=== PATIENT | female | born 1965 | race Caucasian/White ===

== ENCOUNTER 2019-12-18 10:18 | Outpatient (REF) | payer OTHER, SELFPAY ==
[2019-12-18 14:44] LABS: Creatinine Urine 89.81 mg/dL; Microalbum/Creatinine Ratio Ur 6.6 ug/mg cr
[2019-12-18 14:44] LABS: Alanine Aminotransferase 21 U/L (0-31); Albumin Level 4.2 g/dL (3.5-5.0); Alkaline Phosphatase 92 U/L (39-117); Anion Gap 14 (12-20); Aspartate Amino Transferase 22 U/L (5-31); Bilirubin Total 0.5 mg/dL (0.0-1.0); Blood Urea Nitrogen 11 mg/dL (9-16); Calcium 9.5 mg/dL (8.4-10.2); Carbon Dioxide 26 mmol/L (22-29); Chloride 104 mmol/L (96-108); Cholesterol 174 mg/dL; Estimated Glomerular Filt Rate > 60; Glucose Fasting 113 mg/dL (60-99); HDL Cholesterol 45 mg/dL; LDL Cholesterol Calculated 113 mg/dl; Potassium 4.2 mmol/l (3.3-5.1); Sodium 140 mmol/L (135-145); Total Protein 7.5 g/dL (6.5-8.0); Triglycerides 83 mg/dL
[2019-12-18 15:07] LABS: Estimated Average Glucose 137 mg/dL; Hemoglobin A1C 145.7027 umol/L; Hemoglobin A1c % 6.4 %; Vitamin B12 249 pg/mL (200-900)
== END 2019-12-18 10:19 | disposition home or self-care (01) ==
LOC: HO.10HDL 10:18
PROVIDERS: Visit Provider Nurse Practitioner Gerontology
DX: E11.65 Type 2 diabetes mellitus with hyperglycemia (principal); Z79.4 Long term (current) use of insulin
CPT/HCPCS: 80053; 80061; 82043; 82607; 83036

== ENCOUNTER 2020-03-23 10:42 | Outpatient (REF) | payer OTHER, SELFPAY ==
--- NOTE | 2020-03-23 | US_ITS ---
EXAMINATION: US PELVIS COMPLETE US TRANSVAGINAL CLINICAL INFORMATION: Abnormal uterine and vaginal bleeding. COMPARISON: Ultrasound pelvis 05/26/2016 TECHNIQUE: Transabdominal and transvaginal imaging of pelvis was performed. FINDINGS: On transabdominal ultrasound, the uterus is anteverted measuring 10.4 cm in length, 4.5 cm in AP and 5.3 cm in transverse dimension. The endometrial thickness is 0.2 cm. There is an IUD visualized within the endometrial canal approximately 0.7 cm from the fundus. There are several hypoechoic uterine lesions seen. 1. A 2.0 x 2.2 x 2.2 cm lesion in the right body of the uterus. Previously, it measured 1.6 x 2.1 x 1.5 cm. 2. A 0.7 x 0.9 x 0.9 cm lesion in the central fundus. Previously, it measured 0.7 x 0.7 x 0.6 cm. 3. A 1.3 x 1.1 x 1.5 cm lesion in the left anterior body of the uterus. Previously, it measured 1.7 x 1.6 x 1.4 cm. 4. A 0.9 x 0.8 x 1.0 cm lesion in the posterior fundus. It is new. 5. A 1.0 x 0.7 x 1.1 cm new lesion in the posterior body of the uterus, partially exophytic. There are small nabothians seen in the cervix. The right ovary measures 1.8 x 1.7 x 1.2 cm and volume 1.9 mL. Previously, it measured 1.4 x 1.7 x 1.7 cm and volume 2.0 mL. The left ovary measures 3.2 x 1.8 x 1.5 cm and volume 4.5 mL. Previously, it measured 1.5 x 2.2 x 0.9 cm and volume 1.5 mL. There is a small anechoic cyst measuring 1.4 x 1.2 x 1.4 cm. There is trace free fluid in the cul-de-sac. US/US pelvic complete IMPRESSION: Multiple small uterine fibroids. Two new fibroids seen. Small left ovarian cyst. The right ovary is unremarkable. Small nabothian cysts seen in the cervix.
== END 2020-03-23 10:43 | disposition home or self-care (01) ==
LOC: HO.US 10:42
PROVIDERS: PCP Registered Nurse; Visit Provider Registered Nurse
DX: R10.9 Unspecified abdominal pain (principal); N93.9 Abnormal uterine and vaginal bleeding, unspecified; R35.0 Frequency of micturition; R39.15 Urgency of urination
CPT/HCPCS: 76830; 76856

== ENCOUNTER 2020-03-24 08:40 | Outpatient (REF) | payer OTHER, SELFPAY ==
--- NOTE | 2020-03-24 | US_ITS ---
EXAMINATION: US ABDOMEN COMPLETE CLINICAL INFORMATION: Abdominal pain. COMPARISON: Ultrasound abdomen 12/07/2016. CT abdomen and pelvis 03/01/2012. TECHNIQUE: Real-time imaging of the abdominal viscera. FINDINGS: PANCREAS: The pancreas is normal size but appears heterogenous in texture. ABDOMINAL AORTA: The proximal, mid, and distal segments are normal in caliber. INFERIOR VENA CAVA: Visualized portions are normal. LIVER: There is increased echogenic liver. The liver is normal in size. The liver contour is normal. No focal hepatic lesion. There is no intrahepatic biliary duct dilatation seen. GALLBLADDER: Normal. The gallbladder is physiologically distended without evidence of stones, sludge, polyps, wall thickening or pericholecystic fluid. COMMON BILE DUCT: Normal in caliber measuring 0.7 cm in diameter. RIGHT KIDNEY: Normal. No hydronephrosis. No renal calculi or focal parenchymal lesions. The kidney measures 10.7 cm in maximum dimension. LEFT KIDNEY: Normal. No hydronephrosis. No renal calculi or focal parenchymal lesions. The kidney measures 9.8 cm in maximum dimension. SPLEEN: A small accessory splenule seen measuring 1.0 x 1.0 x 0.9 cm. A few scattered echogenic foci seen in the spleen. The spleen measures 8.4 cm in maximum dimension. FREE FLUID: None. US/US abdomen complete IMPRESSION: 1. Diffusely echogenic liver. No focal lesion seen. 2. Heterogeneous pancreatic echotexture without enlargement. Correlate with serum amylase and lipase. 3. Nonspecific scattered tiny foci in the spleen, question calcifications.
== END 2020-03-24 08:41 | disposition home or self-care (01) ==
LOC: HO.US 08:40
PROVIDERS: Visit Provider Registered Nurse
DX: N93.9 Abnormal uterine and vaginal bleeding, unspecified (principal)
CPT/HCPCS: 76700

== ENCOUNTER → 2020-05-05 07:28 | Outpatient (BNVA) | payer OTHER, SELFPAY | PROVIDERS: PCP Registered Nurse; Visit Provider Nurse Practitioner Gerontology | DX: E11.9 Type 2 diabetes mellitus without complications (principal); E78.5 Hyperlipidemia, unspecified; E04.9 Nontoxic goiter, unspecified; Z79.4 Long term (current) use of insulin; Z71.3 Dietary counseling and surveillance | CPT/HCPCS: 82947; 99212 ==

== ENCOUNTER 2020-05-13 11:25 | Outpatient (REF) | payer OTHER, SELFPAY ==
--- NOTE | ~2020-05-13 | US_ITS ---
EXAMINATION: US THYROID CLINICAL INFORMATION: Nontoxic goiter unspecified. COMPARISON: None TECHNIQUE: Linear transducer grayscale and color Doppler examination with attention to the region of the thyroid. FINDINGS: SIZE: Measurements of the thyroid lobes and nodules are given in sagittal, anteroposterior and transverse dimensions, respectively. Right Thyroid Lobe: 3.4 x 1.7 x 1.6 cm, volume 5.0 mL. Parenchyma: The gland echotexture is homogeneous. Thyroid vascularity is normal. Left Thyroid Lobe: 4.2 x 1.8 x 1.6 cm, volume 6.5 mL. Parenchyma: The gland echotexture is homogeneous. Thyroid vascularity is normal. Isthmus: 0.4 cm in maximum AP dimension. Estimated total number of nodules greater than or equal to 1 cm: 0. Microfilmer nodules are described as follows: NODES: No lymphadenopathy is seen in the tissue surrounding the thyroid gland. US/US thyroid IMPRESSION: Normal-sized thyroid gland with no nodules seen at this time. ACR TI-RADS RECOMMENDATION REFERENCE: Ultrasound-guided fine-needle aspiration, followup ultrasound, no further follow up. * TR1 (0 point) and TR 2 (2 points): No FNA or follow up * TR3 (3 points): FNA if more than or equal to 2.5 cm in maximum dimension, follow up ultrasound in 1, 3 and 5 years if 1.5 to 2.4 cm in maximum dimension. * TR4 (4-6 points): FNA if more than or equal to 1.5 cm in maximum dimension, follow up ultrasound in 1, 2, 3 and 5 years if 1 to 1.4 cm in maximum dimension. * TR5 (more than or equal to 7 points): FNA if more than or equal to 1 cm in maximum dimension, follow up ultrasound every year for 5 years if 0.5 to 0.9 cm in maximum dimension. * TR3, TR4 or TR5 nodules that are below the size threshold for follow up receive no follow up.
== END 2020-05-13 11:26 | disposition home or self-care (01) ==
LOC: HO.US 11:25
PROVIDERS: PCP Registered Nurse; Visit Provider Nurse Practitioner Gerontology
DX: E04.9 Nontoxic goiter, unspecified (principal)
CPT/HCPCS: 76536

== ENCOUNTER 2020-07-23 10:21 | Emergency (ER) | payer OTHER, SELFPAY ==
--- NOTE | ~2020-07-23 | CT_ITS ---
EXAMINATION: CT HEAD WITHOUT CONTRAST CLINICAL INFORMATION: Left-sided facial droop for 3 days. COMPARISON: CT brain noncontrast 10/03/2017 TECHNIQUE: Contiguous axial imaging was performed from the skull base to vertex without intravenous administration of contrast. Additional 2-D coronal and sagittal reformatted images are generated on the CT workstation and uploaded to PACS. This CT examination was performed using dose optimization techniques as appropriate, variously including the following: *Automated exposure control *Adjustment of mA and/or kV according to patient size (this includes techniques or standardized protocols for targeted exams where dose is matched to indication/reason for exam; i.e. extremities or head) *Use of iterative reconstruction technique DLP: 620 mGy-cm FINDINGS: There is no intracranial hemorrhage, hematoma, or extra-axial fluid collection. The ventricles are normal in size. There is no hydrocephalus, edema, or mass effect. The alexander-white matter differentiation appears symmetric. There is no visible acute territorial infarct or mass lesion. The calvarium appears intact. There is no pneumocephalus or orbital emphysema. The visualized sinuses and middle ears and mastoid air cells show no significant mucosal thickening. There are no air-fluid levels. CT/CT head/brain wo con IMPRESSION: No acute intracranial abnormality.
--- NOTE | ~2020-07-23 | MR_ITS ---
MRI OF THE BRAIN WITHOUT IV CONTRAST INDICATION: Left sided facial droop spares forehead. COMPARISON: Head CT 07/23/2020. TECHNIQUE: Multiplanar multisequence MR imaging of the brain was obtained without IV contrast. FINDINGS: There is no hydrocephalus, extra-axial surface collection, or herniation. Mild chronic microangiopathy. The major flow voids at the skull base are preserved. There is no acute infarct on diffusion-weighted imaging. There is no intracranial hemorrhage on the gradient recalled echo acquisition. The midline structures are normal. The cerebellar tonsils are normally positioned. The cerebellum and brainstem are normal. The craniocervical junction is normal. Osseous marrow signal intensity is homogenous. The visualized soft tissues are unremarkable. MR/MR head/brain wo con IMPRESSION: - No acute intracranial findings. No acute infarcts. - Mild chronic microangiopathy.
[2020-07-23 10:30] VITALS: BP 146/76; PULSE 94; RESP 18; TEMP 36.3; O2SAT 99
--- NOTE | 2020-07-23 10:38 | ECG_ITS ---
Test Reason : NEURO SYMPTOMS Blood Pressure : / mmHG Vent. Rate : 085 BPM Atrial Rate : 085 BPM P-R Int : 148 ms QRS Dur : 080 ms QT Int : 368 ms P-R-T Axes : 053 069 036 degrees QTc Int : 437 ms Normal sinus rhythm Normal ECG No significant changes when compared with the previous EKG of 29 july 2013 Referred By: Yumi Barrera Electronically Signed By:JESSICA FAUSTIN
--- NOTE | 2020-07-23 10:38 | ED.NEUROSD ---
HPI - Neuro Symptoms/Deficit General Chief Complaint: Neuro Symptoms/Deficit Stated Complaint: facial droop Time Seen by Provider: 07/23/20 10:24 Source: patient and automotive parts interpreter Mode of arrival: ambulatory Limitations: no limitations History of Present Illness HPI Narrative: 54 yo female with recental dental infection on cipro, DM, goiter here with L sided facial droop since Monday - saw PCP yesterday started on linder's prednisone for linder's palsy, came here today to make sure this is linder's palsy Onset (ago): day(s) (4) Timing confirmed by: family member Location: left face History of same: No Severity: moderate Quality: weak, numb and tingling Relieving factors: none Exacerbating factors: other (L upper canine on abx for possible dental infection has pain) Context: gradual onset On Anticoagulants: No Associated symptoms: denies other symptoms Treatments Prior to Arrival: other (prednisone) Related Data Home Medications Medication Instructions Recorded Confirmed acetaminophen 325 mg tablet 650 mg PO Q6H PRN 12/13/19 05/05/20 cholecalciferol (vitamin D3) 50 50 mcg PO DAILY 12/13/19 05/05/20 mcg (2,000 unit) tablet cyanocobalamin (vitamin B-12) 1,000 mcg PO DAILY 12/13/19 05/05/20 1,000 mcg tablet folic acid 1 mg tablet 1 mg PO DAILY 12/13/19 05/05/20 insulin needles (disposable) 30 X #1 12/13/19 05/05/20 3/4 lancets 28 gauge #100 ea 12/13/19 05/05/20 metformin 500 mg tablet 1,000 mg PO BID 12/13/19 05/05/20 naproxen 500 mg tablet 500 mg PO BID PRN 12/13/19 05/05/20 pen needle, diabetic 32 gauge x #50 ea 12/13/19 05/05/20 5/32 Previous Rx's Medication Instructions Recorded blood sugar diagnostic #100 ea 12/13/19 blood-glucose meter #1 ea 12/13/19 lancets 28 gauge #100 ea 12/13/19 atorvastatin 20 mg tablet 20 mg PO BEDTIME 30 Days #30 tab 05/05/20 insulin glargine 100 unit/mL (3 26 unit SUBCUT DAILY #15 ml 05/07/20 mL) subcutaneous pen dulaglutide 1.5 mg/0.5 mL 1.5 mg SUBCUT QWEEK 28 Days #2 ml 06/30/20 subcutaneous pen injector valacyclovir 1,000 mg PO BID 7 Days #14 tab 07/23/20 Allergies Allergy/AdvReac Type Severity Reaction Status Date / Time Percocet Allergy Mild Itching Uncoded 12/13/19 09:59 Review of Systems Review of Systems: Constitutional : No Weight loss, No Fever, No Chills, No Fatigue, No Malaise ENT/Mouth : No sore throat, No Rhinorrhea, pos dental pain Eyes: No Eye Pain, No Swelling, No Redness Cardiovascular : No Chest Pain, No SOB, No Dyspnea on Exertion, No Orthopnea, No Edema, No Palpitations Respiratory : No Cough, No Sputum, No Wheezing Gastrointestinal : No Nausea, No Vomiting, No Diarrhea, No Constipation, No abdominal Pain, No Hematochezia, No Melena Genitourinary : No Dysuria, No Urinary Frequency, No Hematuria, Musculoskeletal : No joint pain, No Myalgias, No Joint Swelling Skin : No Skin Lesions, No rash Neuro : pos Weakness, pos Numbness, No Dizziness, No Headache Psych : No Anxiety/Panic, No Depression Heme/Lymph: No Bruising, No Bleeding,No Lymphadenopathy Endocrine : No Polyuria, No Polydipsia All other systems reviewed and are negative [facility] Past Medical History Attestation statement: The following information was validated with the patient. Medical History Controlled diabetes mellitus without complication, with long-term current use of insulin Diabetes mellitus with hyperglycemia Hyperlipidemia LDL goal <100 Urinary incontinence Uterine fibroid Surgical History History of pubovaginal sling Hx of appendectomy Family History Family History Father No problems noted. Mother Liver cancer Social History Social History Household Members: Children Household Members Other:: daughter Patient Tobacco Use Status: Never used Tobacco Use of substances other than those prescribed or required for medical reasons: No Advance Directives: Yes Advance Directives Information Provided: Yes Advance Directives on File: No Physical Exam Vital Signs: Vital Signs: Last Vital Signs Temp 98.0 F 07/23/20 15:15 Pulse 84 07/23/20 15:15 Resp 16 07/23/20 15:15 BP 140/85 H 07/23/20 15:15 Pulse Ox 96 07/23/20 15:15 Body Mass Index 0.0 Appearance: Alert. Oriented X3. No acute distress. Eyes: Pupils equal, round and reactive to light. ENT: Pharynx normal. L upper tooth no fluctuance, no abscess, no swelling Neck: Normal inspection. Neck supple. CVS: Normal heart rate and rhythm. Pulses normal. Respiratory: No respiratory distress. Breath sounds normal. Abdomen: Soft and nontender. Skin: Skin warm and dry. Normal skin color. Normal skin turgor. Extremities: No lower extremity edema. No calf ttp Neuro: Oriented X 3. L lower facial droop mild eye involvement, sparing of forehead, reports tingling sensation, + intermittent drooling Course Course Course Narrative: L sided facial droop but central sparing concerning for bells palsy but given the fact that she has forehead sparing and its been 3 days already will order MRI to rule out stroke negative MRI will add on valacyclovir in case of viral component MDM - Neuro Symptoms/Deficit MDM Narrative Medical decision making narrative: 54 yo female here with 4 days of L facial droop/numbness but forehead sparing started with possible dental infection for which she is on antibiotics - no evidence of deeper space infection or abscess, already on steroids for linder's palsy at this time will obtain CT head for stroke, denies herpes hx of hx of cold sores doubt anti virals helpful at this time. ECG Data Attestation: I personally reviewed and interpreted this ECG as follows: ECG interpretation date: 07/23/20 ECG interpretation time: 11:06 Interpretation: Rate: 85 Rhythm: NSR [place]: normal Normal P waves. Normal LILLY. Normal QRS complex. ST T wave : normal , no ADILIA qTC: normal prior studies: no acute ischemia The study has been interpreted contemporaneously by me. . Discharge Plan Discharge Clinical Impression: Linder's palsy Patient Disposition: Home, Self-Care Instructions: Linder Palsy (ED) Additional Instructions: return to ED for any worsening symptoms or concerns Prescriptions: New valacyclovir 1 gram tablet 1,000 mg PO BID 7 Days Qty: 14 RF: 0 No Action insulin glargine [Lantus Solostar U-100 Insulin] 100 unit/mL (3 mL) insulin pen 26 unit subcut DAILY Qty: 15 RF: 2 dulaglutide 1.5 mg/0.5 mL pen injector 1.5 mg subcut QWEEK 28 Days Qty: 2 RF: 1 metformin 500 mg tablet 1,000 mg PO BID RF: 0 acetaminophen 325 mg tablet 650 mg PO Q6H PRNRF: 0 (DME) pen needle, diabetic 32 gauge x 5/32 needle See Rx Instructions ea .ROUTE DAILY Qty: 50 RF: 0 cholecalciferol (vitamin D3) 50 mcg (2,000 unit) tablet 50 mcg PO DAILY RF: 0 cyanocobalamin (vitamin B-12) 1,000 mcg tablet 1,000 mcg PO DAILY RF: 0 naproxen 500 mg tablet 500 mg PO BID PRNRF: 0 folic acid 1 mg tablet 1 mg PO DAILY RF: 0 (DME) lancets [FreeStyle Lancets] 28 gauge misc See Rx Instructions .ROUTE .MEDSUPPLY Qty: 100 RF: 0 (DME) insulin needles (disposable) 30 X 3/4 needle See Rx Instructions .ROUTE .MEDSUPPLY Qty: 1 RF: 0 (DME) blood-glucose meter [FreeStyle Lite Meter] Kit See Rx Instructions .ROUTE .MEDSUPPLY Qty: 1 RF: 0 (DME) FreeStyle Lite Strips Strip See Rx Instructions .ROUTE .MEDSUPPLY Qty: 100 RF: 11 (DME) lancets [FreeStyle Lancets] 28 gauge misc See Rx Instructions .ROUTE .MEDSUPPLY Qty: 100 RF: 11 atorvastatin 20 mg tablet 20 mg PO BEDTIME 30 Days Qty: 30 RF: 6 Interventions: ED Discharge Assessment Last Done: 07/23/20 16:12 Discharge Date/Time: 07/23/20 16:14 Print Language: [place]
--- NOTE | 2020-07-23 10:41 | PC.NURSE ---
PT ALERT AND ORIENTED, SKIN APPROPRIATE FOR ETHNICITY. PT REPORTS ON MONDAY STARTED WITH SOME TINGLING/NUMBNESS ON THE LEFT SIDE OF HER FACE, HAD A ROUTINE CHECK UP YESTERDAY WITH PCP AND NOTICED THAT HER LEFT LIP IS DROPPING AND HER LEFT EYE NOT SHUTTING ALL THE WAY AND TEARING A LOT. WAS STARTED ON PREDISPOSE FOR RIOS'S PALSY. HAND GRASP STRONG AND EQUAL NO VISIBLE DRIPT AT THIS TIME. IS HAVING A WHOLE HEAD HEADACHE, PAIN AT 7/10
--- NOTE | 2020-07-23 13:30 | PC.NURSE ---
mri screening form done with the assistance of the seismic interpreter.
[2020-07-23 13:56] VITALS: BP 148/81; PULSE 83; RESP 18; TEMP 36.6; O2SAT 96
--- NOTE | 2020-07-23 14:16 | PC.NURSE ---
pt off unit to MRI
[2020-07-23 15:15] VITALS: BP 140/85; PULSE 84; RESP 16; TEMP 36.7; O2SAT 96
== END 2020-07-23 16:14 | disposition home or self-care (01) ==
PROVIDERS: Emergency Provider Emergency Medicine; PCP Registered Nurse
DX: G51.0 Bell's palsy (principal); Z79.899 Other long term (current) drug therapy
CPT/HCPCS: 70450; 70551; 93005; 99284

== ENCOUNTER → 2020-12-02 07:24 | Outpatient (BNVA) | payer OTHER, SELFPAY | PROVIDERS: PCP Family Medicine; Visit Provider Nurse Practitioner Gerontology | DX: E11.9 Type 2 diabetes mellitus without complications (principal); E55.9 Vitamin D deficiency, unspecified; E03.9 Hypothyroidism, unspecified; E78.5 Hyperlipidemia, unspecified; Z79.4 Long term (current) use of insulin | CPT/HCPCS: 82947; 99212 ==

== ENCOUNTER 2020-12-02 08:10 | Outpatient (REF) | payer OTHER, SELFPAY ==
[2020-12-02 10:30] LABS: Alanine Aminotransferase 20 U/L (0-31); Albumin Level 4.2 g/dL (3.5-5.0); Alkaline Phosphatase 112 U/L (39-117); Anion Gap 12 (12-20); Aspartate Amino Transferase 18 U/L (5-31); Bilirubin Total 0.3 mg/dL (0.0-1.0); Blood Urea Nitrogen 10 mg/dL (9-16); Calcium 9.8 mg/dL (8.4-10.2); Carbon Dioxide 27 mmol/L (22-29); Chloride 104 mmol/L (96-108); Cholesterol 185 mg/dL; Estimated Glomerular Filt Rate > 60; Glucose Fasting 158 mg/dL (60-99); HDL Cholesterol 46 mg/dL; LDL Cholesterol Calculated 115 mg/dl; Potassium 4.1 mmol/L (3.3-5.1); Sodium 139 mmol/L (135-145); Total Protein 7.6 g/dL (6.5-8.0); Triglycerides 123 mg/dL
[2020-12-02 10:52] LABS: Creatinine Urine 109.54 mg/dL
[2020-12-02 10:54] LABS: Thyroid Stimulating Hormone 34.18 uIU/mL (0.32-4.0); Vitamin D 25-OH Total 32.1 ng/mL (>30)
== END 2020-12-02 08:11 | disposition home or self-care (01) ==
LOC: HO.10HDL 08:10
PROVIDERS: Visit Provider Nurse Practitioner Gerontology
DX: E11.9 Type 2 diabetes mellitus without complications (principal); Z79.4 Long term (current) use of insulin; E55.9 Vitamin D deficiency, unspecified
CPT/HCPCS: 36415; 80053; 80061; 82043; 82306; 84439; 84443

== ENCOUNTER 2021-02-11 08:43 | Outpatient (REF) | payer OTHER, SELFPAY ==
--- NOTE | ~2021-02-11 | MM_ITS ---
EXAMINATION: MM SCREENING DIGITAL BREAST TOMOSYNTHESIS, BILATERAL CLINICAL INFORMATION: Screening. Asymptomatic. The lifetime risk of breast cancer based on the Tyrer-Cuzick Model is 13.9%. COMPARISON: Mammography: 12/02/2016 and studies dating back to 09/10/2010. TECHNIQUE: Digital breast tomosynthesis was performed in both the craniocaudal and mediolateral oblique views along with computer-aided detection (CAD). Synthesized 2D images are generated from the tomosynthesis. FINDINGS: The breasts are extremely dense, which lowers the sensitivity of mammography (ACR BI-RADS breast composition Category d). There is a stable parenchymal pattern within the right breast with no new abnormal dominant mass or suspicious grouping of microcalcifications. Within the anterior lateral aspect of the left breast, there is a well-circumscribed, lobular density measuring approximately 8 x 6 x 8 mm in size for which ultrasound is recommended. MM/MM tomosynthesis screening BI IMPRESSION: Left breast density for further evaluation with ultrasound. ASSESSMENT: BI-RADS 0: Incomplete - Need Additional Imaging Evaluation RECOMMENDATION: Targeted ultrasound evaluation of the left breast. Radiology department staff will contact the patient for additional imaging. This patient's information was entered into a reminder system with a target due date for their next mammogram.
== END 2021-02-11 08:44 | disposition home or self-care (01) ==
LOC: HO.MAMMO 08:43
PROVIDERS: Visit Provider Family Medicine
DX: Z12.31 Encounter for screening mammogram for malignant neoplasm of breast (principal)
CPT/HCPCS: 77063; 77067

== ENCOUNTER 2021-02-18 08:49 | Outpatient (REF) | payer OTHER, SELFPAY ==
--- NOTE | ~2021-02-18 | US_ITS ---
EXAMINATION: US DIAGNOSTIC ULTRASOUND BREAST, LEFT CLINICAL INFORMATION: Density 1 o'clock position on mammography.. COMPARISON: Mammography of 02/11/2021. TECHNIQUE: Ultrasound of the breast is performed with real-time alexander scale imaging and color Doppler. FINDINGS: At approximately the 1 o'clock position, 3 cm from the nipple, there is a slightly irregularly marginated hypoechoic structure measuring 5 x 6 mm in size. There is some mild distal through-sound enhancement without definite distal sound shadowing. No internal vascularity is seen. Due to the irregular margins, I cannot show that this represents a simple cyst and ultrasound-guided core biopsy is recommended. Results are discussed with the patient at time of visit. Referring provider's office notified of above recommendation by [facility]. US/US breast LT limited IMPRESSION: Irregularly marginated hypoechoic mass without distal sound shadowing 1 o'clock position left breast for which ultrasound-guided core biopsy is recommended. ASSESSMENT: BI-RADS 4: Suspicious (subcategory 4A: Low suspicion for malignancy) RECOMMENDATION: Ultrasound-guided core biopsy left breast.
== END 2021-02-18 08:50 | disposition home or self-care (01) ==
LOC: HO.MAMMO 08:49
PROVIDERS: Visit Provider Family Medicine
DX: R92.2 Inconclusive mammogram (principal)
CPT/HCPCS: 76642

== ENCOUNTER 2021-03-09 09:39 | Outpatient (REF) | payer OTHER, SELFPAY ==
--- NOTE | ~2021-03-09 | MM_ITS ---
EXAMINATION: US ULTRASOUND-GUIDED CYST ASPIRATION BREAST, LEFT MM DIAGNOSTIC DIGITAL BREAST TOMOSYNTHESIS, LEFT CLINICAL INFORMATION: Cyst versus hypoechoic nodule anterior 1:00 left breast under 1 cm. Aspiration recommended to confirm cyst. If lesion will not aspirate, then core biopsy. COMPARISON: Mammography 02/11/2021, targeted left breast ultrasound 02/18/2021. FINDINGS: Proper informed consent is obtained from the patient after discussion of the procedure, potential risks and complications, and alternatives. Patient was given an opportunity for questions. The patient appeared to understand. The patient consented to the procedure and signed the consent form. LOCATION: Anterior 1:00 left breast GUIDANCE: Ultrasound-guided; aseptic technique. LESION: Probable cyst under 1 cm. APPROACH: Oblique lateral medial ANESTHESIA: 6 mL carbonated 1% lidocaine NEEDLE: 20-gauge spinal. ASPIRATION: The cyst resolved on puncture. There is no residual nodule. No specimen. DIAGNOSTIC DIGITAL BREAST TOMOSYNTHESIS, LEFT Digital breast tomosynthesis is performed. 2D images are generated from the tomosynthesis. The following views are obtained: CC and MLO FINDINGS: The breasts are heterogeneously dense, which may obscure small masses (ACR BI-RADS breast composition Category c). The nodule anterior left breast noted on recent exam is no longer demonstrated consistent with the aspirated cyst. Results called to medical record librarian (Goldie) for Dr. Hector on 03/09/2021. MM/MM tomosynthesis diagnostic LT IMPRESSION: 1. Hypoechoic nodule left breast resolved upon puncture consistent with incidental cyst. 2. Nodule no longer demonstrated on postprocedure mammography. ASSESSMENT: BI-RADS 2: Benign RECOMMENDATION: Routine annual mammography screening. This patient's information was entered into a reminder system with a target due date for their next mammogram.
== END 2021-03-09 09:40 | disposition home or self-care (01) ==
LOC: HO.MAMMO 09:39
PROVIDERS: Visit Provider Surgery
DX: R92.8 Other abnormal and inconclusive findings on diagnostic imaging of breast (principal); N63.20 Unspecified lump in the left breast, unspecified quadrant
CPT/HCPCS: 19000; 77061; 77065; 99202

== ENCOUNTER → 2021-04-16 09:47 | Outpatient (BNVA) | payer OTHER, SELFPAY | PROVIDERS: PCP Family Medicine; Referring Provider Family Medicine; Visit Provider Nurse Practitioner Family | DX: Z12.11 Encounter for screening for malignant neoplasm of colon (principal); E11.9 Type 2 diabetes mellitus without complications; Z79.4 Long term (current) use of insulin | CPT/HCPCS: 99202 ==

== ENCOUNTER 2021-06-07 17:49 | Emergency (ER) | payer OTHER, SELFPAY ==
--- NOTE | ~2021-06-07 | XR_ITS ---
Examination: XR knee LT 3V, XR hip LT min 2V, XR shoulder LT min 2V, XR lumbar spine 2-3V Indication: FALL, PAIN Comparison: 07/11/2018 shoulder films Technique: 3 views of the left shoulder, 3 views the lumbosacral spine, particularly pelvis with coned frontal and lateral views of the left hip and 4 views of the left knee Findings: Left shoulder: Humeral head is well-seated in the glenoid fossa. I do not appreciate any acute fracture or dislocation. Acromioclavicular joint demonstrates minimal degenerative changes. Visualized left chest and ribs unremarkable. Lumbar sacral spine: Bones are normal anatomic alignment with no acute fracture or spondylolisthesis. Mild degenerative changes seen in the posterior elements of the lower lumbar spine. Unremarkable bowel gas pattern. Incidental IUD noted. Pelvis/left hip: Degenerative changes are seen within the left hip with prominent marginal osteophytosis. No acute fracture or dislocation. Unremarkable bowel gas pattern. IUD noted. Left knee: No significant joint effusion. Bones are normal anatomic alignment with no acute fracture or dislocation. Mild degenerative changes are seen with small osteophyte formation in the medial and lateral compartments. XR/XR knee LT 3V Impression: Chronic appearing and degenerative bony changes but no acute fracture or dislocation noted.
--- NOTE | ~2021-06-07 | XR_ITS ---
Examination: XR knee LT 3V, XR hip LT min 2V, XR shoulder LT min 2V, XR lumbar spine 2-3V Indication: FALL, PAIN Comparison: 07/11/2018 shoulder films Technique: 3 views of the left shoulder, 3 views the lumbosacral spine, particularly pelvis with coned frontal and lateral views of the left hip and 4 views of the left knee Findings: Left shoulder: Humeral head is well-seated in the glenoid fossa. I do not appreciate any acute fracture or dislocation. Acromioclavicular joint demonstrates minimal degenerative changes. Visualized left chest and ribs unremarkable. Lumbar sacral spine: Bones are normal anatomic alignment with no acute fracture or spondylolisthesis. Mild degenerative changes seen in the posterior elements of the lower lumbar spine. Unremarkable bowel gas pattern. Incidental IUD noted. Pelvis/left hip: Degenerative changes are seen within the left hip with prominent marginal osteophytosis. No acute fracture or dislocation. Unremarkable bowel gas pattern. IUD noted. Left knee: No significant joint effusion. Bones are normal anatomic alignment with no acute fracture or dislocation. Mild degenerative changes are seen with small osteophyte formation in the medial and lateral compartments. XR/XR shoulder LT min 2V Impression: Chronic appearing and degenerative bony changes but no acute fracture or dislocation noted.
--- NOTE | ~2021-06-07 | XR_ITS ---
Examination: XR knee LT 3V, XR hip LT min 2V, XR shoulder LT min 2V, XR lumbar spine 2-3V Indication: FALL, PAIN Comparison: 07/11/2018 shoulder films Technique: 3 views of the left shoulder, 3 views the lumbosacral spine, particularly pelvis with coned frontal and lateral views of the left hip and 4 views of the left knee Findings: Left shoulder: Humeral head is well-seated in the glenoid fossa. I do not appreciate any acute fracture or dislocation. Acromioclavicular joint demonstrates minimal degenerative changes. Visualized left chest and ribs unremarkable. Lumbar sacral spine: Bones are normal anatomic alignment with no acute fracture or spondylolisthesis. Mild degenerative changes seen in the posterior elements of the lower lumbar spine. Unremarkable bowel gas pattern. Incidental IUD noted. Pelvis/left hip: Degenerative changes are seen within the left hip with prominent marginal osteophytosis. No acute fracture or dislocation. Unremarkable bowel gas pattern. IUD noted. Left knee: No significant joint effusion. Bones are normal anatomic alignment with no acute fracture or dislocation. Mild degenerative changes are seen with small osteophyte formation in the medial and lateral compartments. XR/XR hip LT min 2V Impression: Chronic appearing and degenerative bony changes but no acute fracture or dislocation noted.
--- NOTE | ~2021-06-07 | XR_ITS ---
Examination: XR knee LT 3V, XR hip LT min 2V, XR shoulder LT min 2V, XR lumbar spine 2-3V Indication: FALL, PAIN Comparison: 07/11/2018 shoulder films Technique: 3 views of the left shoulder, 3 views the lumbosacral spine, particularly pelvis with coned frontal and lateral views of the left hip and 4 views of the left knee Findings: Left shoulder: Humeral head is well-seated in the glenoid fossa. I do not appreciate any acute fracture or dislocation. Acromioclavicular joint demonstrates minimal degenerative changes. Visualized left chest and ribs unremarkable. Lumbar sacral spine: Bones are normal anatomic alignment with no acute fracture or spondylolisthesis. Mild degenerative changes seen in the posterior elements of the lower lumbar spine. Unremarkable bowel gas pattern. Incidental IUD noted. Pelvis/left hip: Degenerative changes are seen within the left hip with prominent marginal osteophytosis. No acute fracture or dislocation. Unremarkable bowel gas pattern. IUD noted. Left knee: No significant joint effusion. Bones are normal anatomic alignment with no acute fracture or dislocation. Mild degenerative changes are seen with small osteophyte formation in the medial and lateral compartments. XR/XR lumbar spine 2-3V Impression: Chronic appearing and degenerative bony changes but no acute fracture or dislocation noted.
[2021-06-07 19:42] VITALS: BP 167/86; PULSE 89; RESP 16; TEMP 36.8; O2SAT 100; BMI 29.9
--- NOTE | 2021-06-07 20:02 | PC.NURSE ---
patient brought into room via wheelchair from triage by daughter . patient requests use of daughter as medical anthropologist .
[2021-06-07] MEDS: traMADoL HCL 50 MG TABLET PO (20:56)
--- NOTE | 2021-06-07 21:26 | ED.FALL ---
HPI - Fall General Chief Complaint: Fall Stated Complaint: fell down left sided pain Time Seen by Provider: 06/07/21 20:40 Source: patient Mode of arrival: ambulatory Limitations: no limitations History of Present Illness HPI Narrative: Patient was at work slip down while going downstairs about 6 - 7 steps complaining of pain left side especially in the shoulder lower back left knee able to ambulate but has increased pain no deformity noticed no head injury no loss of consciousness no prior knee problems Related Data Home Medications Medication Instructions Recorded Confirmed acetaminophen 325 mg tablet 650 mg PO Q6H PRN 12/13/19 12/02/20 cholecalciferol (vitamin D3) 50 50 mcg PO DAILY 12/13/19 03/09/21 mcg (2,000 unit) tablet cyanocobalamin (vitamin B-12) 1,000 mcg PO DAILY 12/13/19 03/09/21 1,000 mcg tablet folic acid 1 mg tablet 1 mg PO DAILY 12/13/19 03/09/21 insulin needles (disposable) 30 X #1 12/13/19 03/09/21 3/4 lancets 28 gauge (FreeStyle #100 ea 12/13/19 12/02/20 Lancets) metformin 500 mg tablet 1,000 mg PO BID 12/13/19 03/09/21 naproxen 500 mg tablet 500 mg PO BID PRN 12/13/19 03/09/21 pen needle, diabetic 32 gauge x #50 ea 12/13/19 03/09/21 Previous Rx's Medication Instructions Recorded blood sugar diagnostic (FreeStyle #100 ea 12/13/19 Lite Strips) blood-glucose meter (FreeStyle #1 ea 12/13/19 Lite Meter) lancets 28 gauge (FreeStyle #100 ea 12/13/19 Lancets) atorvastatin 40 mg tablet 40 mg PO BEDTIME #30 tab 12/02/20 dulaglutide 1.5 mg/0.5 mL 1.5 mg (0.5 mL) SUBCUT QWEEK #2 ml 12/02/20 subcutaneous pen injector (Trulicity) flash glucose sensor (FreeStyle #2 ea 12/02/20 Humera 14 Day Sensor) insulin glargine 100 unit/mL (3 26 unit (0.26 mL) SUBCUT DAILY #15 12/02/20 mL) subcutaneous pen (Lantus ml Solostar U-100 Insulin) levothyroxine 125 mcg tablet 125 mcg PO DAILY #30 tab 12/02/20 bisacodyl 5 mg tablet,delayed 10 mg PO ONCE 1 Days #2 tab 04/16/21 release (Dulcolax (bisacodyl)) polyethylene glycol 3350 17 238 g PO ONCE #238 g 04/16/21 gram/dose oral powder (Miralax) tramadol 50 mg tablet 50 mg PO Q6H PRN #20 tab 06/07/21 Allergies Allergy/AdvReac Type Severity Reaction Status Date / Time Percocet Allergy Mild Itching Uncoded 03/09/21 08:44 Review of Systems Review of Systems: Yes all other systems are reviewed and are negative PMFSH Past Medical History Medical History Controlled diabetes mellitus without complication, with long-term current use of insulin Diabetes mellitus with hyperglycemia Hyperlipidemia LDL goal <100 Hypothyroidism Urinary incontinence Uterine fibroid Vitamin D deficiency Surgical History History of pubovaginal sling Hx of appendectomy Family History Family History Father No problems noted. Mother Liver cancer Sister Skin cancer Social History Social History Household Members: Children Household Members Other:: daughter Alcohol intake: never Patient Tobacco Use Status: Never used Tobacco Advance Directives: No Patient : No Physical Exam Vital Signs: Vital Signs: Last Vital Signs Temp 98.3 F 06/07/21 19:42 Pulse 89 06/07/21 19:42 Resp 16 06/07/21 19:42 BP 167/86 H 06/07/21 19:42 Pulse Ox 100 06/07/21 19:42 BMI result Body Mass Index 29.9 Appearance: Alert. Oriented X3. No acute distress. Eyes: PERRLA, HEENT: Pharynx normal. Oral Mucosa moist, atraumatic normocephalic Neck: Normal inspection. Neck supple. CVS: Normal heart rate and rhythm. Pulses normal. Respiratory: No respiratory distress. Equal air entry bilateral, Abdomen: Soft and nontender. Bowel sounds are present, no mass palpable, no CVA tenderness Skin: Skin warm and dry. Normal skin color. Normal skin turgor. Extremities: No lower extremity edema. No calf tenderness soft tissue tenderness left shoulder and lower back no focal bony tenderness or deformity Knee: Slight soft tissue swelling no significant joint effusion good range of movement diffuse tenderness around the knee Neuro: Oriented X 3. No motor deficit. No sensory deficit.No cerebellar signs , cranial nerves II-XII intact MDM - Fall MDM Narrative Medical decision making narrative: Patient with contusion mostly to the left knee left shoulder lower back x-rays negative for any acute fracture patient able to ambulate knee immobilizer was applied to the left knee and given crutches given pain medication advised to follow up with PCP/orthopedic if not better Discharge Plan Discharge Clinical Impression: Knee contusion Patient Disposition: Home, Self-Care Instructions: Knee Sprain (ED) Additional Instructions: Use crutches for ambulation and wear splint for support Tramadol for pain Follow with PCP/Orthopedics if not better in 2 weeks Prescriptions: New tramadol 50 mg tablet 50 mg PO Q6H PRN (Reason: pain) Qty: 20 0RF No Action metformin 500 mg tablet 1,000 mg PO BID 0RF acetaminophen 325 mg tablet 650 mg PO Q6H PRN0RF (DME) pen needle, diabetic 32 gauge x /32 needle See Rx Instructions ea .ROUTE DAILY Qty: 50 0RF Rx Instructions: As directed cholecalciferol (vitamin D3) 50 mcg (2,000 unit) tablet 50 mcg PO DAILY 0RF cyanocobalamin (vitamin B-12) 1,000 mcg tablet 1,000 mcg PO DAILY 0RF naproxen 500 mg tablet 500 mg PO BID PRN0RF folic acid 1 mg tablet 1 mg PO DAILY 0RF (DME) lancets [FreeStyle Lancets] 28 gauge misc See Rx Instructions .ROUTE .MEDSUPPLY Qty: 100 0RF Rx Instructions: As directed (DME) insulin needles (disposable) 30 X 3/4 needle See Rx Instructions .ROUTE .MEDSUPPLY Qty: 1 0RF Rx Instructions: As directed (DME) blood-glucose meter [FreeStyle Lite Meter] Kit See Rx Instructions .ROUTE .MEDSUPPLY Qty: 1 0RF Rx Instructions: As directed (DME) FreeStyle Lite Strips Strip See Rx Instructions .ROUTE .MEDSUPPLY Qty: 100 11RF Rx Instructions: As directed three times a day (DME) lancets [FreeStyle Lancets] 28 gauge misc See Rx Instructions .ROUTE .MEDSUPPLY Qty: 100 11RF Rx Instructions: As directed three times a day (DME) FreeStyle Humera 14 Day Sensor Kit See Rx Instructions .Route Qty: 2 11RF Rx Instructions: One every 2 weeks Lantus Solostar U-100 Insulin 100 unit/mL (3 mL) insulin pen 26 unit subcut DAILY Qty: 15 6RF Trulicity 1.5 mg/0.5 mL pen injector 1.5 mg subcut QWEEK Qty: 2 6RF levothyroxine 125 mcg tablet 125 mcg PO DAILY Qty: 30 11RF atorvastatin 40 mg tablet 40 mg PO BEDTIME Qty: 30 6RF bisacodyl [Dulcolax (bisacodyl)] 5 mg tablet,delayed release (DR/EC) 10 mg PO ONCE 1 Days Qty: 2 0RF Rx Instructions: take 2 tabs at noon the day before your colonoscopy polyethylene glycol 3350 [Miralax] 17 gram/dose powder 238 g PO ONCE Qty: 238 0RF Rx Instructions: As directed by gastroenterology department at [facility] Referrals: Theron Villar MD [Physician] - 2 weeks Interventions: ED Discharge Assessment Last Done: 06/07/21 21:41 Discharge Date/Time: 06/07/21 21:44
== END 2021-06-07 21:44 | disposition home or self-care (01) ==
PROVIDERS: Emergency Provider Internal Medicine; PCP Family Medicine
DX: S80.02XA Contusion of left knee, initial encounter (principal); W10.8XXA Fall (on) (from) other stairs and steps, initial encounter; M25.512 Pain in left shoulder; M54.50 Low back pain, unspecified; E11.9 Type 2 diabetes mellitus without complications; E78.5 Hyperlipidemia, unspecified; Z79.4 Long term (current) use of insulin; Z79.02 Long term (current) use of antithrombotics/antiplatelets; Y93.89 Activity, other specified; Y92.511 Restaurant or cafe as the place of occurrence of the external cause; Y99.0 Civilian activity done for income or pay
CPT/HCPCS: 72100; 73030; 73502; 73562; 99283; 99284

== ENCOUNTER 2021-08-03 07:36 | Outpatient (REF) | payer OTHER, SELFPAY ==
--- NOTE | ~2021-08-03 | XR_ITS ---
EXAMINATION: X-RAY BILATERAL AP STANDING VIEW OF BOTH KNEES X-RAY LEFT KNEE CLINICAL INFORMATION: Pain. COMPARISON: Radiograph of the left knee dated from 06/07/2021. TECHNIQUE: AP standing view of both knees. Lateral and sunrise views of the left knee. FINDINGS: No acute fracture or malalignment. No joint effusion in the left knee. Moderate joint space narrowing and subcortical sclerosis of the medial compartment of both knees. Small multi compartmental marginal osteophytes. No erosions. No chondrocalcinosis. Moderate space narrowing and subcortical sclerosis of the patellofemoral compartment of the left knee. Redemonstration of an ossific body adjacent to the medial femoral condyle the left knee, likely sequela of a chronic avulsion injury. XR/XR knee LT 2V IMPRESSION: 1. No acute fracture or malalignment. 2. Sequela of chronic avulsion injury adjacent to the medial femoral condyle to the left knee. 3. Moderate degenerative osteoarthritis of the medial compartment of both knees. 4. Moderate degenerative osteoarthritis of the patellofemoral compartment of the left knee.
--- NOTE | ~2021-08-03 | XR_ITS ---
EXAMINATION: X-RAY BILATERAL AP STANDING VIEW OF BOTH KNEES X-RAY LEFT KNEE CLINICAL INFORMATION: Pain. COMPARISON: Radiograph of the left knee dated from 06/07/2021. TECHNIQUE: AP standing view of both knees. Lateral and sunrise views of the left knee. FINDINGS: No acute fracture or malalignment. No joint effusion in the left knee. Moderate joint space narrowing and subcortical sclerosis of the medial compartment of both knees. Small multi compartmental marginal osteophytes. No erosions. No chondrocalcinosis. Moderate space narrowing and subcortical sclerosis of the patellofemoral compartment of the left knee. Redemonstration of an ossific body adjacent to the medial femoral condyle the left knee, likely sequela of a chronic avulsion injury. XR/XR knee standing BI IMPRESSION: 1. No acute fracture or malalignment. 2. Sequela of chronic avulsion injury adjacent to the medial femoral condyle to the left knee. 3. Moderate degenerative osteoarthritis of the medial compartment of both knees. 4. Moderate degenerative osteoarthritis of the patellofemoral compartment of the left knee.
== END 2021-08-03 07:37 | disposition home or self-care (01) ==
LOC: HO.HOSX 07:36
PROVIDERS: Visit Provider Physician Assistant
DX: M17.12 Unilateral primary osteoarthritis, left knee (principal)
CPT/HCPCS: 73560; 73565; 99202

== ENCOUNTER 2021-08-19 10:00 | Outpatient (RCR) | payer OTHER, SELFPAY | END 2021-10-04 13:56 | disposition home or self-care (01) | LOC: HO.PT 10:00 | PROVIDERS: PCP Family Medicine; Visit Provider Family Medicine | DX: M25.562 Pain in left knee (principal) | CPT/HCPCS: 97110; 97140; 97161; 97530 ==

== ENCOUNTER → 2021-09-16 12:55 | Outpatient (BNVA) | payer OTHER, SELFPAY | PROVIDERS: PCP Family Medicine; Visit Provider Obstetrics & Gynecology | DX: Z30.432 Encounter for removal of intrauterine contraceptive device (principal) | CPT/HCPCS: 58301; 81025 ==

== ENCOUNTER 2021-12-23 06:43 | Day surgery (SDC) | payer OTHER, SELFPAY ==
--- NOTE | 2021-12-22 13:26 | HO.ANESPROP2 ---
Documented by User: Sarah Henderson NP 12/22/21 13:26 HPI - Anesthesia Eval Consult details Narrative: 56yo F for Colonoscopy PMFSH Active Problems Active Problems: All Active Problems (Updated 09/16/21 @ 13:52 by Reddy Hankins MD) Encounter for IUD removal (Acute) Patellofemoral arthritis of left knee (Acute) Abnormal ultrasound of breast (Acute) Left breast mass (Acute) Hyperlipidemia LDL goal <100 (Acute) Hypothyroidism (Acute) Vitamin D deficiency (Acute) Diabetes mellitus with hyperglycemia (Acute) Controlled diabetes mellitus without complication, with long-term current use of insulin (Acute) Past Medical History Medical History Controlled diabetes mellitus without complication, with long-term current use of insulin Diabetes mellitus with hyperglycemia Hyperlipidemia LDL goal <100 Hypothyroidism Urinary incontinence Uterine fibroid Vitamin D deficiency Family History Family History Father No problems noted. Mother Liver cancer Sister Skin cancer Surgical History Surgical History History of pubovaginal sling Hx of appendectomy Social History Social History Household Members: Children Household Members Other:: daughter Alcohol intake: never Patient Tobacco Use Status: Never used Tobacco Current occupational status: employed Current occupation: [employer] Allergies Allergy/AdvReac Type Severity Reaction Status Date / Time Percocet Allergy Mild Itching Uncoded 12/17/21 13:31 Home Medications Medication Instructions Recorded Confirmed Last Taken Type acetaminophen 325 mg tablet 650 mg PO Q6H PRN Pain 12/13/19 12/17/21 Unknown History cholecalciferol (vitamin D3) 50 50 mcg PO DAILY 12/13/19 12/17/21 Unknown History mcg (2,000 unit) tablet cyanocobalamin (vitamin B-12) 1,000 mcg PO DAILY 12/13/19 12/17/21 Unknown History 1,000 mcg tablet folic acid 1 mg tablet 1 mg PO DAILY 12/13/19 12/17/21 Unknown History insulin needles (disposable) 30 X ##1 12/13/19 03/09/21 Unknown History 3/4 lancets 28 gauge (FreeStyle #100 ea 12/13/19 12/02/20 Unknown History Lancets) metformin 500 mg tablet 1,000 mg PO BID 12/13/19 12/17/21 Unknown History naproxen 500 mg tablet 500 mg PO BID PRN Pain 12/13/19 12/17/21 Unknown History pen needle, diabetic 32 gauge x #50 ea 12/13/19 03/09/21 Unknown History dulaglutide 3 mg/0.5 mL 3 mg subcut QWEEK 08/06/21 12/17/21 Unknown History subcutaneous pen injector (Trulicity) lisinopril 5 mg tablet 1 tab PO DAILY 12/17/21 12/17/21 Unknown History Exam Exam Date and Time: December 22, 2021 132 Assessment and Plan Assessment Anesthesia Assessment: Chart Reviewed Documented by User: Naif Ware MD 12/23/21 18:08 [facility] Past Medical History Medical History Controlled diabetes mellitus without complication, with long-term current use of insulin Diabetes mellitus with hyperglycemia Hyperlipidemia LDL goal <100 Hypothyroidism Urinary incontinence Uterine fibroid Vitamin D deficiency Functional capacity: independent ambulation Family History Family History Father No problems noted. Mother Liver cancer Sister Skin cancer Family history of problems with anesthesia: No Surgical History Surgical History History of pubovaginal sling Hx of appendectomy History of Problems with Anesthesia: No Social History Social History Household Members: Children Household Members Other:: daughter Alcohol intake: never Patient Tobacco Use Status: Never used Tobacco Current occupational status: employed Current occupation: [employer] Allergies Allergy/AdvReac Type Severity Reaction Status Date / Time Percocet Allergy Mild Itching Uncoded 12/17/21 13:31 Home Medications Medication Instructions Recorded Confirmed Last Taken Type acetaminophen 325 mg tablet 650 mg PO Q6H PRN Pain 12/13/19 12/17/21 Unknown History cholecalciferol (vitamin D3) 50 50 mcg PO DAILY 12/13/19 12/17/21 Unknown History mcg (2,000 unit) tablet cyanocobalamin (vitamin B-12) 1,000 mcg PO DAILY 12/13/19 12/17/21 Unknown History 1,000 mcg tablet folic acid 1 mg tablet 1 mg PO DAILY 12/13/19 12/17/21 Unknown History insulin needles (disposable) 30 X ##1 12/13/19 03/09/21 Unknown History 3/4 lancets 28 gauge (FreeStyle #100 ea 12/13/19 12/02/20 Unknown History Lancets) metformin 500 mg tablet 1,000 mg PO BID 12/13/19 12/17/21 Unknown History naproxen 500 mg tablet 500 mg PO BID PRN Pain 12/13/19 12/17/21 Unknown History pen needle, diabetic 32 gauge x #50 ea 12/13/19 03/09/21 Unknown History dulaglutide 3 mg/0.5 mL 3 mg subcut QWEEK 08/06/21 12/17/21 Unknown History subcutaneous pen injector (Trulicity) lisinopril 5 mg tablet 1 tab PO DAILY 12/17/21 12/17/21 Unknown History Exam Airway Mallampati Class: IV TM Dist: >3cm Neck ROM: Full Loose/Missing/Broken Teeth: Yes (Poor dentition overall , missing teeth ) Heart: S1,S2 Lungs: b/l breath sounds Assessment and Plan Assessment Anesthesia Assessment: Anesthesia Plan Discussed Final Anesthetic Review Family History of Problems with Anesthesia: No History of Problems with Anesthesia: No NPO: Yes ASA Class: II Final Preanesthetic Review: Meds/Allgs Chart Reviewed, Consent Obtained/Reviewed and Anes Risks/Benef Reviewed Patient Risk: Intermediate Procedure Risk: Intermediate Anesthetic Plan Anesthetic Plan: MAC: Disposition: Standard PACU
[2021-12-23 07:15] VITALS: BMI 31.1
[2021-12-23 07:29] VITALS: BP 160/98; PULSE 93; RESP 16; TEMP 36.7; O2SAT 99
[2021-12-23] MEDS: Lactated Ringers 1,000 ML 100 ML IVCONT (07:45)
[2021-12-23 07:46] LABS: Glucose, Whole Blood 160 mg/dL (60-115)
--- NOTE | 2021-12-23 07:46 | PC.NURSE ---
applied ice pack to right hand. iv gave patient a bruise.
--- NOTE | 2021-12-23 07:51 | MHC.SHP ---
Pre-Procedural Eval Section A Date of Service: 12/23/21 Section B Chief Complaint: screening Relevant Family History (Specify if Yes): No Relevant Social History: None Present Medications: see Short Stay Collaborative assessment Medical History: Significant History (Controlled diabetes mellitus without complication, with long-term current use of insulin Diabetes mellitus with hyperglycemia Hyperlipidemia LDL goal <100 Hypothyroidism Urinary incontinence Uterine fibroid Vitamin D deficiency) History of Previous Operations: Relevant previous surgery/procedure and date(s) (History of pubovaginal sling Hx of appendectomy) Allergies: Allergies Allergy/AdvReac Type Severity Reaction Status Date / Time Percocet Allergy Mild Itching Uncoded 12/17/21 13:31 Review of Systems Sugical H&P ROS: Negative: Constitution, Cardiovascular, Respiratory, Neurological, Psychiatric, Hem-Onc, Allergic/Immunologic, Gastrointestinal, Genitourinary, Musculoskeletal, Integumentary, Endocrine and Eyes/Ears/Nose/Throat Exam Surgical H&P Exam: Normal: HEENT, Normal: Heart, Normal: Lungs, Normal: Extremities, Normal: Abdomen, Normal: Skin and Normal: Neurological Plan Diagnosis/Plan: Unchanged I have reviewed the history and physical and performed a pertinent physical examination on my patient. No changes have occurred unless specified.
--- NOTE | 2021-12-23 08:31 | P.OP_ITS ---
Operative Note Operative Note Date of Service: 12/23/21 Narrative: Operative Information Procedure Description: Colonoscopy Indication: screening Anesthesia: MAC COLONOSCOPY Instrument: Olympus variable stiffness pediatric scope 190L Colonoscopy Monitoring: Vital signs and clinical assessment, continuous EKG monitoring, Pulse oximetry, Carbon Dioxide monitoring and blood pressure monitoring were done throughout the procedure. Colon withdrawal time was 6 minutes. Procedure: The patient was placed in the left lateral decubitis position and pre-procedure medications were administered. After a digital rectal examination of the ano-rectum, the video colonoscope was inserted into the rectum and advanced through the colon to the cecum/TI. The colonoscope was slowly withdrawn in a retrograde panoramic fashion and the colon mucosa was carefully examined including a retroflexed view of the rectum. Findings and interventions are described below. Procedure Difficulty: moderate Findings: Terminal Ileum-normal Cecum:normal Ascending Colon: normal Transverse Colon -normal Descending Colon:normal Sigmoid Colon: normal Rectum: Retroflexion with small internal hemorrhoids, grade I Anorectum - normal Colon preparation: Henderson Bowel Preparation Scale Right colon; 1-2 Transverse colon: 1 Left colon; 1-2 (0 = Unprepared colon segment with mucosa not seen due to solid stool that cannot be cleared. 1 = Portion of mucosa of the colon segment seen, but other areas of the colon segment not well seen due to staining, residual stool and/or opaque liquid. 2 = Minor amount of residual staining, small fragments of stool and/or opaque liquid, but mucosa of colon segment seen well. 3 = Entire mucosa of colon segment seen well with no residual staining, small fragments of stool or opaque liquid) Impression and Post Procedure Diagnosis: fair to poor prep internal hemorrhoids Plan: High fiber diet leaflet Avoid straining at stool, epsom salts and sitz bath, anusol supps or cream Repeat Colonoscopy in 1 year due to prep or earlier if clinically indicated Above findings were reviewed with the patient and relevant handouts were provided if indicated.
[2021-12-23 09:16] VITALS: BP 126/74; PULSE 87; RESP 18; TEMP 36.1; O2SAT 99
[2021-12-23 09:31] VITALS: BP 139/76; PULSE 78; RESP 18; TEMP 36.2; O2SAT 99
== END 2021-12-23 09:58 | disposition home or self-care (01) ==
PROVIDERS: PCP Family Medicine; Visit Provider Internal Medicine Gastroenterology
PROC: 0DJD8ZZ Inspection of Lower Intestinal Tract, Via Natural or Artificial Opening Endoscopic (ICD-10-PCS; CPT 45378; principal; 2021-12-23 08:10)
DX: Z12.11 Encounter for screening for malignant neoplasm of colon (principal); K64.0 First degree hemorrhoids; E78.5 Hyperlipidemia, unspecified; E03.9 Hypothyroidism, unspecified; E55.9 Vitamin D deficiency, unspecified; E11.65 Type 2 diabetes mellitus with hyperglycemia; Z79.4 Long term (current) use of insulin; Z79.899 Other long term (current) drug therapy; Z88.8 Allergy status to other drugs, medicaments and biological substances
CPT/HCPCS: 45378; 82947

== ENCOUNTER 2022-01-19 08:51 | Outpatient (REF) | payer OTHER, SELFPAY | END 2022-01-19 08:52 | disposition home or self-care (01) | LOC: HO.LAB 08:51 | PROVIDERS: PCP Family Medicine; Visit Provider Urology | DX: R32 Unspecified urinary incontinence (principal); N39.0 Urinary tract infection, site not specified; N95.2 Postmenopausal atrophic vaginitis; R10.9 Unspecified abdominal pain | CPT/HCPCS: 51701; 51798; 87086; 87088; 87186; 99202 ==

== ENCOUNTER 2022-02-17 07:45 | Outpatient (REF) | payer OTHER, SELFPAY | END 2022-02-17 07:46 | disposition home or self-care (01) | LOC: HO.MAMMO 07:45 | PROVIDERS: PCP Family Medicine; Visit Provider Family Medicine | DX: Z12.31 Encounter for screening mammogram for malignant neoplasm of breast (principal) | CPT/HCPCS: 77063; 77067 ==

== ENCOUNTER 2022-03-10 11:19 | Outpatient (REF) | payer OTHER, SELFPAY ==
--- NOTE | ~2022-03-10 | US_ITS ---
EXAMINATION: US RETROPERITONEAL LIMITED (RENAL ONLY) CLINICAL INFORMATION: Urinary tract infection, site not specified. COMPARISON: Ultrasound abdomen complete 03/24/2020 and 12/07/2016. CT abdomen and pelvis without contrast 03/01/2012. TECHNIQUE: Real-time imaging of the kidneys. FINDINGS: RIGHT KIDNEY: 10.4 x 4.5 x 5.5 cm (SAG x AP x TRV). The kidney is normal in size, contour, and echogenicity. Renal cortical thickness is normal. No calculi or focal parenchymal lesions. No hydronephrosis. There is mild pelvic fullness. LEFT KIDNEY: 10.1 x 5.5 x 4.4 cm (SAG x AP x TRV). The kidney is normal in size, contour, and echogenicity. Renal cortical thickness is normal. No calculi or focal parenchymal lesions. No hydronephrosis. US/US renal BI IMPRESSION: There is mild right renal pelvic fullness. No echogenic stones or hydronephrosis seen.
== END 2022-03-10 11:20 | disposition home or self-care (01) ==
LOC: HO.US 11:19
PROVIDERS: PCP Family Medicine; Visit Provider Urology
DX: N39.0 Urinary tract infection, site not specified (principal)
CPT/HCPCS: 76775

== ENCOUNTER 2022-04-13 13:22 | Outpatient (REF) | payer OTHER, SELFPAY | END 2022-04-13 13:23 | disposition home or self-care (01) | LOC: HO.LAB 13:22 | PROVIDERS: PCP Family Medicine; Visit Provider Urology | DX: N39.0 Urinary tract infection, site not specified (principal) | CPT/HCPCS: 51798; 87086; 87088; 87186; 99212 ==

== ENCOUNTER → 2022-05-20 10:14 | Outpatient (BNVA) | payer OTHER, SELFPAY | PROVIDERS: PCP Family Medicine; Visit Provider Urology | DX: N39.0 Urinary tract infection, site not specified (principal) | CPT/HCPCS: 52000; 99212 ==

== ENCOUNTER 2023-05-04 12:23 | Outpatient (REF) | payer OTHER, SELFPAY ==
[2023-05-04 14:11] LABS: Alanine Aminotransferase 119 U/L (0-31); Albumin Level 4.1 g/dL (3.5-5.0); Alkaline Phosphatase 130 U/L (39-117); Anion Gap 15 (12-20); Aspartate Amino Transferase 96 U/L (5-31); Bilirubin Total 0.5 mg/dL (0.0-1.0); Blood Urea Nitrogen 13 mg/dL (9-16); Calcium 9.4 mg/dL (8.4-10.2); Carbon Dioxide 24 mmol/L (22-29); Chloride 100 mmol/L (96-108); Cholesterol 201 mg/dL (<200); Estimated Glomerular Filt Rate > 60; Glucose Random 382 mg/dL (60-115); HDL Cholesterol 48 mg/dL (>40); LDL Cholesterol Calculated 121 mg/dL (<100); Sodium 135 mmol/L (135-145); Total Protein 8.3 g/dL (6.5-8.0); Triglycerides 161 mg/dL (<150)
[2023-05-04 14:22] LABS: Free T4 (Free Thyroxine) 0.77 ng/dL (0.71-1.85); Vitamin D 25-OH Total 30.6 ng/mL (>30)
[2023-05-04 14:35] LABS: Folate 14.7 ng/mL (> or = 4.0); Vitamin B12 1216 pg/mL (200-900)
[2023-05-04 16:59] LABS: Reflex LDLD? No
[2023-05-04 18:17] LABS: Creatinine Urine 109.36 mg/dL; Microalbum/Creatinine Ratio Ur 22.8 ug/mg cr (<30)
== END 2023-05-04 12:24 | disposition home or self-care (01) ==
LOC: HO.HHCL 12:23
PROVIDERS: Visit Provider Family Medicine
DX: E11.65 Type 2 diabetes mellitus with hyperglycemia (principal); E03.8 Other specified hypothyroidism; E06.3 Autoimmune thyroiditis; E55.9 Vitamin D deficiency, unspecified; Z79.4 Long term (current) use of insulin
CPT/HCPCS: 36415; 80053; 80061; 82043; 82306; 82570; 82607; 82746; 84439; 84443; 87086

== ENCOUNTER 2023-06-05 09:14 | Outpatient (REF) | payer OTHER, SELFPAY ==
--- NOTE | ~2023-06-05 | US_ITS ---
EXAMINATION: US COMPLETE ABDOMEN WITH LIVER ELASTOGRAPHY CLINICAL INFORMATION: Elevated liver function tests. COMPARISON: Abdominal ultrasound dated 03/24/2020. TECHNIQUE: Real-time imaging of the abdominal viscera. Noninvasive ultrasound liver fibrosis assessment is performed using Candis ElastPQ point quantification shear wave elastography (2D-SWE) with a C5-2 MHz transducer. Multiple elastography samples are obtained. FINDINGS: PANCREAS: Normal. The visualized pancreatic head and body are normal in appearance. The remainder of the pancreas is obscured from visualization by the overlying bowel gas. ABDOMINAL AORTA: The proximal, middle, and distal aortic segments are normal in caliber. INFERIOR VENA CAVA: Visualized portions are normal. LIVER: The liver demonstrates normal size, contour and generally echogenicity. No focal lesion or intrahepatic biliary duct dilatation. The right lobe measures 15.0 cm in length. The left lobe measures 11.0 cm in length. Portal flow is towards the liver (hepatopetal). Shear wave liver elastography median stiffness is 2.04 m/s (reference: normal median stiffness is 1.3 m/s or less). IQR/median stiffness to assess sampling precision is 0.05 (reference: good quality data set is IQR/median stiffness of 0.15 or less). GALLBLADDER: Normal. The gallbladder is physiologically distended without evidence of stones, sludge, polyps, wall thickening or pericholecystic fluid. COMMON BILE DUCT: Normal in caliber measuring 0.2 cm in diameter. RIGHT KIDNEY: Normal. No hydronephrosis. No renal calculi or focal parenchymal lesions. The kidney measures 10.4 cm in maximum dimension. LEFT KIDNEY: Normal. No hydronephrosis. No renal calculi or focal parenchymal lesions. The kidney measures 10.8 cm in maximum dimension. SPLEEN: Normal. The spleen measures 8.1 cm in maximum dimension. FREE FLUID: None. US/US abdomen comp w elastography IMPRESSION: 1. There is generalized increase in hepatic echotexture, consistent with fatty infiltration or hepatocellular disease. Please correlate clinically. No focal hepatic mass or intrahepatic biliary dilatation is seen. 2. Liver elastography: Measurements are suggestive of compensated advanced chronic liver disease but need further test for confirmation. REFERENCE: Society of Radiologists in Ultrasound Liver Stiffness Thresholds (2020): LIVER STIFFNESS THRESHOLDS: *Liver Stiffness equal or less than 1.3 m/s: High probability of being normal. *Liver Stiffness less than 1.7 m/s: In the absence of other known clinical signs, rules out compensated advanced chronic liver disease. *Liver Stiffness 1.7-2.1 m/s: Suggestive of compensated advanced chronic liver disease but need further test for confirmation. *Liver Stiffness over 2.1 m/s: Rules in compensated advanced chronic liver disease. *Liver Stiffness over 2.4 m/s: Suggestive of clinically significant portal hypertension. QUALITY OF DATA SET: *IQR/Median value equal or less than 0.15 implies a quality data set. *IQR/Median value over 0.15 implies a poor quality data set. SIGNIFICANT CHANGE FROM PRIOR EXAM: Significant change if liver stiffness measurement is 10% or greater from prior exam. OTHER CONSIDERATIONS: The stage of liver fibrosis may be overestimated in the setting of acute hepatitis, liver inflammation, elevated liver function tests, hepatic vascular congestion, obstructive cholestasis, non-fasting state, and infiltrative diseases such as amyloidosis and lymphoma. In some patients with NAFLD, the liver stiffness thresholds for compensated advanced chronic liver disease may be lower. In causes other than viral hepatitis and NAFLD, liver stiffness thresholds are not well established.
== END 2023-06-05 09:15 | disposition home or self-care (01) ==
LOC: HO.US 09:14
PROVIDERS: PCP Family Medicine; Visit Provider Family Medicine
DX: R74.01 Elevation of levels of liver transaminase levels (principal); E03.8 Other specified hypothyroidism; E06.3 Autoimmune thyroiditis
CPT/HCPCS: 76700; 76981

== ENCOUNTER 2023-07-26 09:47 | Outpatient (REF) | payer OTHER, SELFPAY ==
[2023-07-26 11:27] LABS: MANUAL DIFF FLAG NO
[2023-07-26 11:55] LABS: Basophils Percent Auto 0.5 % (0-2); Eosinophils Absolute Auto 0.2 X10*3/uL (0.0-0.4); Eosinophils Percent Auto 2.9 % (0-4); Hematocrit 36.7 % (37.0-47.0); Hemoglobin 11.3 g/dl (12.0-16.0); INTERNATIONAL NORM RATIO 0.9 (0.9-1.1); Imm Gran Abs Auto 0.02 X10*3/uL (0.00-0.03); Imm Gran Pct Auto 0.3 % (0.0-0.4); Lymphocytes Absolute Auto 2.7 X10*3/uL (1.2-4.9); Lymphocytes Percent Auto 35.9 % (20-40); Mean Corpuscular HGB Conc 30.8 g/dl (31.0-35.0); Mean Corpuscular Hemoglobin 23.2 pg (27.0-33.0); Mean Corpuscular Volume 75.2 fL (80.0-98.0); Mean Platelet Volume 11.2 fL (9.4-12.3); Monocytes Absolute Auto 0.6 X10*3/uL (0.1-1.2); Monocytes Percent Auto 7.9 % (2-11); Neutrophils Absolute Auto 3.9 x10*3/uL (2.0-8.3); Neutrophils Percent Auto 52.5 % (45-73); Platelet Count 341 X10*3/uL (160-400); Prothrombin Time 11.5 SEC (11.1-13.3); Red Blood Count 4.88 X10*6/uL (4.20-5.50); White Blood Count 7.5 X10*3/uL (4.8-10.8)
[2023-07-26 12:17] LABS: Alanine Aminotransferase 58 U/L (0-31); Alkaline Phosphatase 106 U/L (39-117); Aspartate Amino Transferase 51 U/L (5-31); Bilirubin Direct 0.2 mg/dL (0.0-0.5); Bilirubin Total 0.4 mg/dL (0.0-1.0); Total Protein 7.9 g/dL (6.5-8.0)
[2023-07-26 12:27] LABS: Free T4 (Free Thyroxine) 1.18 ng/dL (0.71-1.85); Thyroid Stimulating Hormone 7.98 uIU/mL (0.32-4.0)
[2023-07-26 12:32] LABS: HBS Num1 0.64 mIU/mL (0-7.99); HBc Num1 0.17 S/CO (0.00-0.79); HBsAGNum1 0.27 S/CO (0.00-0.99); HIV AB/AG Nonreactive (Nonreactive); HIV Num 1 0.07 S/CO (0.00-0.99); Hepatitis B Core Antibody Nonreactive (Nonreactive); Hepatitis B Surface Antigen Negative (Negative); ~Hepatitis B Surface Antibody NONREACTIVE (Nonreactive)
[2023-07-26 12:35] LABS: Syphilis Screen Reactive (Nonreactive)
[2023-07-30 15:07] LABS: RPR Quantitative Reactive 1:2 (Nonreactive)
[2023-07-30 15:08] LABS: T.Pallidum Particle Agg Test Reactive (Nonreactive)
[2023-08-02 13:33] LABS: Hepatitis C Genotype Not Detected
== END 2023-07-26 09:48 | disposition home or self-care (01) ==
LOC: HO.HHCL 09:47
PROVIDERS: Visit Provider Family Medicine
DX: R74.01 Elevation of levels of liver transaminase levels (principal); E03.8 Other specified hypothyroidism; E06.3 Autoimmune thyroiditis
CPT/HCPCS: 36415; 80076; 84439; 84443; 85025; 85610; 86592; 86704; 86706; 86780; 87340; 87389; 87902

== ENCOUNTER 2023-08-07 11:58 | Outpatient (REF) | payer OTHER, SELFPAY ==
[2023-08-08 07:48] LABS: Syphilis Screen Reactive (Nonreactive)
[2023-08-08 13:09] LABS: RPR Rapid Plasma Reagin REACTIVE (NON-REACTIVE)
[2023-08-11 14:50] LABS: RPR Quantitative Reactive 1:2 (Nonreactive); T.Pallidum Particle Agg Test Reactive (Nonreactive)
== END 2023-08-07 11:59 | disposition home or self-care (01) ==
LOC: HO.HHCL 11:58
PROVIDERS: Visit Provider Family Medicine
DX: Z86.19 Personal history of other infectious and parasitic diseases (principal)
CPT/HCPCS: 36415; 86592; 86593; 86780

== ENCOUNTER 2024-02-26 10:11 | Outpatient (REF) | payer OTHER, SELFPAY ==
[2024-02-26 11:42] LABS: Alanine Aminotransferase 72 U/L (0-31); Albumin Level 4.3 g/dL (3.5-5.0); Alkaline Phosphatase 112 U/L (39-117); Anion Gap 13 (12-20); Aspartate Amino Transferase 69 U/L (5-31); Bilirubin Total 0.4 mg/dL (0.0-1.0); Blood Urea Nitrogen 13 mg/dL (9-16); Calcium 9.6 mg/dL (8.4-10.2); Carbon Dioxide 26 mmol/L (22-29); Chloride 105 mmol/L (96-108); Cholesterol 258 mg/dL (<200); Estimated Glomerular Filt Rate > 60; Glucose Random 158 mg/dL (60-115); HDL Cholesterol 56 mg/dL (>40); LDL Cholesterol Calculated 165 mg/dL (<100); Sodium 140 mmol/L (135-145); Total Protein 8.4 g/dL (6.5-8.0); Triglycerides 186 mg/dL (<150)
[2024-02-26 11:46] LABS: Creatinine Urine 200.53 mg/dL; Microalbum/Creatinine Ratio Ur 12.9 ug/mg cr (<30)
[2024-02-26 11:53] LABS: Reflex LDLD? No
[2024-02-26 11:58] LABS: TSH reflex Free T4 53.19 uIU/mL (0.32-4.0)
[2024-02-26 12:03] LABS: Vitamin B12 735 pg/mL (200-900)
[2024-02-26 12:36] LABS: Free T4 (Free Thyroxine) 0.45 ng/dL (0.71-1.85)
[2024-02-27 16:48] LABS: RPR Rapid Plasma Reagin REACTIVE (NON-REACTIVE)
== END 2024-02-26 10:12 | disposition home or self-care (01) ==
LOC: HO.HHCL 10:11
PROVIDERS: Visit Provider Family Medicine
DX: I10 Essential (primary) hypertension (principal); E11.65 Type 2 diabetes mellitus with hyperglycemia; Z79.4 Long term (current) use of insulin; E78.5 Hyperlipidemia, unspecified; E03.8 Other specified hypothyroidism; E06.3 Autoimmune thyroiditis; Z86.19 Personal history of other infectious and parasitic diseases
CPT/HCPCS: 36415; 80053; 80061; 82043; 82570; 82607; 82746; 84439; 84443; 86592; 86593

== ENCOUNTER 2024-04-17 15:33 | Outpatient (REF) | payer OTHER, SELFPAY ==
--- OUTSIDE RECORDS SUMMARY | 2024-04-17 15:36 | XMS_ITS | Encounter Summary ---
Author Organization [employer] Address [address] [place] [address] Care Team Providers Care Claim Taker Name Role Phone Lisa Tovar MD Primary Care Provider [phone] Radu Wood PharmD Unavailable [phone] Reason for Visit * Reason Onset Date Comments Call Back Request 08/07/2023 Encounter Details Date Type Department Care Team ([facility] st Contact Info) Description 08/07/2023 Telephone [facility] [address] [place], [place] [phone] Lisa Tovar MD [address] [place], [place] [phone] Call Back Request Social History Tobacco Use Types Packs/Day Years Used Date Smoking Tobacco: Never Smokeless Tobacco: Never Depression Answer Date Recorded Patient Health Questionnaire-9 Score 0 08/01/2023 Patient Health Questionnaire-9 Score 0 08/01/2023 Last PHQ-9: Questionnaire Data Not on file 0 08/01/2023 Housing Stability Answer Date Recorded What is your housing situation today? I have sosa rodriguez 08/01/[address] you li ve. Do you have problems with any of the following? None of the above 08/01/2023 Food Insecurity Answer Date Recorded Within the past 12 months, y ou worried that your food would run out before you got money to buy more: Never True 08/01/2023 Within the past 12 months,th e food you bought just didn't last and you didn't have enough money to get more: Never True 05/2023 Transportation Answer Date Recorded In the past 12 months, has l ack of transportation kept you from medical appts, meetings, work or from getting things needed for daily living? No 08/01/2023 Utilities Answer Date Recorded In the past 12 months, has t he electric, gas, oil or water company threatened to shut off services in your home? No 08/01/2023 Depression Answer Date Recorded Patient Health Questionnaire-2 Score 0 08/01/2023 Comments Unknown Sex and Gender Information Value Date Recorded Sex Assigned at Female 12/27/2021 10:16 AM EDT Legal Sex Female 10:16 AM EDT Gender Identity Choose not to disclose 10:16 AM EDT Sexual Orientation Choose not to disclose 2021 10:16 AM EDT documented as of this encounter Miscellaneous Notes * Telephone Encounter - Lisa Tovar MD - 08/07/2023 5:41 PM EDT noted * Telephone Encounter - Brenda Torres RN - 08/07/2023 2:11 PM EDT Telephone call returned to Tal, patient has been informed and wanted repeat testing, after testing patient will get treated if positive result. Tal can reach out to patient, of giles can if PCP wouldlike. Tal will call next week to see if patient did labs. * Telephone Encounter - Silvano Chavarria - 08/07/2023 12:47 PM EDT Tc from Tal with the [facility] requesting call back regarding lab orders they received from pcp. Please contact Tal at [phone]. documented in this encounter Plan of Treatment Upcoming Encounters Date Type Department Care Team (Late st Contact Info) Description 05/06/2024 10:15 AM EDT Office Visit [facility] [address] [place] [phone] Lisa Tovar MD [address], [place] [phone] 05/27/2024 9:00 AM EDT Medication Management [facility] [address] [place] [address] Radu Wood PharmD [address] [place] [address] documented as of this encounter Goals Goal Patient Goal Type Associated Problems Recent Progress Patient-Stated? Author Blood Pressure < 140/90 Blood Pressure 140/78(2024 9:23 AM EST) No Radu Wood PharmD Hemoglobin A1c < 7 Result Component 7.8( 9:35 AM EST) No Radu Wood PharmD documented as of this encounter Visit Diagnoses Not on filedocumented in this encounter Additional Health Concerns Assessment Noted Time PHQ-9 Depression Total Score: 0 08/01/19 24 9:00 AM EDT documented as of this encounter Care Teams Claim Taker Relationship Specialty Start Date End Date Lisa Tovar MD [address] [place] [phone] PCP - General Family Medicine 10/26/20 Radu Wood PharmD [address] [place] [phone] Pharmacist Internal Medicine 02/01/22 documented as of this encounter
--- OUTSIDE RECORDS SUMMARY | 2024-04-17 15:36 | XMS_ITS | Encounter Summary ---
Author Organization [employer] Address [address] [place] [address] [address] [place] [address] Care Team Providers Care Biological Sciences Instructor Name Role Phone Lisa Tovar MD Primary Care Provider [phone] Radu Wood PharmD Unavailable [phone] Encounter Details Date Type Department Care Team (Late st Contact Info) Description 06/08/2023 Orders Only [facility] [address] [place] [address] [phone] Lisa Tovar MD [address] [place] [address] [phone] Social History Tobacco Use Types Packs/Day Years Used Date Smoking Tobacco: Never Smokeless Tobacco: Never Comments Unknown Sex and Gender Information Value Date Recorded Sex Assigned at Female 12/27/2021 10:16 AM EDT Legal Sex Female 10:16 AM EDT Gender Identity Choose not to disclose 10:16 AM EDT Sexual Orientation Choose not to disclose 2021 10:16 AM EDT documented as of this encounter Plan of Treatment Upcoming Encounters Date Type Department Care Team (Late st Contact Info) Description 05/06/2024 10:15 AM EDT Office Visit [facility] [address] [place] [address] [phone] Lisa Tovar MD [address] [place] [address] [phone] 05/27/2024 9:00 AM EDT Medication Management [facility] [address] [place] [address] [phone] Radu Wood, PharmD [address] [place] [address] documented as of this encounter Visit Diagnoses Not on filedocumented in this encounter Care Teams Biological Sciences Instructor Relationship Specialty Start Date End Date Lisa Tovar MD [address] [place] [phone] PCP - General Family Medicine 10/26/20 Radu Wood, Eugenio [address] [place] [phone] Pharmacist Internal Medicine 02/01/22 documented as of this encounter
--- OUTSIDE RECORDS SUMMARY | 2024-04-17 15:36 | XMS_ITS | Clinical Summary ---
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 Role Phone Lisa Tovar MD Primary Care Provider [phone] Radu Wood PharmD Unavailable [phone] Allergies Active Allergy Reactions Criticality Noted Date Comments Oxycodone Other Medium 02/27/2012 Skin Crawling Sensation (03/09/2012) Medications estradiol (Vagifem) 10 MCG tablet vaginal tablet INSERT 1 TABLET VAGINALLY TWICE A WEEK ON MONDAY AND Monday 2 Active folic acid (Folvite) 1 MG tablet TAKE 1 TABLET BY MOUTH EVERY DAY 90 tablet 1 3 Active ketotifen (Zaditor) 0.025 % ophthalmic solution INSTILL 1 DROP IN EACH EYE TWICE DAILY 10 mL 1 4 Active lisinopril 5 MG tabletIndication s:Hypertension, unspecified type Take 1 tablet (5 mg) by mouth in the morning. 90 tablet 3 4 Active Blood Glucose Monitoring Suppl (FreeStyle Cord Lite) w/Device kitIndications:T ype 2 diabetes mellitus with hyperglycemia, with long-term current use of insulin ([facility]) Use to test blood sugar three times daily as directed 1 kit 4 Active Alcohol Swabs 70 % padsIndications: Type 2 diabetes mellitus with hyperglycemia, with long-term current use of insulin (CMS/HCC) Use to test blood sugar 3 times daily 100 each 5 4 Active Lancets miscIndications: Type 2 diabetes mellitus with hyperglycemia, with long-term current use of insulin ([facility]) Use to test blood sugar 3 times daily 100 each 5 4 Active glucose blood (FREESTYLE LITE) test stripIndications :Type 2 diabetes mellitus with hyperglycemia, with long-term current use of insulin ([facility]) Use to test blood sugar 3 times daily 100 each 5 4 06/26/19 25 Active metFORMIN (Glucophage) 500 MG tablet Take 2 tablets (1,000 mg) by mouth with breakfast and with evening meal. 360 tablet 1 4 Active levothyroxine (Synthroid, Levoxyl) 137 MCG tabletIndication s:Hypothyroidism , unspecified Take 137 mcg by mouth Once per day. 90 tablet 3 4 Active apremilast (Otezla) 10 & 20 & 30 MG tablet therapy pack tablet therapy packIndications: Psoriasis Take per package instructions. 55 each 4 Active apremilast (Otezla) 30 MG tabletIndication s:Psoriasis Take 1 tablet (30 mg) by mouth 2 times daily. Take 30 mg BID after starting month pack. 60 tablet 5 4 Active insulin glargine (Lantus SoloStar) 100 UNIT/ML penIndications:T ype 2 diabetes mellitus with hyperglycemia, with long-term current use of insulin ([facility]) Inject 22 units under the skin once daily 15 mL 5 4 Active nystatin (Mycostatin) cream APPLY 1 GRAM TOPICALLY TOPICALLY TWICE DAILY 30 g 1 4 Active fluocinolone ([place]-Smoothe) 0.01 % external oil APPLY TOPICALLY TO WET SCALP TWICE A WEEK AT BEDTIME 118.28 mL 3 4 Active ketoconazole (NIZOral) 2 % shampoo APPLY TOPICALLY TWICE A WEEK DIRECTED 120 mL 3 4 Active fluticasone (Flonase) 50 MCG/ACT nasal spray INSTILL 1-2 SPRAYS IN EACH NOSTRIL ONCE DAILY 16 g 3 4 Active nitrofurantoin (Macrodantin) 100 MG capsuleIndicatio ns:Recurrent UTI TAKE 1 CAPSULE BY MOUTH ONCE DAILY AFTER SEXUAL ACTIVITY 30 capsule 4 Active Pentips Generic Pen Carnation 32G X 4 MM misc USE EVERY DAY WITH LANTUS DIRECTED 100 each 3 4 Active clobetasol (Temovate) 0.05 % external solution APPLY TO SCALP TWICE A WEEK IN THE MORNING 50 mL 3 4 Active clobetasol (Temovate) 0.05 % ointment Apply topically 2 times daily. 45 g 3 4 Active nystatin-triamci nolone (Mycolog II) ointment Apply topically 2 times daily. 15 g 4 Active Tirzepatide (Mounjaro) 7.5 MG/0.5ML solution auto-injectorInd ications:Type 2 diabetes mellitus with hyperglycemia, with long-term current use of insulin ([facility]) Inject 7.5 mg under the skin 1 (one) time per week. 2 mL 5 5 Active rosuvastatin (Crestor) 10 MG tabletIndication s:Type 2 diabetes mellitus with hyperglycemia, with long-term current use of insulin ([facility]) Take 1 tablet (10 mg) by mouth Once per day. 90 tablet 3 5 Active aspirin (Aspirin Adult Low Dose) 81 MG EC tabletIndication s:Type 2 diabetes mellitus with hyperglycemia, with long-term current use of insulin ([facility]) Take 1 tablet by mouth daily 90 tablet 3 5 Active Active Problems Problem Noted Date Diagnosed Date History of syphilis 08/02/2023 Assessment & Plan (03/01/2024 5:07 PM EST): - recently treated for Syphilis due to RPR 1:2 with 3 doses of penicillin in July 2023 - she had positive titer back in 2003 with titer 1:2 and 2017 - recheck RPR Assessment & Plan (11/08/2023 10:59 AM EDT): - recently treated for Syphilis due to RPR 1:2 with 3 doses of penicillin in July 2023 - she had positive titer back in 2003 with titer 1:2 and 2017 Assessment & Plan (08/02/2023 11:10 AM EDT): - recent Syphilis screen was positive, RPR titer 1:2 (we were not aware of her history) - she had positive titer back in 2003 with titer 1:2 and 2017 - will consult Nikole from [facility] whether patient needs a treatment Dyslipidemia 08/01/2023 Assessment & Plan (03/01/2024 5:09 PM EST): - last lipid profile January 2024 - current medication: rosuvastatin 5 mg at bedtime, consider increasing its woodard - April 2023 AST / ALT > x 3 UNL and not on statin - most recent AST/ALT in June 2023 shows improvement - continue working on lifestyle modification Assessment & Plan (11/08/2023 11:01 AM EDT): - last lipid profile April 2023 - 10 - year ASCVD risk > 7.5% - statin benefit group - April 2023 AST / ALT > x 3 UNL and not on statin - most recent AST/ALT in June 2023 shows improvement - continue rosuvastatin 5 mg at bedtime Assessment & Plan (08/01/2023 6:13 PM EDT): - last lipid profile April 2023 - 10 - year ASCVD risk > 7.5% - statin benefit group - April 2023 AST / ALT > x 3 UNL and not on statin - most recent AST/ALT in June 2023 shows improvement - will start rosuvastatin 5 mg at bedtime - check lab in 1 mo after starting medicaiton Metabolic dysfunction-associ ated steatotic liver disease (MASLD) 05/05/2023 Assessment & Plan (02/25/2024 6:04 AM EST): - FIB4 index 1.10 - Last US / elastography: May 2023, compensated advanced cirrhotic liver disease - GI, [facility]. Referred back - Avoid hepatotoxic drugs - Continue working on lifestyle modifications Assessment & Plan (11/08/2023 10:54 AM EDT): - FIB4 index 1.10 - Last US / elastography: May 2023, compensated advanced cirrhotic liver disease - [facility]. Referred back - Avoid hepatotoxic drugs - Continue working on lifestyle modifications Assessment & Plan (02/25/2024 6:20 AM EST): >>ASSESSMENT AND PLAN FOR METABOLIC DYSFUNCTION-ASSOCIATED STEATOTIC LIVER DISEASE (MASLD) WRITTEN ON 08/01/2023 6:08 PM BY LISA TOVAR MD - FIB4 index 1.10 - Last US / elastography: May 2023, compensated advanced cirrhotic liver disease - [facility]. Refer back - Avoid hepatotoxic drugs - Continue working on lifestyle modifications >>ASSESSMENT AND PLAN FOR TRANSAMINITIS WRITTEN ON 08/01/2023 6:15 PM BY LISA TOVAR MD - hepatitis profile negative - will give Hep A and B vaccines at next visit - likely MASLD Hypothyroidism 05/04/2023 Assessment & Plan (02/25/2024 6:17 AM EST): - questionable adherence to levothyroxine - most recent thyroid function test: 07/26/23 TSH 7.98 - current replacement: levothyroxine 137 mcg daily (dose increased in July 2023) - check lab and adjust dose accodingly Assessment & Plan (11/08/2023 10:56 AM EDT): - questionable adherence to levothyroxine - most recent thyroid function test: 07/26/23 TSH 7.98 - current replacement: levothyroxine 137 mcg daily (dose increased in July 2023) - check lab and adjust dose accodingly Assessment & Plan (08/01/2023 6:08 PM EDT): - questionable adherence to levothyroxine - most recent thyroid function test: 07/26/23 TSH 7.98 - current replacement: levothyroxine 125 mcg daily, increase to 137 mcg daily - check lab in 6-8 wks Assessment & Plan (05/07/2023 7:23 AM EDT): - questionable adherence to levothyroxine - most recent thyroid function test: 2021 TSH 1.65 - current replacement: levothyroxine 125 mcg daily - check lab Hypertension 05/04/2023 Assessment & Plan (02/25/2024 6:04 AM EST): -Goal BP < 130/80 per ACC/AHA guideline -Not at goal, patient attributes to white-coat HTN -Continue working on lifestyle modifications -Recommended self-monitoring BP. -Continue current medications: lisinopril 5 mg daily, consider increasing to 10 mg daily -Follow up with Radu Wood RPh, PharmJeannette CDTM Assessment & Plan (11/08/2023 10:54 AM EDT): -Goal BP < 140/90 per JNC-8 and < 130/80 per ACC/AHA guideline (Treatment threshold >= 140/90) -Not at goal, patient attributes to white-coat HTN -Continue working on lifestyle modifications -Recommended self-monitoring BP. -Continue current medications: lisinopril 5 mg daily, consider increasing to 10 mg daily -Follow up with Radu Wood RPh, PharmJeannette CDTM Assessment & Plan (08/01/2023 6:06 PM EDT): -Goal BP < 140/90 per JNC-8 and < 130/80 per ACC/AHA guideline (Treatment threshold >= 140/90) -Not at goal, patient attributes to white-coat HTN -Continue working on lifestyle modifications -Recommended self-monitoring BP. -Continue current medications: lisinopril 5 mg daily, consider increasing to 10 mg daily -Follow up with Radu Wood RPh, PharmJeannette CDTM Assessment & Plan (05/05/2023 10:52 AM EST): -Goal BP < 140/90 per JNC-8 and < 130/80 per ACC/AHA guideline (Treatment threshold >= 140/90) -Not at goal, patient has not been adherent to medication or lifestyle modification -Continue working on lifestyle modifications -Recommended self-monitoring BP. -Continue current medications: lisinopril 5 mg daily -Follow up in 3-6 mo, sooner if any problem arises Recurrent UTI 05/04/2023 Assessment & Plan (02/25/2024 6:05 AM EST): - Following with [facility] - Last UTI in Mar 2022, E coli which was resistant to ampicillin, ceftriaxone, and TMP/SMX, treated with nitrofurantoin - continue VagiFem - continue postcoital prophylaxis Assessment & Plan (11/08/2023 10:54 AM EDT): - Following with [facility] - Last UTI in Mar 2022, E coli which was resistant to ampicillin, ceftriaxone, and TMP/SMX, treated with nitrofurantoin - continue VagiFem - continue postcoital prophylaxis Assessment & Plan (08/01/2023 6:08 PM EDT): - Following with [facility] - Last UTI in Mar 2022, E coli which was resistant to ampicillin, ceftriaxone, and TMP/SMX, treated with nitrofurantoin - continue VagiFem - continue postcoital prophylaxis Assessment & Plan (05/05/2023 11:13 AM EST): - Following with [facility] - Last UTI in Mar 2022, E coli which was resistant to ampicillin, ceftriaxone, and TMP/SMX, treated with nitrofurantoin - continue VagiFem - continue postcoital prophylaxis Contusion of knee 02/08/2022 Abnormal perimenopausal bleeding 07/12/2012 Allergic rhinitis 07/12/2012 Assessment & Plan (08/01/2023 6:12 PM EDT): - continue antihistamine - add fluticasone nasal Anemia 07/12/2012 Assessment & Plan (03/01/2024 5:06 PM EST): - mild Assessment & Plan (08/01/2023 6:11 PM EDT): - mild - recheck lab in 3 mo Type 2 diabetes mellitus 07/12/2012 Assessment & Plan (03/01/2024 5:05 PM EST): - A1C 7.8% on 02/26/24, worsened from 6.8% on 11/08/23 -Previously followed by [facility] and was started on CGM and GLP-1 agonist -Continue lantus 26 units every evening. -Continue metformin 1000 mg twice a day -Continue tirzepatide 5 mg weekly -Foot exam: 05/04/23 -Eye exam: [facility]. May 2022, upcoming appointment -Last lipid profile: 02/26/24 -Last microalbumin: 02/26/24, no microalbuminuria Assessment & Plan (11/13/2023 1:12 PM EDT): - A1C 6.8% on 11/08/23, improved from 8.5% on 08/01/23 -Previously followed by [facility] and was started on CGM and GLP-1 agonist -Continue lantus 26 units every evening. -Continue metformin 1000 mg twice a day -Continue tirzepatide 5 mg weekly -Foot exam: 05/04/23 -Eye exam: [facility] Eye care. May 2022, upcoming appointment -Last lipid profile: 05/04/23 -Last microalbumin: 05/04/23 Assessment & Plan (08/01/2023 6:11 PM EDT): - A1C 8.5% on 08/01/23, improved from 11% in April 2023 -Previously followed by [facility] and was started on CGM and GLP-1 agonist -Continue lantus 26 units every evening. -Continue metformin 1000 mg twice a day -Continue tirzepatide 5 mg weekly -Foot exam: 05/04/23 -Eye exam: [facility] Eye care. May 2022, upcoming appointment -Last lipid profile: 05/04/23 -Last microalbumin: 05/04/23 Assessment & Plan (05/07/2023 7:25 AM EDT): - A1C 11% today, worsened from 7.9% in 2021 -Previously followed by [facility] and was started on CGM and GLP-1 agonist -Continue lantus 26 units every evening (advise to increase to 30 units if dulaglutide (Trulicity) is not available). -Continue metformin 1000 mg twice a day -Increase Trulicity 3.0 mg weekly -Foot exam: 05/04/23 -Eye exam: [facility] Eye care. May 2022. 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 Castro in Derm clinic and prescribed apremilast and topical clobetasol on 06/28/23 - Encouraged to optimize her other chronic disease as these conditions can affect skin conditions as well - Refill clobetasol Assessment & Plan (11/08/2023 10:56 AM EDT): - Dx plaque psoriasis on scalp - Seen by bull wheel worker in [facility] in 2013 - Previously receiving intralesional Kenalog and clobetasol lotion to the scalp - seen by Dr. 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 - Last seen by bull wheel worker in [facility] in 2013 - Previously receiving intralesional Kenalog and clobetasol lotion to the scalp - Will refer to dermatology clinic - Encouraged to optimize her other chronic disease as these conditions can affect skin conditions as well Vitamin D deficiency 07/12/2012 Assessment & Plan (03/01/2024 5:03 PM EST): - check lab Assessment & Plan (05/07/2023 7:23 AM EDT): - check lab Resolved Problems Problem Noted Date Diagnosed Date Resolved Date Accident while engaged in wo rk-related activity 02/08/2022 05/04/2023 Encounters Date Type Department Care Team Description 03/11/2024 Telephone [facility] [place] [address] Radu Wood, PharmD insurance 03/11/2024 Travel 03/01/2024 Orders Only [facility] [place] [address] Lisa Tovar MD Hypertension, unspecified type (Primary Dx); Type 2 diabetes mellitus with hyperglycemia, with long-term current use of insulin (CMS/HCC) 03/01/2024 Telephone [facility] [place], [place] [address] Lisa Tovar MD 02/27/2024 Telephone [facility] [place], [place] [address] Elle Byrne, RN Results 02/27/2024 Telephone [facility] [place], [place] [address] Lisa Tovar MD Results 02/26/2024 9:30 AM EST Office Visit [facility] [place] [address] Lisa Tovar MD Routine general medical examination at a health care facility (Primary Dx); Hypertension, unspecified type; Metabolic dysfunction-associated steatotic liver disease (MASLD); Recurrent UTI; Type 2 diabetes mellitus with hyperglycemia, with long-term current use of insulin (CMS/HCC); 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; Vitamin D deficiency; Psoriasis; History of syphilis; Dyslipidemia; Allergic rhinitis, unspecified seasonality, unspecified trigger; Colon cancer screening; Screening for colon cancer; Breast cancer screening by mammogram; Dietary counseling; Exercise counseling; Class 1 obesity due to excess calories with serious comorbidity and body mass index (BMI) of 30.0 to 30.9 in adult 02/26/2024 Orders Only [facility] [place] [address] Lisa Tovar MD 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 (Primary Dx) 02/26/2024 Orders Only [facility] [place] [address] Lisa Tovar MD 02/26/2024 Travel 02/22/2024 Telephone [facility] [address] [place] [address] Jovana Restrepo MA chart prep 02/15/2024 Patient Outreach [facility] [address] [place] [address] Lisa Tovar MD Pre-visit Planning (SDOH screening was completed on 08/01/2023) 02/04/2024 Refill [facility] [address] [place], [place] [phone] Maria Guadalupe Low MD 01/16/2024 2:00 PM EST Office Visit [facility] [address] [place], [place] [phone] Moe, Leah, OD Type 2 diabetes mellitus without ophthalmic manifestations (CMS/HCC) (Primary Dx); Meibomian gland disease, unspecified laterality; Presbyopia of both eyes 01/16/2024 Travel from Last 3 Months Immunizations Name Administration Dates Next Due Hep B, adult 07/21/2023(Deferred: Patient godwin hebert) Influenza live intranasal qu adrivalent LIAV4 01/22/2014 Influenza, IIV3, injectable 12/16/2009 Influenza, live, intranasal 12/27/2012, 2 Moderna Covid-19 Vaccine 12+ 07/21/2023(Deferred : Patient decision) Pfizer Covid-19 Vaccine 12+ 03/12/2021 Pneumococcal Conjugate PCV 20 07/21/2023(Deferre d: Patient decision) Pneumococcal Polysaccharide PPSV23 07/02/2010 Tdap 07/21/2023(Deferred: Patient decision),07/02/2010 Zoster, Recombinant 07/21/2023(Deferred: Patient decision) Social History Tobacco Use Types Packs/Day Years Used Date Smoking Tobacco: Never Smokeless Tobacco: Never Tobacco Cessation:Counseling Given: Not Answered Depression Answer Date Recorded Patient Health Questionnaire-9 Score 0 02/26/2024 Patient Health Questionnaire-9 Score 0 02/26/2024 Last PHQ-9: Questionnaire Data Not on file 1 Housing Stability Answer Date Recorded What is your housing situation today? I have sosa jennifer 08/01/[address] you li [...] Date Recorded Patient Health Questionnaire-2 Score 0 02/26/2024 Internet Access Answer Date Recorded Internet Access Q1 Yes 02/15/2024 Internet Access Q2 Not on file 02/15/2024 Comments Unknown Sex and Gender Information Value Date Recorded Sex Assigned at Female 12/27/2021 10:16 AM EDT Legal Sex Female 10:16 AM EDT Gender Identity Choose not to disclose 10:16 AM EDT Sexual Orientation Choose not to disclose 2021 10:16 AM EDT Last Filed Vital Signs Vital Sign Reading Time Taken Comments Blood Pressure 140/78 03/11/2024 9:23 AM EST Pulse 84 03/11/2024 9:23 AM EST Temperature 36.3 ??C (97.3 ??F) 02/26/2024 9:34 AM ES T Respiratory Rate 15 02/26/2024 9:34 AM EST Oxygen Saturation 98% 08/02/2023 10:53 AM EDT Inhaled Oxygen Concentration - - Weight 84.6 kg (186 lb 6.4 oz) 03/11/2024 9:23 A M EST Height 165.8 cm (5' 5.26 ) 02/26/2024 9:34 AM ES T Body Mass Index 30.77 02/26/2024 9:34 AM EST Plan of Treatment Upcoming Encounters Date Type Department Care Team (Late st Contact Info) Description 05/06/2024 10:15 AM EDT Office Visit [facility] [address] [place] [address] Lisa Tovar MD [address] [place] [address] 05/27/2024 9:00 AM EDT Medication Management [facility] [address] [place], [place] [phone] Radu Wood, PharmD [address] [place], [place] [phone] Health Maintenance Due Date Last Done Comments CT Colonography 1966 FIT DNA/Cologuard 1966 FIT 1966 FOBT 1966 Sigmoidoscopy 1966 Alcohol/Substance Use Screening 1978 Hepatitis A Vaccines (1 of 2 - Risk 2-dose series) 1985 Hepatitis B Vaccines (1 of 3 - 19+ 3-dose series) 1985 Pneumococcal Vaccine: 50+ Years (2 of 2 - PCV) 07/03/2011 07/02/2010 Zoster Vaccines (1 of 2) 2016 DTaP/Tdap/Td Vaccines (2 - Td or Tdap) 07/02/2020 07/02/2010 Pap Smear 12/04/2022 12/05/2019 Colonoscopy 12/23/2022 12/23/2021 Colorectal Cancer Screening 12/23/2022 COVID-19 Vaccine ( season) 2023 03/12/2021, 06/17/2020, 05/25/2020 Influenza Vaccine (#1) 2023 4, 12/27/2012, 12/15/2011, Additional history exists Mammogram 02/18/2024 02/17/2022, 02/11/2021 Diabetes: Foot Exam 05/03/2024 05/04/2023, 05/04/2023, 05/04/2023, Additional history exists Diabetes: Hemoglobin A1C 05/26/202402/25/ 024, 11/08/2023, 08/01/2023, Additional history exists SDOH Screening 07/31/2024 08/01/2023 Cervical Cancer Screening 12/04/2024 HPV/Cotest 12/04/2024 12/05/2019 Depression Screening 02/25/2025 02/26/2024, 02/26/20 24 Diabetes: Urine Protein Screening 02/25/2025 02/26/2024, 05/04/2023, 12/02/2020, Additional history exists Lipid Panel 02/25/2025 02/26/2024, 03/0 08/2023, 12/02/2020, Additional history exists Tobacco Screening 02/25/2025 02/26/2024 Eye Exam 01/15/2026 01/16/2024, 12/28, 01/16/2024, Additional history exists RSV Patients and Patients Aged 60 years or older (1 - 1-dose 75+ series) 2041 HIV Screening Completed 07/26/2023 Hepatitis C Screening Completed 07/26/2023, 020 HIB Vaccines Aged Out No longer eligi ble based on patient's age to complete this topic HPV Vaccines Aged Out No longer eligi ble based on patient's age to complete this topic IPV Vaccines Aged Out No longer eligi ble based on patient's age to complete this topic Meningococcal Vaccine Aged Out No kristi eric eligible based on patient's age to complete this topic RSV under 20 months Aged Out No longe r eligible based on patient's age to complete this topic Rotavirus Vaccines Aged Out No longer eligible based on patient's age to complete this topic Goals Goal Patient Goal Type Associated Problems Recent Progress Patient-Stated? Author Blood Pressure < 140/90 Blood Pressure 140/78(2024 9:23 AM EST) No Radu Wood, Eugenio Hemoglobin A1c < 7 Result Component 7.8( 9:35 AM EST) No Radu Wood, Eugenio Procedures Procedure Name Priority Date/Time Associated Diagnosis Comments T4, FREE Routine 02/26/2024 10:13 AM EST RPR (MONITOR) W/REFL TITER Routine 02/26/2024 10:13 AM EST History of syphilis TSH W/REFLEX TO FT4 Routine 02/26/2024 1 0:13 AM EST 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 COMPREHENSIVE METABOLIC PANEL Routine 02/26/2024 10:13 AM EST Hypertension, unspecified type ALBUMIN, RANDOM URINE W/CREATININE Routine 02/26/2024 10:13 AM EST Hypertension, unspecified type Type 2 diabetes mellitus with hyperglycemia, with long-term current use of insulin (CMS/HCC) LIPID PANEL WITH REFLEX TO DIRECT LDL Routine 02/26/2024 10:13 AM EST Type 2 diabetes mellitus with hyperglycemia, with long-term current use of insulin (CMS/HCC) Dyslipidemia VITAMIN B12/FOLATE, SERUM PANEL Routine 02/26/2024 10:13 AM EST Type 2 diabetes mellitus with hyperglycemia, with long-term current use of insulin (CMS/HCC) POCT GLYCOSYLATED HEMOGLOBIN (HGB A1C) Routine 02/26/2024 9:35 AM EST Type 2 diabetes mellitus with hyperglycemia, with long-term current use of insulin ([facility]/HCC) POCT GLUCOSE Routine 02/26/2024 9:34 AM EST Type 2 diabetes mellitus with hyperglycemia, with long-term current use of insulin ([facility]/HCC) HEPATITIS C VIRAL RNA GENOTYPE, LIPA Routine 07/26/2023 9:50 AM EDT Transaminitis HIV 1/2 ANTIGEN/ANTIBODY, FOURTH GENERATION W/RFL Routine 07/26/2023 9:50 AM EDT Transaminitis BI MAMMOGRAM SCREENING TOMOSYNTHESIS BILATERAL Routine 02/17/2022 8:00 AM EST HM COLONOSCOPY Routine 12/23/2021 ZZZ HISTORICAL HPV DNA, HIGH RISK, CERVICAL Routine 12/05/2019 12:00 AM EDT THINPREP IMAGING SYSTEM PAP Routine 12/05/2019 12:00 AM EDT from Last 3 Months or Most Recently Relevant to Health Maintenance Results * Vitamin B12 (Cobalamin) and Folate Panel, Serum (02/26/2024 10:13 AM EST) Vitamin B12 735 200 - 900 pg/mL [facility] Comment:NORMAL 200-900 PG/ML INDETERMINATE 160-199 PG/ML DEFICIENT < 160 PG/ML Folate 14.0 > or = 4.0 ng/mL [facility] Comment:Reference Values:> o r = 4.0 ng/mL< 4.0 ng/mL suggests folate deficiency Methotrexate, aminopterin and folinic acid(leucovorin) are chemotherapeutic agents whose molecularstructures are similar to folate; therefore, the Architectfolate assay cannot be used for patients using these drugs. Blood 02/26/2024 10:1 3 AM EST 02/26/2024 11:11 AM EST Lisa Tovar MD LAB BLOOD ORDERABLES Final Resul t Performing Organization Address City/[facility]/ZIP Co de Phone Number [facility] [address] [place] [phone] * (ABNORMAL) TSH with Reflex to Free T4 (02/26/2024 10:13 AM EST) TSH reflex Free T4 53.19(H) 0.32 - 4.0 uIU/mL [facility] Blood 02/26/2024 10:1 3 AM EST 02/26/2024 11:12 AM EST Lisa Tovar MD LAB BLOOD ORDERABLES Final Resul t Performing Organization Address City/[facility]/ZIP Co de Phone Number [facility] [address] [place] [phone] * (ABNORMAL) Lipid Panel with Reflex to Direct LDL (02/26/2024 10:13 AM EST) Triglycerides 186(H) <150 mg/dL [facility] Comment:Desirable Triglyceri de: less than 150 mg/dLBorderline High Triglyceride 150-199 mg/dLHigh Triglyceride: 200-499 mg/dLVery High Triglyceride: greater than or equal to 5OO mg/dL Cholesterol 258(H) <200 mg/dL [facility] Comment:Desirable Cholestero l: less than 200 mg/dLBorderline High Cholesterol: 200-239 mg/dLHigh Cholesterol: greater than 239 mg/dL LDL Cholesterol Calculated 165(H) <100 mg/dL [facility] Comment:Desirable LDL: less than 100 mg/dLNear Optimal/Above Optimal LDL: 110- 129 mg/dLBorderline High LDL: 130-159 mg/dLHigh LDL: 160-189 mg/dLVery High LDL: greater than or equal to 190 mg/dL HDL Cholesterol 56 >40 mg/dL [facility] Comment:Desirable HDL: great er than 40 mg/dL Note: This HDL assay may give artificially low results in patients with liver disease. Blood 02/26/2024 10:1 3 AM EST 02/26/2024 11:12 AM EST Lisa Tovar MD LAB BLOOD ORDERABLES Final Resul t Performing Organization Address City/[facility] de Phone Number [facility] [address] [place] [phone] * Albumin, Random Urine W/Creatinine (02/26/2024 10:13 AM EST) Creatinine, Urine 200.53 mg/dL [facility] Microalbumin Urine 26.0 mg/L [facility] Microalbum Creatinine Ratio Ur 12.9 <30 ug/mg cr [facility] Comment:Albumin/Creatinine R atio Reference Ranges: Normal: < 30 ug/mg creatinine Microalbuminuria: 30 - 300 ug/mg creatinineClinical Albuminuria: > 300 ug/mg creatinine Urine 02/26/2024 10:1 3 AM EST 02/26/2024 11:04 AM EST Lisa Tovar MD LAB URINE ORDERABLES Final Resul t Performing Organization Address City/[facility] Co de Phone Number [facility] [address] [place] [phone] * (ABNORMAL) RPR (Monitor) with Reflex to??Titer (02/26/2024 10:13 AM EST) RPR (Monitor) w/Refl Titer REACTIVE( A) NON-REACT SERA [facility] Comment:The RPR is a non-viki ponemal-specific test; therefore,a treponemal- specific confirmatory test should beperformed unless prior syphilis infection has beendocumented for this patient.THIS TEST WAS PERFORMED AT:[facility] [address] [phone] SEGURA MD Rapid Plasma Reagin Ab Titer 1:2(A) [facility] Comment:THIS TEST WAS PERFOR MED AT:[facility] [address] [phone] SEGURA MD Blood Venous blood specimen / Unknown 02/26/2024 10:13 AM EST 02/26/2024 11:11 AM EST Lisa Tovar MD LAB BLOOD ORDERABLES Final Resul t [facility] [address] [place] [phone] * (ABNORMAL) T4, Free (02/26/2024 10:13 AM EST) Free T4 (Free Thyroxine) 0.45(L) 0.71 - 1.85 ng/dL [facility] 02/26/2024 10:1 3 AM EST 02/26/2024 11:12 AM EST Lisa Tovar MD LAB BLOOD ORDERABLES Final Resul t [facility] [address] [place] [phone] * (ABNORMAL) Comprehensive Metabolic Panel (02/26/2024 10:13 AM EST) Sodium 140 135 - 145 mmol/L [facility] Potassium 4.0 3.3 - 5.1 mmol/L [facility] Chloride 105 96 - 108 mmol/L [facility] Carbon Dioxide 26 22 - 29 mmol/L [facility] Anion Gap 13 12 - 20 [facility] Urea Nitrogen (BUN) 13 9 - 16 mg/dL [facility] Creatinine, Serum 0.88 0.5 - 1.4 mg/dL [facility] Estimated Glomerular Filt Rate >60 [facility] Comment:Chronic Kidney Disea se: Estimated GFR < 60 mL/min/1.52i9Kybglw Kidney Disease: Estimated GFR < 15 mL/min/1.73m2 Glucose 158(H) 60 - 115 mg/dL [facility] Calcium 9.6 8.4 - 10.2 mg/dL [facility] Bilirubin, Total 0.4 0.0 - 1.0 mg/dL [facility] Aspartate Amino Transferase 69(H) 5 - 31 U/L [facility] Alanine Aminotransferase 72(H) 0 - 31 U/L [facility] Total Protein 8.4(H) 6.5 - 8.0 g/dL [facility] Albumin Level 4.3 3.5 - 5.0 g/dL [facility] Alkaline Phosphatase 112 39 - 117 U/L [facility] Blood Venous blood specimen / Unknown 02/26/2024 10:13 AM EST 02/26/2024 11:12 AM EST us Lisa Tovar MD LAB BLOOD ORDERABLES Final Resul t [facility] [address], [place] [phone] * (ABNORMAL) POCT glycosylated hemoglobin (Hgb A1c) (02/26/2024 9:35 AM EST) Hemoglobin A1C 7.8(A) 4.0 - 6.0 % QC Media Lot # [id number] Lot# Expiration Date Blood Capillary blood specimen / Unknown 02/26/2024 9:35 AM EST us Lisa Tovar MD POINT OF CARE TEST ENTER/EDIT OR DERABLES Final Result * POCT glucose manually resulted (02/26/2024 9:34 AM EST) Glucose Blood, POC 176 60 - 200 mg/dL QC Media Lot # [id number] Lot# Expiration Date Blood Capillary blood specimen / Unknown 02/26/2024 9:34 AM EST us Lisa Tovar MD POINT OF CARE TEST ENTER/EDIT OR DERABLES Final Result * Hepatitis C Viral RNA, Genotype, LiPA (07/26/2023 9:50 AM EDT) Pathologist [facility] Hepatitis C Genotype Not Detected [facility] Comment: Genotype not detected due to low or no viral load,mutations in viral genome at assay priming sites,presence of inhibitory substance, or other assayrelated factors. Viral load of >=300 IU/mL is requiredfor testing. If this patient has a known concurrentviral load >=300 IU/mL, contact client services forverification.The method used in this test is RT-PCR and reversehybridization (Line Probe) of the 5' UTR and coreregion of the HCV genome.The analytical performance characteristics of thisassay have been determined by [facility] [place]. ??The modificationshave not been cleared or approved by the FDA. ??Thisassay has been validated pursuant to the CLIAregulations and is used for clinical purposes.For additional information, please refer tohttp://education.[employer]/faq/HCVGenotyping(This link is being provided for informational/educational purposes only.)THIS TEST WAS PERFORMED AT:[facility] [place] [phone] WILKINSON MD,PHD Blood Venous blood specimen / Unknown 07/26/2023 9:50 AM EDT 07/26/2023 11:19 AM EDT Lisa Tovar MD LAB BLOOD ORDERABLES Final Resul t Performing Organization Address [facility] Co de Phone Number [facility] [address] [place] [address] [phone] * HIV-1/2 Antigen and Antibodies, Fourth Generation, with Reflexes (07/26/2023 9:50 AM EDT) [facility] HIV AB/AG Nonreactive Nonreactive [facility] Comment:HIV-1 p24 Ag and/or HIV-1/HIV-2 Ab not detected.A test result that is nonreactive does not exclude thepossibility of exposure to or infection with HIV-1 and/orHIV-2. Nonreactive results in this assay for individualswith prior exposure to HIV-1 and/or HIV-2 may be due toantigen and antibody levels that are below the limit ofdetection of this assay.The Isentio HIV Ag/Ab Combo assay result andsupplemental assay results should be interpreted inconjunction with the patient's clinical presentation,history and other laboratory results. If the results areinconsistent with clinical evidence, additional testing issuggested to confirm the result. Blood Venous blood specimen / Unknown 07/26/2023 9:50 AM EDT 07/26/2023 11:19 AM EDT Lisa Tovar MD LAB BLOOD ORDERABLES Final Resul t Performing Organization Address [facility] Co de Phone Number [facility] [address] [place] [address] [phone] * BI Mammogram Screening Tomosynthesis Bilateral (02/17/2022 8:00 AM EST) Anatomical Region Laterality Modality Breast Bilateral Mammography 02/17/2022 8:00 AM EST Narrative 02/19/2022 12:19 PM EST ? [facility] ? [address] ?[place] [address] ? Mammography Report ? Signed ? Patient: Velarde Lida,Fern ?MR#: [id number] ?? [id number] ? : 1965 ?Acct:[id number] ? Age/Sex: 56 / F ?ADM Date: 02/17/22 ? Loc: HO.MAMMO ? Attending Dr: Lisa Tovar MD ? Ordering Physician: Lisa Tovar MD ?Results: 1Negative ? Date of Service: 02/17/22 ?Follow Up: 1 Year From Orig ?? inal Mammogram ? Procedure(s): MM tomosynthesis screening BI ?? Accession Number(s): [id number] ? cc: Lisa Tovar MD ? EXAMINATION: ?? MM SCREENING DIGITAL BREAST TOMOSYNTHESIS, BILATERAL ? CLINICAL INFORMATION: ? Screening. Asymptomatic. ? The lifetime risk of breast cancer based on the Tyrer-Cuzick Model is ?? 9%. ? COMPARISON: ?? Mammography: March 09, 2021 and studies dating back to July 02, 2015 ? TECHNIQUE: ?? Digital breast tomosynthesis is performed in both the craniocaudal and ?? mediolateral oblique views along with computer-aided detection (CAD). ?? Synthesized 2D images are generated from the tomosynthesis. ? FINDINGS: ?? The breasts are extremely dense, which lowers the sensitivity of ?? mammography (ACR BI-RADS breast composition Category d). ? There are no significant masses, abnormal calcifications, or other ?? abnormalities. ? MM/MM tomosynthesis screening BI ?? IMPRESSION: ?? No significant changes from prior exam. ? ASSESSMENT: ? BI-RADS 1: Negative ? RECOMMENDATION: ?? Routine annual mammography screening. ? This patient's information was entered into a reminder system with a ?? target due date for their next mammogram. ? Dictated By: ?Yadiel Paez MD ? Signed By: ?<Electronically signed by Yadiel Paez MD in OV> ?12/24/ 1216 ? DD/ 0800 ? TD/TT: ? Warehouse Checker: SK ? Procedure Note Donmaicolter, Image - 02/19/2022 [facility] [address] [place] [address] Mammography Report Signed Patient: Kristian Ceballos#: [id number] : 1965Acct:[id number] Age/Sex: 56 / FADM Date: 02/17/22 Loc: LEE[facility] Attending Dr: Lisa Tovar MD Ordering Physician: Lisa Tovar [facility] 1[facility] Date of Service: 02/17/22Follow Up: 1 Year From Orig ina Mammogram Procedure(s): MM tomosynthesis screening BI Accession Number(s): [id number] cc: Lisa Tovar MD EXAMINATION: MM SCREENING DIGITAL BREAST TOMOSYNTHESIS, BILATERAL CLINICAL INFORMATION: Screening. Asymptomatic. The lifetime risk of breast cancer based on the Tyrer-Cuzick Model is 9%. COMPARISON: Mammography: March 09, 2021 and studies dating back to July 02, 2015 TECHNIQUE: Digital breast tomosynthesis is performed in both the craniocaudal and mediolateral oblique views along with computer-aided detection (CAD). Synthesized 2D images are generated from the tomosynthesis. FINDINGS: The breasts are extremely dense, which lowers the sensitivity of mammography (ACR BI-RADS breast composition Category d). There are no significant masses, abnormal calcifications, or other abnormalities. MM/MM tomosynthesis screening BI IMPRESSION: No significant changes from prior exam. ASSESSMENT: BI-RADS 1: Negative RECOMMENDATION: Routine annual mammography screening. This patient's information was entered into a reminder system with a target due date for their next mammogram. Dictated By: Yadiel Paez MD Signed By: <Electronically signed by Yadiel Paez MD in OV> 02/19/22 1216 DD/ 0800 TD/TT: Warehouse Checker: KEVIN [facility] External Provider IMG BI PROCEDURES Edited Result - Final * Hm Colonoscopy (12/23/2021) Colonoscopy Normal Normal Historical Provider HEALTH MAINTENANCE Final Result * HPV DNA, HIGH RISK, CERVICAL (12/05/2019 12:00 AM EDT) HPV DNA, HIGH RISK, CERVICAL Not Detected NOT DETECTED [facility] Comment: Not Detected ?? High Risk HPV types (16,18,31,33,35,39,45,51,52, 56,58,59,66,68) were not detected. Other HPV types which cause anogenital lesions may be present. The significance of the other types of HPV in malignant processes has not been established. ?? Methodology: Real Time PCR ? 12/05/2019 Historical Provider HISTORICAL/NON ORDERABLE LABS Final Result [facility] [address] * THINPREP TIS PAP (12/05/2019 12:00 AM EDT) Clinical Information: SEE COMMENT [facility] Comment:None given COMMENT [facility] Comment: EXPLANATORY NOTE: ? The Pap is a screening test for cervical cancer. It is ?? not a diagnostic test and is subject to false negative ?? and false positive results. It is most reliable when a ?? satisfactory sample, regularly obtained, is submitted ?? with relevant clinical findings and history, and when ?? the Pap result is evaluated along with historic and ?? current clinical information. ?? COMMENT: [facility] Comment: This Pap test has been evaluated with computer assisted technology. Contract Driver: SEE COMMENT [facility] Comment: ALS, CT(ASCP) CT screening location: [address] ??[address] Interpretation/Resu lt: SEE COMMENT [facility] Comment:Negative for intraep ithelial lesion or malignancy. LMP: [facility] Comment:NONE GIVEN Prev. BX: NONE GIVEN [facility] Prev. PAP: SEE COMMENT [facility] Comment:NONE GIVEN SOURCE: SEE COMMENT [facility] Comment:None given Statement Of Adequacy: [facility] Comment: Satisfactory for evaluation. Endocervical/transformation zone component present. Age and/or menstrual status not provided 12/05/2019 us Historical Provider MD LAB PATHOLOGY ORDERABLES Final Result [facility] [address] from Last 3 Months or Most Recently Relevant to Health Maintenance Insurance [facility] Care Teams Metal Numerical Tool Programmer Relationship Specialty Start Date End Date Lisa Tovar MD [address] [place] [phone] PCP - General Family Medicine 10/26/20 Radu Wood, PharmD [address] [place] [phone] Pharmacist Internal Medicine 02/01/22
--- OUTSIDE RECORDS SUMMARY | 2024-04-17 15:36 | XMS_ITS | Encounter Summary ---
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) Social History Tobacco Use Types Packs/Day Years [...] Upcoming Encounters Date Type Department Care Team ([facility] st Contact Info) Description 05/06/2024 10:15 AM EDT Office Visit [facility] [address] [place] [phone] Lisa Tovar MD [address] [place] [phone] 05/27/2024 9:00 AM EDT Medication Management [facility] [address] [place] [phone] Radu Wood PharmD [address] [place] [phone] Scheduled Orders Name Type Priority Associated Diagnoses Orde r Schedule TSH with Reflex to Free T4 Lab Routine 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 Expected: 04/08/2024 (Approximate), Expires: 02/25/2025 documented as of this encounter Goals Goal Patient Goal Type Associated Problems Recent Progress Patient-Stated? Author Blood Pressure < 140/90 Blood Pressure 140/78(2024 9:23 AM EST) No Radu Wood PharmD Hemoglobin A1c < 7 Result Component 7.8( 9:35 AM EST) No Radu Wood PharmD documented as of this encounter Visit Diagnoses Diagnosis 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- Primary documented in this encounter Additional Health Concerns Assessment Noted Time PHQ-9 Depression Total Score: 0 02/26/20 24 10:27 AM EST documented as of this encounter Care Teams Production Checker Relationship Specialty Start Date End Date Lisa Tovar MD [address] [place] [address] PCP - General Family Medicine 10/26/20 Radu Wood PharmD [address] [place] [phone] Pharmacist Internal Medicine 02/01/22 documented as of this encounter
--- OUTSIDE RECORDS SUMMARY | 2024-04-17 15:36 | XMS_ITS | Encounter Summary ---
Author Organization [employer] Address [address] [facility] [address] [place] [address] Care Team Providers Care Environmental Services Attendant Name Role Phone Lisa Tovar MD Primary Care Provider [phone] Radu Wood PharmD Unavailable [phone] Encounter Details Date Type Department Care Team (Late st Contact Info) Description 08/03/2023 Orders Only [facility] MED[facility] [address] [place], [place] [phone] Lisa Tovar MD [address] [place], [place] [phone] History of syphilis (Primary Dx) Social History Tobacco Use Types [...] Description 05/06/2024 10:15 AM EDT Office Visit [facility] [address] [place] [phone] Lisa Tovar MD [address] [place] [address] 05/27/2024 9:00 AM EDT Medication Management [facility] [address] [place] [phone] Radu Wood PharmD [address] [place] [phone] documented as of this encounter Goals Goal Patient Goal Type Associated Problems Recent Progress Patient-Stated? Author Blood Pressure < 140/90 Blood Pressure 140/78(2024 9:23 AM EST) No Radu Wood PharmD Hemoglobin A1c < 7 Result Component 7.8( 9:35 AM EST) No Radu Wood PharmD documented as of this encounter Visit Diagnoses Diagnosis History of syphilis- Primary documented in this encounter Additional Health Concerns Assessment Noted Time PHQ-9 Depression Total Score: 0 08/01/19 24 9:00 AM EDT documented as of this encounter Care Teams Environmental Services Attendant Relationship Specialty Start Date End Date Lisa Tovar MD [address] [place] [phone] PCP - General Family Medicine 10/26/20 Radu Wood PharmD [address] [place] [address] Pharmacist Internal Medicine 02/01/22 documented as of this encounter
--- OUTSIDE RECORDS SUMMARY | 2024-04-17 15:36 | XMS_ITS | Encounter Summary ---
Author Organization [employer] Address [address] [facility] [address]t [place] [address] Care Team Providers Care Public Accountant Name Role Phone Lisa Tovar MD Primary Care Provider [phone] Radu Wood PharmD Unavailable [phone] Reason for Visit * Reason Comments Med Refill Encounter Details Date Type Department Care Team ([facility] st Contact Info) Description 08/06/2023 Refill [facility] [address] [place], [place] [phone] Yaritza Castro MD [address] [place], [place] [phone] Social History Tobacco Use Types Packs/Day Years [...] Description 05/06/2024 10:15 AM EDT Office Visit [facility] [address] [place] [phone] Lisa Tovar MD [address] [place] [address] 05/27/2024 9:00 AM EDT Medication Management [facility] [address] [place] [phone] Radu Wood PharmD [address] [place] [phone] documented as of this encounter Goals Goal Patient Goal Type Associated Problems Recent Progress Patient-Stated? Author Blood Pressure < 140/90 Blood Pressure 140/78(2024 9:23 AM EST) No Radu Wood PharmJeannette Hemoglobin A1c < 7 Result Component 7.8( 9:35 AM EST) No Radu Wood PharmJeannette documented as of this encounter Visit Diagnoses Not on filedocumented in this encounter Additional Health Concerns Assessment Noted Time PHQ-9 Depression Total Score: 0 08/01/19 24 9:00 AM EDT documented as of this encounter Care Teams Public Accountant Relationship Specialty Start Date End Date Lisa Tovar MD [address] [place] [phone] PCP - General Family Medicine 10/26/20 Radu Wood PharmD [address] [place] [address] Pharmacist Internal Medicine 02/01/22 documented as of this encounter
--- OUTSIDE RECORDS SUMMARY | 2024-04-17 15:36 | XMS_ITS | Encounter Summary ---
Author Organization [email or web address] Address [address] [facility] [facility] [address] [place] [address] Care Team Providers Care Coal Pipeline Operator Name Role Phone Lisa Tovar MD Primary Care Provider [phone] Radu Wood PharmD Unavailable [phone] Reason for Referral * Consultation (Routine) - Pending Review Specialty Diagnoses / Procedures Referred By Contcaitlin t Referred To Contact Pharmacy Diagnoses Hypertension, unspecified type Type 2 diabetes mellitus with hyperglycemia, with long-term current use of insulin (CMS/HCC) Lisa Tovar MD [address] [place] [address] Phone: tel: fax: Referral ID Status Reason Start Date Expiration Date Visits Requested Visits Authorized [id number] Pending Review Consult and Treat 03/01/2024 03/01/2025 6 6 Encounter Details Date Type Department Care Team (Late st Contact Info) Description 03/01/2024 Orders Only [facility] MEDICINE [address] [place], [place] [phone] Lisa Tovar MD [address] [place], [place] [phone] Hypertension, unspecified type (Primary Dx); Type 2 diabetes mellitus with hyperglycemia, with long-term current use of insulin (CMS/HCC) Social History Tobacco Use Types Packs/Day Years [...] Description 05/06/2024 10:15 AM EDT Office Visit [facility] MEDICINE [address] [place] [phone] Lisa Tovar MD [address] [place] [phone] 05/27/2024 9:00 AM EDT Medication Management [facility] MEDICINE [address] [place] [phone] Radu Wood, PharmD [address] [place] [phone] Scheduled Referrals Name Type Priority Associated Diagnoses Orde r Schedule Referral to Pharmacy CDTM Outpatient Referral Routine Hypertension, unspecified type Type 2 diabetes mellitus with hyperglycemia, with long-term current use of insulin ([facility]) Ordered: 03/01/2024 documented as of this encounter Goals Goal Patient Goal Type Associated Problems Recent Progress Patient-Stated? Author Blood Pressure < 140/90 Blood Pressure 140/78(2024 9:23 AM EST) No Radu Wood PharmD Hemoglobin A1c < 7 Result Component 7.8( 9:35 AM EST) No Radu Wood PharmD documented as of this encounter Visit Diagnoses Diagnosis Hypertension, unspecified type- Primary Type 2 diabetes mellitus with hyperglycemia, with long-term current use of insulin ([facility]) documented in this encounter Additional Health Concerns Assessment Noted Time PHQ-9 Depression Total Score: 0 02/26/20 24 10:27 AM EST documented as of this encounter Care Teams Coal Pipeline Operator Relationship Specialty Start Date End Date Lisa Tovar MD [address] [place] [address] PCP - General Family Medicine 10/26/20 Radu Wood PharmD [address] [place] [address] Pharmacist Internal Medicine 02/01/22 documented as of this encounter
--- OUTSIDE RECORDS SUMMARY | 2024-04-17 15:36 | XMS_ITS | Encounter Summary ---
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 Procedures US Abdomen Comp w elastography Lisa Tovar MD [address] [place] [address] Phone: tel: fax: [address] Phone: tel: fax: Referral ID Status Reason Start Date Expiration Date Visits Re quested Visits Authorized [id number] Closed 05/05/2023 05/04/2024 1 1 Encounter Details Date Type Department Care Team (Late st Contact Info) Description 04/28/2023 Orders Only [facility] [address] [place], [place] [phone] Lisa Tovar MD [address], [place] [phone] Transaminitis (Primary Dx); 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 Social History Tobacco Use Types Packs/Day Years [...] Description 05/06/2024 10:15 AM EDT Office Visit [facility] [address] [place] [phone] Lisa Tovar MD [address] [place] [address] 05/27/2024 9:00 AM EDT Medication Management [facility] [address] [place] [phone] Radu Wood, PharmD [address] [place] [phone] Scheduled Orders Name Type Priority Associated Diagnoses Orde r Schedule Helicobacter pylori??Antigen, EIA, Stool Lab Routine Transaminitis Expected: 06/16/2023, Expires: 05/04/2024 documented as of this encounter Procedures Procedure Name Priority Date/Time Associated Diagnosis Comments SYPHILIS SCREEN Routine 07/26/2023 9:50 AM EDT Transaminitis CBC WITH AUTO DIFFERENTIAL Routine 07/26/2023 9:50 AM EDT Transaminitis HEPATITIS B SURFACE ANTIGEN, EIA Routine 07/26/2023 9:50 AM EDT Transaminitis HEPATITIS B CORE AB TOTAL Routine 07/26/2023 9:50 AM EDT Transaminitis HEPATITIS C VIRAL RNA GENOTYPE, LIPA Routine 07/26/2023 9:50 AM EDT Transaminitis HIV 1/2 ANTIGEN/ANTIBODY, FOURTH GENERATION W/RFL Routine 07/26/2023 9:50 AM EDT Transaminitis HEPATITIS B SURFACE ANTIBODY, QUALITATIVE Routine 07/26/2023 9:50 AM EDT Transaminitis PROTHROMBIN TIME-INR Routine 07/26/2023 9:50 AM EDT Transaminitis TSH Routine 07/26/2023 9:50 AM EDT 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 T4, FREE Routine 07/26/2023 9:50 AM EDT 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 ??The modificationshave not been cleared or approved by the FDA. ??Thisassay has been validated pursuant to the CLIAregulations and is used for clinical purposes.For additional information, please refer [email or web address]/[email or web address](This link is being provided for informational/educational purposes only.)THIS TEST WAS PERFORMED AT:[id number] [place] [address]BNYRDNUMARKOS WILKINSON MD,PHD Blood Venous blood specimen / Unknown 07/26/2023 9:50 AM EDT 07/26/2023 11:19 AM EDT Lisa Tovar MD LAB BLOOD ORDERABLES Final Resul t Performing Organization Address [facility] Co de Phone Number [facility] [address] [place] [phone] * Hepatitis B surface antigen, EIA (07/26/2023 9:50 AM EDT) Pathologist [facility] [place] Hepatitis B Surface Ag Negative Negative [facility] Blood Venous blood specimen / Unknown 07/26/2023 9:50 AM EDT 07/26/2023 11:19 AM EDT Lisa Tovar MD LAB BLOOD ORDERABLES Final Resul t Performing Organization Address [facility] [place] de Phone Number [facility] [address] [place] [phone] * Hepatitis B Surface Antibody, Qualitative (07/26/2023 9:50 AM EDT) Pathologist [facility] [place] ~Hepatitis B Surface Antibody NONREACTIVE Nonreactive [facility] Comment:Nonreactive: < 8.00 mIU/mL Blood Venous blood specimen / Unknown 07/26/2023 9:50 AM EDT 07/26/2023 11:19 AM EDT Lisa Tovar MD LAB BLOOD ORDERABLES Final Resul t Performing Organization Address [facility] de Phone Number [facility] [address] [place] [phone] * Hepatitis B Core Antibody, Total (07/26/2023 9:50 AM EDT) Pathologist [facility] [place] Hepatitis B Core Antibody Nonreactive Nonreactive [facility] Blood Venous blood specimen / Unknown 07/26/2023 9:50 AM EDT 07/26/2023 11:19 AM EDT Lisa Tovar MD LAB BLOOD ORDERABLES Final Resul t Performing Organization Address [facility]/ZIP Co de Phone Number [facility] [address] [place] [phone] * (ABNORMAL) Syphilis Screen (07/26/2023 9:50 AM EDT) Syphilis Screen Reactive( A) Nonreactive [facility] Comment:Reactive specimens a re sent to the [facility] Labfor confirmatory tests. Blood 07/26/2023 9:50 AM EDT 07/26/2023 11:19 AM EDT Lisa Tovar MD LAB BLOOD ORDERABLES Final Resul t Performing Organization Address [facility] Co de Phone Number [facility] [address] [place] [phone] * HIV-1/2 Antigen and Antibodies, Fourth Generation, with Reflexes (07/26/2023 9:50 AM EDT) HIV AB/AG Nonreactive Nonreactive [facility] Comment:HIV-1 p24 Ag and/or HIV-1/HIV-2 Ab not detected.A test result that is nonreactive does not exclude thepossibility of exposure to or infection with HIV-1 and/orHIV-2. Nonreactive results in this assay for individualswith prior exposure to HIV-1 and/or HIV-2 may be due toantigen and antibody levels that are below the limit ofdetection of this assay.The [employer] HIV Ag/Ab Combo assay result andsupplemental assay results should be interpreted inconjunction with the patient's clinical presentation,history and other laboratory results. If the results areinconsistent with clinical evidence, additional testing issuggested to confirm the result. Blood Venous blood specimen / Unknown 07/26/2023 9:50 AM EDT 07/26/2023 11:19 AM EDT us Lisa Tovar MD LAB BLOOD ORDERABLES Final Resul t Performing Organization Address [facility] Co de Phone Number [facility] [address] [place] [phone] * Prothrombin Time-INR (07/26/2023 9:50 AM EDT) Prothrombin Time 11.5 11.1 - 13.3 SEC [facility] INTERNATIONAL NORM RATIO 0.9 0.9 - 1.1 [facility] Comment:INTERNATIONAL NORMAL IZED RATIO (INR) REFERENCE RANGES Reference RangeFor patients not on anticoagulant therapy: 0.9 - 1.1INR ranges for oral anticoagulanttherapy:For prevention and treatment of venous thrombosis and pulmonary embolism: 2.0 - 3.0For acute myocardial infarction with aspirin therapy: 2.0 - 3.0For acute myocardial infarction without aspirin therapy: 3.0 - 4.0For patients with mechanical prosthetic heart valves: 2.5 - 3.5 Blood Venous blood specimen / Unknown 07/26/2023 9:50 AM EDT 07/26/2023 11:19 AM EDT us Lisa Tovar MD LAB BLOOD ORDERABLES Final Resul t Performing Organization Address [facility] Co de Phone Number [facility] [address] [place] [phone] * T4, Free (07/26/2023 9:50 AM EDT) Free T4 (Free Thyroxine) 1.18 0.71 - 1.85 ng/dL [facility] Blood Venous blood specimen / Unknown 07/26/2023 9:50 AM EDT 07/26/2023 11:19 AM EDT us Lisa Tovar MD LAB BLOOD ORDERABLES Final Resul t Performing Organization Address City/[facility] Co de Phone Number [facility] [address] [place] [phone] * (ABNORMAL) TSH (07/26/2023 9:50 AM EDT) Thyroid Stimulating Hormone 7.98(H) 0.32 - 4.0 uIU/mL [facility] Comment:Note: A sustained TS H level above 2.5 uIU/mL may warrant further investigation. TSH 3rd Generation ([facility]) Blood Venous blood specimen / Unknown 07/26/2023 9:50 AM EDT 07/26/2023 11:19 AM EDT us Lisa Tovar MD LAB BLOOD ORDERABLES Final Resul t Performing Organization Address [facility] Co de Phone Number [facility] [address] [place] [phone] * (ABNORMAL) Hepatic Function Panel (07/26/2023 9:50 AM EDT) Bilirubin, Total 0.4 0.0 - 1.0 mg/dL [facility] Bilirubin, Direct 0.2 0.0 - 0.5 mg/dL [facility] Aspartate Amino Transferase 51(H) 5 - 31 U/L [facility] Alanine Aminotransferase 58(H) 0 - 31 U/L [facility] Total Protein 7.9 6.5 - 8.0 g/dL [facility] Albumin Level 4.0 3.5 - 5.0 g/dL [facility] Alkaline Phosphatase 106 39 - 117 U/L [facility] Blood Venous blood specimen / Unknown 07/26/2023 9:50 AM EDT 07/26/2023 11:19 AM EDT us Lisa Tovar MD LAB BLOOD ORDERABLES Final Resul t Performing Organization Address [facility] Co de Phone Number [facility] [address] [place] [phone] * (ABNORMAL) CBC auto differential (07/26/2023 9:50 AM EDT) White Blood Count 7.5 4.8 - 10.8 X10*3/uL [facility] Red Blood Count 4.88 4.20 - 5.50 X10*6/uL [facility] Hemoglobin 11.3(L) 12.0 - 16.0 g/dl [facility] Hematocrit 36.7(L) 37.0 - 47.0 % [facility] Mean Corpuscular Volume 75.2(L) 80.0 - 98.0 fL [facility] Mean Corpuscular Hemoglobin 23.2(L) 27.0 - 33.0 pg [facility] Mean Corpuscular HGB Conc 30.8(L) 31.0 - 35.0 g/dl [facility] Red Cell Distribution Width 19.0(H) 11.0 - 16.0 % [facility] Platelet Count 341 160 - 400 X10*3/uL [facility] Mean Platelet Volume 11.2 9.4 - 12.3 fL [facility] Neutrophils Percent Auto 52.5 45 - 73 % [facility] Imm Gran Pct Auto 0.3 0.0 - 0.4 % [facility] Lymphocytes Percent Auto 35.9 20 - 40 % [facility] Monocytes Percent Auto 7.9 2 - 11 % [facility] Eosinophils Percent Auto 2.9 0 - 4 % [facility] Basophils Percent Auto 0.5 0 - 2 % [facility] NRBC Pct Auto 0.0 0.0 - 0.2 /100WBC [facility] Neutrophils Absolute Auto 3.9 2.0 - 8.3 x10*3/uL [facility] Imm Gran Abs Auto 0.02 0.00 - 0.03 X10*3/uL [facility] Lymphocytes Absolute Auto 2.7 1.2 - 4.9 X10*3/uL [facility] Monocytes Absolute Auto 0.6 0.1 - 1.2 X10*3/uL [facility] Eosinophils Absolute Auto 0.2 0.0 - 0.4 X10*3/uL [facility] Basophils Absolute Auto 0.0 0.0 - 0.2 X10*3/uL [facility] NRBC Abs Auto 0.000 0.0 - 0.012 X10*3/uL [facility] Blood Venous blood specimen / Unknown 07/26/2023 9:50 AM EDT 07/26/2023 11:19 AM EDT us Lisa Tovar MD LAB BLOOD ORDERABLES Final Resul t [facility] [address] [place], [place] [phone] * US Abdomen Comp w elastography (06/05/2023 10:15 AM EDT) Anatomical Region Laterality Modality Abdomen Ultrasound 06/05/2023 10:1 5 AM EDT Narrative 06/08/2023 4:53 PM EDT ? [facility] ?[address] ?[place] [address] ? Ultrasound Report ? Signed ? Patient: Fern Ceballos ?MR#: [id number] ?? [id number] ? : 1965 ?Acct:[id number] ? Age/Sex: 57 / F ?ADM Date: 06/05/23 ? Loc: HO.US ? Attending Dr: Lisa Tovar MD ? Ordering Physician: Lisa Tovar MD ?? Date of Service: 06/05/23 ?? Procedure(s): US abdomen comp w elastography ?? Accession Number(s): [id number] ? cc: Lisa Tovar MD ? EXAMINATION: ?? US COMPLETE ABDOMEN WITH LIVER ELASTOGRAPHY ? CLINICAL INFORMATION: ?? Elevated liver function tests. ? COMPARISON: ?? Abdominal ultrasound dated 03/24/2020. ? TECHNIQUE: ?? Real-time imaging of the abdominal viscera. Noninvasive ultrasound ?? liver fibrosis assessment is performed using [employer] point ?? quantification shear wave elastography (2D-SWE) with a C5-2 MHz ?? transducer. ??Multiple elastography samples are obtained. ? FINDINGS: ? PANCREAS: Normal. The visualized pancreatic head and body are normal in ?? appearance. The remainder of the pancreas is obscured from ?? visualization by the overlying bowel gas. ? ABDOMINAL AORTA: The proximal, middle, and distal aortic segments are ?? normal in caliber. ? INFERIOR VENA CAVA: Visualized portions are normal. ? LIVER: The liver demonstrates normal size, contour and generally ?? echogenicity. No focal lesion or intrahepatic biliary duct dilatation. ? The right lobe measures 15.0 cm in length. ??The left lobe measures 11.0 ?? cm in length. ? Portal flow is towards the liver (hepatopetal). ? Shear wave liver elastography median stiffness is 2.04 m/s (reference: ?? normal median stiffness is 1.3 m/s or less). ? IQR/median stiffness to assess sampling precision is 0.05 (reference: ?? good quality data set is IQR/median stiffness of 0.15 or less). ? GALLBLADDER: Normal. The gallbladder is physiologically distended ?? without evidence of stones, sludge, polyps, wall thickening or ?? pericholecystic fluid. ? COMMON BILE DUCT: Normal in caliber measuring 0.2 cm in diameter. ? RIGHT KIDNEY: Normal. No hydronephrosis. No renal calculi or focal ?? parenchymal lesions. The kidney measures 10.4 cm in maximum dimension. ? LEFT KIDNEY: Normal. No hydronephrosis. No renal calculi or focal ?? parenchymal lesions. The kidney measures 10.8 cm in maximum dimension. ? SPLEEN: Normal. The spleen measures 8.1 cm in maximum dimension. ? FREE FLUID: None. ? US/US abdomen comp w elastography ?? IMPRESSION: ? 1. There is generalized increase in hepatic echotexture, consistent ?? with fatty infiltration or hepatocellular disease. Please correlate ?? clinically. No focal hepatic mass or intrahepatic biliary dilatation is ?? seen. ? 2. Liver elastography: ??Measurements are suggestive of compensated ?? advanced chronic liver disease but need further test for confirmation. ? REFERENCE: ?? Society of Radiologists in Ultrasound Liver Stiffness Thresholds ?? (2019): ? LIVER STIFFNESS THRESHOLDS: ?? *Liver Stiffness equal or less than 1.3 m/s: ??High probability of being ?? normal. ?? *Liver Stiffness ??less than 1.7 m/s: ??In the absence of other known ?? clinical signs, rules out compensated advanced chronic liver disease. ?? *Liver Stiffness 1.7-2.1 m/s: ??Suggestive of compensated advanced ?? chronic liver disease but need further test for confirmation. ?? *Liver Stiffness over 2.1 m/s: ??Rules in compensated advanced chronic ?? liver disease. ?? *Liver Stiffness over 2.4 m/s: ??Suggestive of clinically significant ?? portal hypertension. ? QUALITY OF DATA SET: ?? *IQR/Median value equal or less than 0.15 implies a quality data set. ?? *IQR/Median value over 0.15 implies a poor quality data set. ? SIGNIFICANT CHANGE FROM PRIOR EXAM: ?? Significant change if liver stiffness measurement is 10% or greater ?? from prior exam. ? OTHER CONSIDERATIONS: ?? The stage of liver fibrosis may be overestimated in the setting of ?? acute hepatitis, liver inflammation, elevated liver function tests, ?? hepatic vascular congestion, obstructive cholestasis, non-fasting ?? state, and infiltrative diseases such as amyloidosis and lymphoma. ??In ?? some patients with NAFLD, the liver stiffness thresholds for ?? compensated advanced chronic liver disease may be lower. ??In causes ?? other than viral hepatitis and NAFLD, liver stiffness thresholds are ?? not well established. ? Dictated By: ?Oliver Grimaldo MD ? Signed By: ?<Electronically signed by Oliver Grimaldo MD in OV> ? 06/08/23 1649 ? DD/ 1015 ? TD/TT: ? Helpdesk Administrator: LUKAS ? Procedure Note Jose Alfredo Iraheta - 06/08/[address] [address] Ultrasound Report Signed Patient: Velarde HiltonYaimaShanta#: [id number] : 1965Acct:[id number] Age/Sex: 57 / FADM Date: 06/05/23 Loc: HO.US Attending Dr: Lisa Tovar MD Ordering Physician: Lisa Tovar MD Date of Service: 06/05/23 Procedure(s): US abdomen comp w elastography Accession Number(s): [id number] cc: Lisa Tovar MD EXAMINATION: US COMPLETE ABDOMEN WITH LIVER ELASTOGRAPHY CLINICAL INFORMATION: Elevated liver function tests. COMPARISON: Abdominal ultrasound dated 03/24/2020. TECHNIQUE: Real-time imaging of the abdominal viscera. Noninvasive ultrasound liver fibrosis assessment is performed using [employer] point quantification shear wave elastography (2D-SWE) with a C5-2 MHz transducer. Multiple elastography samples are obtained. FINDINGS: PANCREAS: Normal. The visualized pancreatic head and body are normal in appearance. The remainder of the pancreas is obscured from visualization by the overlying bowel gas. ABDOMINAL AORTA: The proximal, middle, and distal aortic segments are normal in caliber. INFERIOR VENA CAVA: Visualized portions are normal. LIVER: The liver demonstrates normal size, contour and generally echogenicity. No focal lesion or intrahepatic biliary duct dilatation. The right lobe measures 15.0 cm in length. The left lobe measures 11.0 cm in length. Portal flow is towards the liver (hepatopetal). Shear wave liver elastography median stiffness is 2.04 m/s (reference: normal median stiffness is 1.3 m/s or less). IQR/median stiffness to assess sampling precision is 0.05 (reference: good quality data set is IQR/median stiffness of 0.15 or less). GALLBLADDER: Normal. The gallbladder is physiologically distended without evidence of stones, sludge, polyps, wall thickening or pericholecystic fluid. COMMON BILE DUCT: Normal in caliber measuring 0.2 cm in diameter. RIGHT KIDNEY: Normal. No hydronephrosis. No renal calculi or focal parenchymal lesions. The kidney measures 10.4 cm in maximum dimension. LEFT KIDNEY: Normal. No hydronephrosis. No renal calculi or focal parenchymal lesions. The kidney measures 10.8 cm in maximum dimension. SPLEEN: Normal. The spleen measures 8.1 cm in maximum dimension. FREE FLUID: None. US/US abdomen comp w elastography IMPRESSION: 1. There is generalized increase in hepatic echotexture, consistent with fatty infiltration or hepatocellular disease. Please correlate clinically. No focal hepatic mass or intrahepatic biliary dilatation is seen. 2. Liver elastography: Measurements are suggestive of compensated advanced chronic liver disease but need further test for confirmation. REFERENCE: Society of Radiologists in Ultrasound Liver Stiffness Thresholds (2020): LIVER STIFFNESS THRESHOLDS: *Liver Stiffness equal or less than 1.3 m/s: High probability of being normal. *Liver Stiffness less than 1.7 m/s: In the absence of other known clinical signs, rules out compensated advanced chronic liver disease. *Liver Stiffness 1.7-2.1 m/s: Suggestive of compensated advanced chronic liver disease but need further test for confirmation. *Liver Stiffness over 2.1 m/s: Rules in compensated advanced chronic liver disease. *Liver Stiffness over 2.4 m/s: Suggestive of clinically significant portal hypertension. QUALITY OF DATA SET: *IQR/Median value equal or less than 0.15 implies a quality data set. *IQR/Median value over 0.15 implies a poor quality data set. SIGNIFICANT CHANGE FROM PRIOR EXAM: Significant change if liver stiffness measurement is 10% or greater from prior exam. OTHER CONSIDERATIONS: The stage of liver fibrosis may be overestimated in the setting of acute hepatitis, liver inflammation, elevated liver function tests, hepatic vascular congestion, obstructive cholestasis, non-fasting state, and infiltrative diseases such as amyloidosis and lymphoma. In some patients with NAFLD, the liver stiffness thresholds for compensated advanced chronic liver disease may be lower. In causes other than viral hepatitis and NAFLD, liver stiffness thresholds are not well established. Dictated By: Oliver Grimaldo MD Signed By: <Electronically signed by Oliver Grimaldo MD in OV> 06/08/23 1649 DD/ 1015 TD/TT: Helpdesk Administrator: LUKAS us Lisa Tovar MD IMG US PROCEDURES Final Result * Culture, Urine, Routine (05/04/2023 12:00 AM EST) Urine Urine specimen obtained by clean catch procedure / Unknown 05/04/2023 05/04/2023 Comment:[facility] - 05/06/2023 8:01 AM EST Urine Culture Report Result Urine Culture 10,000 to 50,000 cfu/ml Urine Culture Mixed bacterial nolan characteristic of Urine Culture urogenital contamination. 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
[2024-04-17 16:59] LABS: Alanine Aminotransferase 77 U/L (0-31); Alkaline Phosphatase 118 U/L (39-117); Aspartate Amino Transferase 62 U/L (5-31); Bilirubin Direct 0.1 mg/dL (0.0-0.5); Bilirubin Total 0.3 mg/dL (0.0-1.0); Cholesterol 136 mg/dL (<200); HDL Cholesterol 47 mg/dL (>40); LDL Cholesterol Calculated 55 mg/dL (<100); Total Protein 8.2 g/dL (6.5-8.0); Triglycerides 171 mg/dL (<150)
[2024-04-17 17:13] LABS: TSH reflex Free T4 5.58 uIU/mL (0.32-4.0)
[2024-04-17 17:57] LABS: Free T4 (Free Thyroxine) 1.39 ng/dL (0.71-1.85)
== END 2024-04-17 15:34 | disposition home or self-care (01) ==
LOC: HO.HHCL 15:33
PROVIDERS: Visit Provider Family Medicine
DX: E11.65 Type 2 diabetes mellitus with hyperglycemia (principal); Z79.4 Long term (current) use of insulin; E06.3 Autoimmune thyroiditis
CPT/HCPCS: 36415; 80061; 80076; 84439; 84443

== ENCOUNTER 2024-05-27 10:18 | Outpatient (REF) | payer OTHER, SELFPAY ==
--- OUTSIDE RECORDS SUMMARY | 2024-05-27 11:32 | XMS_ITS | Encounter Summary ---
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 Procedures US Abdomen Comp w elastography Lisa Tovar MD [address] [place] [address] Phone: tel: fax: [address] Phone: tel: fax: Referral ID Status Reason Start Date Expiration Date Visits Re quested Visits Authorized [id number] Closed 05/05/2023 05/04/2024 1 1 Encounter Details Date Type Department Care Team (Late st Contact Info) Description 04/28/2023 Orders Only [facility] MEDICINE [address] [place], [place] [phone] Lsia Tovar MD [address] [place], [place] [phone] Transaminitis (Primary Dx); Hypothyroidism due to Yoel's [...] as of this encounter Plan of Treatment Scheduled Orders Name Type Priority Associated Diagnoses [...] AM EDT) Hepatitis C Genotype Not Detected [facility] Comment: Genotype not detected [...] characteristics of thisassay have been determined by [facility] [place], [place], [place]. ??The modificationshave not been cleared or approved by the FDA. ??Thisassay has been validated pursuant to the CLIAregulations and is used for clinical purposes.For additional information, please refer tohttp://education.Tryouts/faq/HCVGenotyping(This link is being provided for informational/educational purposes only.)THIS TEST WAS PERFORMED AT:[facility] [place] [address]VCOMQWVMARKOS WILKINSON MD,PHD Blood Venous blood specimen / Unknown 07/26/2023 9:50 AM EDT 07/26/2023 11:19 AM EDT us Lisa Tovar MD LAB BLOOD ORDERABLES Final Resul t [facility] [address] [place] [address] [phone] * Hepatitis B surface antigen, EIA (07/26/2023 9:50 AM EDT) Hepatitis B Surface Ag Negative Negative [facility] Blood Venous blood specimen / Unknown 07/26/2023 9:50 AM EDT 07/26/2023 11:19 AM EDT us Lisa Tovar MD LAB BLOOD ORDERABLES Final Resul t Performing Organization Address [facility] Co de Phone Number [facility] [address] [place] [phone] * Hepatitis B Surface Antibody, Qualitative (07/26/2023 9:50 AM EDT) ~Hepatitis B Surface Antibody NONREACTIVE Nonreactive [facility] Comment:Nonreactive: < 8.00 mIU/mL Blood Venous blood specimen / Unknown 07/26/2023 9:50 AM EDT 07/26/2023 11:19 AM EDT us Lisa Tovar MD LAB BLOOD ORDERABLES Final Resul t Performing Organization Address [facility] Co de Phone Number [facility] [address] [place] [phone] * Hepatitis B Core Antibody, Total (07/26/2023 9:50 AM EDT) Hepatitis B Core Antibody Nonreactive Nonreactive [facility] Blood Venous blood specimen / Unknown 07/26/2023 9:50 AM EDT 07/26/2023 11:19 AM EDT us Lisa Tovar MD LAB BLOOD ORDERABLES Final Resul t Performing Organization Address [facility] Co de Phone Number [facility] [address] [place] [phone] * (ABNORMAL) Syphilis Screen (07/26/2023 9:50 AM EDT) Syphilis Screen Reactive( A) Nonreactive [facility] Comment:Reactive specimens a re [facility] tests. Blood 07/26/2023 9:50 AM EDT 07/26/2023 11:19 AM EDT us Lisa Tovar MD LAB BLOOD ORDERABLES Final Resul t Performing Organization Address [facility]/ZIP Co de Phone Number [facility] [address] [place] [phone] * HIV-1/2 Antigen and Antibodies, Fourth Generation, with Reflexes (07/26/2023 9:50 AM EDT) HIV AB/AG Nonreactive Nonreactive [facility] Comment:HIV-1 p24 Ag and/or HIV-1/HIV-2 Ab not detected.A test result that is nonreactive does not exclude thepossibility of exposure to or infection with HIV-1 and/orHIV-2. Nonreactive results in this assay for individualswith prior exposure to HIV-1 and/or HIV-2 may be due toantigen and antibody levels that are below the limit ofdetection of this assay.The [employer] HIV Ag/Ab Combo assay result andsupplemental assay results should be interpreted inconjunction with the patient's clinical presentation,history and other laboratory results. If the results areinconsistent with clinical evidence, additional testing issuggested to confirm the result. Blood Venous blood specimen / Unknown 07/26/2023 9:50 AM EDT 07/26/2023 11:19 AM EDT us Lisa Tovar MD LAB BLOOD ORDERABLES Final Resul t Performing Organization Address City/[facility]/ZIP Co de Phone Number [facility] [address] [place] [phone] * Prothrombin Time-INR (07/26/2023 9:50 AM EDT) Prothrombin Time 11.5 11.1 - 13.3 SEC [facility] INTERNATIONAL NORM RATIO 0.9 0.9 - 1.1 [facility] Comment:INTERNATIONAL NORMAL IZED RATIO (INR) REFERENCE [...] ORDERABLES Final Resul t Performing Organization Address City/[facility]/ZIP Co de Phone Number [facility] [address] [place] [phone] * T4, Free (07/26/2023 9:50 AM EDT) Free T4 (Free Thyroxine) 1.18 0.71 - 1.85 ng/dL [facility] Blood Venous blood specimen / Unknown 07/26/2023 9:50 AM EDT 07/26/2023 11:19 AM EDT us Lisa Tovar MD LAB BLOOD ORDERABLES Final Resul t Performing Organization Address City/[facility] Co de Phone Number [facility] [address] [place] [phone] * (ABNORMAL) TSH (07/26/2023 9:50 AM EDT) Thyroid Stimulating Hormone 7.98(H) 0.32 - 4.0 uIU/mL [facility] Comment:Note: A sustained TS H level above 2.5 uIU/mL may warrant further investigation. TSH 3rd Generation ([facility]) Blood Venous blood specimen / Unknown 07/26/2023 9:50 AM EDT 07/26/2023 11:19 AM EDT us Lisa Tovar MD LAB BLOOD ORDERABLES Final Resul t Performing Organization Address City/[facility]/ZIP Co de Phone Number [facility] [address] [place] [phone] * (ABNORMAL) Hepatic Function Panel (07/26/2023 9:50 AM EDT) Bilirubin, Total 0.4 0.0 - 1.0 mg/dL [facility] Bilirubin, Direct 0.2 0.0 - 0.5 mg/dL [facility] Aspartate Amino Transferase 51(H) 5 - 31 U/L [facility] Alanine Aminotransferase 58(H) 0 - 31 U/L [facility] Total Protein 7.9 6.5 - 8.0 g/dL [facility] Albumin Level 4.0 3.5 - 5.0 g/dL [facility] Alkaline Phosphatase 106 39 - 117 U/L [facility] Blood Venous blood specimen / Unknown 07/26/2023 9:50 AM EDT 07/26/2023 11:19 AM EDT us Lisa Tovar MD LAB BLOOD ORDERABLES Final Resul t Performing Organization Address [facility] Co de Phone Number [facility] [address] [place] [phone] * (ABNORMAL) CBC auto differential (07/26/2023 9:50 AM EDT) White Blood Count 7.5 4.8 - 10.8 X10*3/uL [facility] Red Blood Count 4.88 4.20 - 5.50 X10*6/uL [facility] Hemoglobin 11.3(L) 12.0 - 16.0 g/dl [facility] Hematocrit 36.7(L) 37.0 - 47.0 % [facility] Mean Corpuscular Volume 75.2(L) 80.0 - 98.0 fL [facility] Mean Corpuscular Hemoglobin 23.2(L) 27.0 - 33.0 pg [facility] Mean Corpuscular HGB Conc 30.8(L) 31.0 - 35.0 g/dl [facility] Red Cell Distribution Width 19.0(H) 11.0 - 16.0 % [facility] Platelet Count 341 160 - 400 X10*3/uL [facility] Mean Platelet Volume 11.2 9.4 - 12.3 fL [facility] Neutrophils Percent Auto 52.5 45 - 73 % [facility] Imm Gran Pct Auto 0.3 0.0 - 0.4 % [facility] Lymphocytes Percent Auto 35.9 20 - 40 % [facility] Monocytes Percent Auto 7.9 2 - 11 % [facility] Eosinophils Percent Auto 2.9 0 - 4 % [facility] Basophils Percent Auto 0.5 0 - 2 % [facility] NRBC Pct Auto 0.0 0.0 - 0.2 /100WBC [facility] Neutrophils Absolute Auto 3.9 2.0 - 8.3 x10*3/uL [facility] Imm Gran Abs Auto 0.02 0.00 - 0.03 X10*3/uL [facility] Lymphocytes Absolute Auto 2.7 1.2 - 4.9 X10*3/uL [facility] Monocytes Absolute Auto 0.6 0.1 - 1.2 X10*3/uL [facility] Eosinophils Absolute Auto 0.2 0.0 - 0.4 X10*3/uL [facility] Basophils Absolute Auto 0.0 0.0 - 0.2 X10*3/uL [facility] NRBC Abs Auto 0.000 0.0 - 0.012 X10*3/uL [facility] Blood Venous blood specimen / Unknown 07/26/2023 9:50 AM EDT 07/26/2023 11:19 AM EDT us Lisa Tovar MD LAB BLOOD ORDERABLES Final Resul t [facility] [address] [place] [phone] * US Abdomen Comp w elastography (06/05/2023 10:15 AM EDT) Anatomical Region Laterality Modality Abdomen Ultrasound 06/05/2023 10:1 5 AM EDT Narrative 06/08/2023 4:53 PM EDT ? [facility] ?[address] ?[place] [address] ? Ultrasound Report ? Signed ? Patient: Fern Ceballos ?MR#: [id number] ?? [id number] ? : 1965 ?Acct:[id number] ? Age/Sex: 57 / F ?ADM Date: 06/05/23 ? Loc: HO.US ? Attending Dr: Lisa Tovar MD ? Ordering Physician: Lisa Tovar MD ?? Date of Service: 06/05/23 ?? Procedure(s): US abdomen comp w elastography ?? Accession Number(s): [id number] ? cc: Lisa Tovar MD ? EXAMINATION: ?? US COMPLETE ABDOMEN WITH LIVER ELASTOGRAPHY ? CLINICAL INFORMATION: ?? Elevated liver function tests. ? COMPARISON: ?? Abdominal ultrasound dated 03/24/2020. ? TECHNIQUE: ?? Real-time imaging of the abdominal viscera. Noninvasive ultrasound ?? liver fibrosis assessment is performed using Candis ElastPQ point ?? quantification shear wave elastography (2D-SWE) [...] 1649 ? DD/ 1015 ? TD/TT: ? Project Control Officer: [facility] ? Procedure Note Doncarlos, Image - 06/08/2023 [place] [id number] Ultrasound Report Signed Patient: Kristian Ceballos#: [id number] : 1965Acct:[id number] Age/Sex: 57 / FADM Date: 06/05/23 Loc: HO.US Attending Dr: Lisa Tovar MD Ordering Physician: Lisa Tovar MD Date of Service: 06/05/23 Procedure(s): US abdomen comp w elastography Accession Number(s): [id number] cc: Lisa Tovar MD EXAMINATION: US COMPLETE [...] in OV> 06/08/23 1649 DD/ 1015 TD/TT: Project Control Officer: LUKAS Lisa Tovar MD IMG US PROCEDURES Final Result * Culture, Urine, Routine (05/04/2023 12:00 AM EST) Urine Urine specimen obtained by clean catch procedure / Unknown 05/04/2023 05/04/2023 Comment:[facility] - 05/06/2023 8:01 AM EST Urine Culture Report Result Urine Culture 10,000 to 50,000 cfu/ml Urine Culture Mixed bacterial nolan characteristic of Urine Culture urogenital contamination. 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
--- OUTSIDE RECORDS SUMMARY | 2024-05-27 11:32 | XMS_ITS | Encounter Summary ---
Author Organization [employer] Address [address] [facility] 7t [place] [address] Care Team Providers Care Castings Drafter Name Role Phone Lisa Tovar MD Primary Care Provider [phone] Radu Wood PharmD Unavailable [phone] Reason for Visit * Reason Onset Date Comments Call Back Request 08/07/2023 Encounter Details Date Type Department Care Team ([facility] st Contact Info) Description 08/07/2023 Telephone [facility] MEDICINE [address] [place], [place] [phone] Lisa Tovar MD [address] [place], [place] [phone] Call Back Request Social History Tobacco Use [...] can reach out to patient, of giles messina if PCP wouldlike. Tal will call next week to see if patient did labs. * Telephone Encounter - Silvano Chavarria - 08/07/2023 12:47 PM EDT Tc from Tal with the [facility] requesting call back regarding lab orders they received from pcp. Please contact Tal at [phone]. documented in this encounter Plan of Treatment Not on file documented as of this encounter Goals Goal Patient Goal Type Associated Problems Recent Progress Patient-Stated? Author Blood Pressure < 140/90 Blood Pressure 148/90(2024 10:29 AM EDT) No Radu Wood, Eugenio Hemoglobin A1c < 7 Result Component 7.4(03/10/202 5 10:31 AM EDT) No Radu Wood, PharmD documented as of this encounter Visit Diagnoses Not on filedocumented in this encounter Additional Health Concerns Assessment Noted Time PHQ-9 Depression Total Score: 0 08/01/19 24 9:00 AM EDT documented as of this encounter Care Teams Castings Drafter Relationship Specialty Start Date End Date Lisa Tovar MD [address] [place] [address] PCP - General Family Medicine 10/26/20 Radu Wood, PharmD [address] [place] [address] Pharmacist Internal Medicine 02/01/22 documented as of this encounter
--- OUTSIDE RECORDS SUMMARY | 2024-05-27 11:32 | XMS_ITS | Encounter Summary ---
Author Organization [employer] Address [address] [facility] 7t [place] [address] Care Team Providers Care Medical Records Tech Name Role Phone Lisa Tovar MD Primary Care Provider [phone] Radu Wood PharmD Unavailable [phone] Encounter Details Date Type Department Care Team (Late st Contact Info) Description 04/23/2024 Orders Only [facility] MEDICINE [address] [place], [place] [phone] Lisa Tovar MD [address] [place], [place] [phone] Hypothyroidism, unspecified Social History Tobacco Use Types Packs/Day Years [...] as of this encounter Plan of Treatment Not on file documented as of this encounter Goals Goal Patient Goal Type Associated Problems Recent Progress Patient-Stated? Author Blood Pressure < 140/90 Blood Pressure 148/90(2024 10:29 AM EDT) No Radu Wood PharmD Hemoglobin A1c < 7 Result Component 7.4( 10:31 AM EDT) No Radu Wood PharmD documented as of this encounter Visit Diagnoses Diagnosis Hypothyroidism, unspecified documented in this encounter Additional Health Concerns Assessment Noted Time PHQ-9 Depression Total Score: 0 02/26/20 24 10:27 AM EST documented as of this encounter Care Teams Medical Records Tech Relationship Specialty Start Date End Date Lisa Tovar MD [address] [place] [address] PCP - General Family Medicine 10/26/20 Radu Wood PharmD [address] [place] [address] Pharmacist Internal Medicine 02/01/22 documented as of this encounter
--- OUTSIDE RECORDS SUMMARY | 2024-05-27 11:32 | XMS_ITS | Encounter Summary ---
Author Organization [employer] Address [address] [facility] 7t [place] [address] Care Team Providers Care Fire Chief Name Role Phone Lisa Tovar MD Primary Care Provider [phone] Radu Wood PharmD Unavailable [phone] Reason for Referral * Consultation (Routine) - Pending Review Specialty Diagnoses / Procedures Referred By Contcaitlin t Referred To Contact Pharmacy Diagnoses Hypertension, unspecified type Type 2 diabetes mellitus with hyperglycemia, with long-term current use of insulin (CMS/HCC) Lisa Tovar MD [address] [place] [address] Phone: tel: fax: Referral ID Status Reason Start Date Expiration Date Visits Requested Visits Authorized [id number] Pending Review Consult and Treat 03/01/2024 03/01/2025 6 6 Encounter Details Date Type Department Care Team (Late st Contact Info) Description 03/01/2024 Orders Only [facility] MEDICINE [address] [place], [place] [phone] Lisa Tovar MD [address] [place], [place] [phone] Hypertension, unspecified type (Primary Dx); Type 2 [...] of this encounter Plan of Treatment Scheduled Referrals Name Type Priority Associated Diagnoses Orde r Schedule Referral to Pharmacy [facility] Outpatient Referral Routine Hypertension, unspecified type Type 2 diabetes mellitus with hyperglycemia, with long-term current use of insulin ([facility]) Ordered: 03/01/2024 documented as of this encounter Goals Goal Patient Goal Type Associated Problems Recent Progress Patient-Stated? Author Blood Pressure < 140/90 Blood Pressure 148/90(2024 10:29 AM EDT) No Radu Wood, Eugeino Hemoglobin A1c < 7 Result Component 7.4( 10:31 AM EDT) No Radu Wood PharmD documented as of this encounter Visit Diagnoses Diagnosis Hypertension, unspecified type- Primary Type 2 diabetes mellitus with hyperglycemia, with long-term current use of insulin ([facility]) documented in this encounter Additional Health Concerns Assessment Noted Time PHQ-9 Depression Total Score: 0 02/26/20 24 10:27 AM EST documented as of this encounter Care Teams Fire Chief Relationship Specialty Start Date End Date Lisa Tovar MD [address] [place] [address] PCP - General Family Medicine 10/26/20 Radu Wood, Eugenio [address] [place] [address] Pharmacist Internal Medicine 02/01/22 documented as of this encounter
--- OUTSIDE RECORDS SUMMARY | 2024-05-27 11:32 | XMS_ITS | Encounter Summary ---
Author Organization [employer] Address [address] [place] [address] 7t [place] [address] Care Team Providers Care On Line Csr Name Role Phone Lisa Tovar MD Primary Care Provider [phone] Radu Wood PharmD Unavailable [phone] Encounter Details Date Type Department Care Team (Late st Contact Info) Description 06/08/2023 Orders Only [facility] MEDICINE [address] [place] [address] Lisa Tovar MD [address] [place], [place] [phone] Social History Tobacco Use Types Packs/Day Years [...] on file documented as of this encounter Visit Diagnoses Not on filedocumented in this encounter Care Teams On Line Csr Relationship Specialty Start Date End Date Lisa Tovar MD [address] [place], [place] [phone] PCP - General Family Medicine 10/26/20 Radu Wood, PharmD [address] [place] [address] [phone] Pharmacist Internal Medicine 02/01/22 documented as of this encounter
--- OUTSIDE RECORDS SUMMARY | 2024-05-27 11:32 | XMS_ITS | Encounter Summary ---
Author Organization [employer] Address [address] [facility] 7t [place] [address] Care Team Providers Care Acid Operator Name Role Phone Lisa Tovar MD Primary Care Provider [phone] Radu Wood PharmD Unavailable [phone] Encounter Details Date Type Department Care Team (Late st Contact Info) Description 02/26/2024 Orders Only [facility] MEDICINE [address] [place], [place] [phone] Lisa Tovar MD [address] [place], [place] [phone] 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 (Primary Dx) [...] Eugenio Hemoglobin A1c < 7 Result Component 7.4( 10:31 AM EDT) No Radu Wood, Eugenio documented as of this encounter Procedures Procedure Name Priority Date/Time Associated Diagnosis Comments TSH W/REFLEX TO FT4 Routine 04/17/2024 3 :36 PM EST 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 documented in this encounter Results * (ABNORMAL) TSH with Reflex to Free T4 (04/17/2024 3:36 PM EST) TSH reflex Free T4 5.58(H) 0.32 - 4.0 uIU/mL [facility] Blood 04/17/2024 3:36 PM EST 04/17/2024 4:20 PM EST us Lisa Tovar MD LAB BLOOD ORDERABLES Final Resul t [facility] [address] [place] [phone] documented in this encounter Visit Diagnoses Diagnosis 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- Primary documented in this encounter Additional Health Concerns Assessment Noted Time PHQ-9 Depression Total Score: 0 02/26/20 24 10:27 AM EST documented as of this encounter Care Teams Acid Operator Relationship Specialty Start Date End Date Lisa Tovar MD [address] [place] [address] PCP - General Family Medicine 10/26/20 Radu Wood, KendallD [address] [place] [address] Pharmacist Internal Medicine 02/01/22 documented as of this encounter
--- OUTSIDE RECORDS SUMMARY | 2024-05-27 11:32 | XMS_ITS | Encounter Summary ---
Author Organization [employer] Address [address] [facility] 7t [place] [address] Care Team Providers Care Buck Swamper Name Role Phone Lisa Tovar MD Primary Care Provider [phone] Radu Wood PharmD Unavailable [phone] Reason for Visit * Reason Comments Med Refill Encounter Details Date Type Department Care Team ([facility] st Contact Info) Description 08/06/2023 Refill [facility] MEDICINE [address] [place], [place] [phone] Yaritza Castro MD [address] [place], [place] [phone] Social History Tobacco Use Types Packs/Day Years [...] documented as of this encounter Care Teams Buck Swamper Relationship Specialty Start Date End Date Lisa Tovar MD [address] [place] [address] PCP - General Family Medicine 10/26/20 Radu Wood PharmD [address] [place] [address] Pharmacist Internal Medicine 02/01/22 documented as of this encounter
--- OUTSIDE RECORDS SUMMARY | 2024-05-27 11:32 | XMS_ITS | Clinical Summary ---
Author Organization [employer] Address [address] [facility] [place] [address] Care Team Providers Care Paper Bag Machine Operator Name Role Phone Lisa Tovar MD Primary Care Provider [phone] Radu Wood PharmD Unavailable [phone] Allergies Active Allergy Reactions Criticality Noted Date Comments Oxycodone Other Medium 02/27/2012 Skin Crawling Sensation (03/09/2012) Medications estradiol (Vagifem) 10 MCG tablet vaginal tablet INSERT 1 TABLET VAGINALLY TWICE A WEEK ON MONDAY AND Monday01/20/20 22 Active folic acid (Folvite) 1 MG tablet TAKE 1 TABLET BY MOUTH EVERY DAY 90 tablet 1 07/05/19 23 Active ketotifen (Zaditor) 0.025 % ophthalmic solution INSTILL 1 DROP IN EACH EYE TWICE DAILY 10 mL 1 03/28/19 24 Active lisinopril 5 MG tabletIndicatio ns:Hypertension , unspecified type Take 1 tablet (5 mg) by mouth in the morning. 90 tablet 3 05/04/19 24 Active Blood Glucose Monitoring Suppl (FreeStyle [place] Lite) w/Device kitIndications: Type 2 diabetes mellitus with hyperglycemia, with long-term current use of insulin ([facility]) Use to test blood sugar three times daily as directed 1 kit 06/26/19 24 Active Alcohol Swabs 70 % padsIndications :Type 2 diabetes mellitus with hyperglycemia, with long-term current use of insulin (CMS/HCC) Use to test blood sugar 3 times daily 100 each 5 06/26/19 24 Active Lancets miscIndications :Type 2 diabetes mellitus with hyperglycemia, with long-term current use of insulin (CMS/[facility]) Use to test blood sugar 3 times daily 100 each 5 06/26/19 24 Active glucose blood (FREESTYLE LITE) test stripIndication s:Type 2 diabetes mellitus with hyperglycemia, with long-term current use of insulin ([facility]) Use to test blood sugar 3 times daily 100 each 5 06/26/19 24 025 Active apremilast (Otezla) 10 & 20 & 30 MG tablet therapy pack tablet therapy packIndications :Psoriasis Take per package instructions . 55 each 08/10/19 24 Active apremilast (Otezla) 30 MG tabletIndicatio ns:Psoriasis Take 1 tablet (30 mg) by mouth 2 times daily. Take 30 mg BID after starting month pack. 60 tablet 5 08/10/19 24 Active insulin glargine (Lantus SoloStar) 100 UNIT/ML penIndications: Type 2 diabetes mellitus with hyperglycemia, with long-term current use of insulin ([facility]) Inject 22 units under the skin once daily 15 mL 5 11/19/19 24 Active nystatin (Mycostatin) cream APPLY 1 GRAM TOPICALLY TOPICALLY TWICE DAILY 30 g 1 11/20/19 24 Active fluocinolone ([place]-Smoothe) 0.01 % external oil APPLY TOPICALLY TO WET SCALP TWICE A WEEK AT BEDTIME 118.28 mL 3 12/06/19 24 Active fluticasone (Flonase) 50 MCG/ACT nasal spray INSTILL 1-2 SPRAYS IN EACH NOSTRIL ONCE DAILY 16 g 3 12/25/19 24 Active nitrofurantoin (Macrodantin) 100 MG capsuleIndicati ons:Recurrent UTI TAKE 1 CAPSULE BY MOUTH ONCE DAILY AFTER SEXUAL ACTIVITY 30 capsule 01/15/20 24 Active Pentips Generic Pen [place] 32G X 4 MM misc USE EVERY DAY WITH LANTUS DIRECTED 100 each 3 02/05/20 24 Active clobetasol (Temovate) 0.05 % external solution APPLY TO SCALP TWICE A WEEK IN THE MORNING 50 mL 3 02/26/20 24 Active clobetasol (Temovate) 0.05 % ointment Apply topically 2 times daily. 45 g 3 02/26/20 24 Active nystatin-triamc inolone (Mycolog II) ointment Apply topically 2 times daily. 15 g 02/26/20 24 Active Tirzepatide (Mounjaro) 7.5 MG/0.5ML solution auto-injectorIn dications:Type 2 diabetes mellitus with hyperglycemia, with long-term current use of insulin (CMS/[facility]) Inject 7.5 mg under the skin 1 (one) time per week. 2 mL 5 03/11/19 25 Active rosuvastatin (Crestor) 10 MG tabletIndicatio ns:Type 2 diabetes mellitus with hyperglycemia, with long-term current use of insulin (CMS/[facility]) Take 1 tablet (10 mg) by mouth Once per day. 90 tablet 3 03/11/19 25 Active aspirin (Aspirin Adult Low Dose) 81 MG EC tabletIndicatio ns:Type 2 diabetes mellitus with hyperglycemia, with long-term current use of insulin (CMS/[facility]) Take 1 tablet by mouth daily 90 tablet 3 03/11/19 25 Active levothyroxine (Synthroid, Levoxyl) 150 MCG tabletIndicatio ns:Hypothyroidi sm, unspecified Take 1 tablet (150 mcg) by mouth Once per day. 90 tablet 3 04/23/19 25 Active metFORMIN (Glucophage) 500 MG tablet Take 2 tablets (1,000 mg) by mouth with breakfast and with evening meal. 360 tablet 3 05/07/19 25 Active ketoconazole (NIZOral) 2 % shampoo Apply topically 2 (two) times a week. 120 mL 3 05/07/19 25 Active metFORMIN (Glucophage) 500 MG tablet Take 2 tablets (1,000 mg) by mouth with breakfast and with evening meal. 360 tablet 1 08/01/19 24 025 Discontinued(Re order (will not trigger notification to Pharmacy)) ketoconazole (NIZOral) 2 % shampoo APPLY TOPICALLY TWICE A WEEK DIRECTED 120 mL 3 12/06/19 24 025 Discontinued(Re order (will not trigger notification to Pharmacy)) Active Problems Problem Noted Date Diagnosed Date [...] and 2017 - will consult Nikole from [facility] whether patient needs a treatment Dyslipidemia 08/01/2023 Assessment & Plan (05/06/2024 9:02 AM EDT): - last lipid profile January 2024 - current medication: rosuvastatin 5 mg at bedtime, consider increasing its woodard - April 2023 AST / ALT > x 3 UNL and not on statin - most recent AST/ALT in June 2023 shows improvement - continue working on lifestyle modification Assessment & Plan (03/01/2024 5:09 PM EST): [...] liver disease (MASLD) 05/05/2023 Assessment & Plan (05/06/2024 9:01 AM EDT): - FIB4 index 1.10 - Last US / elastography: May 2023, compensated advanced cirrhotic liver disease - GI, [facility]. Referred back - Avoid hepatotoxic drugs - Continue working on lifestyle modifications Assessment & Plan (02/25/2024 6:04 AM EST): [...] likely MASLD Hypothyroidism 05/04/2023 Assessment & Plan (05/06/2024 10:18 PM EDT): - questionable adherence to levothyroxine - most recent thyroid function test: 07/26/23 TSH 7.98 - current replacement: levothyroxine 137 mcg daily (dose increased in July 2023) - check lab and adjust dose accodingly - Ordered TSH with Reflex to Free T4 05/06/24 Assessment & Plan (02/25/2024 6:17 AM EST): [...] check lab Hypertension 05/04/2023 Assessment & Plan (05/06/2024 9:01 AM EDT): -Goal BP < 130/80 per ACC/AHA guideline -Not at goal, patient attributes to white-coat HTN -Continue working on lifestyle modifications -Recommended self-monitoring BP. -Continue current medications: lisinopril 5 mg daily, consider increasing to 10 mg daily -Follow up with Radu Wood RPh, PharmD CDTM Assessment & Plan (02/25/2024 6:04 AM EST): -Goal BP < 130/80 per ACC/AHA guideline -Not at goal, patient attributes to white-coat HTN -Continue working on lifestyle modifications -Recommended self-monitoring BP. -Continue current medications: lisinopril 5 mg daily, consider increasing to 10 mg daily -Follow up with Radu Wood RPh, PharmD CDTM Assessment & Plan (11/08/2023 10:54 AM EDT): -Goal BP < 140/90 per JNC-8 and < 130/80 per ACC/AHA guideline (Treatment threshold >= 140/90) -Not at goal, patient attributes to white-coat HTN -Continue working on lifestyle modifications -Recommended self-monitoring BP. -Continue current medications: lisinopril 5 mg daily, consider increasing to 10 mg daily -Follow up with Radu Wood RPh, PharmD CDTM Assessment & Plan (08/01/2023 6:06 PM EDT): -Goal BP < 140/90 per JNC-8 and < 130/80 per ACC/AHA guideline (Treatment threshold >= 140/90) -Not at goal, patient attributes to white-coat HTN -Continue working on lifestyle modifications -Recommended self-monitoring BP. -Continue current medications: lisinopril 5 mg daily, consider increasing to 10 mg daily -Follow up with Radu Wood RPh, PharmD CDTM Assessment & Plan (05/05/2023 10:52 AM [...] (02/25/2024 6:05 AM EST): - Following with [facility] - Last UTI in Mar 2022, E coli which was resistant to ampicillin, ceftriaxone, and TMP/SMX, treated with nitrofurantoin - continue VagiFem - continue postcoital prophylaxis Assessment & Plan (11/08/2023 10:54 AM EDT): - Following with [facility] - Last UTI in Mar 2022, E coli which was resistant to ampicillin, ceftriaxone, and TMP/SMX, treated with nitrofurantoin - continue VagiFem - continue postcoital prophylaxis Assessment & Plan (08/01/2023 6:08 PM EDT): - Following with [facility] - Last UTI in Mar 2022, E coli which was resistant to ampicillin, ceftriaxone, and TMP/SMX, treated with nitrofurantoin - continue VagiFem - continue postcoital prophylaxis Assessment & Plan (05/05/2023 11:13 AM EST): - Following with [facility] - Last UTI in Mar 2022, [...] 2 diabetes mellitus 07/12/2012 Assessment & Plan (05/10/2024 11:54 AM EDT): - A1C 7.4% on 05/06/24, improving from A1C 7.8% on 02/26/24 -Previously followed by [facility] and was started on CGM and GLP-1 agonist -Continue lantus 26 units every evening. -Continue metformin 1000 mg twice a day -Continue tirzepatide 7.5 mg weekly -Foot exam: 05/04/23 -Eye exam: [facility]. -Last lipid profile: 02/26/24 -Last microalbumin: 02/26/24, no microalbuminuria Assessment & Plan (03/01/2024 5:05 PM EST): - A1C 7.8% on 02/26/24, worsened from 6.8% on 11/08/23 -Previously followed by [facility] and was started on CGM and GLP-1 agonist -Continue lantus 26 units every evening. -Continue metformin 1000 mg twice a day -Continue tirzepatide 5 mg weekly -Foot exam: 05/04/23 -Eye exam: [facility]. May 2022, upcoming appointment -Last lipid profile: 02/26/24 -Last microalbumin: 02/26/24, no microalbuminuria Assessment & Plan (11/13/2023 1:12 PM EDT): - A1C 6.8% on 11/08/23, improved from 8.5% on 08/01/23 -Previously followed by [facility] and was started on CGM and GLP-1 agonist -Continue lantus 26 units every evening. -Continue metformin 1000 mg twice a day -Continue tirzepatide 5 mg weekly -Foot exam: 05/04/23 -Eye exam: [facility]. May 2022, upcoming appointment -Last lipid profile: 05/04/23 -Last microalbumin: 05/04/23 Assessment & Plan (08/01/2023 6:11 PM EDT): - A1C 8.5% on 08/01/23, improved from 11% in April 2023 -Previously followed by [facility] and was started on CGM and GLP-1 agonist -Continue lantus 26 units every evening. -Continue metformin 1000 mg twice a day -Continue tirzepatide 5 mg weekly -Foot exam: 05/04/23 -Eye exam: [facility]. May 2022, upcoming appointment -Last lipid profile: 05/04/23 -Last microalbumin: 05/04/23 Assessment & Plan (05/07/2023 7:25 AM EDT): - A1C 11% today, worsened from 7.9% in 2021 -Previously followed by [facility] and was started on CGM and GLP-1 agonist -Continue lantus 26 units every evening (advise to increase to 30 units if dulaglutide (Trulicity) is not available). -Continue metformin 1000 mg twice a day -Increase Trulicity 3.0 mg weekly -Foot exam: 05/04/23 -Eye exam: [facility]. May 2022. 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 - Last seen by mail manager in [facility] in 2013 - Previously receiving intralesional Kenalog and clobetasol lotion to the scalp - Will refer to dermatology clinic - Encouraged to optimize her other chronic disease as these conditions can affect skin conditions as well Vitamin D deficiency 07/12/2012 Assessment & Plan (05/06/2024 9:02 AM EDT): - check lab Assessment & Plan (03/01/2024 5:03 PM EST): - check lab Assessment & Plan (05/07/2023 7:23 AM EDT): - check lab Resolved Problems Problem Noted Date Diagnosed Date Resolved Date Accident while engaged in wo rk-related activity 02/08/2022 05/04/2023 Encounters Date Type Department Care Team Description 05/06/2024 10:15 AM EDT Office Visit [facility] [place] [place] [address] Lisa Tovar MD Hypertension, unspecified type (Primary Dx); Vitamin D deficiency; Type 2 diabetes mellitus with hyperglycemia, with long-term current use of insulin ([facility]); 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; Dyslipidemia; Metabolic dysfunction-associate d steatotic liver disease (MASLD); Dietary counseling; Exercise counseling 05/06/2024 Travel 05/02/2024 Telephone [facility] [address] [place] [phone] Lisa Tovar MD chart prep 04/23/2024 Orders Only [address] [address] Lisa Tovar MD Hypothyroidism, unspecified 04/19/[address] [address] Elle Byrne, RN Results 04/17/2024 Orders Only [facility] [place] [place] [address] Lisa Tovar MD 03/11/[address] [address] Radu Wood, PharmD insurance 03/11/2024 Travel 03/01/2024 Orders Only [address] [place] [address] Lisa Tovar MD Hypertension, unspecified type (Primary Dx); Type 2 diabetes mellitus with hyperglycemia, with long-term current use of insulin ([facility]) 03/01/2024 Telephone [facility] [address] [place] [address] Lisa Tovar MD 02/27/2024 Telephone [facility] [address] [place], [place] [phone] Elle Byrne RN Results 02/27/2024 Telephone [facility] [address] [place], [place] [phone] Lisa Tovar MD Results from Last 3 Months Immunizations Name Administration [...] Sign Reading Time Taken Comments Blood Pressure 148/90 05/06/2024 10:29 AM EDT Pulse 78 05/06/2024 10:29 AM EDT Temperature 36.1 ??C (96.9 ??F) 05/06/2024 10:29 AM E DT Respiratory Rate 20 05/06/2024 10:29 AM EDT Oxygen Saturation 98% 08/02/2023 10:53 AM EDT Inhaled Oxygen Concentration - - Weight 81.6 kg (180 lb) 05/06/2024 10:29 AM EDT Height 165.8 cm (5' 5.26 ) 02/26/2024 9:34 AM ES T Body Mass Index 29.72 02/26/2024 9:34 AM EST Plan of Treatment Health Maintenance Due Date Last Done Comments CT Colonography 1966 FIT DNA/Cologuard 1966 FIT 1966 FOBT 1966 Sigmoidoscopy 1966 Hepatitis A Vaccines (1 of 2 - Risk 2-dose series) 1985 Hepatitis B Vaccines (1 of 3 - 19+ 3-dose series) 1985 Pneumococcal Vaccine: 50+ Years (2 of 2 - PCV) 07/03/2011 07/02/2010 Zoster Vaccines (1 of 2) 2016 DTaP/Tdap/Td Vaccines (2 - Td or Tdap) 07/02/2020 07/02/2010 Colonoscopy 12/23/2022 12/23/2021 Colorectal Cancer Screening 12/23/2022 COVID-19 Vaccine ( - season) 2023 03/12/2021, 06/17/2020, 05/25/2020 Influenza Vaccine (#1) 2023 4, 12/27/2012, 12/15/2011, Additional history exists Mammogram 02/18/2024 02/17/2022, 02/11/2021 Diabetes: Foot Exam 05/03/2024 05/04/2023, 05/04/2023, 05/04/2023, Additional history exists SDOH Screening 07/31/2024 08/01/2023 Diabetes: Hemoglobin A1C 08/06/2024 025, 02/26/2024, 11/08/2023, Additional history exists Cervical Cancer Screening 12/04/2024 HPV/Cotest 12/04/2024 12/05/2019 Pap Smear 12/04/2024 12/05/2019 Depression Screening 02/25/2025 02/26/2024, 02/26/20 24 Diabetes: Urine Protein Screening 02/25/2025 02/26/2024, 05/04/2023, 12/02/2020, Additional history exists Lipid Panel 04/17/2025 04/17/2024, 01/29, 05/04/2023, Additional history exists Alcohol/Substance Use Screening 05/06/2025 05/06/2024 Tobacco Screening 05/06/2025 05/06/2024 Eye Exam 01/15/2026 01/16/2024, 12/28, 01/16/2024, Additional [...] 10:31 AM EDT) No Radu Wood PharmD Procedures Procedure Name Priority Date/Time Associated Diagnosis Comments POCT GLYCOSYLATED HEMOGLOBIN (HGB A1C) Routine 05/06/2024 10:31 AM EDT Type 2 diabetes mellitus with hyperglycemia, with long-term current use of insulin ([facility]) POCT GLUCOSE Routine 05/06/2024 10:30 AM EDT Type 2 diabetes mellitus with hyperglycemia, with long-term current use of insulin (CMS/[facility]) T4, FREE Routine 04/17/2024 3:36 PM EST LIPID PANEL, STANDARD Routine 04/17/2024 3:36 PM EST HEPATIC FUNCTION PANEL Routine 3:36 PM EST TSH W/REFLEX TO FT4 Routine 04/17/2024 3 :36 PM EST 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 ALBUMIN, RANDOM URINE W/CREATININE Routine 02/26/2024 10:13 AM EST Hypertension, unspecified type Type 2 diabetes mellitus with hyperglycemia, with long-term current use of insulin (CMS/[facility]) HEPATITIS C VIRAL RNA GENOTYPE, LIPA Routine [...] Recently Relevant to Health Maintenance Results * (ABNORMAL) POCT glycosylated hemoglobin (Hgb A1c) (05/06/2024 10:31 AM EDT) Hemoglobin A1C 7.4(A) 4.0 - 6.0 % QC Media Lot # [id number] Lot# Expiration Date 6 Blood Capillary blood specimen / Unknown 05/06/2024 10:31 AM EDT us Lisa Tovar MD POINT OF CARE TEST ENTER/EDIT OR DERABLES Final Result * POCT glucose manually resulted (05/06/2024 10:30 AM EDT) Glucose Blood, POC 149 60 - 200 mg/dL QC Media Lot # [id number] Lot# Expiration Date Blood Capillary blood specimen / Unknown 05/06/2024 10:30 AM EDT us Lisa Tovar MD POINT OF CARE TEST ENTER/EDIT OR DERABLES Final Result * (ABNORMAL) TSH with Reflex to Free T4 (04/17/2024 3:36 PM EST) TSH reflex Free T4 5.58(H) 0.32 - 4.0 uIU/mL [facility] Blood 04/17/2024 3:36 PM EST 04/17/2024 4:20 PM EST us Lisa Tovar MD LAB BLOOD ORDERABLES Final Resul t Performing Organization Address [facility] Co de Phone Number [facility] [address] [place] [phone] * T4, Free (04/17/2024 3:36 PM EST) Free T4 (Free Thyroxine) 1.39 0.71 - 1.85 ng/dL [facility] 04/17/2024 3:36 PM EST 04/17/2024 4:20 PM EST us Lisa Tovar MD LAB BLOOD ORDERABLES Final Resul t Performing Organization Address [facility] Phone Number [facility] [address] [place] [phone] * (ABNORMAL) Hepatic Function Panel (04/17/2024 3:36 PM EST) Bilirubin, Total 0.3 0.0 - 1.0 mg/dL [facility] Bilirubin, Direct 0.1 0.0 - 0.5 mg/dL [facility] Aspartate Amino Transferase 62(H) 5 - 31 U/L [facility] Alanine Aminotransferase 77(H) 0 - 31 U/L [facility] Total Protein 8.2(H) 6.5 - 8.0 g/dL [facility] Albumin Level 4.0 3.5 - 5.0 g/dL [facility] Alkaline Phosphatase 118(H) 39 - 117 U/L [facility] 04/17/2024 3:36 PM EST 04/17/2024 4:20 PM EST Lisa Tovar MD LAB BLOOD ORDERABLES Final Resul t Performing Organization Address City/[facility] Co de Phone Number [facility] [address] [place] [phone] * (ABNORMAL) Lipid Panel, Standard (04/17/2024 3:36 PM EST) Triglycerides 171(H) <150 mg/dL [facility] Comment:Desirable Triglyceri de: less than 150 mg/dLBorderline High Triglyceride 150-199 mg/dLHigh Triglyceride: 200-499 mg/dLVery High Triglyceride: greater than or equal to 5OO mg/dL Cholesterol 136 <200 mg/dL [facility] Comment:Desirable Cholestero l: less than 200 mg/dLBorderline High Cholesterol: 200-239 mg/dLHigh Cholesterol: greater than 239 mg/dL LDL Cholesterol Calculated 55 <100 mg/dL [facility] Comment:Desirable LDL: less than 100 mg/dLNear Optimal/Above Optimal LDL: 110- 129 mg/dLBorderline High LDL: 130-159 mg/dLHigh LDL: 160-189 mg/dLVery High LDL: greater than or equal to 190 mg/dL HDL Cholesterol 47 >40 mg/dL [facility] Comment:Desirable HDL: great er than 40 mg/dL Note: This HDL assay may give artificially low results in patients with liver disease. 04/17/2024 3:36 PM EST 04/17/2024 4:20 PM EST us Lisa Tovar MD LAB BLOOD ORDERABLES Final Resul t [facility] [address] [place] [phone] * Albumin, Random Urine W/Creatinine (02/26/2024 10:13 AM EST) Creatinine, Urine 200.53 mg/dL [facility] Microalbumin Urine 26.0 mg/L [facility] Microalbum Creatinine Ratio Ur 12.9 <30 ug/mg cr [facility] Comment:Albumin/Creatinine R atio Reference Ranges: Normal: < 30 ug/mg creatinine Microalbuminuria: 30 - 300 ug/mg creatinineClinical Albuminuria: > 300 ug/mg creatinine Urine 02/26/2024 10:1 3 AM EST 02/26/2024 11:04 AM EST us Lisa Tovar MD LAB URINE ORDERABLES Final Resul t Performing Organization Address City/[facility]/ZIP Co de Phone Number [facility] [address] [place] [phone] * Hepatitis C Viral RNA, Genotype, LiPA (07/26/2023 9:50 AM EDT) Hepatitis C Genotype Not Detected [facility] Comment: Genotype not detected due [...] characteristics of thisassay have been determined by [place]. ??The modificationshave not been cleared or approved by the FDA. ??Thisassay has been validated pursuant to the CLIAregulations and is used for clinical purposes.For additional information, please refer [email or web address](This link is being provided for informational/educational purposes only.)THIS TEST WAS PERFORMED AT:[employer] [place] [phone] WILKINSON MD,PHD Blood Venous blood specimen / Unknown 07/26/2023 9:50 AM EDT 07/26/2023 11:19 AM EDT us Lisa Tovar MD LAB BLOOD ORDERABLES Final Resul t Performing Organization Address City/[facility]/ZIP Co de Phone Number [facility] [address] [place] [phone] * HIV-1/2 Antigen and Antibodies, Fourth Generation, with Reflexes (07/26/2023 9:50 AM EDT) HIV AB/AG Nonreactive Nonreactive [facility] Comment:HIV-1 p24 Ag and/or HIV-1/HIV-2 Ab not detected.A test result that is nonreactive does not exclude thepossibility of exposure to or infection with HIV-1 and/orHIV-2. Nonreactive results in this assay for individualswith prior exposure to HIV-1 and/or HIV-2 may be due toantigen and antibody levels that are below the limit ofdetection of this assay.The ABODO HIV Ag/Ab Combo assay result andsupplemental assay results should be interpreted inconjunction with the patient's clinical presentation,history and other laboratory results. If the results areinconsistent with clinical evidence, additional testing issuggested to confirm the result. Blood Venous blood specimen / Unknown 07/26/2023 9:50 AM EDT 07/26/2023 11:19 AM EDT us Lisa Tovar MD LAB BLOOD ORDERABLES Final Resul t [facility] [address] [place] [phone] * BI Mammogram Screening Tomosynthesis Bilateral (02/17/2022 8:00 AM EST) Anatomical Region Laterality Modality Breast Bilateral Mammography 02/17/2022 8:00 AM EST Narrative 02/19/2022 12:19 PM EST ? [facility] [place] ? [address] ?[place] [address] ? Mammography Report ? Signed ? Patient: Velarde Hilton,Fern ?MR#: [id number] ?? [id number] ? : 1965 ?Acct:[id number] ? Age/Sex: 56 / F ?ADM Date: 12/22/22 ? Loc: HO.MAMMO ? Attending Dr: Lisa Tovar MD ? Ordering Physician: Lisa Tovar MD ?Results: 1Negative ? Date of Service: 02/17/22 ?Follow Up: 1 Year From Orig ?? inal Mammogram ? Procedure(s): MM tomosynthesis screening BI ?? Accession Number(s): [id number] ? cc: Lisa Toavr MD ? EXAMINATION: ?? MM SCREENING DIGITAL [...] signed by Yadiel Paez MD in OV> ?02/19/22 1216 ? DD/ 0800 ? TD/TT: ? Blacksmith Hammer Operator: KEVIN ? Procedure Note Donotuseinterpreter, Image - 02/19/2022 [facility] [address] [place] [address] Mammography Report Signed Patient: Kristian Ceballos#: [id number] : 1965Acct:[id number] Age/Sex: 56 / FADM Date: 02/17/22 Loc: HO.MAMMO Attending Dr: Lisa Tovar MD Ordering Physician: Lisa Tovarults: 1Negative Date of Service: 02/17/22Follow Up: 1 Year From Orig inal Mammogram Procedure(s): MM tomosynthesis screening BI Accession Number(s): [id number] cc: Lisa Tovar MD EXAMINATION: MM SCREENING [...] in OV> 02/19/22 1216 DD/ 0800 TD/TT: Blacksmith Hammer Operator: KEVIN [facility] External Provider IMG BI PROCEDURES Edited Result - Final * Hm Colonoscopy (12/23/2021) Colonoscopy Normal Normal us Historical Provider HEALTH MAINTENANCE Final Result * HPV DNA, HIGH RISK, CERVICAL (12/05/2019 12:00 AM EDT) HPV DNA, HIGH RISK, CERVICAL Not Detected NOT DETECTED [facility] Comment: Not Detected ?? High Risk HPV types (16,18,31,33,35,39,45,51,52, 56,58,59,66,68) were not detected. Other HPV types which cause anogenital lesions may be present. The significance of the other types of HPV in malignant processes has not been established. ?? Methodology: Real Time PCR ? 12/05/2019 us Historical Provider HISTORICAL/NON ORDERABLE LABS Final Result [facility] [address] * THINPREP TIS PAP (12/05/2019 12:00 AM EDT) Clinical Information: SEE COMMENT [facility] Comment:None given COMMENT SEE COMMENT [...] has been evaluated with computer assisted technology. Ship Fastener: SEE COMMENT [facility] Comment: ALS, CT(ASCP) CT screening location: [address] ??[id number] Interpretation/Resu lt: SEE COMMENT [facility] [...] Provider MD LAB PATHOLOGY ORDERABLES Final Result [facility] [address] from Last 3 Months or Most Recently Relevant to Health Maintenance Insurance [employer] Care Teams Paper Bag Machine Operator Relationship Specialty Start Date End Date Lisa Tovar MD [address] [place] [address] PCP - General Family Medicine 10/26/20 Radu Wood, KendallD [address] [place] [address] Pharmacist Internal Medicine 02/01/22
--- OUTSIDE RECORDS SUMMARY | 2024-05-27 11:32 | XMS_ITS | Encounter Summary ---
Author Organization [employer] Address [address] [facility] [address] [place] [address] Care Team Providers Care Distillery Supervisor Name Role Phone Lisa Tovar MD Primary Care Provider [phone] Radu Wood PharmD Unavailable [phone] Encounter Details Date Type Department Care Team (Late st Contact Info) Description 08/03/2023 Orders Only [facility] [address] [place], [place] [phone] Lisa Tovar MD [address] [place], [place] [phone] History of syphilis (Primary Dx) Social History [...] EDT Gender Identity Choose not to disclose 2 10:16 AM EDT Sexual Orientation Choose not [...] documented as of this encounter Care Teams Distillery Supervisor Relationship Specialty Start Date End Date Lisa Tovar MD [address] [place] [address] PCP - General Family Medicine 10/26/20 Radu Wood PharmD [address] [place] [address] Pharmacist Internal Medicine 02/01/22 documented as of this encounter
== END 2024-05-27 10:19 | disposition home or self-care (01) ==
LOC: HO.MAMMO 10:18
PROVIDERS: PCP Family Medicine; Visit Provider Family Medicine
DX: Z12.31 Encounter for screening mammogram for malignant neoplasm of breast (principal)
CPT/HCPCS: 77063; 77067

== ENCOUNTER → 2024-05-27 10:30 | Outpatient (BNV) | payer OTHER, SELFPAY | PROVIDERS: PCP Family Medicine; Visit Provider Internal Medicine | DX: Z12.31 Encounter for screening mammogram for malignant neoplasm of breast (principal) | CPT/HCPCS: 77063; 77067 ==

== ENCOUNTER 2024-07-30 10:18 | Outpatient (REF) | payer OTHER, SELFPAY ==
[2024-07-30 13:53] LABS: Free T4 (Free Thyroxine) 0.74 ng/dL (0.71-1.85)
== END 2024-07-30 10:19 | disposition home or self-care (01) ==
LOC: HO.HHCL 10:18
PROVIDERS: Visit Provider Family Medicine
DX: E06.3 Autoimmune thyroiditis (principal)
CPT/HCPCS: 36415; 84439; 84443

== ENCOUNTER 2024-10-31 14:10 | Outpatient (REF) | payer OTHER, SELFPAY ==
--- OUTSIDE RECORDS SUMMARY | 2024-10-31 15:25 | XMS_ITS | Encounter Summary ---
Author Organization [employer] Address [address] [facility] [address] [place] [address] Care Team Providers Care Production Maintenance Mechanic Name Role Phone Lisa Tovar MD Primary Care Provider [phone] Radu Wood PharmD Unavailable [phone] Reason for Visit * Reason Comments Med Refill Encounter Details Date Type Department Care Team (Late st Contact Info) Description 08/06/2023 Refill [facility] [address] [place] [address] Yaritza Castro MD [address] [place], [place] [phone] Social History Tobacco Use Types Packs/Day Years [...] Care Team (Late st Contact Info) Description 11/04/2024 10:00 AM EDT Office Visit [facility] [address] [place] [address] Lisa Tovar MD [address] [place] [address] 12/11/2024 2:30 PM EDT Medication Management [facility] [address] [place] [address] Radu Wood PharmD [address] [place] [address] 02/04/2025 1:00 PM EST Office Visit [facility] [address] [place] [address] Leah Rosa, OD [address] [place] [address] documented as of this encounter Goals Goal Patient Goal Type Associated Problems Recent Progress Patient-Stated? Author Blood Pressure < 140/90 Blood Pressure 130/80(2024 9:06 AM EDT) No Radu Wood PharmD Hemoglobin A1c < 7 Result Component 7.2( 9:10 AM EDT) No Radu Wood PharmD documented as of this encounter Visit Diagnoses Not on filedocumented in this encounter Additional Health Concerns Assessment Noted Time PHQ-9 Depression Total Score: 0 08/01/19 24 9:00 AM EDT documented as of this encounter Care Teams Production Maintenance Mechanic Relationship Specialty Start Date End Date Lisa Tovar MD [address] [place] [address] PCP - General Family Medicine 10/26/20 Radu Wood PharmD [address] [place] [address] Pharmacist Internal Medicine 02/01/22 documented as of this encounter
--- OUTSIDE RECORDS SUMMARY | 2024-10-31 15:25 | XMS_ITS | Clinical Summary ---
Author Organization [employer] Address [address] [place] [address] [address] [place] [address] Care Team Providers Care Cannery Tender Engineer Name Role Phone Lisa Tovar MD Primary Care Provider [phone] Radu Wood PharmD Unavailable [phone] Allergies Active Allergy Reactions Criticality Noted Date Comments Lisinopril Cough 10/04/2024 Oxycodone Other Medium 02/27/2012 Skin Crawling Sensation (03/09/2012) Medications Blood Glucose Monitoring Suppl (CrowdScannerr Lite) w/Device kitIndications :Type 2 diabetes mellitus with hyperglycemia, with long-term current use of insulin ([facility]) Use to test blood sugar three times daily as directed 1 kit Active Alcohol Swabs 70 % padsIndication s:Type 2 diabetes mellitus with hyperglycemia, with long-term current use of insulin ([facility]) Use to test blood sugar 3 times daily 100 each 5 024 Active apremilast (Otezla) 10 & 20 & 30 MG tablet therapy pack tablet therapy packIndication s:Psoriasis Take per package instructions. 55 each 024 Active apremilast (Otezla) 30 MG tabletIndicati ons:Psoriasis Take 1 tablet (30 mg) by mouth 2 times daily. Take 30 mg BID after starting month pack. 60 tablet 5 024 Active insulin glargine (Lantus SoloStar) 100 UNIT/ML penIndications :Type 2 diabetes mellitus with hyperglycemia, with long-term current use of insulin ([facility]) Inject 22 units under the skin once daily 15 mL 5 024 Active nystatin (Mycostatin) cream APPLY 1 GRAM TOPICALLY TOPICALLY TWICE DAILY 30 g 1 024 Active Pentips Generic Pen [place] 32G X 4 MM misc USE EVERY DAY WITH LANTUS DIRECTED 100 each 3 024 Active nystatin-triam cinolone (Mycolog II) ointment Apply topically 2 times daily. 15 g 024 Active rosuvastatin (Crestor) 10 MG tabletIndicati ons:Type 2 diabetes mellitus with hyperglycemia, with long-term current use of insulin (CMS/HCC) Take 1 tablet (10 mg) by mouth Once per day. 90 tablet 3 025 Active aspirin (Aspirin Adult Low Dose) 81 MG EC tabletIndicati ons:Type 2 diabetes mellitus with hyperglycemia, with long-term current use of insulin (CMS/HCC) Take 1 tablet by mouth daily 90 tablet 3 025 Active levothyroxine (Synthroid, Levoxyl) 150 MCG tabletIndicati ons:Hypothyroi dism, unspecified Take 1 tablet (150 mcg) by mouth Once per day. 90 tablet 3 025 Active metFORMIN (Glucophage) 500 MG tablet Take 2 tablets (1,000 mg) by mouth with breakfast and with evening meal. 360 tablet 3 025 Active ketoconazole (NIZOral) 2 % shampoo Apply topically 2 (two) times a week. 120 mL 3 025 Active clobetasol (Temovate) 0.05 % external solution APPLY TO SCALP TWICE A WEEK IN THE MORNING 50 mL 3 025 Active clobetasol (Temovate) 0.05 % ointment Apply topically 2 times daily. 45 g 3 025 Active fluocinolone ([place]-Smoothe ) 0.01 % external oil APPLY TOPICALLY TO WET SCALP TWICE A WEEK AT BEDTIME 118.28 mL 3 025 Active fluticasone (Flonase) 50 MCG/ACT nasal spray INSTILL 1 TO 2 SPRAYS IN EACH NOSTRIL EVERY DAY 16 g 3 025 Active Mounjaro 7.5 MG/0.5ML solution auto-injectorI ndications:Typ e 2 diabetes mellitus with hyperglycemia, with long-term current use of insulin (CMS/HCC) INJECT ONE PEN (=7.5MG) SUBCUTANEOUSLY ONCE A WEEK DIRECTED 2 mL 5 Active Vagifem 10 MCG tablet vaginal tablet INSERT 1 TABLET VAGINALLY TWICE A WEEK 8 tablet 1 Active nitrofurantoin (Macrodantin) 100 MG capsuleIndicat ions:Recurrent UTI TAKE 1 CAPSULE BY MOUTH EVERY DAY AFTER SEXUAL ACTIVITY 30 capsule 1 Active Blood Pressure kitIndications :Hypertension, unspecified type Use to check BP daily as directed 1 kit Active CVS GARLIC PO Take 1 capsule by mouth Once per day. Active Lancets miscIndication s:Type 2 diabetes mellitus with hyperglycemia, with long-term current use of insulin ([facility]) Use to test blood sugar daily 100 each 3 Active glucose blood (FREESTYLE LITE) test strip Use to test blood sugar daily 50 each 5 025 2025 Active Lancets miscIndication s:Type 2 diabetes mellitus with hyperglycemia, with long-term current use of insulin ([facility]) Use to test blood sugar 3 times daily 100 each 5 024 2024 Discontinued(R eorder (will not trigger notification to Pharmacy)) lisinopril 5 MG tabletIndicati ons:Hypertensi on, unspecified type TAKE 1 TABLET BY MOUTH EVERY DAY IN THE MORNING 90 tablet 025 2024 Discontinued(S gini effects) Active Problems Problem Noted Date Diagnosed Date [...] - she had positive titer back in 2004 with titer 1:2 and 2017 - will consult Nikole from [facility] whether patient needs a treatment Dyslipidemia 08/01/2023 Assessment & Plan (08/15/2024 6:24 AM EDT): - last lipid profile was 04/17/24 - current medication: rosuvastatin 5 mg at bedtime, consider increasing its dose - April 2023 AST / ALT > x 3 UNL and not on statin - most recent AST/ALT in June 2023 shows improvement - continue working on lifestyle modification Assessment & Plan (05/06/2024 9:02 AM EDT): [...] liver disease (MASLD) 05/05/2023 Assessment & Plan (08/15/2024 6:34 AM EDT): - FIB4 index 1.10 - Last US / elastography: May 2023, compensated advanced cirrhotic liver disease - GI, [facility]. Referred back - Avoid hepatotoxic drugs - Continue working on lifestyle modifications Assessment & Plan (05/06/2024 9:01 AM EDT): [...] likely MASLD Hypothyroidism 05/04/2023 Assessment & Plan (08/15/2024 6:33 AM EDT): - Adherence to levothyroxine: < 50% - most recent thyroid function test: TSH 51.60; free T40.74 On 07/30/2024 - current replacement: levothyroxine 150 mcg daily (dose increased in Mar 2024) - discussed about the importance of thyroid replacement and encouraged to improve adherence. Assessment & Plan (05/06/2024 10:18 PM EDT): [...] check lab Hypertension 05/04/2023 Assessment & Plan (07/31/2024 8:54 AM EDT): -Goal BP < 130/80 per ACC/AHA guideline -Not at goal, patient attributes to white-coat HTN -Continue working on lifestyle modifications -Recommended self-monitoring BP. -Continue current medications: lisinopril 5 mg daily, consider increasing to 10 mg daily -Follow up with Radu Wood RPh, PharmJeannette CDLEE Assessment & Plan (05/06/2024 9:01 AM EDT): -Goal BP < 130/80 per ACC/AHA guideline -Not at goal, patient attributes to white-coat HTN -Continue working on lifestyle modifications -Recommended self-monitoring BP. -Continue current medications: lisinopril 5 mg daily, consider increasing to 10 mg daily -Follow up with Radu Wood RPh, PharmJeannette CDLEE Assessment & Plan (02/25/2024 6:04 AM EST): -Goal BP < 130/80 per ACC/AHA guideline -Not at goal, patient attributes to white-coat HTN -Continue working on lifestyle modifications -Recommended self-monitoring BP. -Continue current medications: lisinopril 5 mg daily, consider increasing to 10 mg daily -Follow up with Radu Wood RPh, PharmJeannette CDLEE Assessment & Plan (11/08/2023 10:54 AM EDT): -Goal BP < 140/90 per JNC-8 and < 130/80 per ACC/AHA guideline (Treatment threshold >= 140/90) -Not at goal, patient attributes to white-coat HTN -Continue working on lifestyle modifications -Recommended self-monitoring BP. -Continue current medications: lisinopril 5 mg daily, consider increasing to 10 mg daily -Follow up with Radu Wood RPh, PharmJeannette CDLEE Assessment & Plan (08/01/2023 6:06 PM EDT): [...] arises Recurrent UTI 05/04/2023 Assessment & Plan (07/31/2024 10:44 PM EDT): - Following with [facility] - Last UTI in Mar 2022, E coli which was resistant to ampicillin, ceftriaxone, and TMP/SMX, treated with nitrofurantoin - continue VagiFem - continue postcoital prophylaxis Assessment & Plan (02/25/2024 6:05 AM EST): - Following with [facility] - Last UTI in Mar 2022, E coli which was resistant to ampicillin, ceftriaxone, and TMP/SMX, treated with nitrofurantoin - continue VagiFem - continue postcoital prophylaxis Assessment & Plan (11/08/2023 10:54 AM EDT): - Following with [facility] - Last UTI in Mar 2022, E coli which was resistant to ampicillin, ceftriaxone, and TMP/SMX, treated with nitrofurantoin - continue VagiFem - continue postcoital prophylaxis Assessment & Plan (08/01/2023 6:08 PM EDT): - Following with [facility] - Last UTI in Mar 2022, E coli which was resistant to ampicillin, ceftriaxone, and TMP/SMX, treated with nitrofurantoin - continue VagiFem - continue postcoital prophylaxis Assessment & Plan (05/05/2023 11:13 AM EST): - Following with [facility] - Last UTI in Mar 2022, [...] 2 diabetes mellitus 07/12/2012 Assessment & Plan (08/15/2024 6:30 AM EDT): - A1C 7.2% on 07/30/24, improving from A1C 7.4% on 05/06/24 -Previously followed by [facility] and was started on CGM and GLP-1 agonist -Continue lantus 26 units every evening. -Continue metformin 1000 mg twice a day -Continue tirzepatide 7.5 mg weekly -Foot exam: 07/30/24 -Eye exam: [facility]. -Last lipid profile: 04/17/24 -Last microalbumin: 02/26/24, no microalbuminuria Assessment & Plan (05/10/2024 11:54 AM EDT): - A1C 7.4% on 05/06/24, improving from A1C 7.8% on 02/26/24 -Previously followed by [facility] and was started on CGM and GLP-1 agonist -Continue lantus 26 units every evening. -Continue metformin 1000 mg twice a day -Continue tirzepatide 7.5 mg weekly -Foot exam: 05/04/23 -Eye exam: [facility] Eye care. -Last lipid profile: 02/26/24 -Last microalbumin: 02/26/24, no microalbuminuria Assessment & Plan (03/01/2024 5:05 PM EST): - A1C 7.8% on 02/26/24, worsened from 6.8% on 11/08/23 -Previously followed by [facility] and was started on CGM and GLP-1 agonist -Continue lantus 26 units every evening. -Continue metformin 1000 mg twice a day -Continue tirzepatide 5 mg weekly -Foot exam: 05/04/23 -Eye exam: [facility] Eye care. May 2022, upcoming appointment -Last lipid profile: 02/26/24 -Last microalbumin: 02/26/24, no microalbuminuria Assessment & Plan (11/13/2023 1:12 PM EDT): - A1C 6.8% on 11/08/23, improved from 8.5% on 08/01/23 -Previously followed by [facility] and was started on CGM and GLP-1 agonist -Continue lantus 26 units every evening. -Continue metformin 1000 mg twice a day -Continue tirzepatide 5 mg weekly -Foot exam: 05/04/23 -Eye exam: [facility] Eye care. May 2022, upcoming appointment -Last lipid profile: 05/04/23 -Last microalbumin: 05/04/23 Assessment & Plan (08/01/2023 6:11 PM EDT): - A1C 8.5% on 08/01/23, improved from 11% in April 2023 -Previously followed by [facility] and was started on CGM and GLP-1 agonist -Continue lantus 26 units every evening. -Continue metformin 1000 mg twice a day -Continue tirzepatide 5 mg weekly -Foot exam: 05/04/23 -Eye exam: [facility] Eye care. May 2022, upcoming appointment -Last lipid profile: 05/04/23 -Last microalbumin: 05/04/23 Assessment & Plan (05/07/2023 7:25 AM EDT): - A1C 11% today, worsened from 7.9% in 2021 -Previously followed by [facility] and was started on CGM and GLP-1 agonist -Continue lantus 26 units every evening (advise to increase to 30 units if dulaglutide (Trulicity) is not available). -Continue metformin 1000 mg twice a day -Increase Trulicity 3.0 mg weekly -Foot exam: 05/04/23 -Eye exam: [facility] Eye care. May 2022. -Last lipid profile: 12/02/20 TC 185; LDL 115; HDL 46 -Last microalbumin: 12/02/20 UACR 10 Psoriasis 07/12/2012 Assessment & Plan (08/15/2024 6:36 AM EDT): - Dx plaque psoriasis on scalp - Seen by straw baler in [facility] in 2013 - Previously receiving intralesional Kenalog and clobetasol lotion to the scalp - seen by Dr. Castro in [facility]erm clinic and prescribed apremilast and topical clobetasol on 06/28/23 - Encouraged to optimize her other chronic disease as these conditions can affect skin conditions as well Assessment & Plan (03/01/2024 5:07 PM EST): - Dx plaque psoriasis on scalp - Seen by straw baler in [facility] in 2013 - Previously receiving intralesional Kenalog [...] plaque psoriasis on scalp - Seen by straw baler in [facility] in 2013 - Previously receiving intralesional Kenalog and clobetasol lotion to the scalp - seen by Dr. 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 - Seen by straw baler in [facility] in 2013 - Previously receiving intralesional Kenalog and clobetasol lotion to the scalp - seen by Dr. 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 - Last seen by straw baler in [facility] in 2013 - Previously receiving intralesional Kenalog [...] Encounters Date Type Department Care Team Description 10/24/2024 Travel 10/09/2024 Telephone [facility] [address] [place] [address] Mary Denson CNM November10/04/2024 3:30 PM EDT Telemedicine [facility] [address] [place] [address] Radu Wood, PharmD Type 2 diabetes mellitus with hyperglycemia, with long-term current use of insulin ([facility]) (Primary Dx); Hypertension, unspecified type 09/27/2024 Refill [facility] [address] [place] [address] Lisa Tovar MD Recurrent UTI 09/25/2024 Refill [facility] [address] [place], [place] [phone] Lisa Tovar MD 09/25/2024 Refill [facility] [address] [place] [address] Radu Wood, KendallD Type 2 diabetes mellitus with hyperglycemia, with long-term current use of insulin (CMS/HCC) 08/06/2024 Telephone [facility] [address] [place] [address] Lisa Tovar MD Nurse Triage 08/01/2024 Refill [facility] [address] [place], [place] [id number] Lisa Tovar MD 07/31/2024 9:00 AM EDT Office Visit [facility] [address] [place] [address] Lisa Tovar MD Hypertension, unspecified type (Primary Dx); Dyslipidemia; Type 2 diabetes mellitus with hyperglycemia, with long-term current use of insulin (CMS/[facility]); 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; Recurrent UTI; Metabolic dysfunction-associate d steatotic liver disease (MASLD); Psoriasis; Colon cancer screening; Vitamin D deficiency 07/31/2024 Travel from Last 3 Months Immunizations Immunization Administration Dates Next Due Hep B, adult 07/21/2023(Deferred: Patient dec anup) Influenza live intranasal qu adrivalent LIAV4 01/22/2014 [...] Access Q2 Not on file 02/15/2024 Comments No Sex and Gender Information Value Date Recorded Sex Assigned at Female 12/27/2021 10:16 AM EDT Legal Sex Female 10:16 AM EDT Gender Identity Choose not to disclose 10:16 AM EDT Sexual Orientation Choose not to disclose 2021 10:16 AM EDT Last Filed Vital Signs Vital Sign Reading Time Taken Comments Blood Pressure 130/80 07/31/2024 9:06 AM EDT Pulse 104 07/31/2024 9:06 AM EDT Temperature 36.7 C (98.1 F) 07/31/2024 9:06 AM EDT Respiratory Rate 16 07/31/2024 9:06 AM EDT Oxygen Saturation 98% 08/02/2023 10:53 AM EDT Inhaled Oxygen Concentration - - Weight 82.2 kg (181 lb 3.2 oz) 07/31/2024 9:06 A M EDT Height 165.1 cm (5' 5 ) 07/31/2024 9:06 AM EDT Body Mass Index 30.15 07/31/2024 9:06 AM EDT Plan of Treatment Upcoming Encounters Date Type Department Care Team (Late st Contact Info) Description 11/04/2024 10:00 AM EDT Office Visit [facility] [address] [place] [address] Lisa Tovar MD [address] [place] [address] 12/11/2024 2:30 PM EDT Medication Management [facility] [address] [place] [address] Radu Wood, PharmD [address] [place] [address] 02/04/2025 1:00 PM EST Office Visit [facility] OPTOMETRY [address] [place] [address] MoeLeah benjamin, OD [address] [place] [address] Health Maintenance Due Date Last Done Comments [...] Colonoscopy 12/23/2022 12/23/2021 Colorectal Cancer Screening 12/23/2022 SDOH Screening 07/31/2024 08/01/2023 COVID-19 Vaccine ( season) 2024 03/12/2021, 06/17/2020, 05/25/2020 Influenza Vaccine (#1) 2024 4, 12/27/2012, 12/15/2011, Additional history exists Diabetes: Hemoglobin A1C 10/31/2024 025, 05/06/2024, 02/26/2024, Additional history exists Cervical Cancer Screening 12/04/2024 HPV/Cotest 12/04/2024 12/05/2019 Pap Smear 12/04/2024 12/05/2019 Depression Screening 02/25/2025 02/26/2024, 02/26/20 24 Diabetes: Urine Protein Screening 02/25/2025 02/26/2024, 05/04/2023, 12/02/2020, Additional history exists Lipid Panel 04/17/2025 04/17/2024, 01/29, 05/04/2023, Additional history exists Alcohol/Substance Use Screening 05/06/2025 05/06/2024 Diabetes: Foot Exam 07/31/2025 07/31/2024, 07/31/2024, 07/31/2024, Additional history exists Disability Screening 07/31/2025 07/31/2024 Tobacco Screening 07/31/2025 07/31/2024 Eye Exam 01/15/2026 01/16/2024, 12/28, 01/16/2024, Additional history exists Mammogram 05/27/2026 05/27/2024, 01/28, 02/11/2021 RSV Patients and Patients Aged 60 years [...] patient's age to complete this topic Meningococcal B Vaccine Aged Out No l onger eligible based on patient's age to complete [...] 9:10 AM EDT) No Radu Wood PharmD Procedures Procedure Name Priority Date/Time Associated Diagnosis Comments POCT GLYCOSYLATED HEMOGLOBIN (HGB A1C) Routine 07/31/2024 9:10 AM EDT Type 2 diabetes mellitus with hyperglycemia, with long-term current use of insulin ([facility]) POCT GLUCOSE Routine 07/31/2024 9:08 AM EDT Type 2 diabetes mellitus with hyperglycemia, with long-term current use of insulin ([facility]) BI MAMMOGRAM SCREENING TOMOSYNTHESIS BILATERAL Routine 05/27/2024 10:25 AM EDT Breast cancer screening by mammogram LIPID PANEL, STANDARD Routine 04/17/2024 3:36 PM EST ALBUMIN, RANDOM URINE W/CREATININE Routine 02/26/2024 10:13 AM EST Hypertension, unspecified type Type 2 diabetes mellitus with hyperglycemia, with long-term current use of insulin ([facility]) HEPATITIS C VIRAL RNA GENOTYPE, LIPA Routine 07/26/2023 9:50 AM EDT Transaminitis HIV 1/2 ANTIGEN/ANTIBODY, FOURTH GENERATION W/RFL Routine 07/26/2023 9:50 AM EDT Transaminitis HM COLONOSCOPY Routine 12/23/2021 ZZZ HISTORICAL HPV DNA, HIGH RISK, CERVICAL Routine 12/05/2019 12:00 AM EDT THINPREP IMAGING SYSTEM PAP Routine 12/05/2019 12:00 AM EDT from Last 3 Months or Most Recently Relevant to Health Maintenance Results * (ABNORMAL) POCT glycosylated hemoglobin (Hgb A1c) (07/31/2024 9:10 AM EDT) Hemoglobin A1C 7.2(A) 4.0 - 6.0 % QC Media Lot # [id number] Lot# Expiration Date Blood Capillary blood specimen / Unknown 07/31/2024 9:10 AM EDT Lisa Tovar MD POINT OF CARE TEST ENTER/EDIT OR DERABLES Final Result * POCT glucose manually resulted (07/31/2024 9:08 AM EDT) Glucose Blood, POC 153 60 - 200 mg/dL QC Media Lot # [id number] Lot# Expiration Date Blood Capillary blood specimen / Unknown 07/31/2024 9:08 AM EDT Lisa Tovar MD POINT OF CARE TEST ENTER/EDIT OR DERABLES Final Result * BI Mammogram Screening Tomosynthesis Bilateral (05/27/2024 10:25 AM EDT) Anatomical Region Laterality Modality Breast Bilateral Mammography 05/27/2024 10:2 5 AM EDT Narrative 06/02/2024 11:41 AM EDT [facility] [address] [place] [address] Mammography Report Signed Patient: Fern Ceballos MR#: [id number] : 1965 Acct:[id number] Age/Sex: 58 / F ADM Date: 05/27/24 Loc: [facility] Attending Dr: Lisa Tovar MD Ordering Physician: Lisa Tovar MD Results: 2Benign F indings Date of Service: 05/27/24 Follow Up: 1 Year From [facility] Procedure(s): MM tomosynthesis screening BI Accession Number(s): [id number] cc: Lisa Tovar MD EXAMINATION: MM SCREENING DIGITAL BREAST TOMOSYNTHESIS, BILATERAL CLINICAL INFORMATION: Screening. Asymptomatic. COMPARISON: Mammography: Comparison is made with available priors TECHNIQUE: Digital breast mammography with tomosynthesis is performed in both the craniocaudal and mediolateral oblique views along with computer-aided detection (CAD). FINDINGS: The breasts are extremely dense, which lowers the sensitivity of mammography (ACR BI-RADS breast composition Category d). Lateral circumscribed oval masses which wax and wane consistent with benign fibrocystic changes. Some of which were demonstrated to be simple cyst on prior ultrasounds. There are no significant masses, abnormal calcifications, or other abnormalities. MM/MM tomosynthesis screening BI IMPRESSION: No mammographic evidence of malignancy. ASSESSMENT: BI-RADS BI-RADS 2 - Benign Findings RECOMMENDATION: Routine annual mammography screening. 1 year F/U This examination should not preclude the clinical evaluation of a suspicious palpable abnormality. This patient's information was entered into a reminder system with a target due date for their next mammogram. Electronically signed by: Marie Goddard DO 06/02/2024 11:38 AM EDT RP Dictated By: Marie Goddard DO Signed By: <Electronically signed by Marie Goddard DO in OV> 06/02/24 1138 DD/ 1025 TD/TT: 05/27/24 1035 Patient Educator: Procedure Note Donotuseinterpreter, Image - 06/02/2024 [facility] [address] [place] [address] Mammography Report Signed Patient: Kristian Ceballos#: [id number] : 1965Acct:[id number] Age/Sex: 58 / FADM Date: 05/27/24 Loc: [facility] Attending Dr: Lisa Tovar MD Ordering Physician: Lisa Tovar MDResults: 2Benign F indings Date of Service: 05/27/24Follow Up: 1 Year From Orig inal Mammogram Procedure(s): MM tomosynthesis screening BI Accession Number(s): [id number] cc: Lisa Tovar MD EXAMINATION: MM SCREENING DIGITAL BREAST TOMOSYNTHESIS, BILATERAL CLINICAL INFORMATION: Screening. Asymptomatic. COMPARISON: Mammography: Comparison is made with available priors TECHNIQUE: Digital breast mammography with tomosynthesis is performed in both the craniocaudal and mediolateral oblique views along with computer-aided detection (CAD). FINDINGS: The breasts are extremely dense, which lowers the sensitivity of mammography (ACR BI-RADS breast composition Category d). Lateral circumscribed oval masses which wax and wane consistent with benign fibrocystic changes. Some of which were demonstrated to be simple cyst on prior ultrasounds. There are no significant masses, abnormal calcifications, or other abnormalities. MM/MM tomosynthesis screening BI IMPRESSION: No mammographic evidence of malignancy. ASSESSMENT: BI-RADS BI-RADS 2 - Benign Findings RECOMMENDATION: Routine annual mammography screening. 1 year F/U This examination should not preclude the clinical evaluation of a suspicious palpable abnormality. This patient's information was entered into a reminder system with a target due date for their next mammogram. Electronically signed by: Marie Goddard DO 06/02/2024 11:38 AM EDT RP Dictated By: Marie Goddard DO Signed By: <Electronically signed by Marie Goddard DO in OV> 06/02/24 1138 DD/ 1025 TD/TT: 05/27/24 1035 Patient Educator: Lisa Tovar MD IM BI PROCEDURES Final Result * (ABNORMAL) Lipid Panel, Standard (04/17/2024 3:36 PM EST) Triglycerides 171(H) <150 mg/dL [facility] Comment:Desirable Triglyceri de: less than 150 mg/dLBorderline High Triglyceride 150-199 mg/dLHigh Triglyceride: 200-499 mg/dLVery High Triglyceride: greater than or equal to 5OO mg/dL Cholesterol 136 <200 mg/dL [facility] Comment:Desirable Cholestero l: less than 200 mg/dLBorderline High Cholesterol: 200-239 mg/dLHigh Cholesterol: greater than 239 mg/dL LDL Cholesterol Calculated 55 <100 mg/dL [facility] Comment:Desirable LDL: less than 100 mg/dLNear Optimal/Above Optimal LDL: 110- 129 mg/dLBorderline High LDL: 130-159 mg/dLHigh LDL: 160-189 mg/dLVery High LDL: greater than or equal to 190 mg/dL HDL Cholesterol 47 >40 mg/dL [facility] Comment:Desirable HDL: great er than 40 mg/dL Note: This HDL assay may give artificially low results in patients with liver disease. 04/17/2024 3:36 PM EST 04/17/2024 4:20 PM EST us Lisa Tovar MD LAB BLOOD ORDERABLES Final Resul t Performing Organization Address [facility] de Phone Number [facility] [address] [place] [phone] * Albumin, Random Urine W/Creatinine (02/26/2024 10:13 AM EST) Creatinine, Urine 200.53 mg/dL [facility] Microalbumin Urine 26.0 mg/L [facility] Microalbum Creatinine Ratio Ur 12.9 <30 ug/mg cr [facility] Comment:Albumin/Creatinine R atio Reference Ranges: Normal: < 30 ug/mg creatinine Microalbuminuria: 30 - 300 ug/mg creatinineClinical Albuminuria: > 300 ug/mg creatinine Urine 02/26/2024 10:1 3 AM EST 02/26/2024 11:04 AM EST us Lisa Tovar MD LAB URINE ORDERABLES Final Resul t Performing Organization Address [facility] de Phone Number [facility] [address] [place] [phone] * Hepatitis C Viral RNA, Genotype, LiPA (07/26/2023 9:50 AM EDT) Hepatitis C Genotype Not Detected [facility] Comment: Genotype not detected due to [...] characteristics of thisassay have been determined by [facility], [place], [place]. The modificationshave not been cleared or approved by the FDA. Thisassay has been validated pursuant to the CLIAregulations and is used for clinical purposes.For additional information, please refer tohttp://education.[employer]/faq/[employer](This link is being provided for informational/educational purposes only.)THIS TEST WAS PERFORMED AT:[employer] [id number] [place] [address]LIVLPIWMARKOS WILKINSON MD,PHD Blood Venous blood specimen / Unknown 07/26/2023 9:50 AM EDT 07/26/2023 11:19 AM EDT us Lisa Tovar MD LAB BLOOD ORDERABLES Final Resul t [facility] [address] [place] [phone] * HIV-1/2 Antigen and Antibodies, Fourth Generation, with Reflexes (07/26/2023 9:50 AM EDT) HIV AB/AG Nonreactive Nonreactive [facility] Comment:HIV-1 p24 Ag and/or HIV-1/HIV-2 Ab not detected.A test result that is nonreactive does not exclude thepossibility of exposure to or infection with HIV-1 and/orHIV-2. Nonreactive results in this assay for individualswith prior exposure to HIV-1 and/or HIV-2 may be due toantigen and antibody levels that are below the limit ofdetection of this assay.The [employer] HIV Ag/Ab Combo assay result andsupplemental assay results should be interpreted inconjunction with the patient's clinical presentation,history and other laboratory results. If the results areinconsistent with clinical evidence, additional testing issuggested to confirm the result. Blood Venous blood specimen / Unknown 07/26/2023 9:50 AM EDT 07/26/2023 11:19 AM EDT Lisa Tovar MD LAB BLOOD ORDERABLES Final Resul t [facility] [address] [place] [phone] [phone] * Hm Colonoscopy (12/23/2021) Pathologist [facility] Colonoscopy Normal Normal Historical Provider HEALTH MAINTENANCE Final Result * HPV DNA, HIGH RISK, CERVICAL (12/05/2019 12:00 AM EDT) Pathologist [facility] HPV DNA, HIGH RISK, CERVICAL Not Detected NOT DETECTED [facility] Comment: Not Detected High Risk HPV types (16,18,31,33,35,39,45,51,52, 56,58,59,66,68) were not detected. Other HPV types which cause anogenital lesions may be present. The significance of the other types of HPV in malignant processes has not been established. Methodology: Real Time PCR 12/05/2019 Historical Provider HISTORICAL/NON ORDERABLE LABS Final Result Performing Organization Address City/[facility]/ZIP Co de Phone Number [facility] [address] * THINPREP TIS PAP (12/05/2019 12:00 AM EDT) Pathologist [facility] Clinical Information: SEE COMMENT [facility] Comment:None given COMMENT SEE COMMENT [facility] Comment: EXPLANATORY NOTE: The Pap is a screening test for cervical cancer. It is not a diagnostic test and is subject to false negative and false positive results. It is most reliable when a satisfactory sample, regularly obtained, is submitted with relevant clinical findings and history, and when the Pap result is evaluated along with historic and current clinical information. COMMENT: SEE COMMENT [facility] Comment: This Pap test has been evaluated with computer assisted technology. Interstate Bus Dispatcher: SEE COMMENT [facility] Comment: ALS, CT(ASCP) CT screening location: [address] [address] Interpretation/Resu lt: SEE COMMENT [facility] [...] status not provided 12/05/2019 us Historical Provider LAB PATHOLOGY ORDERABLES Final Result [facility] [address] from Last 3 Months or Most Recently Relevant to Health Maintenance Insurance [facility] Care Teams Cannery Tender Engineer Relationship Specialty Start Date End Date Lisa Tovar MD [address] [place], [place] [phone] PCP - General Family Medicine 10/26/20 Radu Wood, KendallD [address] [place], [place] [phone] Pharmacist Internal Medicine 02/01/22
--- OUTSIDE RECORDS SUMMARY | 2024-10-31 15:25 | XMS_ITS | Encounter Summary ---
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 Question Answer Date of Assessment Author Patient Health Questionnaire -2 Score 0 02/26/2024 10:27 AM Barbi Vazquez [place] * Little interest or pleasure in doing things Answer Date of Assessment Author Not at all 02/26/2024 10:27 AM Jovana Vazquez [place] * Feeling down, depressed, or hopeless Answer Date of Assessment Author Not at all 02/26/2024 10:27 AM Jovana Vazquez [place] * Trouble falling or staying asleep, or sleeping too much Answer Date of Assessment Author Not at all 02/26/2024 10:27 AM Jovana Vazquez [place] * Feeling tired or having little energy Answer Date of Assessment Author Not at all 02/26/2024 10:27 AM Jovana Vazquez [place] * Poor appetite or overeating Answer Date of Assessment Author Not at all 02/26/2024 10:27 AM Jovana Vazquez [place] * Feeling bad about yourself - or that you are a failure or have let yourself or your family down Answer Date of Assessment Author Not at all 02/26/2024 10:27 AM Jovana Vazquez [place] * Trouble concentrating on things, such as reading the newspaper or watching television Answer Date of Assessment Author Not at all 02/26/2024 10:27 AM Jovana Vazquez MA * Moving or speaking so slowly that other people could have noticed? Or the opposite - being so fidgety or restless that you have been moving around a lot more than usual. Answer Date of Assessment Author Not at all 02/26/2024 10:27 AM Jovana Vazquez MA * Thoughts that you would be better off or hurting yourself in some way Answer Date of Assessment Author Not at all 02/26/2024 10:27 AM Jovana Vazquez MA * Patient Health Questionnaire-9 Score Answer Date of Assessment Author 0 02/26/2024 10:27 AM Jovana Vazquez MA * Over the last 2 weeks, how often have you been bothered by any of the following problems? Question Answer Date of Assessment Author Feeling nervous, anxious, or on edge 0 02/26/2024 10:27 AM Barbi Vazquez MA Not being able to stop or control worrying 0 02/26/2024 10:27 AM Barbi Vazquez MA Worrying too much about different things 0 02/26/2024 10:27 AM Barbi Vazquez MA Trouble relaxing 0 02/26/2024 10:27 AM Jovana Vazquez MA Being so restless that it is hard to sit still 0 02/26/2024 10:27 AM Barbi Vazquez MA Becoming easily annoyed or irritable 0 02/26/2024 10:27 AM Barbi Vazquez MA Feeling afraid as if somethi ng awful might happen 0 02/26/2024 10:27 AM Barbi Vazquez MA QUINTON-7 Total Score 0 02/26/2024 10:27 AM Jovana Vazquez MA documented as of this encounter Plan of Treatment Upcoming Encounters Date Type Department Care Team (Late st Contact Info) Description 11/04/2024 10:00 AM EDT Office Visit [facility] [address] [place] [phone] Lisa Tovar MD [address] [place] [address] 12/11/2024 2:30 PM EDT Medication Management [facility] [address] [place] [address] Radu Wood PharmD [address] [place] [address] 02/04/2025 1:00 PM EST Office Visit [facility] [address] [place] [address] Moe, Leah, OD [address] [place] [address] documented as of this encounter Goals Goal Patient Goal Type Associated Problems Recent Progress Patient-Stated? Author Blood Pressure < 140/90 Blood Pressure 130/80(2024 9:06 AM EDT) No Radu Wood PharmD Hemoglobin A1c < 7 Result Component 7.2( 9:10 AM EDT) No Radu Wood PharmD documented as of this encounter Procedures Procedure Name Priority Date/Time Associated Diagnosis Comments TSH W/REFLEX TO FT4 Routine 04/17/2024 3 :36 PM EST 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 documented in this encounter Results * (ABNORMAL) TSH with Reflex to Free T4 (04/17/2024 3:36 PM EST) TSH reflex Free T4 5.58(H) 0.32 - 4.0 uIU/mL [facility] Blood 04/17/2024 3:36 PM EST 04/17/2024 4:20 PM EST us Lisa Tovar MD LAB BLOOD ORDERABLES Final Resul t [facility] [address] [place] [phone] documented in this encounter Visit Diagnoses Diagnosis 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- Primary documented in this encounter Additional Health Concerns Assessment Noted Time PHQ-9 Depression Total Score: 0 02/26/20 24 10:27 AM EST documented as of this encounter Care Teams Hotel Director Relationship Specialty Start Date End Date Lisa Tovar MD [address] [place] [address] PCP - General Family Medicine 10/26/20 Radu Wood, KendallD [address] [place] [address] Pharmacist Internal Medicine 02/01/22 documented as of this encounter
--- OUTSIDE RECORDS SUMMARY | 2024-10-31 15:25 | XMS_ITS | Encounter Summary ---
Author Organization [employer] Address [address] [facility] 7t [place] [address] Care Team Providers Care Gas Turbine Powerplant Mechanic Helper Name Role Phone Lisa Tovar MD Primary Care Provider [phone] Radu Wood PharmD Unavailable [phone] Encounter Details Date Type Department Care Team ([facility] st Contact Info) Description 08/03/2023 Orders Only [facility] [address] [place], [place] [phone] Lisa Tovar MD [address] [place], [place] [phone] History of syphilis (Primary Dx) Social History [...] Description 11/04/2024 10:00 AM EDT Office Visit [facility] [address] [place] [address] Lisa Tovar MD [address] [place] [address] 12/11/2024 2:30 PM EDT Medication Management [facility] [address] [place] [address] Radu Wood PharmD [address] [place] [address] 02/04/2025 1:00 PM EST Office Visit [facility] [address] [place] [address] Moe, Leah, OD [address] [place] [address] documented as of this encounter Goals Goal [...] documented as of this encounter Care Teams Gas Turbine Powerplant Mechanic Helper Relationship Specialty Start Date End Date Lisa Tovar MD [address] [place] [address] PCP - General Family Medicine 10/26/20 Radu Wood, Eugenio [address] [place] [address] Pharmacist Internal Medicine 02/01/22 documented as of this encounter
--- OUTSIDE RECORDS SUMMARY | 2024-10-31 15:25 | XMS_ITS | Encounter Summary ---
Author Organization [employer] Address [address] [facility] 7t [place] [address] Care Team Providers Care Clinical Courier Name Role Phone Lisa Tovar MD Primary Care Provider [phone] Radu Wood PharmD Unavailable [phone] Reason for Visit * Reason Onset Date Comments Call Back Request 08/07/2023 Encounter Details Date Type Department Care Team ([facility] st Contact Info) Description 08/07/2023 Telephone [facility] [address] [place], [place] [phone] Lisa Tovar MD [address] [place], [place] [phone] Call Back Request Social History Tobacco Use [...] received from pcp. Please contact Tal at [phone]. documented in this encounter Plan of Treatment Upcoming Encounters Date Type Department Care Team (Late st Contact Info) Description 11/04/2024 10:00 AM EDT Office Visit [facility] [address] [place] [address] Lisa Tovar MD [address] [place] [address] 12/11/2024 2:30 PM EDT Medication Management [facility] [address] [place] [address] Radu Wood, Eugenio [address] [place] [address] 02/04/2025 1:00 PM EST Office Visit [facility] [address] [place] [address] Moe, Leah, OD [address] [place] [address] documented as of this encounter Goals Goal [...] documented as of this encounter Care Teams Clinical Courier Relationship Specialty Start Date End Date Lisa Tovar MD [address] [place] [address] PCP - General Family Medicine 10/26/20 Radu Wood PharmD [address] [place] [address] [phone] Pharmacist Internal Medicine 02/01/22 documented as of this encounter
--- OUTSIDE RECORDS SUMMARY | 2024-10-31 15:25 | XMS_ITS | Encounter Summary ---
Author Organization [employer] Address [address] [place] [address] 7t [place] [address] Care Team Providers Care Rolled Gold Plater Name Role Phone Lisa Tovar MD Primary Care Provider [phone] Radu Wood PharmD Unavailable [phone] Reason for Referral * Consultation (Routine) - Pending Review Specialty Diagnoses / Procedures Referred By Nena t Referred To Contact Pharmacy Diagnoses Hypertension, unspecified type Type 2 diabetes mellitus with hyperglycemia, with long-term current use of insulin (CMS/HCC) Lisa Tovar MD [address] [place] [phone] Phone: tel: fax: Referral ID Status Reason Start Date Expiration Date Visits Requested Visits Authorized [id number] Pending Review Consult and Treat 03/01/2024 03/01/2025 6 6 Encounter Details Date Type Department Care Team (Late st Contact Info) Description 03/01/2024 Orders Only [facility] [address] [place] [phone] Lisa Tovar MD [address] [place], [place] [phone] Hypertension, unspecified type (Primary Dx); Type 2 [...] 10:00 AM EDT Office Visit [facility] [address] [place] [address] Lisa Tovar MD [address] [place] [phone] 12/11/2024 2:30 PM EDT Medication Management [facility] [address] [place] [address] Radu Wood, PharmD [address] [place] [phone] 02/04/2025 1:00 PM EST Office Visit [facility] [address] [place], [place] [phone] Leah Rsoa, OD [address] [place] [address] Scheduled Referrals Name Type Priority Associated Diagnoses Orde r Schedule Referral to Pharmacy CDTM Outpatient Referral Routine Hypertension, unspecified type Type 2 diabetes mellitus with hyperglycemia, with long-term current use of insulin (CMS/[facility]) Ordered: 03/01/2024 documented as of this encounter [...] hyperglycemia, with long-term current use of insulin ([facility]) documented in this encounter Additional Health Concerns Assessment Noted Time PHQ-9 Depression Total Score: 0 02/26/20 24 10:27 AM EST documented as of this encounter Care Teams Rolled Gold Plater Relationship Specialty Start Date End Date Lisa Tovar MD [address] [place] [address] PCP - General Family Medicine 10/26/20 Radu Wood PharmD [address] [place] [address] Pharmacist Internal Medicine 02/01/22 documented as of this encounter
--- OUTSIDE RECORDS SUMMARY | 2024-10-31 15:26 | XMS_ITS | Encounter Summary ---
Author Organization [employer] Address [address] [place] [address] 7 [place] [address] Care Team Providers Care Assisted Living Associate Name Role Phone Lisa Tovar MD Primary Care Provider [phone] Radu Wood PharmD Unavailable [phone] Encounter Details Date Type Department Care Team (Late st Contact Info) Description 06/08/2023 Orders Only [facility] [address] [place] [address] [phone] Lisa Tovar MD [address] [place] [address] [phone] Social History Tobacco Use Types Packs/Day Years [...] Description 11/04/2024 10:00 AM EDT Office Visit [facility] [address] [place] [address] [phone] Lisa Tovar MD [address] [place], [place] [phone] 12/11/2024 2:30 PM EDT Medication Management [facility] [address] [place] [address] [phone] Radu Wood, PharmD [address] [place] [address] 02/04/2025 1:00 PM EST Office Visit [facility] [address] [place], [place] [phone] Leah Rosa, OD [address] [place] [address] documented as of this encounter Visit Diagnoses Not on filedocumented in this encounter Care Teams Assisted Living Associate Relationship Specialty Start Date End Date Lisa Tovar MD [address] [place] [address] [phone] PCP - General Family Medicine 10/26/20 Radu Wood, Eugenio [address] [place] [address] [phone] Pharmacist Internal Medicine 02/01/22 documented as of this encounter
--- OUTSIDE RECORDS SUMMARY | 2024-10-31 15:26 | XMS_ITS | Encounter Summary ---
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 Procedures US Abdomen Comp w elastography Lisa Tovar MD [address] [place] [address] Phone: tel: fax: [address] Phone: tel: fax: Referral ID Status Reason Start Date Expiration Date Visits Re quested Visits Authorized [id number] Closed 05/05/2023 05/04/2024 1 1 Encounter Details Date Type Department Care Team (Late st Contact Info) Description 04/28/2023 Orders Only [facility] MEDICINE [address] [place], [place] [phone] Lisa Tovar MD [address] [place], [place] [phone] Transaminitis (Primary Dx); Hypothyroidism due to Yoel's [...] Description 11/04/2024 10:00 AM EDT Office Visit [facility]INE [address] [place] [address] Lisa Tovar MD [address] [place] [address] 12/11/2024 2:30 PM EDT Medication Management [facility] [address] [place] [address] Radu Wood, PharmD [address] [place] [address] 02/04/2025 1:00 PM EST Office Visit [facility] OPTOMETRY [address] [place] [address] Moe, Leah, OD [address] [place] [address] Scheduled Orders Name Type Priority Associated Diagnoses Orde r Schedule Helicobacter pylori Antigen, EIA, Stool Lab Routine Transaminitis Expected: 06/16/2023, [...] AM EDT) Hepatitis C Genotype Not Detected [facility] Comment: Genotype not detected due [...] characteristics of thisassay have been determined by [facility], [place], [place]. The modificationshave not been cleared or approved by the FDA. Thisassay has been validated pursuant to the CLIAregulations and is used for clinical purposes.For additional information, please refer [email or web address]/faq/[employer](This link is being provided for informational/educational purposes only.)THIS TEST WAS PERFORMED AT:[facility] [place] [address]UZAFTBFMARKOS WILKINSON MD,PHD Blood Venous blood specimen / Unknown 07/26/2023 9:50 AM EDT 07/26/2023 11:19 AM EDT Lisa Tovar MD LAB BLOOD ORDERABLES Final Resul t Performing Organization Address [facility] Co de Phone Number [facility] [address] [place] [phone] * Hepatitis B surface antigen, EIA (07/26/2023 9:50 AM EDT) Hepatitis B Surface Ag Negative Negative [facility] Blood Venous blood specimen / Unknown 07/26/2023 9:50 AM EDT 07/26/2023 11:19 AM EDT Lisa Tovar MD LAB BLOOD ORDERABLES Final Resul t Performing Organization Address [facility] Co de Phone Number [facility] [address] [place] [phone] * Hepatitis B Surface Antibody, Qualitative (07/26/2023 9:50 AM EDT) ~Hepatitis B Surface Antibody NONREACTIVE Nonreactive [facility] Comment:Nonreactive: < 8.00 mIU/mL Blood Venous blood specimen / Unknown 07/26/2023 9:50 AM EDT 07/26/2023 11:19 AM EDT Lisa Tovar MD LAB BLOOD ORDERABLES Final Resul t Performing Organization Address [facility] Co de Phone Number [facility] [address] [place] [address] [phone] * Hepatitis B Core Antibody, Total (07/26/2023 9:50 AM EDT) Hepatitis B Core Antibody Nonreactive Nonreactive [facility] Blood Venous blood specimen / Unknown 07/26/2023 9:50 AM EDT 07/26/2023 11:19 AM EDT Lisa Tovar MD LAB BLOOD ORDERABLES Final Resul t Performing Organization Address [facility] Co de Phone Number [facility] [address] [place] [phone] * (ABNORMAL) Syphilis Screen (07/26/2023 9:50 AM EDT) Syphilis Screen Reactive( A) Nonreactive [facility] Comment:Reactive specimens a re [facility] tests. Blood 07/26/2023 9:50 AM EDT 07/26/2023 11:19 AM EDT Lisa Tovar MD LAB BLOOD ORDERABLES Final Resul t Performing Organization Address [facility] Co de Phone Number [facility] [address] [place] [phone] * HIV-1/2 Antigen and Antibodies, Fourth Generation, with Reflexes (07/26/2023 9:50 AM EDT) HIV AB/AG Nonreactive Nonreactive [facility] Comment:HIV-1 p24 Ag and/or HIV-1/HIV-2 Ab not detected.A test result that is nonreactive does not exclude thepossibility of exposure to or infection with HIV-1 and/orHIV-2. Nonreactive results in this assay for individualswith prior exposure to HIV-1 and/or HIV-2 may be due toantigen and antibody levels that are below the limit ofdetection of this assay.The Lexdir HIV Ag/Ab Combo assay result andsupplemental assay results should be interpreted inconjunction with the patient's clinical presentation,history and other laboratory results. If the results areinconsistent with clinical evidence, additional testing issuggested to confirm the result. Blood Venous blood specimen / Unknown 07/26/2023 9:50 AM EDT 07/26/2023 11:19 AM EDT Lisa Tovar MD LAB BLOOD ORDERABLES Final Resul t Performing Organization Address [facility] Co de Phone Number [facility] [address] [place] [phone] * Prothrombin Time-INR (07/26/2023 9:50 AM EDT) Prothrombin Time 11.5 11.1 - 13.3 SEC [facility] INTERNATIONAL NORM RATIO 0.9 0.9 - 1.1 [facility] Comment:INTERNATIONAL NORMAL IZED RATIO (INR) [...] ORDERABLES Final Resul t Performing Organization Address [facility] Co de Phone Number [facility] [address] [place] [address] [phone] * T4, Free (07/26/2023 9:50 AM EDT) Free T4 (Free Thyroxine) 1.18 0.71 - 1.85 ng/dL [facility] Blood Venous blood specimen / Unknown 07/26/2023 9:50 AM EDT 07/26/2023 11:19 AM EDT Lisa Tovar MD LAB BLOOD ORDERABLES Final Resul t Performing Organization Address [facility] Co de Phone Number [facility] [address] [place] [phone] * (ABNORMAL) TSH (07/26/2023 9:50 AM EDT) Thyroid Stimulating Hormone 7.98(H) 0.32 - 4.0 uIU/mL [facility] Comment:Note: A sustained TS H level above 2.5 uIU/mL may warrant further investigation. TSH 3rd Generation ([facility]) Blood Venous blood specimen / Unknown 07/26/2023 9:50 AM EDT 07/26/2023 11:19 AM EDT Lisa Tovar MD LAB BLOOD ORDERABLES Final Resul t Performing Organization Address [facility] Co de Phone Number [facility] [address] [place] [phone] * (ABNORMAL) Hepatic Function Panel (07/26/2023 9:50 AM EDT) Bilirubin, Total 0.4 0.0 - 1.0 mg/dL [facility] Bilirubin, Direct 0.2 0.0 - 0.5 mg/dL [facility] Aspartate Amino Transferase 51(H) 5 - 31 U/L [facility] Alanine Aminotransferase 58(H) 0 - 31 U/L [facility] Total Protein 7.9 6.5 - 8.0 g/dL [facility] Albumin Level 4.0 3.5 - 5.0 g/dL [facility] Alkaline Phosphatase 106 39 - 117 U/L [facility] Blood Venous blood specimen / Unknown 07/26/2023 9:50 AM EDT 07/26/2023 11:19 AM EDT us Lisa Tovar MD LAB BLOOD ORDERABLES Final Resul t [facility] [address] [place] [phone] [phone] * (ABNORMAL) CBC auto differential (07/26/2023 9:50 AM EDT) White Blood Count 7.5 4.8 - 10.8 X10*3/uL [facility] Red Blood Count 4.88 4.20 - 5.50 X10*6/uL [facility] Hemoglobin 11.3(L) 12.0 - 16.0 g/dl [facility] Hematocrit 36.7(L) 37.0 - 47.0 % [facility] Mean Corpuscular Volume 75.2(L) 80.0 - 98.0 fL [facility] Mean Corpuscular Hemoglobin 23.2(L) 27.0 - 33.0 pg [facility] Mean Corpuscular HGB Conc 30.8(L) 31.0 - 35.0 g/dl [facility] Red Cell Distribution Width 19.0(H) 11.0 - 16.0 % [facility] Platelet Count 341 160 - 400 X10*3/uL [facility] Mean Platelet Volume 11.2 9.4 - 12.3 fL [facility] Neutrophils Percent Auto 52.5 45 - 73 % [facility] Imm Gran Pct Auto 0.3 0.0 - 0.4 % [facility] Lymphocytes Percent Auto 35.9 20 - 40 % [facility] Monocytes Percent Auto 7.9 2 - 11 % [facility] Eosinophils Percent Auto 2.9 0 - 4 % [facility] Basophils Percent Auto 0.5 0 - 2 % [facility] NRBC Pct Auto 0.0 0.0 - 0.2 /100WBC [facility] Neutrophils Absolute Auto 3.9 2.0 - 8.3 x10*3/uL [facility] Imm Gran Abs Auto 0.02 0.00 - 0.03 X10*3/uL [facility] Lymphocytes Absolute Auto 2.7 1.2 - 4.9 X10*3/uL [facility] Monocytes Absolute Auto 0.6 0.1 - 1.2 X10*3/uL [facility] Eosinophils Absolute Auto 0.2 0.0 - 0.4 X10*3/uL [facility] Basophils Absolute Auto 0.0 0.0 - 0.2 X10*3/uL [facility] NRBC Abs Auto 0.000 0.0 - 0.012 X10*3/uL [facility] Blood Venous blood specimen / Unknown 07/26/2023 9:50 AM EDT 07/26/2023 11:19 AM EDT us Lisa Tovar MD LAB BLOOD ORDERABLES Final Resul t Performing Organization Address City/State/[facility] Co de Phone Number [facility] [address] [place] [phone] [phone] * US Abdomen Comp w elastography (06/05/2023 10:15 AM EDT) Anatomical Region Laterality Modality Abdomen Ultrasound 06/05/2023 10:1 5 AM EDT Narrative 06/08/2023 4:53 PM EDT [place] [id number] Ultrasound Report Signed Patient: Fern Ceballos MR#: [id number] : 1965 Acct:[id number] Age/Sex: 57 / F ADM Date: 06/05/23 Loc: HO.US Attending Dr: Lisa Tovar MD Ordering Physician: Lisa Tovar MD Date of Service: 06/05/23 Procedure(s): US abdomen comp w elastography Accession Number(s): [id number] cc: Lisa Tovar MD EXAMINATION: US COMPLETE [...] of Radiologists in Ultrasound Liver Stiffness Thresholds (2019): LIVER STIFFNESS THRESHOLDS: *Liver Stiffness equal or [...] in OV> 06/08/23 1649 DD/ 1015 TD/TT: Cam Specialist: LUKAS Procedure Note Donotuseinterpreter, Image - 06/08/2023 [place] [address] Ultrasound Report Signed Patient: Kristian Ceballos#: [id number] : 1965Acct:[id number] Age/Sex: 57 / FADM Date: 06/05/23 Loc: HO.US Attending Dr: Lisa Tovar MD Ordering Physician: Lisa Tovar MD Date of Service: 06/05/23 Procedure(s): US abdomen comp w elastography Accession Number(s): [id number] cc: Lisa Tovar MD EXAMINATION: US COMPLETE [...] in OV> 06/08/23 1649 DD/ 1015 TD/TT: Cam Specialist: LUKAS us Lisa Tovar MD IMG US PROCEDURES Final Result * Culture, Urine, Routine (05/04/2023 12:00 AM EST) Urine Urine specimen obtained by clean catch procedure / Unknown 05/04/2023 05/04/2023 Comment:RUST Narrative [facility] - 05/06/2023 8:01 AM EST Urine Culture Report Result Urine Culture 10,000 to 50,000 cfu/ml Urine Culture Mixed bacterial nolan characteristic of Urine Culture urogenital contamination. 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
--- OUTSIDE RECORDS SUMMARY | 2024-10-31 15:26 | XMS_ITS | Encounter Summary ---
Author Organization [employer] Address [address] [facility] [address] [place] [address] Care Team Providers Care Brusher Operator Name Role Phone Lisa Tovar MD Primary Care Provider [phone] Radu Wood PharmD Unavailable [phone] Encounter Details Date Type Department Care Team ([facility] st Contact Info) Description 04/23/2024 Orders Only [facility]INE [address] [place], [place] [phone] Lisa Tovar MD [address] [place], [place] [phone] Hypothyroidism, unspecified Social History Tobacco Use Types [...] Upcoming Encounters Date Type Department Care Team ([facility] st Contact Info) Description 11/04/2024 10:00 AM EDT Office Visit [facility] MEDICINE [address] [place] [phone] Lisa Tovar MD [address] [place] [address] 12/11/2024 2:30 PM EDT Medication Management [facility] [address] [place] [address] Radu Wood PharmD [address] [place] [address] 02/04/2025 1:00 PM EST Office Visit [facility] OPTOMETRY [address] [place] [address] Leah Rosa, GERI [address] [place] [address] documented as of this encounter Goals Goal Patient Goal Type Associated Problems Recent Progress Patient-Stated? Author Blood Pressure < 140/90 Blood Pressure 130/80(2024 9:06 AM EDT) No Radu Wood, PharmJeannette Hemoglobin A1c < 7 Result Component 7.2( 9:10 AM EDT) No Radu Wood PharmD documented as of this encounter Visit Diagnoses Diagnosis Hypothyroidism, unspecified documented in this encounter Additional Health Concerns Assessment Noted Time PHQ-9 Depression Total Score: 0 02/26/20 24 10:27 AM EST documented as of this encounter Care Teams Brusher Operator Relationship Specialty Start Date End Date Lisa Tovar MD [address] [place] [address] PCP - General Family Medicine 10/26/20 Radu Wood PharmD [address] [place] [address] Pharmacist Internal Medicine 02/01/22 documented as of this encounter
[2024-10-31 16:10] LABS: MANUAL DIFF FLAG NO
[2024-10-31 16:20] LABS: Hematocrit 33.7 % (37.0-47.0); Hemoglobin 10.8 g/dl (12.0-16.0); Imm Gran Abs Auto 0.03 X10*3/uL (0.00-0.03); Imm Gran Pct Auto 0.4 % (0.0-0.4); Lymphocytes Absolute Auto 2.6 X10*3/uL (1.2-4.9); Mean Corpuscular HGB Conc 32.0 g/dl (31.0-35.0); Mean Corpuscular Hemoglobin 24.6 pg (27.0-33.0); Mean Corpuscular Volume 76.8 fL (80.0-98.0); NRBC Abs Auto 0.000 X10*3/uL (0.0-0.012); NRBC Pct Auto 0.0 /100WBC (0.0-0.2); Platelet Count 353 X10*3/uL (160-400); Red Blood Count 4.39 X10*6/uL (4.20-5.50); White Blood Count 8.0 X10*3/uL (4.8-10.8)
[2024-10-31 17:27] LABS: Free T4 (Free Thyroxine) 1.01 ng/dL (0.71-1.85)
== END 2024-10-31 14:11 | disposition home or self-care (01) ==
LOC: HO.HHCL 14:10
PROVIDERS: PCP Family Medicine; Visit Provider Family Medicine
DX: K76.0 Fatty (change of) liver, not elsewhere classified (principal); E55.9 Vitamin D deficiency, unspecified; E06.3 Autoimmune thyroiditis
CPT/HCPCS: 36415; 82306; 84439; 84443; 85025

== ENCOUNTER 2024-11-22 14:52 | Outpatient (AMB) | payer OTHER, SELFPAY ==
--- NOTE | 2024-11-22 15:01 | A.OFFVIS_ITS ---
Vital Signs 11/22/24 15:16 Height 5 ft 5 in Weight 174 lb BMI 29.0 BP 142/70 H Blood Pressure Location Rt brachial Position Sitting Pulse 82 Pulse Source Pulse Oximeter Pulse Oximetry (%) 98 Oxygen Delivery Method Room Air Intake Visit Reasons: Overdue recall colo. 2021. Intake Note: New pt for recall colo, last 2021. Overdue, originally supposed to have 1 year recall. CC: Manager Perioperative Required: Yes Manager Perioperative Services: Manager Perioperative Present Manager Perioperative Name: Jovana [id number] Juan Pablo Guillaume Information Interpreted: clinical only Accompanied by: Self / Same As Patient Allergies acetaminophen (From Percocet) Allergy (Unknown, Verified 11/22/24 15:17) Itching oxycodone (From Percocet) Allergy (Unknown, Verified 11/22/24 15:17) Itching HPI HPI Overdue recall colo. 2021.: Details: LAST VISIT Screen for colon cancer Patient denies any GI, cardiac or respiratory symptoms.? Denies any issues with anesthesia in the past.? Denies any history of sleep apnea.? No history infectious diseases in the past or present.? Not on any anticoagulation therapy.? No family or personal history of colon cancer or polyps.? Patient denies melena, hematochezia, unintentional weight loss or ribbon like stools.? Patient is diabetic and takes her Lantus insulin every morning. Patient was encouraged to hold the insulin in the morning day before the procedure when she is going to have to be on clear liquid diet as she is not going to have any protein, as well as the day of the procedure. Monitor her blood sugars frequently. Patient can take her metformin. Discussed at length the pre- procedure,? prep, diet & medications as well as what to expect prior, during and after the procedure.?? Stressed the importance of good bowel prep. ?Recommended the use of Vaseline or Calmoseptine OTC & baby wipes with bowel movements to promote comfort.? ?Patient verbalizes understanding and agrees to plan of care.? She was given the opportunity to ask questions and all questions answered.? We will see her after the procedure.? Diabetes mellitus Patient is taking Lantus every morning. Patient was instructed to hold her Lantus day before the procedure as she going to be on clear liquid diet. Patient can take metformin and her weekly Trulicity. Patient also was instructed to hold her Lantus the morning of the procedure, however she may take that insulin when she gets home if she will be able to eat her normal food. Plan Orders Orders Complete Blood Count no Diff Today Z12.11 Medications New bisacodyl (Dulcolax (bisacodyl)) take 2 tabs at noon the day before your colonoscopy 10 mg (2 x 5 mg) PO ONCE 1 day 2 tabs 0RF Z12.11 polyethylene glycol 3350 (Miralax) As directed by gastroenterology department at [facility] 238 grams PO ONCE 238 grams 0RF Z12.11 Discontinued valacyclovir Discontinued Reason: Patient Completed Course 1,000 mg PO BID 7 days 14 tabs 0RF COLONOSCOPY: Findings: Terminal Ileum-normal Cecum:normal Ascending Colon: normal Transverse Colon -normal Descending Colon:normal Sigmoid Colon: normal Rectum: Retroflexion with small internal hemorrhoids, grade I Anorectum - normal Colon preparation: [place] Bowel Preparation Scale Right colon; 1-2 Transverse colon: 1 Left colon; 1-2 (0 = Unprepared colon segment with mucosa not seen due to solid stool that cannot be cleared. 1 = Portion of mucosa of the colon segment seen, but other areas of the colon segment not well seen due to staining, residual stool and/or opaque liquid. 2 = Minor amount of residual staining, small fragments of stool and/or opaque liquid, but mucosa of colon segment seen well. 3 = Entire mucosa of colon segment seen well with no residual staining, small fragments of stool or opaque liquid) Impression and Post Procedure Diagnosis: fair to poor prep internal hemorrhoids Plan: High fiber diet leaflet Avoid straining at stool, epsom salts and sitz bath, anusol supps or cream Repeat Colonoscopy in 1 year due to prep or earlier if clinically indicated TODAY'S VISIT Patient here for recall colonoscopy. Last 2021 and had minimal visualization due to suboptimal prep. Patient reports that after last colonoscopy she had rectal itching for about 8 days. She is unsure if she had hemorrhoids and reached out to her PCP and was prescribed an unknown medication but she did not use it. Symptoms resolved without treatment and patient has not had an issues since.? Today denies dysphagia, dyspepsia, odynophagia, heartburn, early satiety, epigastric pain, lower abdominal pain, belching, change in bowel habits, diarrhea, loose stools, constipation, bloating, melena, hematochezia, excessive flatus, ribbon like stools, nausea, vomiting, unintentional weight loss. No known family history of colon cancer. Has no known adverse reactions to anesthesia. Not on any anticoagulation medication. Denies any cardiac or respi ratory symptoms. Takes mounjaro, metformin and lantus.? ? PFSH Medical History Hypothyroidism Vitamin D deficiency Hyperlipidemia LDL goal <100 Uterine fibroid Urinary incontinence Controlled diabetes mellitus without complication, with long-term current use of insulin Diabetes mellitus with hyperglycemia Surgical History Hx of colonoscopy History of pubovaginal sling Hx of appendectomy Family History Father No problems noted. Mother Liver cancer Sister Skin cancer Social History Household Members: Children Household Members Other:: daughter Alcohol intake: never Patient Tobacco Use Status: Never used Tobacco Current occupational status: employed Current occupation: [employer] Female Reproductive History Menstrual Age of Menarche: 13 Review of Systems Const Denies weight gain and Denies weight loss ENT Reports no additional complaints, Denies dysphagia and Denies odynophagia Card Reports no additional complaints Resp Reports no additional complaints GI Denies abdominal pain, Denies belching, Denies melena, Denies bloating, Denies change in bowel habits, Denies dysphagia, Denies excessive flatus, Denies dyspepsia, Denies heartburn, Denies diarrhea, Denies loose stools, Denies nausea, Denies odynophagia and Denies vomiting Reports no additional complaints Musc Reports no additional complaints Neuro Reports no additional complaints Psych Reports no additional complaints Endo Reports no additional complaints Physical Exam Vital Signs: Last Vital Signs Pulse 82 11/22/24 15:16 BP 142/70 H 11/22/24 15:16 Pulse Ox 98 11/22/24 15:16 Oxygen Delivery Method Room Air 11/22/24 15:16 BMI result Body Mass Index 29.0 Const General: healthy appearing, no acute distress and well developed Nutritional Appearance: well nourished Orientation/consciousness: patient oriented x3 Resp Effort & Inspection: normal respiratory effort, able to speak in complete sentences, no tracheal deviation and symmetric chest movement Auscultation: clear to auscultation bilaterally Cardio Rate: regular rate GI Inspection: Yes normal to inspection and No distended Palpation (GI): Soft to palpation, not firm, nontender and No hepatosplenomegaly present Auscultation: normal bowel sounds General: Yes no CVA tenderness Back/Spine/Pelvis Back: no CVA tenderness Skin General skin exam: elasticity normal, turgor normal and dry skin Neuro General: patient oriented x3 Psych Appearance: grossly normal Mental Status: mental status grossly normal Assessment & Plan Assessment & Plan (1) Screen for colon cancer: Code(s): Z12.11 - Encounter for screening for malignant neoplasm of colon Plan Will send for colonoscopy. Patient instructed on split dose colonoscopy prep. Bisacodyl 10 mg PO daily for 1 week prior to procedure, and ?4 at noon the day prior, then polyethylene glycol 3350 238 g mixed in 64 oz clear liquid split prep at 5 in 10. Handout given with foods/colors to avoid prior to colonoscopy. RN will follow up with patient 1 week prior to colonoscopy to reiterate education. Patient will follow up in office 1-2 weeks after colonoscopy or sooner if needed.? Patient was given the opportunity to ask questions and all questions answered. Thank you for allowing me to participate in her care Orders: Referrals GI Procedure Notification Z12.11 - Encounter for screening for malignant neoplasm of colon Medications: New polyethylene glycol 3350 (Miralax) As directed by gastroenterology department at [facility] 238 grams PO ONCE 238 grams 0RF Z12.11 - Encounter for screening for malignant neoplasm of colon hydrocortisone 2.5% (Proctosol HC) 1 appl MA BID-QID PRN 30 grams 2RF hemorrhoids K64.9 - Unspecified hemorrhoids bisacodyl (Dulcolax (bisacodyl)) Start taking 2 tablet every night 7 days before the procedure and 1 day before procedure take 4 tablets at noon time followed by MiraLax prep 10 mg (2 x 5 mg) PO BEDTIME 16 tabs 0RF Z12.11 - Encounter for screening for malignant neoplasm of colon Coding Level of Care Code Est Pt Level 3 (08355) Diagnoses Screen for colon cancer Z12.11 Time Spent (min) 35 Comment 25 minutes spent with patient and additional 10 minutes spent reviewing her records
[2024-11-22 15:16] VITALS: BP 142/70; PULSE 82; O2SAT 98; BMI 29.0
== END 2024-11-22 15:58 | disposition home or self-care (01) ==
LOC: HO.HGI 14:53
PROVIDERS: PCP Family Medicine; Visit Provider Nurse Practitioner Family
DX: Z01.818 Encounter for other preprocedural examination (principal); Z12.11 Encounter for screening for malignant neoplasm of colon
CPT/HCPCS: 99213

== ENCOUNTER → 2024-11-22 14:52 | Outpatient (BNVA) | payer OTHER, SELFPAY | PROVIDERS: PCP Family Medicine; Visit Provider Nurse Practitioner Family | DX: Z12.11 Encounter for screening for malignant neoplasm of colon (principal) | CPT/HCPCS: 99212 ==

== ENCOUNTER 2024-12-10 10:54 | Outpatient (REF) | payer OTHER, SELFPAY ==
--- NOTE | ~2024-12-10 | US_ITS ---
CLINICAL HISTORY: pelvic pain, history of ovarian cyst and fibroids US pelvis transabdominal and transvaginal with Doppler Comparison: None provided Findings: Transabdominal scanning performed for overall anatomy. Transvaginal scanning performed for additional detail. Uterus is 6.3 cm length. Peripheral calcifications of the uterus. Multiple uterine fibroids: 2.1 x 1.7 x 1.8 cm, previously 2 x 2.2 x 2.2 cm per worksheet, 0.7 x 0.6 x 0.7 cm, previously 0.7 x 0.9 x 0.9 cm per worksheet. Endometrium 2.3 mm thickness. The bilateral ovaries are not seen. No free fluid. IMPRESSION: Multiple uterine fibroids. Ovaries are not visualized. This document has been electronically signed by: Randy Araujo MD on 12/10/2024 20:10:45
--- OUTSIDE RECORDS SUMMARY | 2024-12-10 13:02 | XMS_ITS | Encounter Summary ---
Author Organization [employer] Address [address] [facility] 7t [place] [address] Care Team Providers Care Production Internship Name Role Phone Lisa Tovar MD Primary Care Provider [phone] Radu Wood PharmD Unavailable [phone] Lizz Haile Unavailable Reason for Visit * Reason Comments Med Refill Encounter Details Date Type Department Care Team (Late st Contact Info) Description 08/06/2023 Refill [facility] MEDICINE [address] [place] [address] Yaritza Castro MD [address] [place], [place] [phone] Social History Tobacco Use Types Packs/Day Years [...] Care Team (Late st Contact Info) Description 12/11/2024 2:30 PM EDT Medication Management [facility] MEDICINE [address] [place] [address] Radu Wood PharmD 230 [place] [address] 02/04/2025 1:00 PM EST Office Visit [facility] OPTOMETRY [address] [place] [address] Moe, Leah, OD [address] [place] [address] documented as of this encounter Goals Goal Patient Goal Type Associated Problems Recent Progress Patient-Stated? Author Blood Pressure < 140/90 Blood Pressure 130/80(2024 10:12 AM EDT) No Radu Wood PharmJeannette Hemoglobin A1c < 7 Result Component 6.5( 10:16 AM EDT) No Radu Wood PharmD documented as of this encounter Visit Diagnoses Not on filedocumented in this encounter Additional Health Concerns Assessment Noted Time PHQ-9 Depression Total Score: 0 08/01/19 24 9:00 AM EDT documented as of this encounter Care Teams Production Internship Relationship Specialty Start Date End Date Lisa Tovar MD 230 [place] [address] PCP - General Family Medicine 10/26/20 Radu Wood, KendallD [address] [place] [address] Pharmacist Internal Medicine 02/01/22 Lizz Haile [address] [place] [address] Drive 3rd [place] [address] 11/13/24 documented as of this encounter
--- OUTSIDE RECORDS SUMMARY | 2024-12-10 13:02 | XMS_ITS | Encounter Summary ---
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 Procedures US Abdomen Comp w elastography Lisa Tovar MD 230 [place] [address] Phone: tel: fax: [address] Phone: tel: fax: Referral ID Status Reason Start Date Expiration Date Visits Re quested Visits Authorized [id number] Closed 05/05/2023 05/04/2024 1 1 Encounter Details Date Type Department Care Team (Late st Contact Info) Description 04/28/2023 Orders Only [facility] MEDICINE [address] [place], [place] [phone] Lisa Tovar MD 230 [place], [place] [phone] Transaminitis (Primary Dx); Hypothyroidism due to Yoel's [...] Description 12/11/2024 2:30 PM EDT Medication Management [facility] MEDICINE [address] [place] [address] Radu Wood, PharmD 230 [place] [address] 02/04/2025 1:00 PM EST Office Visit [facility] OPTOMETRY [address] [place] [address] Moe, Leah, OD 230 [place] [address] Scheduled Orders Name Type Priority Associated Diagnoses [...] AM EDT) Hepatitis C Genotype Not Detected LABS Comment: Genotype not detected due to [...] characteristics of thisassay have been determined by [employer], [place], [place]. The modificationshave not been cleared or approved by the FDA. Thisassay has been validated pursuant to the CLIAregulations and is used for clinical purposes.For additional information, please refer [email or web address] [email or web address]/faq/[email or web address](This link is being provided for informational/educational purposes only.)THIS TEST WAS PERFORMED AT:[facility] [place] [address]DNIBRHOMARKOS WILKINSON MD,PHD Blood Venous blood specimen / Unknown 07/26/2023 9:50 AM EDT 07/26/2023 11:19 AM EDT us Lisa Tovar MD LAB BLOOD ORDERABLES Final Resul t LABS [address] [place] [phone] * Hepatitis B surface antigen, EIA (07/26/2023 9:50 AM EDT) Hepatitis B Surface Ag Negative Negative LABS Blood Venous blood specimen / Unknown 07/26/2023 9:50 AM EDT 07/26/2023 11:19 AM EDT Lisa Tovar MD LAB BLOOD ORDERABLES Final Resul t Performing Organization Address [facility] Co de Phone Number LABS [address] [place] [phone] * Hepatitis B Surface Antibody, Qualitative (07/26/2023 9:50 AM EDT) ~Hepatitis B Surface Antibody NONREACTIVE Nonreactive LABS Comment:Nonreactive: < 8.00 mIU/mL Blood Venous blood specimen / Unknown 07/26/2023 9:50 AM EDT 07/26/2023 11:19 AM EDT Lisa Tovar MD LAB BLOOD ORDERABLES Final Resul t Performing Organization Address City/[facility]/ZIP Co de Phone Number LABS [address] [place] [phone] * Hepatitis B Core Antibody, Total (07/26/2023 9:50 AM EDT) Hepatitis B Core Antibody Nonreactive Nonreactive LABS Blood Venous blood specimen / Unknown 07/26/2023 9:50 AM EDT 07/26/2023 11:19 AM EDT Lisa Tovar MD LAB BLOOD ORDERABLES Final Resul t Performing Organization Address [facility]/ZIP Co de Phone Number LABS [address] [place] [phone] * (ABNORMAL) Syphilis Screen (07/26/2023 9:50 AM EDT) Syphilis Screen Reactive( A) Nonreactive LABS Comment:Reactive specimens a re sent to the [facility] Labfor confirmatory tests. Blood 07/26/2023 9:50 AM EDT 07/26/2023 11:19 AM EDT Lisa Tovar MD LAB BLOOD ORDERABLES Final Resul t Performing Organization Address [facility] Co de Phone Number LABS [address] [place] [phone] * HIV-1/2 Antigen and Antibodies, Fourth Generation, with Reflexes (07/26/2023 9:50 AM EDT) HIV AB/AG Nonreactive Nonreactive [facility] LABS Comment:HIV-1 p24 Ag and/or HIV-1/HIV-2 Ab not detected.A test result that is nonreactive does not exclude thepossibility of exposure to or infection with HIV-1 and/orHIV-2. Nonreactive results in this assay for individualswith prior exposure to HIV-1 and/or HIV-2 may be due toantigen and antibody levels that are below the limit ofdetection of this assay.The [employer] HIV Ag/Ab Combo assay result andsupplemental assay [...] Performing Organization Address [facility] Co de Phone Number LABS [address] [place] [phone] * Prothrombin Time-INR (07/26/2023 9:50 AM EDT) Prothrombin Time 11.5 11.1 - 13.3 SEC LABS INTERNATIONAL NORM RATIO 0.9 0.9 - 1.1 LABS Comment:INTERNATIONAL NORMAL IZED RATIO (INR) REFERENCE [...] ORDERABLES Final Resul t Performing Organization Address City/[facility] Co de Phone Number LABS [address] [place] [phone] * T4, Free (07/26/2023 9:50 AM EDT) Free T4 (Free Thyroxine) 1.18 0.71 - 1.85 ng/dL LABS Blood Venous blood specimen / Unknown 07/26/2023 9:50 AM EDT 07/26/2023 11:19 AM EDT Lisa Tovar MD LAB BLOOD ORDERABLES Final Resul t Performing Organization Address [facility] Co de Phone Number LABS [address] [place] [phone] * (ABNORMAL) TSH (07/26/2023 9:50 AM EDT) Thyroid Stimulating Hormone 7.98(H) 0.32 - 4.0 uIU/mL LABS Comment:Note: A sustained TS H level above 2.5 uIU/mL may warrant further investigation. TSH 3rd Generation ([facility]) Blood Venous blood specimen / Unknown 07/26/2023 9:50 AM EDT 07/26/2023 11:19 AM EDT us Lisa Tovar MD LAB BLOOD ORDERABLES Final Resul t Performing Organization Address [facility] Co de Phone Number LABS [address] [place] [phone] * (ABNORMAL) Hepatic Function Panel (07/26/2023 9:50 AM EDT) Bilirubin, Total 0.4 0.0 - 1.0 mg/dL LABS Bilirubin, Direct 0.2 0.0 - 0.5 mg/dL LABS Aspartate Amino Transferase 51(H) 5 - 31 U/L LABS Alanine Aminotransferase 58(H) 0 - 31 U/L LABS Total Protein 7.9 6.5 - 8.0 g/dL LABS Albumin Level 4.0 3.5 - 5.0 g/dL LABS Alkaline Phosphatase 106 39 - 117 U/L LABS Blood Venous blood specimen / Unknown 07/26/2023 9:50 AM EDT 07/26/2023 11:19 AM EDT us Lisa Tovar MD LAB BLOOD ORDERABLES Final Resul t Performing Organization Address City/[facility]/ZIP Co de Phone Number LABS [address] [place] [phone] * (ABNORMAL) CBC auto differential (07/26/2023 9:50 AM EDT) White Blood Count 7.5 4.8 - 10.8 X10*3/uL LABS Red Blood Count 4.88 4.20 - 5.50 X10*6/uL LABS Hemoglobin 11.3(L) 12.0 - 16.0 g/dl LABS Hematocrit 36.7(L) 37.0 - 47.0 % LABS Mean Corpuscular Volume 75.2(L) 80.0 - 98.0 fL LABS Mean Corpuscular Hemoglobin 23.2(L) 27.0 - 33.0 pg LABS Mean Corpuscular HGB Conc 30.8(L) 31.0 - 35.0 g/dl LABS Red Cell Distribution Width 19.0(H) 11.0 - 16.0 % LABS Platelet Count 341 160 - 400 X10*3/uL LABS Mean Platelet Volume 11.2 9.4 - 12.3 fL LABS Neutrophils Percent Auto 52.5 45 - 73 % LABS Imm Gran Pct Auto 0.3 0.0 - 0.4 % LABS Lymphocytes Percent Auto 35.9 20 - 40 % LABS Monocytes Percent Auto 7.9 2 - 11 % LABS Eosinophils Percent Auto 2.9 0 - 4 % LABS Basophils Percent Auto 0.5 0 - 2 % LABS NRBC Pct Auto 0.0 0.0 - 0.2 /100WBC LABS Neutrophils Absolute Auto 3.9 2.0 - 8.3 x10*3/uL LABS Imm Gran Abs Auto 0.02 0.00 - 0.03 X10*3/uL LABS Lymphocytes Absolute Auto 2.7 1.2 - 4.9 X10*3/uL LABS Monocytes Absolute Auto 0.6 0.1 - 1.2 X10*3/uL LABS Eosinophils Absolute Auto 0.2 0.0 - 0.4 X10*3/uL LABS Basophils Absolute Auto 0.0 0.0 - 0.2 X10*3/uL LABS NRBC Abs Auto 0.000 0.0 - 0.012 X10*3/uL LABS Blood Venous blood specimen / Unknown 07/26/2023 9:50 AM EDT 07/26/2023 11:19 AM EDT us Lisa Tovar MD LAB BLOOD ORDERABLES Final Resul t Performing Organization Address City/State/[facility] Co de Phone Number LABS [address] [place] [phone] * US Abdomen Comp w elastography (06/05/2023 10:15 AM EDT) Anatomical Region Laterality Modality Abdomen Ultrasound 06/05/2023 10:1 5 AM EDT Narrative 06/08/2023 4:53 PM EDT [place] [address] Ultrasound Report Signed Patient: Fern Ceballos MR#: [id number] : 1965 Acct:[id number] Age/Sex: 57 / F ADM Date: 06/05/23 Loc: HO.US Attending Dr: Lisa Tovar MD Ordering Physician: Lisa Tovar MD Date of Service: 06/05/23 Procedure(s): US abdomen comp w elastography Accession Number(s): [id number] cc: Lisa Tovar MD EXAMINATION: US COMPLETE [...] in OV> 06/08/23 1649 DD/ 1015 TD/TT: Psychiatric Rn: LUKAS Procedure Note Donotuseinterpreter, Image - 06/08/2023 [place] [address] Ultrasound Report Signed Patient: Kristian Ceballos#: [id number] : 1965Acct:[id number] Age/Sex: 57 / FADM Date: 06/05/23 Loc: HO.US Attending Dr: Lisa Tovar MD Ordering Physician: Lisa Tovar MD Date of Service: 06/05/23 Procedure(s): US abdomen comp w elastography Accession Number(s): [id number] cc: Lisa Tovar MD EXAMINATION: US COMPLETE [...] in OV> 06/08/23 1649 DD/ 1015 TD/TT: Psychiatric Rn: LUKAS Lisa Tovar MD IMG US PROCEDURES Final Result * Culture, Urine, Routine (05/04/2023 12:00 AM EST) Urine Urine specimen obtained by clean catch procedure / Unknown 05/04/2023 05/04/2023 Comment:CC Narrative LABS - 05/06/2023 8:01 AM EST Urine Culture Report Result Urine Culture 10,000 to 50,000 cfu/ml Urine Culture Mixed bacterial nolan characteristic of Urine Culture urogenital contamination. 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
--- OUTSIDE RECORDS SUMMARY | 2024-12-10 13:02 | XMS_ITS | Encounter Summary ---
Author Organization [employer] Address [address] [facility] 7t [place] [address] Care Team Providers Care Curb Setter Helper Name Role Phone Lisa Tovar MD Primary Care Provider [phone] Radu Wood PharmD Unavailable [phone] Lizz Haile Unavailable Encounter Details Date Type Department Care Team (Late st Contact Info) Description 02/26/2024 Orders Only [facility] MEDICINE [address] [place], [place] [phone] Lisa Tovar MD 230 [place], [place] [phone] 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 (Primary Dx) [...] Description 12/11/2024 2:30 PM EDT Medication Management [facility] MEDICINE [address] [place] [address] Radu Wood, PharmD 230 [place] [address] 02/04/2025 1:00 PM EST Office Visit [facility] OPTOMETRY [address] [place] [address] Leah Rosa, OD 230 [place] [address] documented as of this encounter Goals Goal Patient Goal Type Associated Problems Recent Progress Patient-Stated? Author Blood Pressure < 140/90 Blood Pressure 130/80(2024 10:12 AM EDT) No Radu Wood, Eugenio Hemoglobin A1c < 7 Result Component 6.5( [...] Free T4 5.58(H) 0.32 - 4.0 uIU/mL [facility] LABS Blood 04/17/2024 3:36 PM EST 04/17/2024 4:20 PM EST us Lisa Tovar MD LAB BLOOD ORDERABLES Final Resul t [facility] LABS [address] [place] [phone] [phone] documented in this encounter Visit Diagnoses Diagnosis 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- Primary documented in this encounter Additional Health Concerns Assessment Noted Time PHQ-9 Depression Total Score: 0 02/26/20 24 10:27 AM EST documented as of this encounter Care Teams Curb Setter Helper Relationship Specialty Start Date End Date Lisa Tovar MD [address] [place] [address] PCP - General Family Medicine 10/26/20 Radu Wood, PharmD [address] [place] [address] Pharmacist Internal Medicine 02/01/22 Lizz Haile [address] [place] [address] 3rd [place] [address] 11/13/24 documented as of this encounter
--- OUTSIDE RECORDS SUMMARY | 2024-12-10 13:02 | XMS_ITS | Encounter Summary ---
Author Organization [employer] Address [address] [place] [address] 7t [place] [address] Care Team Providers Care Hatchery Helper Name Role Phone Lisa Tovar MD Primary Care Provider [phone] Radu Wood PharmD Unavailable [phone] Lizz Haile Unavailable Encounter Details Date Type Department Care Team (Late Contact Info) Description 06/08/2023 Orders Only [facility] MEDICINE [address] [place], [place] [phone] Lisa Tovar MD [address] [place], [place] [phone] Social History Tobacco Use Types Packs/Day Years [...] Encounters Date Type Department Care Team (Late Contact Info) Description 12/11/2024 2:30 PM EDT Medication Management [facility] MEDICINE [address] [place], [place] [phone] Radu Wood, PharmD [address] [place], [place] [phone] 02/04/2025 1:00 PM EST Office Visit [facility] OPTOMETRY [address] [place] [address] Leah Rosa, OD 230 [place] [address] documented as of this encounter Visit Diagnoses Not on filedocumented in this encounter Care Teams Hatchery Helper Relationship Specialty Start Date End Date Lisa Tovar MD [address] [place] [address] PCP - General Family Medicine 10/26/20 Radu Wood, KendallD [address] [place] [address] Pharmacist Internal Medicine 02/01/22 Lizz Haile [address] [place] [address] Drive 3rd [place] [address] 11/13/24 documented as of this encounter
--- OUTSIDE RECORDS SUMMARY | 2024-12-10 13:02 | XMS_ITS | Encounter Summary ---
Author Organization [employer] Address [address] [facility] 7t [place] [address] Care Team Providers Care Skoog Operator Name Role Phone Lisa Tovar MD Primary Care Provider Radu Wood PharmD Unavailable [phone] Lizz Haile Unavailable Encounter Details Date Type Department Care Team (Late st Contact Info) Description 04/23/2024 Orders Only [facility] MEDICINE [address] [place], [place] [phone] Lisa Tovar MD [address] [place], [place] [phone] Hypothyroidism, unspecified Social History Tobacco Use Types [...] Description 12/11/2024 2:30 PM EDT Medication Management [facility] MEDICINE [address] [place] [address] Radu Wood PharmD [address] [place] [address] 02/04/2025 1:00 PM EST Office Visit [facility] OPTOMETRY [address] [place] [address] Moe, Leah, OD [address] [place] [address] documented as of this encounter Goals Goal [...] documented as of this encounter Care Teams Skoog Operator Relationship Specialty Start Date End Date Lisa Tovar MD [address] [place] [address] PCP - General Family Medicine 10/26/20 Radu Wood, KendallD [address] [place] [address] Pharmacist Internal Medicine 02/01/22 Lizz Haile [address] [place] [address] 3rd [place] [address] 11/13/24 documented as of this encounter
--- OUTSIDE RECORDS SUMMARY | 2024-12-10 13:02 | XMS_ITS | Encounter Summary ---
Author Organization [employer] Address [address] [facility] 7t [place] [address] Care Team Providers Care Conversion Worker Name Role Phone Lisa Tovar MD Primary Care Provider [phone] Radu Wood PharmD Unavailable [phone] Lizz Haile Unavailable Reason for Visit * Reason Onset Date Comments Call Back Request 08/07/2023 Encounter Details Date Type Department Care Team (Late st Contact Info) Description 08/07/2023 Telephone [facility] MEDICINE [address] [place], [place] [phone] Lisa Tovar MD [address] [place], [place] [phone] Call Back Request Social History Tobacco Use [...] patient will get treated if positive result. aTl can reach out to patient, of giles can if PCP wouldlike. Tal will call next week to see if patient did labs. * Telephone Encounter - Silvano Chavarria - 08/07/2023 12:47 PM EDT Tc from Tal with the [facility] requesting call back regarding lab orders they received from pcp. Please contact Tal at [phone]. documented in this encounter Plan of Treatment Upcoming Encounters Date Type Department Care Team (Late st Contact Info) Description 12/11/2024 2:30 PM EDT Medication Management [address] [phone] Radu Wood PharmD [address] [place] [address] 02/04/2025 1:00 PM EST Office Visit [facility] OPTOMETRY [address] [place] [address] MoeLuisito benjaminn, OD [address] [place] [address] documented as of this encounter Goals Goal Patient Goal Type Associated Problems Recent Progress Patient-Stated? Author Blood Pressure < 140/90 Blood Pressure 130/80(2024 10:12 AM EDT) No Radu Wood PharmD Hemoglobin A1c < 7 Result Component 6.5( 10:16 AM EDT) No Radu Wood PharmD documented as of this encounter Visit Diagnoses Not on filedocumented in this encounter Additional Health Concerns Assessment Noted Time PHQ-9 Depression Total Score: 0 08/01/19 9:00 AM EDT documented as of this encounter Care Teams Conversion Worker Relationship Specialty Start Date End Date Lisa Tovar MD [address] [place] [address] PCP - General Family Medicine 10/26/20 Radu Wood PharmD [address] [place] [address] Pharmacist Internal Medicine 02/01/22 Lizz Haile [address] [place] [address] 3rd [place] [address] 11/13/24 documented as of this encounter
--- OUTSIDE RECORDS SUMMARY | 2024-12-10 13:02 | XMS_ITS | Encounter Summary ---
Author Organization [employer] Address [address] [place] [address] 7t [place] [address] Care Team Providers Care Varsity Baseball Coach Name Role Phone Lisa Tovar MD Primary Care Provider [phone] Radu Wood PharmD Unavailable [phone] Lizz Haile Unavailable Reason for Referral * Consultation (Routine) - Pending Review Specialty Diagnoses / Procedures Referred By Contcaitlin t Referred To Contact Pharmacy Diagnoses Hypertension, unspecified type Type 2 diabetes mellitus with hyperglycemia, with long-term current use of insulin ([facility]) Lisa Tovar MD [address] [place] [address] Phone: tel: fax: Referral ID Status Reason Start Date Expiration Date Visits Requested Visits Authorized [id number] Pending Review Consult and Treat 03/01/2024 03/01/2025 6 6 Encounter Details Date Type Department Care Team (Late st Contact Info) Description 03/01/2024 Orders Only [facility] MEDICINE [address] [place], [place] [phone] Lisa Tovar MD [address] [place], [place] [phone] Hypertension, unspecified type (Primary Dx); Type 2 diabetes mellitus with hyperglycemia, with long-term current use of insulin ([facility]/HCC) Social History Tobacco Use Types Packs/Day Years [...] Description 12/11/2024 2:30 PM EDT Medication Management [facility] MEDICINE [address] [place] [address] Radu Wood, PharmD [address] [place] [address] 02/04/2025 1:00 PM EST Office Visit [facility] OPTOMETRY [address] [place] [address] Leah Rosa, OD [address] [place] [address] Scheduled Referrals Name Type Priority Associated Diagnoses Orde r Schedule Referral to Pharmacy CDTM Outpatient Referral Routine Hypertension, unspecified type Type 2 diabetes mellitus with hyperglycemia, with long-term current use of insulin ([facility]/HCC) Ordered: 03/01/2024 documented as of this encounter [...] hyperglycemia, with long-term current use of insulin ([facility]) documented in this encounter Additional Health Concerns Assessment Noted Time PHQ-9 Depression Total Score: 0 02/26/20 24 10:27 AM EST documented as of this encounter Care Teams Varsity Baseball Coach Relationship Specialty Start Date End Date Lisa Tovar MD [address] [place] [address] PCP - General Family Medicine 10/26/20 Radu Wood, KendallD [address] [place] [address] Pharmacist Internal Medicine 02/01/22 Lizz Haile [address] [place] [address] 3rd [place] [address] 11/13/24 documented as of this encounter
--- OUTSIDE RECORDS SUMMARY | 2024-12-10 13:02 | XMS_ITS | Encounter Summary ---
Author Organization [employer] Address [address] [facility] 7t [place] [address] Care Team Providers Care Ceo Name Role Phone Lisa Tovar MD Primary Care Provider [phone] Radu Wood PharmD Unavailable [phone] Lizz Haile Unavailable Encounter Details Date Type Department Care Team (Late st Contact Info) Description 08/03/2023 Orders Only [facility] MEDICINE [address] [place], [place] [phone] Lisa Tovar MD 230 [place], [place] [phone] History of syphilis (Primary Dx) Social History [...] Description 12/11/2024 2:30 PM EDT Medication Management [facility] MEDICINE [address] [place] [address] Radu Wood PharmD [address] [place] [address] 02/04/2025 1:00 PM EST Office Visit [facility] OPTOMETRY [address] [place] [address] Moe, Leah, OD [address] [place] [address] documented as of this encounter Goals Goal [...] documented as of this encounter Care Teams Ceo Relationship Specialty Start Date End Date Lisa Tovar MD [address] [place] [address] PCP - General Family Medicine 10/26/20 Radu Wood, Eugenio [address] [place] [address] Pharmacist Internal Medicine 02/01/22 Lizz Haile [address] [place] [address] Drive 3rd [place] [address] 11/13/24 documented as of this encounter
--- OUTSIDE RECORDS SUMMARY | 2024-12-10 13:02 | XMS_ITS | Clinical Summary ---
Author Organization [employer] Address [address] [place] [address] [address] [place] [address] Care Team Providers Care Office Support Clerk Name Role Phone Lisa Olguin MD Primary Care Provider [phone] Radu Wood PharmD Unavailable [phone] Lizz Haile Unavailable Allergies Active Allergy Reactions Criticality Noted Date Comments Lisinopril Cough 10/04/2024 Oxycodone Other Medium 02/27/2012 Skin Crawling Sensation (03/09/2012) Medications Blood Glucose Monitoring Suppl (Al[employer]es [employer] [place] Lite) w/Device kitIndications :Type 2 diabetes mellitus with hyperglycemia, with long-term current use of insulin (HCC) Use to test blood sugar three times daily as directed 1 kit 024 Active Alcohol Swabs 70 % padsIndication s:Type 2 diabetes mellitus with hyperglycemia, with long-term current use of insulin (HCC) Use to test blood sugar 3 times [...] month pack. 60 tablet 5 024 Active nystatin (Mycostatin) cream APPLY 1 GRAM TOPICALLY TOPICALLY TWICE DAILY 30 g 1 024 Active Pentips Generic Pen Frost 32G X 4 MM misc USE EVERY DAY WITH LANTUS DIRECTED 100 each 3 024 Active nystatin-triam cinolone (Mycolog II) ointment Apply topically 2 times daily. 15 g 024 Active rosuvastatin (Crestor) 10 MG tabletIndicati ons:Type 2 diabetes mellitus with hyperglycemia, with long-term current use of insulin ([facility]) Take 1 tablet (10 mg) by mouth Once per day. 90 tablet 3 025 Active aspirin (Aspirin Adult Low Dose) 81 MG EC tabletIndicati ons:Type 2 diabetes mellitus with hyperglycemia, with long-term current use of insulin ([facility]) Take 1 tablet by mouth daily 90 tablet 3 025 Active metFORMIN (Glucophage) [...] Apply topically 2 times daily. 45 g Active fluocinolone (Annex-Smoothe ) 0.01 % external oil APPLY TOPICALLY TO WET SCALP TWICE A WEEK AT BEDTIME 118.28 mL 025 Active fluticasone (Flonase) 50 MCG/ACT nasal spray INSTILL 1 TO 2 SPRAYS IN EACH NOSTRIL EVERY DAY 16 g 3 025 Active Vagifem 10 MCG tablet vaginal tablet INSERT 1 TABLET VAGINALLY TWICE A WEEK 8 tablet 1 Active nitrofurantoin (Macrodantin) 100 MG capsuleIndicat ions:Recurrent UTI TAKE 1 CAPSULE BY MOUTH EVERY DAY AFTER SEXUAL ACTIVITY 30 capsule 1 025 Active Blood Pressure kitIndications :Hypertension, unspecified type Use to check BP daily as directed 1 kit Active [facility] GARLIC PO Take 1 capsule by mouth Once per day. Active Lancets miscIndication s:Type 2 diabetes mellitus with hyperglycemia, with long-term current use of insulin ([facility]) Use to test blood sugar daily 100 each 3 Active glucose blood (FREESTYLE LITE) test strip Use to test blood sugar daily 50 each 025 2025 Active Tirzepatide (Mounjaro) 7.5 MG/0.5ML solution auto-injectorI ndications:Typ e 2 diabetes mellitus with hyperglycemia, with long-term current use of insulin (HCC) Inject 7.5 mg under the skin 1 (one) time per week. 2 mL Active ferrous sulfate (Fe Tabs) 325 (65 Fe) MG EC tablet Take 1 tablet (325 mg) by mouth every other day. Do not crush, chew, or split. 45 tablet Active levothyroxine (Synthroid, Levoxyl) 175 MCG tabletIndicati ons:Hypothyroi dism, unspecified Take 1 tablet (175 mcg) by mouth Once per day. 90 tablet Active olmesartan (Benicar) 5 MG tablet Take 1 tablet (5 mg) by mouth Once per day. 90 tablet 025 2025 Active insulin glargine (Lantus SoloStar) 100 UNIT/ML penIndications :Type 2 diabetes mellitus with hyperglycemia, with long-term current use of insulin (HCC) INJECT 22 UNITS SUBCUTANEOUSLY EVERY DAY 15 mL Active insulin glargine (Lantus SoloStar) 100 UNIT/ML penIndications :Type 2 diabetes mellitus with hyperglycemia, with long-term current use of insulin (HCC) Inject 22 units under the skin once daily 15 mL 024 2024 Discontinued Active Problems Problem Noted Date Diagnosed Date History of syphilis 08/02/2023 Assessment & Plan (03/01/2024 5:07 PM EST): - recently treated for Syphilis due to RPR 1:2 with 3 doses of penicillin in July 2023 - she had positive titer back in 2003 with titer 1:2 and 2016 - recheck RPR Assessment & Plan (11/08/2023 [...] back in 2003 with titer 1:2 and 2016 - [facility] whether patient needs a treatment Dyslipidemia 08/01/2023 Assessment & Plan (11/10/2024 4:16 PM EDT): - last lipid profile was 04/17/24 - current medication: rosuvastatin 5 mg at bedtime, consider increasing its dose - April 2023 AST / ALT > x 3 UNL and not on statin - most recent AST/ALT in June 2023 shows improvement, still high, but we can still continue using statin - continue working on lifestyle modification Assessment & Plan (08/15/2024 6:24 AM EDT): [...] liver disease (MASLD) 05/05/2023 Assessment & Plan (11/05/2024 12:26 PM EDT): - FIB4 index 1.10 - Last US / elastography: May 2023, compensated advanced cirrhotic liver disease - GI, [facility]. Referred back - Avoid hepatotoxic drugs - Continue working on lifestyle modifications Assessment & Plan (08/15/2024 6:34 AM EDT): [...] compensated advanced cirrhotic liver disease - GI, [facility]. Referred back - Avoid hepatotoxic drugs - Continue working on lifestyle modifications Assessment & Plan (02/25/2024 6:20 AM EST): >>ASSESSMENT AND PLAN FOR METABOLIC DYSFUNCTION-ASSOCIATED STEATOTIC LIVER DISEASE (MASLD) WRITTEN ON 08/01/2023 6:08 PM BY LISA OLGUIN MD - FIB4 index 1.10 - Last US / elastography: May 2023, compensated advanced cirrhotic liver disease - GI, [facility]. Refer back - Avoid hepatotoxic drugs - Continue working on lifestyle modifications >>ASSESSMENT AND PLAN FOR TRANSAMINITIS WRITTEN ON 08/01/2023 6:15 PM BY LISA OLGUIN MD - hepatitis profile negative - will give Hep A and B vaccines at next visit - likely MASLD Hypothyroidism 05/04/2023 Assessment & Plan (11/10/2024 4:25 PM EDT): - Adherence to levothyroxine: > 80% - most recent thyroid function test: TSH 15.88 on 10/31/24 Free T4 = 1.01; improving TSH 51.60; free T4 =0.74 On 07/30/2024 - current replacement: levothyroxine 150 mcg daily, increase to 175 mcg daily - discussed about the importance of thyroid replacement and encouraged to improve adherence - consider thyroid US Assessment & Plan (08/15/2024 6:33 AM EDT): [...] check lab Hypertension 05/04/2023 Assessment & Plan (11/10/2024 4:15 PM EDT): -Goal BP < 130/80 per ACC/AHA guideline -Not at goal, patient attributes to white-coat HTN -Continue working on lifestyle modifications -Recommended self-monitoring BP. -Start olmesartan 5 mg daily. -Treatment Hx: Patient self-discontinue because she attributed cough to lisinopril. We agreed to discontinue and start ARB today, Oct 2024. -Follow up with Radu Wood [facility], PharmD for CDTM Assessment & Plan (07/31/2024 8:54 AM EDT): [...] (07/31/2024 10:44 PM EDT): - Following with [facility] - Last UTI in Mar 2022, E coli which was resistant to ampicillin, ceftriaxone, and TMP/SMX, treated with nitrofurantoin - continue VagiFem - continue postcoital prophylaxis Assessment & Plan (02/25/2024 6:05 AM EST): - Following with [facility] - Last UTI in Mar 2022, E coli which was resistant to ampicillin, ceftriaxone, and TMP/SMX, treated with nitrofurantoin - continue VagiFem - continue postcoital prophylaxis Assessment & Plan (11/08/2023 10:54 AM EDT): - Following with [facility] - Last UTI in Mar 2022, E coli which was resistant to ampicillin, ceftriaxone, and TMP/SMX, treated with nitrofurantoin - continue VagiFem - continue postcoital prophylaxis Assessment & Plan (08/01/2023 6:08 PM EDT): - Following with [facility] - Last UTI in Mar 2022, E coli which was resistant to ampicillin, ceftriaxone, and TMP/SMX, treated with nitrofurantoin - continue VagiFem - continue postcoital prophylaxis Assessment & Plan (05/05/2023 11:13 AM EST): - Following with [facility] - Last UTI in Mar 2022, E coli which was resistant to ampicillin, ceftriaxone, and TMP/SMX, treated with nitrofurantoin - continue VagiFem - continue postcoital prophylaxis Contusion of knee 02/08/2022 Abnormal perimenopausal bleeding 07/12/2012 Allergic rhinitis 07/12/2012 Assessment & Plan (08/01/2023 6:12 PM EDT): - continue antihistamine - add fluticasone nasal Anemia 07/12/2012 Assessment & Plan (11/10/2024 4:19 PM EDT): - mild - continue ferrous sulfate supplement Assessment & Plan (03/01/2024 5:06 PM EST): - mild Assessment & Plan (08/01/2023 6:11 PM EDT): - mild - recheck lab in 3 mo Type 2 diabetes mellitus 07/12/2012 Assessment & Plan (11/05/2024 12:27 PM EDT): - A1C 6.5% on 11/04/24, improving from A1C 7.2% on 07/30/24 -Previously followed by [facility] and was started on CGM and GLP-1 agonist -Continue lantus 26 units every evening. -Continue metformin 1000 mg twice a day -Continue tirzepatide 7.5 mg weekly -Foot exam: 07/30/24 -Eye exam: [facility]. -Last lipid profile: 04/17/24 -Last microalbumin: 02/26/24, no microalbuminuria Assessment & Plan (08/15/2024 6:30 AM EDT): - A1C 7.2% on 07/30/24, improving from A1C 7.4% on 05/06/24 -Previously followed by [facility] and was started on CGM and GLP-1 agonist -Continue lantus 26 units every evening. -Continue metformin 1000 mg twice a day -Continue tirzepatide 7.5 mg weekly -Foot exam: 07/30/24 -Eye exam: [facility]. -Last lipid profile: 04/17/24 -Last microalbumin: 02/26/24, no microalbuminuria Assessment & Plan (05/10/2024 11:54 AM EDT): - A1C 7.4% on 05/06/24, improving from A1C 7.8% on 02/26/24 -Previously followed by [facility] and was started on CGM and GLP-1 agonist -Continue lantus 26 units every evening. -Continue metformin 1000 mg twice a day -Continue tirzepatide 7.5 mg weekly -Foot exam: 05/04/23 -Eye exam: [facility]. -Last lipid profile: 02/26/24 -Last microalbumin: 02/26/24, no microalbuminuria Assessment & Plan (03/01/2024 5:05 PM EST): - A1C 7.8% on 02/26/24, worsened from 6.8% on 11/08/23 -Previously followed by [facility] and was started on CGM and GLP-1 agonist -Continue lantus 26 units every evening. -Continue metformin 1000 mg twice a day -Continue tirzepatide 5 mg weekly -Foot exam: 05/04/23 -Eye exam: [facility]. May 2022, upcoming appointment -Last lipid profile: 02/26/24 -Last microalbumin: 02/26/24, no microalbuminuria Assessment & Plan (11/13/2023 1:12 PM EDT): - A1C 6.8% on 11/08/23, improved from 8.5% on 08/01/23 -Previously followed by [facility] and was started on CGM and GLP-1 agonist -Continue lantus 26 units every evening. -Continue metformin 1000 mg twice a day -Continue tirzepatide 5 mg weekly -Foot exam: 05/04/23 -Eye exam: [facility]. May 2022, upcoming appointment -Last lipid profile: 05/04/23 -Last microalbumin: 05/04/23 Assessment & Plan (08/01/2023 6:11 PM EDT): - A1C 8.5% on 08/01/23, improved from 11% in April 2023 -Previously followed by [facility] and was started on CGM and GLP-1 agonist -Continue lantus 26 units every evening. -Continue metformin 1000 mg twice a day -Continue tirzepatide 5 mg weekly -Foot exam: 05/04/23 -Eye exam: [facility]. May 2022, upcoming appointment -Last lipid profile: 05/04/23 -Last microalbumin: 05/04/23 Assessment & Plan (05/07/2023 7:25 AM EDT): - A1C 11% today, worsened from 7.9% in 2021 -Previously followed by [facility] and was started on CGM and GLP-1 agonist -Continue lantus 26 units every evening (advise to increase to 30 units if dulaglutide (Trulicity) is not available). -Continue metformin 1000 mg twice a day -Increase Trulicity 3.0 mg weekly -Foot exam: 05/04/23 -Eye exam: [facility]. May 2022. 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 - Seen by bran mixer in [facility] in 2013 - Previously receiving intralesional [...] psoriasis on scalp - Last seen by bran mixer in [facility] in 2013 - Previously receiving intralesional [...] Encounters Date Type Department Care Team Description 12/03/2024 Refill [facility] [place] [address] Raud Wood, PharmD Type 2 diabetes mellitus with hyperglycemia, with long-term current use of insulin (HCC) 11/12/2024 Telephone [facility] [address] [facility] [place] [address] Lisa Olguin MD 11/04/2024 10:00 AM EDT Office Visit [facility] [place] [id number] Lisa Olguni MD Hypertension, unspecified type (Primary Dx); Dyslipidemia; Type 2 diabetes mellitus with hyperglycemia, with long-term current use of insulin (CMS/HCC); 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; Metabolic dysfunction-associate d steatotic liver disease (MASLD); Psoriasis; Hypothyroidism, unspecified; Pelvic pain; Anemia, unspecified type 11/04/2024 Travel 11/01/2024 Telephone [facility] [address] Vannessa Berry MA 10/31/2024 Orders Only [facility] [address] [place] [phone] Lisa Olguin MD 10/24/2024 Travel 10/09/2024 Telephone [facility] [address] [place] [id number] Mary Denson CN November recall 10/04/2024 3:30 PM EDT Telemedicine [facility] [address] [place] [id number] Radu Wood PharmD Type 2 diabetes mellitus with hyperglycemia, with long-term current use of insulin (CMS/HCC) (Primary Dx); Hypertension, unspecified type 09/27/2024 Refill [facility] [address] [place] [address] Lisa Olguin MD Recurrent UTI 09/25/2024 Refill [facility] [address] [place] [address] Lisa Olguin MD 09/25/2024 Refill [facility] [address] [place] [address] Radu Wood, PharmD Type 2 diabetes mellitus with hyperglycemia, with long-term current use of insulin ([facility]) from Last 3 Months Immunizations Immunization Administration [...] housing situation today? I have sosa rodriguez 11/04/[address] you li ve. Do you have problems with any of the following? None of the above 11/04/2024 Food Insecurity Answer Date Recorded Within the past 12 months, y ou worried that your food would run out before you got money to buy more: Never True 11/04/2024 Within the past 12 months,th e food you bought just didn't last and you didn't have enough money to get more: Never True 09/2024 Transportation Answer Date Recorded In the past 12 months, has l ack of transportation kept you from medical appts, meetings, work or from getting things needed for daily living? No 11/04/2024 Utilities Answer Date Recorded In the past 12 months, has t he electric, gas, oil or water company threatened to shut off services in your home? No 11/04/2024 Depression Answer Date Recorded Patient Health Questionnaire-2 [...] Reading Time Taken Comments Blood Pressure 130/80 11/04/2024 10:12 AM EDT Pulse 84 11/04/2024 10:12 AM EDT Temperature 36.1 C (96.9 F) 11/04/2024 10:12 AM EDT Respiratory Rate 22 11/04/2024 10:12 AM EDT Oxygen Saturation 98% 08/02/2023 10:53 AM EDT Inhaled Oxygen Concentration - - Weight 78.2 kg (172 lb 6.4 oz) 11/04/2024 10:12 AM EDT Height 165.1 cm (5' 5 ) 11/04/2024 10:12 AM EDT Body Mass Index 28.69 11/04/2024 10:12 AM EDT Plan of Treatment Upcoming Encounters Date Type Department Care Team (Late st Contact Info) Description 12/11/2024 2:30 PM EDT Medication Management [facility] [address] [place] [address] Radu Wood, PharmD [address] [place] [address] 02/04/2025 1:00 PM EST Office Visit [facility] [address] [place] [address] Leah Rosa, OD [address] [place] [address] Health Maintenance Due Date Last Done Comments [...] Cancer Screening 12/23/2022 COVID-19 Vaccine ( season) 2024 03/12/2021, 06/17/2020, 05/25/2020 Influenza Vaccine (#1) 2024 4, 12/27/2012, 12/15/2011, Additional history exists Cervical Cancer Screening 12/04/2024 HPV/Cotest 12/04/2024 12/05/2019 Pap Smear 12/04/2024 12/05/2019 Depression Screening 02/25/2025 02/26/2024, 02/26/20 24 Diabetes: Urine Protein Screening 02/25/2025 02/26/2024, 05/04/2023, 12/02/2020, Additional history exists Lipid Panel 04/17/2025 04/17/2024, 01/29, 05/04/2023, Additional history exists Diabetes: Hemoglobin A1C 05/04/2025 025, 07/31/2024, 05/06/2024, Additional history exists Alcohol/Substance Use Screening 05/06/2025 05/06/2024 Diabetes: Foot Exam 07/31/2025 07/31/2024, 07/31/2024, 07/31/2024, Additional history exists Disability Screening 07/31/2025 07/31/2024 SDOH Screening 11/04/2025 11/04/2024 Tobacco Screening 11/10/2025 11/10/2024 Eye Exam 01/15/2026 01/16/2024, 12/28, 01/16/2024, Additional [...] 10:16 AM EDT) No Radu Wood PharmD Procedures Procedure Name Priority Date/Time Associated Diagnosis Comments POCT GLYCOSYLATED HEMOGLOBIN (HGB A1C) Routine 11/04/2024 10:16 AM EDT Type 2 diabetes mellitus with hyperglycemia, with long-term current use of insulin ([facility]) POCT GLUCOSE Routine 11/04/2024 10:14 AM EDT Type 2 diabetes mellitus with hyperglycemia, with long-term current use of insulin ([facility]) T4, FREE Routine 10/31/2024 2:14 PM EDT CBC WITH AUTO DIFFERENTIAL Routine 10/31/2024 2:14 PM EDT Metabolic dysfunction-[place] steatotic liver disease (MASLD) TSH W/REFLEX TO FT4 Routine 10/31/2024 2 :14 PM EDT 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 VITAMIN D,25-OH,TOTAL,IA Routine 10/31/2024 2:14 PM EDT Vitamin D deficiency BI MAMMOGRAM SCREENING TOMOSYNTHESIS BILATERAL Routine 05/27/2024 10:25 AM EDT Breast cancer screening by mammogram LIPID PANEL, STANDARD Routine 04/17/2024 3:36 PM EST ALBUMIN, RANDOM URINE W/CREATININE Routine 02/26/2024 10:13 AM EST Hypertension, unspecified type Type 2 diabetes mellitus with hyperglycemia, with long-term current use of insulin (CMS/HCC) HEPATITIS C VIRAL RNA GENOTYPE, LIPA Routine [...] * (ABNORMAL) POCT glycosylated hemoglobin (Hgb A1c) (11/04/2024 10:16 AM EDT) Hemoglobin A1C 6.5(A) 4.0 - 5.7 % QC Media Lot # [id number] Lot# Expiration Date [id number] Blood Capillary blood specimen / Unknown 11/04/2024 10:16 AM EDT Lisa Olguin MD POINT OF CARE TEST ENTER/EDIT OR DERABLES Final Result * POCT glucose manually resulted (11/04/2024 10:14 AM EDT) Glucose Blood, POC 113 60 - 200 mg/dL QC Media Lot # [id number] Lot# Expiration Date ,[id number] Blood Capillary blood specimen / Unknown 11/04/2024 10:14 AM EDT Lisa Olguin MD POINT OF CARE TEST ENTER/EDIT OR DERABLES Final Result * Vitamin D, 25-Hydroxy, Total, Immunoassay (10/31/2024 2:14 PM EDT) Vitamin D 25-OH Total 35.8 >30 ng/mL [facility] Comment: Health Based Reference Values*< 20 ng/mL Auhdujnhp28-84 ng/mL Insufficient> 30 ng/mL Sufficient*Jose Luis BENDER. N Engl J Med. 2007;357:266-280There is no well-established upper level of normal vitamin Dlevels. Some laboratories use 50 ng/mL as an upper limit ofnormal. However, toxicity is patient-dependent and may occurat any level. Careful correlation with the patient'spresentation is necessary and, if there is concern forvitamin D toxicity, treatment should be consideredirrespective of the serum level.Care must be taken in interpreting Vitamin D results fromdifferent laboratories and methodologies. Published datademonstrated that results from patients undergoinghemodialysis may show a negative bias when tested withvarious automated 25-OH vitamin D assays when compared toLC-MS/MS.When testing samples from patients whose predominant form ofVitamin D is Vitamin D2, such as patients receiving VitaminD2 supplementation, results that are subtherapeutic shouldbe confirmed with another method such as LC-MS/MS. Blood Venous blood specimen / Unknown 10/31/2024 2:14 PM EDT 10/31/2024 4:03 PM EDT Lisa Olguin MD LAB BLOOD ORDERABLES Final Resul t [facility] [address] [place] [address] [phone] * (ABNORMAL) TSH with Reflex to Free T4 (10/31/2024 2:14 PM EDT) Pathologist [facility] [place] TSH reflex Free T4 15.88(H) 0.32 - 4.0 uIU/mL [facility] Blood 10/31/2024 2:14 PM EDT 10/31/2024 4:03 PM EDT us Lisa Olguin MD LAB BLOOD ORDERABLES Final Resul t [facility] [address] [place] [address] [phone] * (ABNORMAL) CBC auto differential (10/31/2024 2:14 PM EDT) Pathologist [facility] [place] White Blood Count 8.0 4.8 - 10.8 X10*3/uL [facility] Red Blood Count 4.39 4.20 - 5.50 X10*6/uL [facility] Hemoglobin 10.8(L) 12.0 - 16.0 g/dl [facility] Hematocrit 33.7(L) 37.0 - 47.0 % [facility] Mean Corpuscular Volume 76.8(L) 80.0 - 98.0 fL [facility] Mean Corpuscular Hemoglobin 24.6(L) 27.0 - 33.0 pg [facility] Mean Corpuscular HGB Conc 32.0 31.0 - 35.0 g/dl [facility] Red Cell Distribution Width 16.8(H) 11.0 - 16.0 % [facility] Platelet Count 353 160 - 400 X10*3/uL [facility] Mean Platelet Volume 11.3 9.4 - 12.3 fL [facility] Neutrophils Percent Auto 55.7 45 - 73 % [facility] Imm Gran Pct Auto 0.4 0.0 - 0.4 % [facility] Lymphocytes Percent Auto 32.3 20 - 40 % [facility] Monocytes Percent Auto 8.9 2 - 11 % [facility] Eosinophils Percent Auto 2.3 0 - 4 % [facility] Basophils Percent Auto 0.4 0 - 2 % [facility] NRBC Pct Auto 0.0 0.0 - 0.2 /100WBC [facility] Neutrophils Absolute Auto 4.5 2.0 - 8.3 x10*3/uL [facility] Imm Gran Abs Auto 0.03 0.00 - 0.03 X10*3/uL [facility] Lymphocytes Absolute Auto 2.6 1.2 - 4.9 X10*3/uL [facility] Monocytes Absolute Auto 0.7 0.1 - 1.2 X10*3/uL [facility] Eosinophils Absolute Auto 0.2 0.0 - 0.4 X10*3/uL [facility] Basophils Absolute Auto 0.0 0.0 - 0.2 X10*3/uL [facility] NRBC Abs Auto 0.000 0.0 - 0.012 X10*3/uL [facility] Blood Venous blood specimen / Unknown 10/31/2024 2:14 PM EDT 10/31/2024 4:03 PM EDT Lisa Olguin MD LAB BLOOD ORDERABLES Final Resul t Performing Organization Address City/[facility]/ZIP Co de Phone Number [facility] [address] [place] [address] [phone] * T4, Free (10/31/2024 2:14 PM EDT) Free T4 (Free Thyroxine) 1.01 0.71 - 1.85 ng/dL [facility] 10/31/2024 2:14 PM EDT 10/31/2024 4:03 PM EDT Lisa Olguin MD LAB BLOOD ORDERABLES Final Resul t [facility] [address] [place] [address] [phone] * BI Mammogram Screening Tomosynthesis Bilateral (05/27/2024 10:25 AM EDT) Anatomical Region Laterality Modality Breast Bilateral Mammography 05/27/2024 10:2 5 AM EDT Narrative 06/02/2024 11:41 AM EDT [address] [place] [address] Mammography Report Signed Patient: Fern Ceballos MR#: [id number] : 1965 Acct:[id number] Age/Sex: 58 / F ADM Date: 05/27/24 Loc: [facility] Attending Dr: Lisa Olguin MD Ordering Physician: Lisa Olguin MD Results: 2Benign F indings Date of Service: 05/27/24 Follow Up: 1 Year From [facility] Mammogram Procedure(s): MM tomosynthesis screening BI Accession Number(s): [id number] cc: Lisa Olguin MD EXAMINATION: MM SCREENING DIGITAL BREAST TOMOSYNTHESIS, [...] Marie Goddard DO 06/02/2024 11:38 AM EDT Dictated By: Marie Goddard DO Signed By: <Electronically signed by Marie Goddard DO in OV> 06/02/24 1138 DD/ 1025 TD/TT: 05/27/24 1035 Oil Transport Driver: Procedure Note Donotuseinterpreter, Image - 06/02/2024 [place] [facility] [address] [place] [address] Mammography Report Signed Patient: Kristian Ceballos#: [id number] : 1965Acct:[id number] Age/Sex: 58 / FADM Date: 05/27/24 Loc: HO.MAMMO Attending Dr: Lisa Olguin MD Ordering Physician: Lisa Olguin MDResults: 2Benign F indings Date of Service: 05/27/24Follow Up: 1 Year From [facility] Mammogram Procedure(s): MM tomosynthesis screening BI Accession Number(s): [id number] cc: Lisa Olguin MD EXAMINATION: MM SCREENING DIGITAL BREAST TOMOSYNTHESIS, [...] Marie Goddard DO 06/02/2024 11:38 AM EDT Dictated By: Marie Goddard DO Signed By: <Electronically signed by Marie Goddard DO in OV> 06/02/24 1138 DD/ 1025 TD/TT: 05/27/24 1035 [employer] Transport Driver: us Lisa Olguin MD IMG BI PROCEDURES Final Result * (ABNORMAL) Lipid Panel, Standard (04/17/2024 3:36 PM EST) Triglycerides 171(H) <150 mg/dL [facility] Comment:Desirable Triglyceri de: less than 150 mg/dLBorderline High Triglyceride 150-199 mg/dLHigh Triglyceride: 200-499 mg/dLVery High Triglyceride: greater than or equal to 5OO mg/dL Cholesterol 136 <200 mg/dL [facility] Comment:Desirable Cholestero l: less than 200 mg/dLBorderline High Cholesterol: 200-239 mg/dLHigh Cholesterol: greater than 239 mg/dL LDL Cholesterol Calculated 55 <100 mg/dL [facility] Comment:Desirable LDL: less than 100 mg/dLNear Optimal/Above Optimal LDL: 110- 129 mg/dLBorderline High LDL: 130-159 mg/dLHigh LDL: 160-189 mg/dLVery High LDL: greater than or equal to 190 mg/dL HDL Cholesterol 47 >40 mg/dL [facility] Comment:Desirable HDL: great er than 40 mg/dL Note: This HDL assay may give artificially low results in patients with liver disease. 04/17/2024 3:36 PM EST 04/17/2024 4:20 PM EST us Lisa Olguin MD LAB BLOOD ORDERABLES Final Resul t [facility] [address] [place] [phone] * Albumin, Random Urine W/Creatinine (02/26/2024 10:13 AM EST) Creatinine, Urine 200.53 mg/dL [facility] Microalbumin Urine 26.0 mg/L [facility] Microalbum Creatinine Ratio Ur 12.9 <30 ug/mg cr [facility] Comment:Albumin/Creatinine R atio Reference Ranges: Normal: < 30 ug/mg creatinine Microalbuminuria: 30 - 300 ug/mg creatinineClinical Albuminuria: > 300 ug/mg creatinine Urine 02/26/2024 10:1 3 AM EST 02/26/2024 11:04 AM EST us Lisa Olguin MD LAB URINE ORDERABLES Final Resul t [facility] [address] [place] [address] [phone] * Hepatitis C Viral RNA, Genotype, LiPA (07/26/2023 9:50 AM EDT) Hepatitis C Genotype Not Detected [facility] Comment: Genotype not detected due [...] characteristics of thisassay have [facility] [place], [place]. The modificationshave not been cleared or approved by the FDA. Thisassay has been validated pursuant to the CLIAregulations and is used for clinical purposes.For additional information, please refer tohttp://education.[employer]/faq/[employer](This link is being provided for informational/educational purposes only.)THIS TEST WAS PERFORMED AT:[employer] [place] [phone] WILKINSON MD,PHD Blood Venous blood specimen / Unknown 07/26/2023 9:50 AM EDT 07/26/2023 11:19 AM EDT Lisa Olguin MD LAB BLOOD ORDERABLES Final Resul t Performing Organization Address [facility] Co de Phone Number [facility] [address] [place] [phone] * HIV-1/2 Antigen and Antibodies, Fourth Generation, with Reflexes (07/26/2023 9:50 AM EDT) Pathologist [facility] [place] HIV AB/AG Nonreactive Nonreactive [facility] Comment:HIV-1 p24 Ag and/or HIV-1/HIV-2 Ab not detected.A test result that is nonreactive does not exclude thepossibility of exposure to or infection with HIV-1 and/orHIV-2. Nonreactive results in this assay for individualswith prior exposure to HIV-1 and/or HIV-2 may be due toantigen and antibody levels that are below the limit ofdetection of this assay.The [employer] HIV Ag/Ab Combo assay result andsupplemental assay results should be interpreted inconjunction with the patient's clinical presentation,history and other laboratory results. If the results areinconsistent with clinical evidence, additional testing issuggested to confirm the result. Blood Venous blood specimen / Unknown 07/26/2023 9:50 AM EDT 07/26/2023 11:19 AM EDT Lisa Olguin MD LAB BLOOD ORDERABLES Final Resul t Performing Organization Address [facility] Co de Phone Number [facility] [address] [place] [phone] * Hm Colonoscopy (12/23/2021) [facility] Colonoscopy Normal Normal Scot Dee MD HEALTH MAINTENANCE Final Result * HPV DNA, HIGH RISK, CERVICAL (12/05/2019 12:00 AM EDT) [facility] HPV DNA, HIGH RISK, CERVICAL Not Detected NOT DETECTED [facility] Comment: Not Detected High Risk HPV types (16,18,31,33,35,39,45,51,52, 56,58,59,66,68) were not detected. Other HPV types which cause anogenital lesions may be present. The significance of the other types of HPV in malignant processes has not been established. Methodology: Real Time PCR 12/05/2019 Historical Provider MD HISTORICAL/NON ORDERABLE LABS Final Result Performing Organization Address [facility] de Phone Number [facility] [address] [place] [address], * THINPREP TIS PAP (12/05/2019 12:00 AM EDT) Clinical Information: SEE COMMENT [facility] Comment:None given COMMENT SEE COMMENT [...] has been evaluated with computer assisted technology. Card Clothier: SEE COMMENT [facility] Comment: ALS, CT(ASCP) CT screening location: [place] [address] Interpretation/Resu lt: SEE COMMENT [facility] Comment:Negative for intraep ithelial lesion or malignancy. LMP: SEE COMMENT [facility] Comment:NONE GIVEN Prev. BX: NONE GIVEN [facility] Prev. PAP: SEE COMMENT [facility] Comment:NONE GIVEN SOURCE: SEE COMMENT [facility] Comment:None given Statement Of Adequacy: SEE COMMENT [facility] Comment: Satisfactory for evaluation. Endocervical/transformation zone component present. Age and/or menstrual status not provided 12/05/2019 Historical Provider LAB PATHOLOGY ORDERABLES Final Result Performing Organization Address [facility] Co de Phone Number [facility] [address] from Last 3 Months or Most Recently Relevant to Health Maintenance Insurance [facility] Care Teams Office Support Clerk Relationship Specialty Start Date End Date Lisa Olguin MD [address] [place] [address] PCP - General Family Medicine 10/26/20 Radu Wood, KendallD [address] [place] [address] Pharmacist Internal Medicine 02/01/22 Lizz Haile [address] [place] [address] Drive [address] [place] [address] 11/13/24
== END 2024-12-10 10:55 | disposition home or self-care (01) ==
LOC: HO.US 10:54
PROVIDERS: PCP Family Medicine; Visit Provider Family Medicine
DX: R10.20 Pelvic and perineal pain unspecified side (principal)
CPT/HCPCS: 76830; 76856

== ENCOUNTER → 2024-12-10 10:56 | Outpatient (BNV) | payer OTHER, SELFPAY | PROVIDERS: PCP Family Medicine; Visit Provider Nuclear Medicine | DX: D25.9 Leiomyoma of uterus, unspecified (principal); R10.20 Pelvic and perineal pain unspecified side | CPT/HCPCS: 76830; 76856 ==

== ENCOUNTER 2024-12-31 07:08 | Day surgery (SDC) | payer OTHER, SELFPAY ==
--- NOTE | 2024-12-27 10:31 | HO.ANESPROP2 ---
Documented by User: Sarah Henderson NP 12/27/24 10:32 HPI - Anesthesia Eval Consult details Narrative: 59yo F for Colonoscopy Anesthesia Pre-Procedure Meds Is the patient on any of the following meds?: GLP1/DPP4 PMFSH Active Problems Active Problems: All Active Problems Bilateral flank pain (Acute) Post-menopausal atrophic vaginitis (Acute) UTI (urinary tract infection) (Acute) Urinary incontinence (Acute) Encounter for IUD removal (Acute) Patellofemoral arthritis of left knee (Acute) Abnormal ultrasound of breast (Acute) Left breast mass (Acute) Hyperlipidemia LDL goal <100 (Acute) Hypothyroidism (Acute) Vitamin D deficiency (Acute) Diabetes mellitus with hyperglycemia (Acute) Controlled diabetes mellitus without complication, with long-term current use of insulin (Acute) Past Medical History Medical History Hypothyroidism Vitamin D deficiency Hyperlipidemia LDL goal <100 Uterine fibroid Urinary incontinence Controlled diabetes mellitus without complication, with long-term current use of insulin Diabetes mellitus with hyperglycemia Family History Family History Father No problems noted. Mother Liver cancer Sister Skin cancer Family history of problems with anesthesia: No Surgical History Surgical History Hx of colonoscopy (12/23/21) History of pubovaginal sling Hx of appendectomy History of Problems with Anesthesia: No Social History Social History (Updated 12/27/24 @ 15:38 by Gladys Royal RN) Household Members: Children Household Members Other:: daughter Housing: Apartment Alcohol intake: never Patient Tobacco Use Status: Never used Tobacco e-Cigarette/Vaping Use: Never Used Are you DNR?: No Advance Directives: No Advance Directives Information Provided: Yes Advance Directives on File: No Current occupational status: employed Current occupation: [employer] Allergies Allergy/AdvReac Type Severity Reaction Status Date / Time oxycodone (From Percocet) Allergy Unknown Itching Verified 12/31/24 08:03 Home Medications ?Medication ?Instructions ?Recorded ?Confirmed ?Last Taken ?Type cholecalciferol (vitamin D3) 50 50 mcg PO DAILY 12/13/19 12/27/24 Unknown History mcg (2,000 unit) tablet cyanocobalamin (vitamin B-12) 1,000 mcg PO DAILY 12/13/19 12/27/24 Unknown History 1,000 mcg tablet folic acid 1 mg tablet 1 mg PO DAILY 12/13/19 12/27/24 Unknown History insulin needles (disposable) 30 X ##1 12/13/19 04/13/22 Unknown History 3/4 lancets 28 gauge (FreeStyle #100 ea 12/13/19 04/13/22 Unknown History Lancets) metformin 500 mg tablet 1,000 mg PO BID 12/13/19 12/27/24 Unknown History pen needle, diabetic 32 gauge x #50 ea 12/13/19 04/13/22 Unknown History ketotifen fumarate 0.025 % (0.035 1 drp ophthalmic (eye) BID 11/22/24 12/27/24 Unknown History %) eye drops (Eye Itch Relief) insulin glargine 100 unit/mL (3 22 unit subcut DAILY 12/27/24 12/27/24 Unknown History mL) subcutaneous pen (Lantus Solostar U-100 Insulin) tirzepatide 7.5 mg/0.5 mL 7.5 mg subcut .QWEDNES12/27/24 12/27/24 12/18/24 History subcutaneous pen injector (Jaironunisabelaro) Assessment and Plan Assessment Anesthesia Assessment: Chart Reviewed Final Anesthetic Review Family History of Problems with Anesthesia: No History of Problems with Anesthesia: No Documented by User: Ziggy Avilez MD 12/31/24 08:29 [facility] Past Medical History Medical History Hypothyroidism Vitamin D deficiency Hyperlipidemia LDL goal <100 Uterine fibroid Urinary incontinence Controlled diabetes mellitus without complication, with long-term current use of insulin Diabetes mellitus with hyperglycemia Family History Family History Father No problems noted. Mother Liver cancer Sister Skin cancer Surgical History Surgical History Hx of colonoscopy (12/23/21) History of pubovaginal sling Hx of appendectomy Social History Social History (Updated 12/27/24 @ 15:38 by Gladys Royal, DANIELITO) Household Members: Children Household Members Other:: daughter Housing: Apartment Alcohol intake: never Patient Tobacco Use Status: Never used Tobacco e-Cigarette/Vaping Use: Never Used Are you DNR?: No Advance Directives: No Advance Directives Information Provided: Yes Advance Directives on File: No Current occupational status: employed Current occupation: [employer] Allergies Allergy/AdvReac Type Severity Reaction Status Date / Time oxycodone (From Percocet) Allergy Unknown Itching Verified 12/31/24 08:03 Home Medications ?Medication ?Instructions ?Recorded ?Confirmed ?Last Taken ?Type cholecalciferol (vitamin D3) 50 50 mcg PO DAILY 12/13/19 12/27/24 Unknown History mcg (2,000 unit) tablet cyanocobalamin (vitamin B-12) 1,000 mcg PO DAILY 12/13/19 12/27/24 Unknown History 1,000 mcg tablet folic acid 1 mg tablet 1 mg PO DAILY 12/13/19 12/27/24 Unknown History insulin needles (disposable) 30 X ##1 12/13/19 04/13/22 Unknown History 3/ lancets 28 gauge (FreeStyle #100 ea 12/13/19 04/13/22 Unknown History Lancets) metformin 500 mg tablet 1,000 mg PO BID 12/13/19 12/27/24 Unknown History pen needle, diabetic 32 gauge x #50 ea 12/13/19 04/13/22 Unknown History ketotifen fumarate 0.025 % (0.035 1 drp ophthalmic (eye) BID 11/22/24 12/27/24 Unknown History %) eye drops (Eye Itch Relief) insulin glargine 100 unit/mL (3 22 unit subcut DAILY 12/27/24 12/27/24 Unknown History mL) subcutaneous pen (Lantus Solostar U-100 Insulin) tirzepatide 7.5 mg/0.5 mL 7.5 mg subcut .QWEDNESDAY 12/27/24 12/27/24 12/18/24 History subcutaneous pen injector (Mounjaro) Exam Airway Mallampati Class: II TM Dist: <=3cm Neck ROM: Full Loose/Missing/Broken Teeth: No Heart: ok Lungs: ok Assessment and Plan Assessment Anesthesia Assessment: Anesthesia Plan Discussed Final Anesthetic Review NPO: Yes ASA Class: II Final Preanesthetic Review: No Changes in Pt Med Stat, Meds/Allgs Chart Reviewed, Consent Obtained/Reviewed and Anes Risks/Benef Reviewed Patient Risk: Intermediate Procedure Risk: Low Anesthetic Plan Anesthetic Plan: MAC: and Agree w/ Assess. and Plan Disposition: Standard PACU
[2024-12-27 15:36] VITALS: BMI 28.5
[2024-12-31] MEDS: Lactated Ringers 1,000 ML 100 ML IVCONT (07:49)
--- NOTE | 2024-12-31 07:59 | MHC.SHP ---
Pre-Procedural Eval Section A - 24 Hr Update-Section A only Date of Service: 12/31/24 Section B - Complete if H&P > 30 days Chief Complaint: screening Details of Present Illness: Hypothyroidism Vitamin D deficiency Hyperlipidemia LDL goal <100 Uterine fibroid Urinary incontinence Controlled diabetes mellitus without complication, with long-term current use of insulin Diabetes mellitus with hyperglycemia Surgical History Hx of colonoscopy History of pubovaginal sling Hx of appendectomy Family History Father No problems noted. Mother Liver cancer Sister Skin cancer Allergies: Allergies Allergy/AdvReac Type Severity Reaction Status Date / Time oxycodone (From Percocet) Allergy Unknown Itching Verified 11/22/24 15:17 Review of Systems Review of Systems Comment: Ten point ROS negative Exam Exam Comment: Gen appear: No acute distress HEENT: no icterus Chest: No overt resp distress Abd: soft, nontender, nondistended Psych: Stable affect, answering questions appropriately Neuro: A/Ox3 noted to move all extremities spontaneously Ext: no peripheral edema Plan Diagnosis/Plan: Unchanged I have reviewed the history and physical and performed a pertinent physical examination on my patient. No changes have occurred unless specified. Time Spent With Patient Time: Total time managing care of this patient today ____ minutes.
[2024-12-31 08:00] LABS: Glucose, Whole Blood 118 mg/dL (60-115)
[2024-12-31 08:01] VITALS: BP 149/82; PULSE 79; RESP 18; TEMP 36.7; O2SAT 99; BMI 27.3
--- NOTE | 2024-12-31 09:47 | P.OPN-COLO_ITS ---
Colonoscopy Operative Note Operative Note Date of Service: 12/31/24 Narrative: Procedure: Colonoscopy Indication: Screening Endoscopist: Nubia Baker MD Anesthesia Provider: Sayda Patterson CRNA Anesthesia type: MAC Instrument: Olympus [id number] Consent: Indication, risks vs benefits, and alternatives were discussed with the patient who gave written informed consent to proceed. EKG, pulse, pulse oximetry and blood pressure were monitored throughout the procedure. Please see anesthesia flowsheet. Procedure: The patient was brought to the procedure room and placed in the left lateral decubitus position. IV medications were administered by the anesthesia provider in attendance. A digital rectal exam was performed which was normal. A distal attachment cap was affixed to the tip of the colonoscope which was then inserted through the anus and advanced through the colon to the cecum at 75 cm,and terminal ileum. Appendiceal orifice and ileocecal valve were identified. Mucosa was carefully examined under high definition white light as the instrument was slowly withdrawn in a retrograde panoramic fashion. Retroflexion was performed in rectum. The procedure was not difficult. There were no immediate obvious complications. The quality of the prep was BBPS: 3+2+2 = adequate Withdrawal time 12 minutes. Limitations: No limitations. Findings: Mucosa: Normal to cecum and terminal ileum. Protruding lesions: * Medium internal hemorrhoids without stigmata of recent bleeding. Impression: 1. Normal colon and terminal ileum mucosa 2. Internal hemorrhoids Recommendations: - repeat colonoscopy for asymptomatic colorectal cancer screening in 10 years
[2024-12-31 09:51] VITALS: BP 106/63; PULSE 81; RESP 16; TEMP 36.6; O2SAT 98
[2024-12-31 10:05] VITALS: BP 102/86; PULSE 73; RESP 16; TEMP 36.4; O2SAT 99
== END 2024-12-31 10:32 | disposition home or self-care (01) ==
PROVIDERS: PCP Family Medicine; Visit Provider Internal Medicine
PROC: 0DJD8ZZ Inspection of Lower Intestinal Tract, Via Natural or Artificial Opening Endoscopic (ICD-10-PCS; CPT 45378; principal; 2024-12-31 09:00)
DX: Z12.11 Encounter for screening for malignant neoplasm of colon (principal); E11.9 Type 2 diabetes mellitus without complications; K64.0 First degree hemorrhoids
CPT/HCPCS: 45378; 82947; J2704

== ENCOUNTER → 2024-12-31 07:08 | Outpatient (BNV) | payer OTHER, SELFPAY | PROVIDERS: PCP Family Medicine; Visit Provider Internal Medicine | DX: Z12.11 Encounter for screening for malignant neoplasm of colon (principal); K64.8 Other hemorrhoids | CPT/HCPCS: 45378 ==

== ENCOUNTER 2025-01-07 17:14 | Outpatient (REF) | payer OTHER, SELFPAY ==
--- OUTSIDE RECORDS SUMMARY | 2025-01-07 14:15 | XMS_ITS | Encounter Summary ---
Author Organization [employer] Address [address] [facility] 7t [place] [address] Care Team Providers Care Electrical Maintenance Engineer Name Role Phone Lisa Tovar MD Primary Care Provider [phone] Radu Wood PharmD Unavailable [phone] Lizz Haile Unavailable Reason for Visit * Reason Comments pap Encounter Details Date Type Department Care Team (Latest Contact Info) Description 01/07/2025 2:15 PM EST Procedure Visit [facility] [address] [place] [address] Mary Denson CNM [address] [place], [place] [phone] Cervical cancer screening (Primary Dx); Screening examination for venereal disease; Fibroids Social History Tobacco Use Types Packs/Day Years [...] AM EDT documented as of this encounter Last Filed Vital Signs Vital Sign Reading Time Taken Comments Blood Pressure 154/78 01/07/2025 2:27 PM EST Pulse 73 01/07/2025 2:27 PM EST Temperature 36.7 C (98.1 F) 01/07/2025 2:27 PM EST Respiratory Rate 18 01/07/2025 2:27 PM EST Oxygen Saturation 100% 01/07/2025 2:27 PM EST Inhaled Oxygen Concentration - - Weight 81.1 kg (178 lb 12.8 oz) 01/07/2025 2:27 PM EST Height - - Body Mass Index 29.75 11/04/2024 10:12 AM EDT documented in this encounter Progress Notes * Mary Denson CNM - 01/07/2025 2:15 PM EST Subjective Patient ID: Fern Hilton is a 59 y.o. adult who presents for pap Mirena inserted 2018. Removed about 4 years ago, amenorrheic since then. No vasomotor symptoms. PapNIL/HPV 11/2019. Pelvic ultrasound 11/2024 with stable fibroids, 2.3mm EM. 1 AMAB partner x 4y,no safety concerns. Would like pap, pap based STI and breast exam today. Mammogram BIRADS 2, cat d 04/2024. Using vaginal estrogen tablets twice weekly for UTI prevention and vaginal dryness. Finds this veryhelpful, would like new prescription. Review of Systems Genitourinary: Negative for dyspareunia, dysuria, frequency, genital sores, hematuria, menstrual problem, pelvic pain, urgency, vaginal bleeding, vaginal discharge and vaginal pain. No abnormal pap, no abnormal bleeding, no breast pain, no breast mass, no nipple discharge Objective BP (!) 154/78 (BP Location: Left arm, Patient Position: Sitting, BP Cuff Size: Adult) Pulse 73 Temp 98.1 ??F (36.7 ??C) (Oral) Resp 18 Wt 178 lb 12.8 oz (81.1 kg) SpO2 100% BMI 29.75 kg/m?? Physical Exam [employer] Management Consultant present: declines plasma processing technician. Constitutional: Appearance: Normal appearance. Genitourinary: General: Normal vulva. Labia: Right: No rash, tenderness, lesion or injury. Left: No rash, tenderness, lesion or injury. Vagina: Normal. No signs of injury and foreign body. No vaginal discharge, erythema, tenderness, bleeding or lesions. Cervix: No cervical motion tenderness, discharge, friability, lesion, erythema, cervical bleeding or eversion. Uterus: Normal. Not enlarged and not tender. Adnexa: Right adnexa normal and left adnexa normal. Right: No mass, tenderness or fullness. Left: No mass, tenderness or fullness. Comments: Ovaries non palpable bilaterally Neurological: Mental Status: She is alert. Psychiatric: Mood and Affect: Mood normal. Behavior: Behavior normal. Assessment/Plan Diagnoses and all orders for this visit: Cervical cancer screening Pap 3 years/co-test 5 years. Routine mammography. Report bleeding. Bone density at 65, sooner if new risk factors. Vaginal estrogen renewed (VagiFem). Screening examination for venereal disease - STI testing add on (NG, CT, Trich) Pap based STI testing sent. Fibroids Asymptomatic. Report bleeding or pelvic pain. Other orders - estradiol (Vagifem) 10 MCG tablet vaginal tablet; Insert 1 tablet (10 mcg) into the vagina 2 (two) times a week. documented in this encounter Plan of Treatment Upcoming Encounters Date Type Department Care Team (Late st Contact Info) Description 02/04/2025 1:00 PM EST Office Visit [facility] [address] [place] [address] Leah Rosa, OD [address] [place] [address] 02/12/2025 3:30 PM EST Medication Management [facility] [address] [place] [address] Radu Wood PharmD [address] [place] [address] Scheduled Orders Name Type Priority Associated Diagnoses Orde r Schedule STI testing add on (NG, CT, Trich) Pathology and Cytology Routine Screening examination for venereal disease Ordered: 01/07/2025 Pap Smear Pathology and Cytology Routine Cervical cancer screening Ordered: 01/07/2025 documented as of this encounter Goals Goal Patient Goal Type Associated Problems Recent Progress Patient-Stated? Author Blood Pressure < 140/90 Blood Pressure 154/78(2024 2:27 PM EST) No Radu Wood PharmD Hemoglobin A1c < 7 Result Component 6.5( 10:16 AM EDT) No Radu Wood PharmD documented as of this encounter Visit Diagnoses Diagnosis Cervical cancer screening- Primary Screening for malignant neoplasm of the cervix Screening examination for venereal disease Fibroids Leiomyoma of uterus, unspecified documented in this encounter Additional Health Concerns Assessment Noted Time PHQ-9 Depression Total Score: 0 02/26/20 24 10:27 AM EST documented as of this encounter Care Teams Electrical Maintenance Engineer Relationship Specialty Start Date End Date Lisa Tovar MD [address] [place] [address] PCP - General Family Medicine 10/26/20 Radu Wood PharmD [address] [place] [address] [phone] Pharmacist Internal Medicine 02/01/22 Lizz Haile [address] [place] [address] [address]rd [place] [address] 11/13/24 documented as of this encounter
--- OUTSIDE RECORDS SUMMARY | 2025-01-07 17:32 | XMS_ITS | Encounter Summary ---
Author Organization [employer] Address [address] [facility] 7t [place] [address] Care Team Providers Care Food Checker Name Role Phone Lisa Tovar MD Primary Care Provider [phone] Radu Wood PharmD Unavailable [phone] Lizz Haile Unavailable Encounter Details Date Type Department Care Team (Latest Contact Info) Description 01/07/2025 Travel Social History Tobacco Use Types Packs/Day Years [...] Description 02/04/2025 1:00 PM EST Office Visit [facility] [address] [place] [address] MoeLeah benjamin, OD [address] [place] [address] 02/12/2025 3:30 PM EST Medication Management [facility] [address] [place] [address] Radu Wood PharmD [address] [place] [address] documented as of this encounter Goals Goal Patient Goal Type Associated Problems Recent Progress Patient-Stated? Author Blood Pressure < 140/90 Blood Pressure 154/78(2024 2:27 PM EST) No Radu Wood PharmJeannette Hemoglobin A1c < 7 Result Component 6.5( 10:16 AM EDT) No Radu Wood PharmD documented as of this encounter Visit Diagnoses Not on filedocumented in this encounter Additional Health Concerns Assessment Noted Time PHQ-9 Depression Total Score: 0 02/26/20 24 10:27 AM EST documented as of this encounter Care Teams Food Checker Relationship Specialty Start Date End Date Lisa Tovar MD [address] [place] [address] PCP - General Family Medicine 10/26/20 Radu Wood PharmD [address] [place] [phone] Pharmacist Internal Medicine 02/01/22 Lizz Haile [address] [place] [address] Drive 3rd Floor [place] [address] 11/13/24 documented as of this encounter
--- OUTSIDE RECORDS SUMMARY | 2025-01-07 17:32 | XMS_ITS | Encounter Summary ---
Author Organization [employer] Address [address] [facility] 7t [place] [address] Care Team Providers Care Crop Insurance Claims Adjuster Name Role Phone Lisa Tovar MD Primary Care Provider [phone] Radu Wood PharmD Unavailable [phone] Lizz Haile Unavailable Reason for Visit * Reason Onset Date Comments Call Back Request 08/07/2023 Encounter Details Date Type Department Care Team (Late st Contact Info) Description 08/07/2023 Telephone [facility] [address] [place], [place] [phone] Lisa Tovar MD [address] [place], [place] [phone] Call Back Request Social History Tobacco Use [...] received from pcp. Please contact Tal at [phone]. documented in this encounter Plan of Treatment Upcoming Encounters Date Type Department Care Team (Late st Contact Info) Description 02/04/2025 1:00 PM EST Office Visit [facility] [address] [place] [phone] Leah Rosa, OD [address] [place] [address] 02/12/2025 3:30 PM EST Medication Management [facility] [address] [place] [address] Radu Wood PharmD [address] [place] [address] documented as of this encounter Goals Goal [...] documented as of this encounter Care Teams Crop Insurance Claims Adjuster Relationship Specialty Start Date End Date Lias Tovar MD [address] [place] [address] [phone] PCP - General Family Medicine 10/26/20 Radu Wood, Eugenio [address] [place] [address] [phone] Pharmacist Internal Medicine 02/01/22 Lizz Haile [address] [place] [address] 3rd [place] [address] 11/13/24 documented as of this encounter
--- OUTSIDE RECORDS SUMMARY | 2025-01-07 17:32 | XMS_ITS | Encounter Summary ---
Author Organization [employer] Address [address] [facility] 7t [place] [address] Care Team Providers Care Grain Grader Name Role Phone Lisa Tovar MD Primary Care Provider [phone] Radu Wood PharmD Unavailable [phone] Lizz Haile Unavailable Reason for Visit * Reason Comments Med Refill Encounter Details Date Type Department Care Team (Late st Contact Info) Description 08/06/2023 Refill [facility] [address] [place] [address] Yaritza Castro MD [address] [place], [place] [phone] Social History Tobacco Use Types Packs/Day Years [...] Description 02/04/2025 1:00 PM EST Office Visit [facility] [address] [place] [address] Moe, Leah, OD [address] [place] [address] 02/12/2025 3:30 PM EST Medication Management [facility] [address] [place] [address] Radu Wood PharmD [address] [place] [address] documented as of this encounter Goals Goal Patient Goal Type Associated Problems Recent Progress Patient-Stated? Author Blood Pressure < 140/90 Blood Pressure 154/78(2024 2:27 PM EST) No Radu Wood, PharmJeannette Hemoglobin A1c < 7 Result Component 6.5( 10:16 AM EDT) No Radu Wood PharmD documented as of this encounter Visit Diagnoses Not on filedocumented in this encounter Additional Health Concerns Assessment Noted Time PHQ-9 Depression Total Score: 0 08/01/19 24 9:00 AM EDT documented as of this encounter Care Teams Grain Grader Relationship Specialty Start Date End Date Lisa Tovar MD [address] [place] [address] PCP - General Family Medicine 10/26/20 Radu Wood, Eugenio [address] [place] [phone] Pharmacist Internal Medicine 02/01/22 Lizz Haile [address] [place] [address] Drive 3rd [place] [address] 11/13/24 documented as of this encounter
--- OUTSIDE RECORDS SUMMARY | 2025-01-07 17:32 | XMS_ITS | Encounter Summary ---
Author Organization [employer] Address [address] [facility] 7t [place] [address] Care Team Providers Care Shipping Supervisor Name Role Phone Lisa Tovar MD Primary Care Provider Radu Wood PharmD Unavailable [phone] Lizz Haile Unavailable Encounter Details Date Type Department Care Team (Late st Contact Info) Description 08/03/[address] [facility] [address] [place], [place] [phone] Lisa Tovar MD [address] [place], [place] [phone] History of syphilis (Primary Dx) Social History [...] Description 02/04/2025 1:00 PM EST Office [address] [facility] [address] [place] [address] Moe, Leah, OD [address] [place] [address] 02/12/2025 3:30 PM EST Medication Management [facility] [address] [place] [address] Radu Wood PharmD [address] [place] [address] documented as of this encounter Goals Goal [...] documented as of this encounter Care Teams Shipping Supervisor Relationship Specialty Start Date End Date Lisa Tovar MD [address] [place] [address] PCP - General Family Medicine 10/26/20 Radu Wood, Eugenio [address] [place] [phone] Pharmacist Internal Medicine 02/01/22 Lizz Haile [address] [place] [address] Drive 3rd [place] [address] 11/13/24 documented as of this encounter
--- OUTSIDE RECORDS SUMMARY | 2025-01-07 17:32 | XMS_ITS | Encounter Summary ---
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 Procedures US Abdomen Comp w elastography Lisa Tovar MD [address] [place] [address] Phone: tel: fax: [address] Phone: tel: fax: Referral ID Status Reason Start Date Expiration Date Visits Re quested Visits Authorized [id number] Closed 05/05/2023 05/04/2024 1 1 Encounter Details Date Type Department Care Team (Late st Contact Info) Description 04/28/2023 Orders Only [facility] [address] [place], [place] [phone] Lisa Tovar MD [address] [place], [place] [phone] Transaminitis (Primary Dx); Hypothyroidism due to Yoel's [...] Description 02/04/2025 1:00 PM EST Office Visit [facility] [address] [place] [address] Moe, Leah, OD [address] [place] [address] 02/12/2025 3:30 PM EST Medication Management [facility] [address] [place] [address] Radu Wood, PharmD [address] [place] [address] Scheduled Orders Name Type Priority Associated Diagnoses [...] AM EDT) Hepatitis C Genotype Not Detected [facility] Comment: Genotype not detected due to [...] characteristics of thisassay have been determined by [email or web address], [place], [place]. The modificationshave not been cleared or approved by the FDA. Thisassay has been validated pursuant to the CLIAregulations and is used for clinical purposes.For additional information, please refer tohttp://education.WhoisEDI.[employer]alix/faq/HCVGenotyping(This link is being provided for informational/educational purposes only.)THIS TEST WAS PERFORMED AT:[employer]/[id number] [place] [address]WXSOGPRMARKOS WILKINSON MD,PHD Blood Venous blood specimen / Unknown 07/26/2023 9:50 AM EDT 07/26/2023 11:19 AM EDT us Lisa Tovar MD LAB BLOOD ORDERABLES Final Resul t [facility] [address] [place] [phone] * Hepatitis B surface antigen, EIA (07/26/2023 9:50 AM EDT) Hepatitis B Surface Ag Negative Negative [facility] Blood Venous blood specimen / Unknown 07/26/2023 9:50 AM EDT 07/26/2023 11:19 AM EDT us Lisa Tovar MD LAB BLOOD ORDERABLES Final Resul t Performing Organization Address [facility] Co de Phone Number [facility] [address] [place] [phone] * Hepatitis B Surface Antibody, Qualitative (07/26/2023 9:50 AM EDT) ~Hepatitis B Surface Antibody NONREACTIVE Nonreactive [facility] Comment:Nonreactive: < 8.00 mIU/mL Blood Venous blood specimen / Unknown 07/26/2023 9:50 AM EDT 07/26/2023 11:19 AM EDT Lisa Tovar MD LAB BLOOD ORDERABLES Final Resul t Performing Organization Address City/[facility]/ZIP Co de Phone Number [facility] [address] [place] [phone] * Hepatitis B Core Antibody, Total (07/26/2023 9:50 AM EDT) Hepatitis B Core Antibody Nonreactive Nonreactive [facility] Blood Venous blood specimen / Unknown 07/26/2023 9:50 AM EDT 07/26/2023 11:19 AM EDT Lisa Tovar MD LAB BLOOD ORDERABLES Final Resul t Performing Organization Address City/[facility]/ZIP Co de Phone Number [facility] [address] [place] [phone] * (ABNORMAL) Syphilis Screen (07/26/2023 9:50 AM EDT) Syphilis Screen Reactive( A) Nonreactive [facility] Comment:Reactive specimens a [facility]. Blood 07/26/2023 9:50 AM EDT 07/26/2023 11:19 AM EDT Lisa Tovar MD LAB BLOOD ORDERABLES Final Resul t Performing Organization Address [facility] Co de Phone Number [facility] [address] [place] [phone] * HIV-1/2 Antigen and Antibodies, Fourth Generation, with Reflexes (07/26/2023 9:50 AM EDT) HIV AB/AG Nonreactive Nonreactive [facility] Comment:HIV-1 p24 Ag and/or HIV-1/HIV-2 Ab not detected.A test result that is nonreactive does not exclude thepossibility of exposure to or infection with HIV-1 and/orHIV-2. Nonreactive results in this assay for individualswith prior exposure to HIV-1 and/or HIV-2 may be due toantigen and antibody levels that are below the limit ofdetection of this assay.The [employer] HIV Ag/Ab Combo assay result andsupplemental assay results should be interpreted inconjunction with the patient's clinical presentation,history and other laboratory results. If the results areinconsistent with clinical evidence, additional testing issuggested to confirm the result. Blood Venous blood specimen / Unknown 07/26/2023 9:50 AM EDT 07/26/2023 11:19 AM EDT Lisa Tovar MD LAB BLOOD ORDERABLES Final Resul t Performing Organization Address City/[facility] Co de Phone Number [facility] [address] [place] [phone] * Prothrombin Time-INR (07/26/2023 9:50 AM EDT) Prothrombin Time 11.5 11.1 - 13.3 SEC [facility] INTERNATIONAL NORM RATIO 0.9 0.9 - 1.1 [facility] Comment:INTERNATIONAL NORMAL IZED RATIO (INR) REFERENCE [...] ORDERABLES Final Resul t Performing Organization Address City/[facility] Co de Phone Number [facility] [address] [place] [phone] * T4, Free (07/26/2023 9:50 AM EDT) Free T4 (Free Thyroxine) 1.18 0.71 - 1.85 ng/dL [facility] Blood Venous blood specimen / Unknown 07/26/2023 9:50 AM EDT 07/26/2023 11:19 AM EDT Lisa Tovar MD LAB BLOOD ORDERABLES Final Resul t Performing Organization Address [facility] Co de Phone Number [facility] [address] [place] [phone] * (ABNORMAL) TSH (07/26/2023 9:50 AM EDT) Thyroid Stimulating Hormone 7.98(H) 0.32 - 4.0 uIU/mL [facility] Comment:Note: A sustained TS H level above 2.5 uIU/mL may warrant further investigation. TSH 3rd Generation ([facility]) Blood Venous blood specimen / Unknown 07/26/2023 9:50 AM EDT 07/26/2023 11:19 AM EDT us Lisa Tovar MD LAB BLOOD ORDERABLES Final Resul t Performing Organization Address [facility] Co de Phone Number [facility] [address] [place] [phone] * (ABNORMAL) Hepatic Function Panel (07/26/2023 9:50 AM EDT) Bilirubin, Total 0.4 0.0 - 1.0 mg/dL [facility] Bilirubin, Direct 0.2 0.0 - 0.5 mg/dL [facility] Aspartate Amino Transferase 51(H) 5 - 31 U/L [facility] Alanine Aminotransferase 58(H) 0 - 31 U/L [facility] Total Protein 7.9 6.5 - 8.0 g/dL [facility] Albumin Level 4.0 3.5 - 5.0 g/dL [facility] Alkaline Phosphatase 106 39 - 117 U/L [facility] Blood Venous blood specimen / Unknown 07/26/2023 9:50 AM EDT 07/26/2023 11:19 AM EDT Lisa Tovar MD LAB BLOOD ORDERABLES Final Resul t Performing Organization Address City/[facility]/ZIP Co de Phone Number [facility] [address] [place] [phone] * (ABNORMAL) CBC auto differential (07/26/2023 9:50 AM EDT) White Blood Count 7.5 4.8 - 10.8 X10*3/uL [facility] Red Blood Count 4.88 4.20 - 5.50 X10*6/uL [facility] Hemoglobin 11.3(L) 12.0 - 16.0 g/dl [facility] Hematocrit 36.7(L) 37.0 - 47.0 % [facility] Mean Corpuscular Volume 75.2(L) 80.0 - 98.0 fL [facility] Mean Corpuscular Hemoglobin 23.2(L) 27.0 - 33.0 pg [facility] Mean Corpuscular HGB Conc 30.8(L) 31.0 - 35.0 g/dl [facility] Red Cell Distribution Width 19.0(H) 11.0 - 16.0 % [facility] Platelet Count 341 160 - 400 X10*3/uL [facility] Mean Platelet Volume 11.2 9.4 - 12.3 fL [facility] Neutrophils Percent Auto 52.5 45 - 73 % [facility] Imm Gran Pct Auto 0.3 0.0 - 0.4 % [facility] Lymphocytes Percent Auto 35.9 20 - 40 % [facility] Monocytes Percent Auto 7.9 2 - 11 % [facility] Eosinophils Percent Auto 2.9 0 - 4 % [facility] Basophils Percent Auto 0.5 0 - 2 % [facility] NRBC Pct Auto 0.0 0.0 - 0.2 /100WBC [facility] Neutrophils Absolute Auto 3.9 2.0 - 8.3 x10*3/uL [facility] Imm Gran Abs Auto 0.02 0.00 - 0.03 X10*3/uL [facility] Lymphocytes Absolute Auto 2.7 1.2 - 4.9 X10*3/uL [facility] Monocytes Absolute Auto 0.6 0.1 - 1.2 X10*3/uL [facility] Eosinophils Absolute Auto 0.2 0.0 - 0.4 X10*3/uL [facility] Basophils Absolute Auto 0.0 0.0 - 0.2 X10*3/uL [facility] NRBC Abs Auto 0.000 0.0 - 0.012 X10*3/uL [facility] Blood Venous blood specimen / Unknown 07/26/2023 9:50 AM EDT 07/26/2023 11:19 AM EDT us Lisa Tovar MD LAB BLOOD ORDERABLES Final Resul t Performing Organization Address City/State/[facility] Co de Phone Number [facility] [address] [place] [phone] * US Abdomen Comp w elastography (06/05/2023 10:15 AM EDT) Anatomical Region Laterality Modality Abdomen Ultrasound 06/05/2023 10:1 5 AM EDT Narrative 06/08/2023 4:53 PM EDT [place] [address] Ultrasound Report Signed Patient: Fern Ceballos MR#: [id number] : 1965 Acct:[id number] Age/Sex: 57 / F ADM Date: 06/05/23 Loc: HO.US Attending Dr: Lisa Tovar MD Ordering Physician: Lisa Tovar MD Date of Service: 06/05/23 Procedure(s): US abdomen comp w elastography Accession Number(s): [id number] cc: Lisa Tovar MD EXAMINATION: US COMPLETE [...] in OV> 06/08/23 1649 DD/ 1015 TD/TT: Engineer Systems: LUKAS Procedure Note Donotuseinterpreter, Image - 06/08/2023 [place] [address] Ultrasound Report Signed Patient: Kristian Ceballos#: [id number] : 1965Acct:[id number] Age/Sex: 57 / FADM Date: 06/05/23 Loc: HO.US Attending Dr: Lisa Tovar MD Ordering Physician: Lisa Tovar MD Date of Service: 06/05/23 Procedure(s): US abdomen comp w elastography Accession Number(s): [id number] cc: Lisa Tovar MD EXAMINATION: US COMPLETE [...] in OV> 06/08/23 1649 DD/ 1015 TD/TT: Engineer Systems: LUKAS Lisa Tovar MD IMG US PROCEDURES Final Result * Culture, Urine, Routine (05/04/2023 12:00 AM EST) Urine Urine specimen obtained by clean catch procedure / Unknown 05/04/2023 05/04/2023 Comment:CC Narrative [facility] - 05/06/2023 8:01 AM EST Urine Culture Report Result Urine Culture 10,000 to 50,000 cfu/ml Urine Culture Mixed bacterial nolan characteristic of Urine Culture urogenital contamination. 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
--- OUTSIDE RECORDS SUMMARY | 2025-01-07 17:32 | XMS_ITS | Encounter Summary ---
Author Organization [employer] Address [address] [facility] [address]t [place] [address] Care Team Providers Care Plastic Surgery Technician Name Role Phone Lisa Tovar MD Primary Care Provider [phone] Radu Wood PharmD Unavailable [phone] Lizz Haile Unavailable Encounter Details Date Type Department Care Team (Late st Contact Info) Description 04/23/2024 Orders Only [facility] [address] [place], [place] [phone] Lisa Tovar MD [address] [place], [place] [phone] Hypothyroidism, unspecified Social History Tobacco Use Types [...] Upcoming Encounters Date Type Department Care Team ([facility] st Contact Info) Description 02/04/2025 1:00 PM EST Office Visit [facility] [address] [place] [address] Moe, Leah, OD [address] [place] [address] 02/12/2025 3:30 PM EST Medication Management [facility] [address] [place] [address] Radu Wood, Eugenio [address] [place] [address] documented as of this encounter Goals Goal Patient Goal Type Associated Problems Recent Progress Patient-Stated? Author Blood Pressure < 140/90 Blood Pressure 154/78(2024 2:27 PM EST) No Radu Wood, PharmD Hemoglobin A1c < 7 Result Component 6.5( 10:16 AM EDT) No Radu Wood PharmD documented as of this encounter Visit Diagnoses Diagnosis Hypothyroidism, unspecified documented in this encounter Additional Health Concerns Assessment Noted Time PHQ-9 Depression Total Score: 0 02/26/20 24 10:27 AM EST documented as of this encounter Care Teams Plastic Surgery Technician Relationship Specialty Start Date End Date Lisa Tovar MD [address] [place] [address] PCP - General Family Medicine 10/26/20 Radu Wood, KendallD [address] [place] [phone] Pharmacist Internal Medicine 02/01/22 Lizz Haile [address] [place] [address] Drive 3rd [place] [address] 11/13/24 documented as of this encounter
--- OUTSIDE RECORDS SUMMARY | 2025-01-07 17:32 | XMS_ITS | Clinical Summary ---
Author Organization [employer] Address [address] [place] [address] [address] [place] [address] Care Team Providers Care Senior Capital Markets Specialist Name Role Phone Lisa Olguin MD Primary Care Provider [phone] Radu Wood PharmD Unavailable [phone] Lizz Haile Unavailable Allergies Active Allergy Reactions Criticality Noted Date Comments Lisinopril Cough 10/04/2024 Oxycodone Other Medium 02/27/2012 Skin Crawling Sensation (03/09/2012) Medications Blood Glucose Monitoring Suppl (AsthmatxStyle Vincent Lite) w/Device kitIndications :Type 2 diabetes mellitus [...] month pack. 60 tablet 5 024 Active Pentips Generic Pen Summit 32G X 4 MM misc USE EVERY DAY WITH LANTUS DIRECTED 100 each 3 024 Active rosuvastatin (Crestor) 10 MG tabletIndicati ons:Type 2 diabetes mellitus with hyperglycemia, with long-term current use of insulin ([facility]) Take 1 tablet (10 mg) by mouth Once per day. 90 tablet Active aspirin (Aspirin Adult Low Dose) 81 MG EC tabletIndicati ons:Type 2 diabetes mellitus with hyperglycemia, with long-term current use of insulin ([facility]) Take 1 tablet by mouth daily 90 tablet 025 Active metFORMIN (Glucophage) 500 MG tablet Take 2 tablets (1,000 mg) by mouth with breakfast and with evening meal. 360 tablet Active ketoconazole (NIZOral) 2 % shampoo Apply topically 2 (two) times a week. 120 mL Active clobetasol (Temovate) 0.05 % external solution APPLY TO SCALP TWICE A WEEK IN THE MORNING 50 mL Active clobetasol (Temovate) 0.05 % ointment Apply topically 2 times daily. 45 g Active fluocinolone ([place] ) 0.01 % external oil APPLY TOPICALLY TO WET SCALP TWICE A WEEK AT BEDTIME 118.28 mL Active fluticasone (Flonase) 50 MCG/ACT nasal spray INSTILL 1 TO 2 SPRAYS IN EACH NOSTRIL EVERY DAY 16 g Active nitrofurantoin (Macrodantin) 100 MG capsuleIndicat ions:Recurrent UTI TAKE 1 CAPSULE BY MOUTH EVERY DAY AFTER SEXUAL ACTIVITY 30 capsule 1 Active Blood Pressure kitIndications :Hypertension, unspecified type Use to check BP daily as directed 1 Active [facility] GARLIC PO Take 1 capsule by mouth Once per day. Active Lancets miscIndication s:Type 2 diabetes mellitus with hyperglycemia, with long-term current use of insulin ([facility]) Use to test blood sugar daily 100 each 3 Active glucose blood (FREESTYLE LITE) test strip Use to test blood sugar daily 50 each 5 025 2025 Active Tirzepatide (Mounjaro) 7.5 MG/0.5ML solution auto-injectorI ndications:Typ e 2 diabetes mellitus with hyperglycemia, with long-term current use of insulin ([facility]) Inject 7.5 mg under the skin 1 (one) time per week. 2 mL 11 Active ferrous sulfate (Fe Tabs) 325 (65 Fe) MG EC tablet Take 1 tablet (325 mg) by mouth every other day. Do not crush, chew, or split. 45 tablet 3 Active levothyroxine (Synthroid, Levoxyl) 175 MCG tabletIndicati ons:Hypothyroi dism, unspecified Take 1 tablet (175 mcg) by mouth Once per day. 90 tablet 3 Active olmesartan (Benicar) 5 MG tablet Take 1 tablet (5 mg) by mouth Once per day. 90 tablet 3 025 2025 Active insulin glargine (Lantus SoloStar) 100 UNIT/ML penIndications :Type 2 diabetes mellitus with hyperglycemia, with long-term current use of insulin ([facility]) INJECT 22 UNITS SUBCUTANEOUSLY EVERY DAY 15 mL 5 025 Active estradiol (Vagifem) 10 MCG tablet vaginal tablet Insert 1 tablet (10 mcg) into the vagina 2 (two) times a week. 24 tablet 3 025 Active nystatin (Mycostatin) cream APPLY 1 GRAM TOPICALLY TOPICALLY TWICE DAILY 30 g 1 024 2024 Discontinued(M ed list cleanup (will not trigger notification to Pharmacy)) nystatin-triam cinolone (Mycolog II) ointment Apply topically 2 times daily. 15 g 024 2024 Discontinued(M ed list cleanup (will not trigger notification to Pharmacy)) Vagifem 10 MCG tablet vaginal tablet INSERT 1 TABLET VAGINALLY TWICE A WEEK 8 tablet 1 025 2024 Discontinued(R eorder (will not trigger notification to Pharmacy)) Active [...] in 2003 with titer 1:2 and 2016 Assessment & Plan (08/02/2023 11:10 AM EDT): - recent Syphilis screen was positive, RPR titer 1:2 (we were not aware of her history) - she had positive titer back in 2003 with titer 1:2 and 2017 - will consult Nikole from [facility] whether patient needs a treatment [...] 2023, compensated advanced cirrhotic liver disease - , [facility]. Referred back - Avoid hepatotoxic drugs - Continue working on lifestyle modifications Assessment & Plan (02/25/2024 6:20 AM EST): >>ASSESSMENT AND PLAN FOR METABOLIC DYSFUNCTION-ASSOCIATED STEATOTIC LIVER DISEASE (MASLD) WRITTEN ON 08/01/2023 6:08 PM BY LISA OLGUIN MD - FIB4 index 1.10 - Last US / elastography: May 2023, compensated advanced cirrhotic liver disease - GI, [facility]. Refer back - Avoid hepatotoxic drugs - [...] today, Oct 2024. -Follow up with Radu Wood, [facility], PharmD for CDTM Assessment & Plan (07/31/2024 8:54 AM EDT): -Goal BP < 130/80 per ACC/AHA guideline -Not at goal, patient attributes to white-coat HTN -Continue working on lifestyle modifications -Recommended self-monitoring BP. -Continue current medications: lisinopril 5 mg daily, consider increasing to 10 mg daily -Follow up with Radu Wood RPh, Eugenio CDTM Assessment & Plan (05/06/2024 9:01 AM EDT): -Goal BP < 130/80 per ACC/AHA guideline -Not at goal, patient attributes to white-coat HTN -Continue working on lifestyle modifications -Recommended self-monitoring BP. -Continue current medications: lisinopril 5 mg daily, consider increasing to 10 mg daily -Follow up with Radu Wood RPh, Eugenio CDTM Assessment & Plan (02/25/2024 6:04 AM EST): -Goal BP < 130/80 per ACC/AHA guideline -Not at goal, patient attributes to white-coat HTN -Continue working on lifestyle modifications -Recommended self-monitoring BP. -Continue current medications: lisinopril 5 mg daily, consider increasing to 10 mg daily -Follow up with Radu Wood RPh, Eugenio CDTM Assessment & Plan (11/08/2023 10:54 AM EDT): -Goal BP < 140/90 per JNC-8 and < 130/80 per ACC/AHA guideline (Treatment threshold >= 140/90) -Not at goal, patient attributes to white-coat HTN -Continue working on lifestyle modifications -Recommended self-monitoring BP. -Continue current medications: lisinopril 5 mg daily, consider increasing to 10 mg daily -Follow up with Radu Wood RPh, Eugenio CDTM Assessment & Plan (08/01/2023 6:06 PM [...] (07/31/2024 10:44 PM EDT): - Following with [facility] Urology - Last UTI in Mar 2022, E coli which was resistant to ampicillin, ceftriaxone, and TMP/SMX, treated with nitrofurantoin - continue VagiFem - continue postcoital prophylaxis Assessment & Plan (02/25/2024 6:05 AM EST): - Following with [facility] U[facility] - Last UTI in Mar 2022, E coli which was resistant to ampicillin, ceftriaxone, and TMP/SMX, treated with nitrofurantoin - continue VagiFem - continue postcoital prophylaxis Assessment & Plan (11/08/2023 10:54 AM EDT): - Following with [facility] U[facility] - Last UTI in Mar 2022, E coli which was resistant to ampicillin, ceftriaxone, and TMP/SMX, treated with nitrofurantoin - continue VagiFem - continue postcoital prophylaxis Assessment & Plan (08/01/2023 6:08 PM EDT): - Following with [facility] - Last UTI in Mar 2022, E coli which was resistant to ampicillin, ceftriaxone, and TMP/SMX, treated with nitrofurantoin - continue VagiFem - continue postcoital prophylaxis Assessment & Plan (05/05/2023 11:13 AM EST): - Following with [facility] - Last UTI in Mar 2022, [...] A1C 7.2% on 07/30/24 -Previously followed by [facility] Endocrinology and was started on CGM and GLP-1 agonist -Continue lantus 26 units every evening. -Continue metformin 1000 mg twice a day -Continue tirzepatide 7.5 mg weekly -Foot exam: 07/30/24 -Eye exam: [facility]. -Last lipid profile: 04/17/24 -Last microalbumin: 02/26/24, no microalbuminuria Assessment & Plan (08/15/2024 6:30 AM EDT): - A1C 7.2% on 07/30/24, improving from A1C 7.4% on 05/06/24 -Previously followed by [facility] Endocrinology and was started on CGM and GLP-1 agonist -Continue lantus 26 units every evening. -Continue metformin 1000 mg twice a day -Continue tirzepatide 7.5 mg weekly -Foot exam: 07/30/24 -Eye exam: [facility]. -Last lipid profile: 04/17/24 -Last microalbumin: 02/26/24, no microalbuminuria Assessment & Plan (05/10/2024 11:54 AM EDT): - A1C 7.4% on 05/06/24, improving from A1C 7.8% on 02/26/24 -Previously followed by [facility] Endocr[facility]ology and was started on CGM and GLP-1 agonist -Continue lantus 26 units every evening. -Continue metformin 1000 mg twice a day -Continue tirzepatide 7.5 mg weekly -Foot exam: 05/04/23 -Eye exam: [facility]. -Last lipid profile: 02/26/24 -Last microalbumin: 02/26/24, no microalbuminuria Assessment & Plan (03/01/2024 5:05 PM EST): - A1C 7.8% on 02/26/24, worsened from 6.8% on 11/08/23 -Previously followed by [facility] Endocrinology and was started on CGM and GLP-1 agonist -Continue lantus 26 units every evening. -Continue metformin 1000 mg twice a day -Continue tirzepatide 5 mg weekly -Foot exam: 05/04/23 -Eye exam: [facility]. May 2022, upcoming appointment -Last lipid profile: 02/26/24 -Last microalbumin: 02/26/24, no microalbuminuria Assessment & Plan (11/13/2023 1:12 PM EDT): - A1C 6.8% on 11/08/23, improved from 8.5% on 08/01/23 -Previously followed by [facility] Endocrinology and was started on CGM and GLP-1 agonist -Continue lantus 26 units every evening. -Continue metformin 1000 mg twice a day -Continue tirzepatide 5 mg weekly -Foot exam: 05/04/23 -Eye exam: [facility]. May 2022, upcoming appointment -Last lipid profile: 05/04/23 -Last microalbumin: 05/04/23 Assessment & Plan (08/01/2023 6:11 PM EDT): - A1C 8.5% on 08/01/23, improved from 11% in April 2023 -Previously followed by [facility] Endocrinology and was started on CGM and GLP-1 agonist -Continue lantus 26 units every evening. -Continue metformin 1000 mg twice a day -Continue tirzepatide 5 mg weekly -Foot exam: 05/04/23 -Eye exam: [facility]. May 2022, upcoming appointment -Last lipid profile: 05/04/23 -Last microalbumin: 05/04/23 Assessment & Plan (05/07/2023 7:25 AM EDT): - A1C 11% today, worsened from 7.9% in 2021 -Previously followed by [facility] Endocrinology and was started on CGM and GLP-1 agonist -Continue lantus 26 units every evening (advise to increase to 30 units if dulaglutide (Trulicity) is not available). -Continue metformin 1000 mg twice a day -Increase Trulicity 3.0 mg weekly -Foot exam: 05/04/23 -Eye exam: [facility]. May 2022. -Last lipid profile: 12/02/20 TC 185; LDL 115; HDL 46 -Last microalbumin: 12/02/20 UACR 10 Psoriasis 07/12/2012 Assessment & Plan (11/05/2024 12:26 PM EDT): - Dx plaque psoriasis on scalp - Seen by tin container straightener in [facility] in 2013 - Previously receiving intralesional Kenalog and clobetasol lotion to the scalp - seen by Dr. Castro in [facility]erm clinic and prescribed apremilast and topical clobetasol on 06/28/23 - Encouraged to optimize her other chronic disease as these conditions can affect skin conditions as well Assessment & Plan (08/15/2024 6:36 AM EDT): - Dx plaque psoriasis on scalp - Seen by tin container straightener in [facility] in 2013 - Previously receiving intralesional Kenalog and clobetasol lotion to the scalp - seen by Dr. Castro in Derm clinic and prescribed apremilast and topical clobetasol on 06/28/23 - Encouraged to optimize her other chronic disease as these conditions can affect skin conditions as well Assessment & Plan (03/01/2024 5:07 PM EST): - Dx plaque psoriasis on scalp - Seen by tin container straightener in [facility] in 2013 - Previously receiving intralesional [...] plaque psoriasis on scalp - Seen by tin container straightener in [facility] in 2013 - Previously receiving intralesional Kenalog and clobetasol lotion to the scalp - seen by Dr. 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 - Seen by tin container straightener in [facility] in 2013 - Previously receiving intralesional [...] psoriasis on scalp - Last seen by tin container straightener in [facility] in 2013 - Previously receiving intralesional [...] Encounters Date Type Department Care Team Description 01/07/2025 2:15 PM EST Procedure Visit [facility] [place] [address] Mary Denson CNM Cervical cancer screening (Primary Dx); Screening examination for venereal disease; Fibroids 01/07/2025 Travel 01/06/2025 Telephone [facility] [place] [address] Mary Denson CNM chart prep 12/31/2024 Orders Only GENERIC EXTERNAL DATA DEPARTMENT Provider, Generic External Data 12/23/2024 Travel 12/11/2024 Results Follow-Up [facility] [place] [address] Lisa Olguin MD US Pelvis Transvaginal 12/11/2024 Telephone [facility] [place] [address] Lisa Olguin MD 12/03/2024 Refill [facility] [place] [address] Radu Wood, PharmD Type 2 diabetes mellitus with hyperglycemia, with long-term current use of insulin ([facility]) 11/12/2024 Telephone [facility] [place] [address] Lisa Olguin MD 11/04/2024 10:00 AM EDT Office Visit [facility] [place] [address] Lisa Olguni MD Hypertension, unspecified type (Primary Dx); Dyslipidemia; Type 2 diabetes mellitus with hyperglycemia, with long-term current use of insulin (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 I have sosa sing 11/04/[address] you li [...] 12.8 oz) 01/07/2025 2:27 PM EST Height 165.1 cm (5' 5 ) 11/04/2024 10:1 2 AM EDT Body Mass Index 29.75 11/04/2024 10:12 AM EDT Plan of Treatment Upcoming Encounters Date Type Department Care Team (Late st Contact Info) Description 02/04/2025 1:00 PM EST Office Visit [facility] [address] [place] [address] Leah Rosa, OD [address] [place] [address] 02/12/2025 3:30 PM EST Medication Management [facility] [address] [place] [address] Radu Wood, PharmD [address] [place] [address] Health Maintenance Due Date Last Done Comments [...] 07/31/2024 SDOH Screening 11/04/2025 11/04/2024 Tobacco Screening 01/07/2026 01/07/2025 Eye Exam 01/15/2026 01/16/2024, 12/28, 01/16/2024, Additional [...] 154/78(2024 2:27 PM EST) No Radu Wood, Eugenio Hemoglobin A1c < 7 Result Component 6.5( 10:16 AM EDT) No Radu Wood PharmD Procedures Procedure Name Priority Date/Time Associated Diagnosis Comments GLUCOSE, WHOLE BLOOD Routine 12/31/2024 7:51 AM EST US PELVIS TRANSVAGINAL Routine 8:10 PM EDT Pelvic pain POCT GLYCOSYLATED HEMOGLOBIN (HGB A1C) Routine 11/04/2024 10:16 AM EDT Type 2 diabetes mellitus with hyperglycemia, with long-term current use of insulin ([facility]) POCT GLUCOSE Routine 11/04/2024 10:14 AM EDT Type 2 diabetes mellitus with hyperglycemia, with long-term current use of insulin (CMS/HCC) T4, FREE Routine 10/31/2024 2:14 PM EDT [...] Relevant to Health Maintenance Results * (ABNORMAL) Glucose, Whole Blood (12/31/2024 7:51 AM EST) Glucose, Whole Blood 118(H) 60 - 115 mg/dL LABS Comment:METER #: [id number] 12/31/2024 7:51 AM EST 12/31/2024 7:59 AM EST us Generic External Data Provider LAB BLOOD ORDERAB LES Final Result Performing Organization Address City/State/[facility] Co de Phone Number LABS [address] [place] [phone] * US Pelvis Transvaginal (12/10/2024 8:10 PM EDT) Anatomical Region Laterality Modality Pelvis Ultrasound 12/10/2024 8:10 PM EDT Narrative 12/10/2024 8:11 PM EDT [address] [address] Ultrasound Report Signed Patient: Fern Ceballos MR#: [id number] : 1965 Acct:[id number] Age/Sex: 59 / F ADM Date: 12/10/24 Loc: HO.US Attending Dr: Lisa Olguin MD Ordering Physician: Lisa Olguin MD Date of Service: 12/10/24 Procedure(s): US pelvic and transvaginal Accession Number(s): [id number] cc: Lisa Olguin MD Reason for Exam: pelvic pain, history of ovarian cyst and fibroids CLINICAL HISTORY: pelvic pain, history of ovarian cyst and fibroids US pelvis transabdominal and transvaginal with Doppler Comparison: None provided Findings: Transabdominal scanning performed for overall anatomy. Transvaginal scanning performed for additional detail. Uterus is 6.3 cm length. Peripheral calcifications of the uterus. Multiple uterine fibroids: 2.1 x 1.7 x 1.8 cm, previously 2 x 2.2 x 2.2 cm per worksheet, 0.7 x 0.6 x 0.7 cm, previously 0.7 x 0.9 x 0.9 cm per worksheet. Endometrium 2.3 mm thickness. The bilateral ovaries are not seen. No free fluid. IMPRESSION: Multiple uterine fibroids. Ovaries are not visualized. This document has been electronically signed by: Randy Araujo MD on 12/10/2024 20:10:45 Dictated By: Randy Araujo MD Signed By: <Electronically signed by Randy Araujo MD in OV> 12/10/242010 DD/ 09 TD/TT: 12/10/242009 Farm Equipment Engine Mechanic: Procedure Note Donotuseinterpreter, Image - 12/10/2024 [place] [address] Ultrasound Report Signed Patient: Kristian Ceballos#: [id number] : 1965Acct:[id number] Age/Sex: 59 / FADM Date: 12/10/24 Loc: .US Attending Dr: Lisa Olguin MD Ordering Physician: Lisa Olguin MD Date of Service: 12/10/24 Procedure(s): US pelvic and transvaginal Accession Number(s): [id number] cc: Lisa Olguin MD Reason for Exam: pelvic pain, history of ovarian cyst and fibroids CLINICAL HISTORY: pelvic pain, history of ovarian cyst and fibroids US pelvis transabdominal and transvaginal with Doppler Comparison: None provided Findings: Transabdominal scanning performed for overall anatomy. Transvaginal scanning performed for additional detail. Uterus is 6.3 cm length. Peripheral calcifications of the uterus. Multiple uterine fibroids: 2.1 x 1.7 x 1.8 cm, previously 2 x 2.2 x 2.2 cm per worksheet, 0.7 x 0.6 x 0.7 cm, previously 0.7 x 0.9 x 0.9 cm per worksheet. Endometrium 2.3 mm thickness. The bilateral ovaries are not seen. No free fluid. IMPRESSION: Multiple uterine fibroids. Ovaries are not visualized. This document has been electronically signed by: Randy Araujo MD on 12/10/2024 20:10:45 Dictated By: Randy Araujo MD Signed By: <Electronically signed by Randy Araujo MD in OV> 12/10/242010 DD/ 09 TD/TT: 12/10/242009 Farm Equipment Engine Mechanic: Lisa Olguin MD IMG US PROCEDURES Final Result * (ABNORMAL) POCT glycosylated hemoglobin (Hgb A1c) (11/04/2024 10:16 AM EDT) Hemoglobin A1C 6.5(A) 4.0 - 5.7 % QC Media Lot # [id number] Lot# Expiration Date Blood Capillary blood specimen / Unknown 11/04/2024 10:16 AM EDT Lisa Olguin MD POINT OF CARE TEST ENTER/EDIT OR DERABLES Final Result * POCT glucose manually resulted (11/04/2024 10:14 AM EDT) Glucose Blood, POC 113 60 - 200 mg/dL QC Media Lot # [id number] Lot# Expiration Date Blood Capillary blood specimen / Unknown 11/04/2024 10:14 AM EDT Lisa Olguin MD POINT OF CARE TEST ENTER/EDIT OR DERABLES Final Result * Vitamin D, 25-Hydroxy, Total, Immunoassay (10/31/2024 2:14 PM EDT) Vitamin D 25-OH Total 35.8 >30 ng/mL LABS Comment: Health Based Reference Values*< 20 ng/mL [id number] ng/mL Insufficient> 30 ng/mL Sufficient*Jose Luis BENDER. [...] ORDERABLES Final Resul t Performing Organization Address [facility]/ZIP Co de Phone Number LABS [address] [place] [phone] * (ABNORMAL) TSH with Reflex to Free T4 (10/31/2024 2:14 PM EDT) TSH reflex Free T4 15.88(H) 0.32 - 4.0 uIU/mL LABS Blood 10/31/2024 2:14 PM EDT 10/31/2024 4:03 PM EDT Lisa Olguin MD LAB BLOOD ORDERABLES Final Resul t Performing Organization Address [facility] Co de Phone Number LABS [address] [place] [phone] * (ABNORMAL) CBC auto differential (10/31/2024 2:14 PM EDT) White Blood Count 8.0 4.8 - 10.8 X10*3/uL LABS Red Blood Count 4.39 4.20 - 5.50 X10*6/uL LABS Hemoglobin 10.8(L) 12.0 - 16.0 g/dl LABS Hematocrit 33.7(L) 37.0 - 47.0 % LABS Mean Corpuscular Volume 76.8(L) 80.0 - 98.0 fL LABS Mean Corpuscular Hemoglobin 24.6(L) 27.0 - 33.0 pg LABS Mean Corpuscular HGB Conc 32.0 31.0 - 35.0 g/dl LABS Red Cell Distribution Width 16.8(H) 11.0 - 16.0 % LABS Platelet Count 353 160 - 400 X10*3/uL LABS Mean Platelet Volume 11.3 9.4 - 12.3 fL LABS Neutrophils Percent Auto 55.7 45 - 73 % LABS Imm Gran Pct Auto 0.4 0.0 - 0.4 % LABS Lymphocytes Percent Auto 32.3 20 - 40 % LABS Monocytes Percent Auto 8.9 2 - 11 % LABS Eosinophils Percent Auto 2.3 0 - 4 % LABS Basophils Percent Auto 0.4 0 - 2 % LABS NRBC Pct Auto 0.0 0.0 - 0.2 /100WBC LABS Neutrophils Absolute Auto 4.5 2.0 - 8.3 x10*3/uL LABS Imm Gran Abs Auto 0.03 0.00 - 0.03 X10*3/uL LABS Lymphocytes Absolute Auto 2.6 1.2 - 4.9 X10*3/uL LABS Monocytes Absolute Auto 0.7 0.1 - 1.2 X10*3/uL LABS Eosinophils Absolute Auto 0.2 0.0 - 0.4 X10*3/uL LABS Basophils Absolute Auto 0.0 0.0 - 0.2 X10*3/uL LABS NRBC Abs Auto 0.000 0.0 - 0.012 X10*3/uL LABS Blood Venous blood specimen / Unknown 10/31/2024 2:14 PM EDT 10/31/2024 4:03 PM EDT us Lisa Olguin MD LAB BLOOD ORDERABLES Final Resul t LABS [address] [place] [phone] * T4, Free (10/31/2024 2:14 PM EDT) Free T4 (Free Thyroxine) 1.01 0.71 - 1.85 ng/dL LABS 10/31/2024 2:14 PM EDT 10/31/2024 4:03 PM EDT us Lisa Olguin MD LAB BLOOD ORDERABLES Final Resul t LABS [address] [place] [phone] * BI Mammogram Screening Tomosynthesis Bilateral (05/27/2024 10:25 AM EDT) Anatomical Region Laterality Modality Breast Bilateral Mammography 05/27/2024 10:2 5 AM EDT Narrative 06/02/2024 11:41 AM EDT [facility] [address] [place] [address] Mammography Report Signed Patient: Fern Ceballos MR#: [id number] : 1965 Acct:[id number] Age/Sex: 58 / F ADM Date: 05/27/24 Loc: [facility] Attending Dr: Lisa Olguin MD Ordering Physician: Lisa Olguin MD Results: 2Benign F indings Date of Service: 05/27/24 Follow Up: 1 Year From [facility] Mammogram Procedure(s): MM tomosynthesis screening BI Accession Number(s): [id number] cc: Lisa Olguin MD EXAMINATION: MM SCREENING [...] 06/02/24 1138 DD/ 1025 TD/TT: 05/27/24 1035 Farm Equipment Engine Mechanic: Procedure Note Donotuseinterpreter, Image - 06/02/2024 [facility] [address] [place] [address] Mammography Report Signed Patient: Kristian Ceballos#: [id number] : 1965Acct:[id number] Age/Sex: 58 / FADM Date: 05/27/24 Loc: [facility] Attending Dr: Lisa Olguin MD Ordering Physician: Lisa Olguin MDResults: 2Benign F indings Date of Service: 05/27/24Follow Up: 1 Year From [facility] Mammogram Procedure(s): MM tomosynthesis screening BI Accession Number(s): [id number] cc: Lisa Olguin MD EXAMINATION: MM SCREENING [...] 06/02/24 1138 DD/ 1025 TD/TT: 05/27/24 1035 Farm Equipment Engine Mechanic: us Lisa Olguin MD IMG BI PROCEDURES Final Result * (ABNORMAL) Lipid Panel, Standard (04/17/2024 3:36 PM EST) Triglycerides 171(H) <150 mg/dL [facility] Comment:Desirable Triglyceri de: less than 150 mg/dLBorderline High Triglyceride 150-199 mg/dLHigh Triglyceride: 200-499 mg/dLVery High Triglyceride: greater than or equal to 5OO mg/dL Cholesterol 136 <200 mg/dL LABS Comment:Desirable Cholestero l: less than 200 mg/dLBorderline High Cholesterol: 200-239 mg/dLHigh Cholesterol: greater than 239 mg/dL LDL Cholesterol Calculated 55 <100 mg/dL LAB[facility] Comment:Desirable LDL: less than 100 mg/dLNear Optimal/Above Optimal LDL: 110- 129 mg/dLBorderline High LDL: 130-159 mg/dLHigh LDL: 160-189 mg/dLVery High LDL: greater than or equal to 190 mg/dL HDL Cholesterol 47 >40 mg/dL [facility] Comment:Desirable HDL: great er than 40 mg/dL Note: This HDL assay may give artificially low results in patients with liver disease. 04/17/2024 3:36 PM EST 04/17/2024 4:20 PM EST Lisa Olguin MD LAB BLOOD ORDERABLES Final Resul t Performing Organization Address City/[facility]/ZIP Co de Phone Number LABS [address] [place] [phone] * Albumin, Random Urine W/Creatinine (02/26/2024 10:13 AM EST) Creatinine, Urine 200.53 mg/dL [facility] Microalbumin Urine 26.0 mg/L [facility] Microalbum Creatinine Ratio Ur 12.9 <30 ug/mg cr LABS Comment:Albumin/Creatinine R atio Reference Ranges: Normal: < 30 ug/mg creatinine Microalbuminuria: 30 - 300 ug/mg creatinineClinical Albuminuria: > 300 ug/mg creatinine Urine 02/26/2024 10:1 3 AM EST 02/26/2024 11:04 AM EST Lisa Olguin MD LAB URINE ORDERABLES Final Resul t Performing Organization Address [facility] Co de Phone Number LABS [address] [place] [phone] * Hepatitis C Viral RNA, Genotype, [...] characteristics of thisassay have been determined by [employer], [place], [place]. The modificationshave not been cleared or approved by the FDA. Thisassay has been validated pursuant to the CLIAregulations and is used for clinical purposes.For additional information, please refer tohttp://education.Wami/faq/[employer](This link is being provided for informational/educational purposes only.)THIS TEST WAS PERFORMED AT:[employer]/[id number] [place] [phone] WILKINSON MD,PHD Blood Venous blood specimen / Unknown 07/26/2023 9:50 AM EDT 07/26/2023 11:19 AM EDT us Lisa Olguin MD LAB BLOOD ORDERABLES Final Resul t LABS [address] [place] [phone] * HIV-1/2 Antigen and Antibodies, Fourth Generation, with Reflexes (07/26/2023 9:50 AM EDT) HIV AB/AG Nonreactive Nonreactive [facility] Comment:HIV-1 p24 Ag and/or HIV-1/HIV-2 Ab not detected.A test result that is nonreactive does not exclude thepossibility of exposure to or infection with HIV-1 and/orHIV-2. Nonreactive results in this assay for individualswith prior exposure to HIV-1 and/or HIV-2 may be due toantigen and antibody levels that are below the limit ofdetection of this assay.The [employer] HIV Ag/Ab Combo assay result andsupplemental assay results should be interpreted inconjunction with the patient's clinical presentation,history and other laboratory results. If the results areinconsistent with clinical evidence, additional testing issuggested to confirm the result. Blood Venous blood specimen / Unknown 07/26/2023 9:50 AM EDT 07/26/2023 11:19 AM EDT Lisa Olguin MD LAB BLOOD ORDERABLES Final Resul t LABS [address] [place] [phone] * Hm Colonoscopy (12/23/2021) Colonoscopy Normal Normal Historical Provider HEALTH MAINTENANCE Final Result * HPV DNA, HIGH RISK, CERVICAL (12/05/2019 12:00 AM EDT) HPV DNA, HIGH RISK, CERVICAL Not Detected NOT DETECTED [facility] Comment: Not Detected High Risk HPV types (16,18,31,33,35,39,45,51,52, 56,58,59,66,68) were not detected. Other HPV types which cause anogenital lesions may be present. The significance of the other types of HPV in malignant processes has not been established. Methodology: Real Time PCR 12/05/2019 Historical Provider HISTORICAL/NON ORDERABLE LABS Final Result Performing Organization Address City/[facility] Co de Phone Number [facility] [address] * THINPREP TIS PAP (12/05/2019 12:00 AM EDT) Clinical Information: SEE COMMENT [facility] Comment:None given COMMENT SEE [...] has been evaluated with computer assisted technology. Printing Table Hand: SEE COMMENT [facility] Comment: ALS, CT(ASCP) CT screening location: [address] [address] Interpretation/Resu lt: SEE COMMENT [facility] [...] Historical Provider LAB PATHOLOGY ORDERABLES Final Result [facility] [address] from Last 3 Months or Most Recently Relevant to Health Maintenance Insurance [facility] Care Teams Senior Capital Markets Specialist Relationship Specialty Start Date End Date Lisa Olguin MD [address] [place] [address] PCP - General Family Medicine 10/26/20 Radu Wood, KendallD [address] [place] [address] Pharmacist Internal Medicine 02/01/22 Lizz Haile [address] [place] [address] 3rd [place] [address] 11/13/24
--- OUTSIDE RECORDS SUMMARY | 2025-01-07 17:32 | XMS_ITS | Encounter Summary ---
Author Organization [employer] Address [address] [place] [address] 7t [place] [address] Care Team Providers Care Grocery Bagger Name Role Phone Lisa Tovar MD Primary Care Provider [phone] Radu Wood PharmD Unavailable [phone] Lizz Haile Unavailable Encounter Details Date Type Department Care Team (Late Contact Info) Description 06/08/2023 Orders Only [facility] MEDICINE [address] [place] [address] [phone] Lisa Tovar MD [address] [place], [place] [phone] Social History Tobacco Use Types Packs/Day Years [...] Department Care Team (Late Contact Info) Description 02/04/2025 1:00 PM EST Office Visit [facility] OPTOMETRY [address] [place], [place] [phone] Leah Rosa, OD [address] [place] [address] 02/12/2025 3:30 PM EST Medication Management [facility] MEDICINE [address] [place] [address] Radu Wood, PharmD [address] [place] [address] documented as of this encounter Visit Diagnoses Not on filedocumented in this encounter Care Teams Grocery Bagger Relationship Specialty Start Date End Date Lisa Tovar MD [address] [place] [phone] PCP - General Family Medicine 10/26/20 Radu Wood, PharmD [address] [place] [phone] Pharmacist Internal Medicine 02/01/22 Lizz Haile [address] [place] [address] Drive 3rd [place] [address] 11/13/24 documented as of this encounter
--- OUTSIDE RECORDS SUMMARY | 2025-01-07 17:32 | XMS_ITS | Encounter Summary ---
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) [...] Description 02/04/2025 1:00 PM EST Office Visit [facility] OPTOMETRY [address] [place] [address] Leah Rosa, OD [address] [place] [address] 02/12/2025 3:30 PM EST Medication Management [facility] MEDICINE [address] [place] [address] Radu Wood PharmD [address] [place] [address] documented as of this encounter Goals Goal [...] Free T4 5.58(H) 0.32 - 4.0 uIU/mL [facility] Blood 04/17/2024 3:36 PM EST 04/17/2024 4:20 PM EST us Lisa Tovar MD LAB BLOOD ORDERABLES Final Resul t [facility] [address] [place] [address] [phone] documented in this encounter Visit Diagnoses Diagnosis 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
--- OUTSIDE RECORDS SUMMARY | 2025-01-07 17:32 | XMS_ITS | Encounter Summary ---
Author Organization [employer] Address [address] [facility] 7t [place] [address] Care Team Providers Care Traffic Reporter Name Role Phone Lisa Tovar MD Primary Care Provider [phone] Radu Wood PharmD Unavailable [phone] Lizz Haile Unavailable Reason for Visit * Reason Onset Date Comments chart prep 01/06/2025 Encounter Details Date Type Department Care Team (Late st Contact Info) Description 01/06/2025 Telephone [facility] MEDICINE [address] [place], [place] [phone] Mary Denson CNM [address] [place], [place] [phone] chart prep Social History Tobacco Use Types Packs/Day Years [...] encounter Miscellaneous Notes * Telephone Encounter - Mariely Garcia [place] - 01/06/2025 9:58 AM EST Chart Prep Labs: not applicable Images: not applicable Referrals: not applicable Vaccines due: Covid, Flu, PCV20, Tdap, Hep B, Hep A, and Zoster Screenings: colonoscopy Overdue care gaps: Not applicable documented in this encounter Plan of Treatment Upcoming Encounters Date Type Department Care Team (Late st Contact Info) Description 02/04/2025 1:00 PM EST Office Visit [facility] OPTOMETRY [address] [place] [address] Leah Rosa, OD [address] [place] [address] 02/12/2025 3:30 PM EST Medication Management [facility] MEDICINE [address] [place] [address] Radu Wood, PharmD [address] [place] [address] documented as of this encounter Goals Goal [...] documented as of this encounter Care Teams Traffic Reporter Relationship Specialty Start Date End Date Lisa Tovar MD [address] [place] [phone] PCP - General Family Medicine 10/26/20 Radu Wood PharmD [address] [place] [phone] Pharmacist Internal Medicine 02/01/22 Lizz Haile [address] [place] [address] 3rd [place] [address] 11/13/24 documented as of this encounter
--- OUTSIDE RECORDS SUMMARY | 2025-01-07 17:32 | XMS_ITS | Encounter Summary ---
Author Organization [employer] Address [address] [place] [address] 7[address] [place] [address] Care Team Providers Care Foreign Collection Clerk Name Role Phone Lisa Tovar MD Primary Care Provider [phone] Radu Wood PharmD Unavailable Lizz Haile Unavailable Reason for Referral * Consultation (Routine) - Pending Review Specialty Diagnoses / Procedures Referred By Contcaitlin t Referred To Contact Pharmacy Diagnoses Hypertension, unspecified type Type 2 diabetes mellitus with hyperglycemia, with long-term current use of insulin ([facility]) Lisa Tovar MD [address] [place] [address] Phone: tel: fax: Referral ID Status Reason Start Date Expiration Date Visits Requested Visits Authorized [id number] Pending Review Consult and Treat 03/01/2024 03/01/2025 6 6 Encounter Details Date Type Department Care Team (Late st Contact Info) Description 03/01/2024 Orders Only [facility] MEDICINE [address] [place], [place] [phone] Lisa Tovar MD [address] [place], [place] [phone] Hypertension, unspecified type (Primary Dx); Type 2 diabetes mellitus with hyperglycemia, with long-term current use of insulin ([facility]/HCC) Social History Tobacco Use Types Packs/Day [...] Description 02/04/2025 1:00 PM EST Office Visit [facility] OPTOMETRY [address] [place], [place] [phone] Leah Rosa, OD [address] [place] [address] 02/12/2025 3:30 PM EST Medication Management [facility] MEDICINE [address] [place] [address] Radu Wood, PharmD [address] [place] [address] Scheduled Referrals Name Type Priority Associated Diagnoses Orde r Schedule Referral to Pharmacy CDTM Outpatient Referral Routine Hypertension, unspecified type Type 2 diabetes mellitus with hyperglycemia, with long-term current use of insulin ([facility]/HCC) Ordered: 03/01/2024 documented as of this [...] hyperglycemia, with long-term current use of insulin ([facility]) documented in this encounter Additional Health Concerns Assessment Noted Time PHQ-9 Depression Total Score: 0 02/26/20 24 10:27 AM EST documented as of this encounter Care Teams Foreign Collection Clerk Relationship Specialty Start Date End Date Lisa Tovar MD [address] [place] [address] PCP - General Family Medicine 10/26/20 Radu Wood, KendallD [address] [place] [address] Pharmacist Internal Medicine 02/01/22 Lizz Haile [address] [place] [address] 3rd [place] [address] 11/13/24 documented as of this encounter
[2025-01-09 16:23] LABS: C. trachomatis RNA TMA NOT DETECTED (NOT DETECTED); N. gonorrhoeae RNA TMA NOT DETECTED (NOT DETECTED)
[2025-01-22 11:37] LABS: Trichomonas (NAAT) NOT DETECTED
== END 2025-01-07 17:15 | disposition home or self-care (01) ==
LOC: HO.LNP 17:14
PROVIDERS: Visit Provider Advanced Practice Midwife
DX: Z12.4 Encounter for screening for malignant neoplasm of cervix (principal); Z20.2 Contact with and (suspected) exposure to infections with a predominantly sexual mode of transmission; Z11.51 Encounter for screening for human papillomavirus (HPV)
CPT/HCPCS: 87491; 87591; 87626; 87661; 88175